=== PATIENT | male | born 1985 | race Caucasian/White ===

== ENCOUNTER 2017-10-04 04:52 | Emergency (ER) | payer OTHER ==
--- NOTE | 2017-10-04 05:13 | EDPHYS ---
Physician Documentation [facility] Name: Fransisco Juarez Age: 32 yrs Sex: Male : 1985 Arrival Date: 10/04/2017 Time: 04:55 Bed 20 Private MD: ED Physician Guerrero Chan HPI: 10/04 05:07 This 32 yrs old Male presents to ER via Ambulatory with complaints of Stiff gs Neck, Neck Pain, <24hrs Old. 05:07 The patient or guardian complains of pain, that is acute. The symptoms are located on gs the left trapezius and right trapezius. Onset: The symptoms/episode began/occurred yesterday, and became persistent. Context: The neck injury/problem resulted from standing in ackward position doing work. Associated signs and symptoms: Pertinent negatives: bladder incontinence, bowel incontinence, numbness. Modifying factors: The symptoms are alleviated by nothing. the symptoms are aggravated by movement. Severity of symptoms: At their worst the symptoms were moderate, in the emergency department the symptoms are unchanged. Historical: - Home Meds: 05:04 None [Active]; rv - PMHx: 05:04 Rheumatoid Arthritis; rv - PSHx: 05:04 None; rv - Immunization history:: Adult Immunizations up to date. - Social history:: Smoking status: unknown. - Ebola Screening: : Patient negative for fever greater than or equal to 101.5 degrees Fahrenheit, and additional compatible Ebola Virus Disease symptoms Patient denies exposure to infectious person Patient denies travel to an Ebola-affected area in the 21 days before illness onset. ROS: 05:07 All other systems are negative. gs Exam: 05:07 Head/Face: Normocephalic, atraumatic. Eyes: Pupils equal round and reactive to light, gs extra-ocular motions intact. Lids and lashes normal. Conjunctiva and sclera are non-icteric and not injected. Cornea within normal limits. Periorbital areas with no swelling, redness, or edema. ENT: Nares patent. No nasal discharge, no septal abnormalities noted. Tympanic membranes are normal and external auditory canals are clear. Oropharynx with no redness, swelling, or masses, exudates, or evidence of obstruction, uvula midline. Mucous membranes moist. Chest/axilla: Normal chest wall appearance and motion. Nontender with no deformity. No lesions are appreciated. Cardiovascular: Regular rate and rhythm with a normal S1 and S2. No gallops, murmurs, or rubs. Normal PMI, no JVD. No pulse deficits. Respiratory: Lungs have equal breath sounds bilaterally, clear to auscultation and percussion. No rales, rhonchi or wheezes noted. No increased work of breathing, no retractions or nasal flaring. Abdomen/GI: Soft, non-tender, with normal bowel sounds. No distension or tympany. No guarding or rebound. No evidence of tenderness throughout. Back: No spinal tenderness. No costovertebral tenderness. Full range of motion. Skin: Warm, dry with normal turgor. Normal color with no rashes, no lesions, and no evidence of cellulitis. MS/ Extremity: Pulses equal, no cyanosis. Neurovascular intact. Full, normal range of motion. Neuro: Awake and alert, GCS 15, oriented to person, place, time, and situation. Cranial nerves II-XII grossly intact. Motor strength 5/5 in all extremities. Sensory grossly intact. Cerebellar exam normal. Normal gait. 05:07 Constitutional: The patient appears alert, awake. 05:07 Neck: External neck: tenderness, that is mild, of the left trapezius and right trapezius, ROM/movement: pain, that is mild, with rotation to the left, with rotation to the right. 05:14 Neuro: Deep tendon reflexes are normal. Vital Signs: 05:06 BP 156 / 102; Pulse 79; Resp 16; Temp 98.1; Pulse Ox 98% on R/A; Weight 118.39 kg; rv Height 5 ft. 9 in. (175.26 cm); 05:19 BP 144 / 85; Pulse 59; Resp 16; Pulse Ox 96% ; bp 05:06 Body Mass Index 38.54 (118.39 kg, 175.26 cm) rv MDM: 05:07 Patient medically screened. 05:07 Differential diagnosis: cervical strain, Spondylolisthesis Spondylosis torticollis. Data reviewed: vital signs, nurses notes. Response to treatment: the patient's symptoms have mildly improved after treatment, and as a result, I will discharge patient. 05:15 Counseling: I had a detailed discussion with the patient and/or guardian regarding: the historical points, exam findings, and any diagnostic results supporting the discharge/admit diagnosis, the presence of at least one elevated blood pressure reading (>120/80) during this emergency department visit. Special discussion: I have referred the patient to see his PCP for further evaluation of high blood pressure. Administered Medications: No medications were administered Disposition: 10/04/17 05:13 Discharged to Home. Impression: Sprain of ligaments of cervical spine. - Condition is Stable. - Discharge Instructions: Torticollis, Acute, Cervical Sprain, Managing Your High Blood Pressure. - Prescriptions for Naprosyn 500 mg Oral Tablet - take 1 tablet by ORAL route 2 times per day take with food; 14 tablet. Valium 5 mg Oral Tablet - take 1 tablet by ORAL route every 12 hours As needed; 12 tablet. - Medication Reconciliation Form, Thank You Letter, Antibiotic Education, Prescription Opioid Use form. - Follow up: Private Physician; When: 2 - 3 days; Reason: Re-evaluation by your physician. Signatures: Guerrero Chan MD MD gs Peltier, Brian, RN RN Afshin Hernandez RN RN rv Corrections: (The following items were deleted from the chart) 05:31 05:13 10/04/2017 05:13 Discharged to Home. Impression: Sprain of ligaments of cervical bp spine. Condition is Stable. Forms are Medication Reconciliation Form, Thank You Letter, Antibiotic Education, Prescription Opioid Use. Follow up: Private Physician; When: 2 - 3 days; Reason: Re-evaluation by your physician. gs
--- NOTE | 2017-10-04 05:13 | ER ---
Nurse's Notes [facility] Name: Fransisco Juarez Age: 32 yrs Sex: Male : 1985 Arrival Date: 10/04/2017 Time: 04:55 Bed 20 Private MD: Diagnosis: Sprain of ligaments of cervical spine Presentation: 10/04 05:01 Presenting complaint: Patient states: "cant turn and bend my neck since I wake up". rv Transition of care: patient was not received from another setting of care. Onset of symptoms was October 04, 2017 at 04:00. Risk Assessment: Do you want to hurt yourself or someone else? Patient reports no desire to harm self or others. Initial Sepsis Screen: Does the patient meet any 2 criteria? No. Patient's initial sepsis screen is negative. Does the patient have a suspected source of infection? No. Patient's initial sepsis screen is negative. Care prior to arrival: None. 05:01 Method Of Arrival: Ambulatory rv 05:01 Acuity: AMILCAR 4 rv Triage Assessment: 05:04 General: Appears in no apparent distress. uncomfortable, Behavior is calm, cooperative. rv Pain: Complains of pain in neck. EENT: No signs and/or symptoms were reported regarding the EENT system. Neuro: Level of Consciousness is awake, alert, obeys commands, Oriented to person, place, time, situation. Cardiovascular: Capillary refill < 3 seconds. Respiratory: Airway is patent. GI: No signs and/or symptoms were reported involving the gastrointestinal system. : No signs and/or symptoms were reported regarding the genitourinary system. Derm: Skin is intact. Musculoskeletal: Reports pain in neck unable to turn head side to side. Historical: - Home Meds: 05:04 None [Active]; rv - PMHx: 05:04 Rheumatoid Arthritis; rv - PSHx: 05:04 None; rv - Immunization history:: Adult Immunizations up to date. - Social history:: Smoking status: unknown. - Ebola Screening: : Patient negative for fever greater than or equal to 101.5 degrees Fahrenheit, and additional compatible Ebola Virus Disease symptoms Patient denies exposure to infectious person Patient denies travel to an Ebola-affected area in the 21 days before illness onset. Screenin:02 Abuse screen: Denies threats or abuse. Denies injuries from another. Nutritional rv screening: No deficits noted. Tuberculosis screening: No symptoms or risk factors identified. Fall Risk None identified. Assessment: 05:07 General: Appears in no apparent distress. Behavior is calm, cooperative. Pain: rv Complains of pain in neck. Neuro: Level of Consciousness is awake, alert, obeys commands, Oriented to person, place, time, situation. Cardiovascular: Capillary refill < 3 seconds. Respiratory: Airway is patent. GI: No signs and/or symptoms were reported involving the gastrointestinal system. : No signs and/or symptoms were reported regarding the genitourinary system. EENT: No signs and/or symptoms were reported regarding the EENT system. Derm: Skin is intact. Musculoskeletal: Reports pain in neck unable to turn head side to side. 05:18 Reassessment: PT D/C HOME AMBULATORY, DX WITH TORTICOLLIS. bp Vital Signs: 05:06 BP 156 / 102; Pulse 79; Resp 16; Temp 98.1; Pulse Ox 98% on R/A; Weight 118.39 kg; rv Height 5 ft. 9 in. (175.26 cm); 05:19 BP 144 / 85; Pulse 59; Resp 16; Pulse Ox 96% ; bp 05:06 Body Mass Index 38.54 (118.39 kg, 175.26 cm) rv ED Course: 04:55 Patient arrived in ED. es 05:01 Guerrero Chan MD is Attending Physician. 05:02 Triage completed. rv 05:08 Arm band placed on left wrist. rv 05:09 Patient has correct armband on for positive identification. Bed in low position. Call rv light in reach. Side rails up X 1. Pulse ox on. NIBP on. 05:18 Rebel Seaman, RN is Primary Nurse. bp 05:19 No provider procedures requiring assistance completed. Patient did not have IV access bp during this emergency room visit. Administered Medications: No medications were administered Outcome: 05:13 Discharge ordered by . 05:19 Discharged to home ambulatory. bp 05:19 Condition: stable 05:19 Discharge instructions given to patient, Instructed on discharge instructions, follow up and referral plans. medication usage, Demonstrated understanding of instructions, follow-up care, medications, Prescriptions given X 2. 05:31 Patient left the ED. bp Signatures: Yue Blackman Gregory, MD MD Rebel Seaman, RN RN bp Afshin Kapoor, RN RN rv
[2017-10-04 05:35] VITALS: TEMP 98.1
[2017-10-04 05:37] VITALS: BP 144/85; O2SAT 96
== END 2017-10-04 05:31 | disposition home or self-care (01) ==
LOC: ER 04:52
DX: S13.4XXA Sprain of ligaments of cervical spine, initial encounter (principal); X58.XXXA Exposure to other specified factors, initial encounter; Y93.9 Activity, unspecified; Y92.89 Other specified places as the place of occurrence of the external cause
CPT/HCPCS: 99283

== ENCOUNTER 2017-10-27 14:14 | Emergency (ER) | payer OTHER, SELFPAY ==
[2017-10-27 14:45] LABS: Absolute Lymphocytes (CBC) 2.3 K/uL (0.7-4.9); Absolute Monocytes 0.9 K/uL (0.1-1.3); Absolute Neutrophil 4.7 K/uL (1.8-8.0); Basophils % 1.5 % (0-1.3); Eosinophils % 10.4 % (0-4.4); Hematocrit 43.3 % (39.6-49.0); Lymphocytes % 26.2 % (15.3-44.8); MCH 29.1 pg (27.0-35.0); MPV 7.7 fL (7.6-11.3); Monocytes % 9.7 % (3.3-12.3); RBC Red Blood Cell Count 5.09 M/uL (4.33-5.43)
[2017-10-27] MEDS ORDERED: LORazepam 2 MG/ML VIAL ONE (14:53)
[2017-10-27] MEDS ORDERED: KETOROLAC 30 MG/ML INJ ONE (14:54)
[2017-10-27] MEDS ORDERED: NA CHLORIDE 0.9% 1,000 ML ONE (14:54)
[2017-10-27 15:02] LABS: Albumin 3.6 g/dL (3.4-5.0); Bilirubin Direct 0.2 mg/dL (0-0.2); Bilirubin Total 0.9 mg/dL (0.2-1.0); CKMB Creatine Kinase MB 1.3 ng/mL (0.3-3.6); Magnesium 2.2 mg/dL (1.8-2.4); Potassium 3.9 mmol/L (3.5-5.1); Protein, Total 7.3 g/dL (6.4-8.2)
[2017-10-27 15:08] LABS: Protime INR 1.05
[2017-10-27] MEDS ORDERED: DIAZEPAM 10 MG/2 ML INJ SYRINGE ONE (15:35)
--- NOTE | 2017-10-27 16:45 | RAD REPORT ---
EXAM DESCRIPTION: [facility] Single View10/27/2017 4:10 pm CLINICAL HISTORY: Chest pain COMPARISON: June 2016 FINDINGS: The lungs appear clear of acute infiltrate. The heart is normal size IMPRESSION: No acute abnormalities displayed
[2017-10-27 16:58] LABS: Urine Blood NEGATIVE (NEG); Urine Glucose 1+ (NEG); Urine Protein NEGATIVE (NEG); Urine Specific Gravity 1.025 (1.005-1.030); Urine pH 5.5 (5.0-7.0)
--- NOTE | 2017-10-27 17:35 | EDPHYS ---
Physician Documentation [facility] Name: Fransisco Juarez Age: 32 yrs Sex: Male : 1985 Arrival Date: 10/27/2017 Time: 14:19 Bed 3 Private MD: ED Physician Galina Rodriguez HPI: 10/27 14:26 This 32 yrs old Male presents to ER via Unassigned with complaints of General ma2 Weakness. 14:26 Onset: The symptoms/episode began/occurred gradually, 2 day(s) ago. Severity of ma2 symptoms: At their worst the symptoms were moderate in the emergency department the symptoms are unchanged. The patient has experienced similar episodes in the past. here with sudden generalized weakness . Historical: - Allergies: 14:33 No Known Allergies; ph - Home Meds: 14:33 None [Active]; ph - PMHx: 14:33 Rheumatoid Arthritis; ph - PSHx: 14:33 None; ph - Immunization history:: Adult Immunizations unknown. - Social history:: Smoking status: Patient/guardian denies using tobacco, Patient/guardian denies using alcohol, street drugs, The patient lives with family. - Ebola Screening: : No symptoms or risks identified at this time. ROS: 14:37 Constitutional: Negative for fever, chills, and weight loss. ma2 14:37 Constitutional: Positive for fatigue, malaise. 14:37 Neuro: Positive for weakness. 14:37 All other systems are negative. 14:37 All other systems are negative. Exam: 14:37 Head/Face: Normocephalic, atraumatic. Chest/axilla: Normal chest wall appearance and ma2 motion. Nontender with no deformity. No lesions are appreciated. Cardiovascular: Regular rate and rhythm with a normal S1 and S2. No gallops, murmurs, or rubs. Normal PMI, no JVD. No pulse deficits. Respiratory: Lungs have equal breath sounds bilaterally, clear to auscultation and percussion. No rales, rhonchi or wheezes noted. No increased work of breathing, no retractions or nasal flaring. Abdomen/GI: Soft, non-tender, with normal bowel sounds. No distension or tympany. No guarding or rebound. No evidence of tenderness throughout. 14:37 Neuro: strength 4/5 all over. 14:37 Neuro: Motor: 4/5 all over. Vital Signs: 14:28 BP 137 / 85; Pulse 85; Resp 18; Temp 98.2; Pulse Ox 98% on R/A; ph 15:30 BP 141 / 81; Pulse 81; Resp 18; Pulse Ox 99% on R/A; ph 16:51 BP 135 / 84; Pulse 85; Resp 18; Pulse Ox 100% on R/A; ph 17:57 BP 129 / 87; Pulse 93; Resp 16; Temp 97.8; Pulse Ox 98% on R/A; ph MDM: 14:19 Patient medically screened. ma2 14:37 Differential Diagnosis electrolyte abnormality, hyperventilation, hypocalcemia, viral ma2 prodrome . 17:33 Data reviewed: vital signs, nurses notes, EMS record, lab test result(s), EKG, ma2 radiologic studies. Data interpreted: cafeteria monitor:. Test interpretation: by ED physician or midlevel provider: ECG, plain radiologic studies. Counseling: I had a detailed discussion with the patient and/or guardian regarding: the historical points, exam findings, and any diagnostic results supporting the discharge/admit diagnosis, the presence of at least one elevated blood pressure reading (>120/80) during this emergency department visit, radiology results, the need for outpatient follow up. Response to treatment: the patient's symptoms have markedly improved after treatment, the patient's condition has returned to base line, symptoms improved, including headache generalized weakness and extremities numbness, workup non critical he is able to walk with out assistance and able to tolerate po, will d/c home and he will f/u with pcp . 10/27 14:24 Order name: Basic Metabolic Panel; Complete Time: 15:17 10/27 14:24 Order name: CBC with Diff; Complete Time: 15:17 10/27 14:24 Order name: Ckmb; Complete Time: 15:17 10/27 14:24 Order name: CPK; Complete Time: 15:17 10/27 14:24 Order name: LFT's; Complete Time: 15:17 10/27 14:24 Order name: Magnesium; Complete Time: 15:17 10/27 14:24 Order name: NT PRO-BNP; Complete Time: 15:17 10/27 14:24 Order name: PT-INR; Complete Time: 15:17 10/27 14:24 Order name: Ptt, Activated; Complete Time: 15:17 10/27 14:24 Order name: Troponin (emerg Dept Use Only); Complete Time: 15:17 10/27 14:24 Order name: XRAY Chest (1 view); Complete Time: 16:53 10/27 15:59 Order name: Urine Dipstick--Ancillary (enter results); Complete Time: 17:36 ss 10/27 14:24 Order name: EKG; Complete Time: 14:24 10/27 14:24 Order name: Cardiac monitoring; Complete Time: 14:31 10/27 14:24 Order name: EKG - Nurse/Tech; Complete Time: 15:56 10/27 14:24 Order name: IV Saline Lock; Complete Time: 14:31 10/27 14:24 Order name: Labs collected and sent; Complete Time: 14:31 10/27 14:24 Order name: O2 Per Protocol; Complete Time: 14:31 10/27 14:24 Order name: O2 Sat Monitoring; Complete Time: 14:31 10/27 14:24 Order name: Urine Dipstick-Ancillary (obtain specimen); Complete Time: 15:53 10/27 15:22 Order name: O2; Complete Time: 15:29 10/27 17:26 Order name: Diet Regular; Complete Time: 17:27 ss Administered Medications: 14:50 Drug: NS 0.9% 1000 ml Route: IV; Rate: 1 bolus; Site: right antecubital; ph 18:35 Follow up: Response: No adverse reaction; IV Status: Completed infusion ph 14:50 Drug: Ativan 2 mg Route: IVP; Site: right antecubital; ph 16:00 Follow up: Response: No adverse reaction ph 14:50 Drug: TORadol 30 mg Route: IVP; Site: right antecubital; ph 16:00 Follow up: Response: No adverse reaction; Pain is decreased ph 15:35 Drug: Valium 10 mg Route: IVP; Site: right antecubital; sv 16:00 Follow up: Response: No adverse reaction ph Disposition: 10/27/17 17:35 Discharged to Home. Impression: Muscle weakness (generalized). - Condition is Stable. - Discharge Instructions: Weakness, [id number]. - Medication Reconciliation Form, Thank You Letter, Antibiotic Education, Prescription Opioid Use form. - Follow up: Private Physician; When: Tomorrow; Reason: Continuance of care. - Problem is new. - Symptoms have improved. Signatures: Dispatcher [employer] Veronica Griffin RN RN Latoya Hickman RN RN PeterGalina nicolas MD MD ma2 Corrections: (The following items were deleted from the chart) 18:36 17:35 10/27/2017 17:35 Discharged to Home. Impression: Muscle weakness (generalized). ph Condition is Stable. Forms are Medication Reconciliation Form, Thank You Letter, Antibiotic Education, Prescription Opioid Use. Follow up: Private Physician; When: Tomorrow; Reason: Continuance of care. Problem is new. Symptoms have improved. ma2
--- NOTE | 2017-10-27 17:35 | ER ---
Nurse's Notes [facility] Name: Fransisco Juarez Age: 32 yrs Sex: Male : 1985 Arrival Date: 10/27/2017 Time: 14:19 Bed 3 Private MD: Diagnosis: Muscle weakness (generalized) Presentation: 10/27 14:25 Presenting complaint: EMS states: Pt c/o general weakness, dizziness and numbness in ph tips of fingers and toes, pt very drowsy when EMS arrived, VSS, hx of RA. Transition of care: patient was not received from another setting of care. Onset of symptoms was October 27, 2017. Risk Assessment: Do you want to hurt yourself or someone else? Patient reports no desire to harm self or others. Initial Sepsis Screen: Does the patient meet any 2 criteria? No. Patient's initial sepsis screen is negative. Does the patient have a suspected source of infection? No. Patient's initial sepsis screen is negative. Care prior to arrival: None. 14:25 Method Of Arrival: EMS: [facility] ph 14:25 Acuity: AMILCAR 3 ph Historical: - Allergies: 14:33 No Known Allergies; ph - Home Meds: 14:33 None [Active]; ph - PMHx: 14:33 Rheumatoid Arthritis; ph - PSHx: 14:33 None; ph - Immunization history:: Adult Immunizations unknown. - Social history:: Smoking status: Patient/guardian denies using tobacco, Patient/guardian denies using alcohol, street drugs, The patient lives with family. - Ebola Screening: : No symptoms or risks identified at this time. Screenin:34 Abuse screen: Denies threats or abuse. Denies injuries from another. Nutritional ph screening: No deficits noted. Tuberculosis screening: No symptoms or risk factors identified. Fall Risk None identified. Assessment: 14:35 General: Appears in no apparent distress. comfortable, obese, Behavior is calm, ph cooperative, appropriate for age, Reports fatigue for 0-12 hours, Denies fever, feeling ill. Pain: Complains of pain in low back area. Neuro: Level of Consciousness is awake, alert, obeys commands, Oriented to person, place, time, situation. Cardiovascular: Reports fatigue, lightheadedness, Denies chest pain, Capillary refill < 3 seconds in bilateral fingers Patient's skin is warm and dry. Respiratory: Airway is patent Respiratory effort is even, unlabored, Respiratory pattern is regular, symmetrical, Denies cough, shortness of breath. GI: Abdomen is round non-distended, Bowel sounds present X 4 quads. Abd is soft and non tender X 4 quads. Reports diarrhea, Patient currently denies abdominal pain, nausea, vomiting. : Reports pain in bilateral flank(s), in lower back Denies burning with urination, inability to void, urinary frequency. Derm: Skin is intact, is healthy with good turgor, Skin is pink, warm \\T\\ dry. Musculoskeletal: Circulation, motion, and sensation intact. Range of motion: intact in all extremities. 15:30 Reassessment: Patient and/or family updated on plan of care and expected duration. Pain ph level reassessed. Patient is alert, oriented x 3, equal unlabored respirations, skin warm/dry/pink. Pt c/o pain in back, appears anxious w/ tachypneic respirations noted, NRB in place w/ no O2 per provider order, see MAR. 15:45 Reassessment: Patient appears in no apparent distress at this time. Pt asleep w/ even, ph unlabored respirations, NRB mask removed. 16:30 Reassessment: Patient appears in no apparent distress at this time. Patient is alert, ph oriented x 3, equal unlabored respirations, skin warm/dry/pink. Pt sitting up in bed, appears less anxious, also appears more alert compared to drowsy state upon arrival to ED, reports that back pain has improved, states, " I still have a little twinge but it feels better than it did.". 16:41 Reassessment: Patient appears in no apparent distress at this time. Patient and/or ph family updated on plan of care and expected duration. Pain level reassessed. Patient is alert, oriented x 3, equal unlabored respirations, skin warm/dry/pink. Pt requesting nurse at bedside, states, " My hand is blue, it wasn't like that before." Area noted on palm of L hand under thumb, blue and purple in appearance, warm to touch, appears to be a bruise, ERP notified of pt's concern. 17:04 Reassessment: Pt attempted to ambulate in the hallway. Pt c/o dizziness. Pt sat in a sv wheelchair and placed back in the stretcher. Dr Rodriguez informed. 17:55 Reassessment: Patient appears in no apparent distress at this time. Patient and/or ph family updated on plan of care and expected duration. Pain level reassessed. Patient is alert, oriented x 3, equal unlabored respirations, skin warm/dry/pink. Pt sitting up in bed, given dinner tray and is eating now, tolerating well, will discharge when pt has finished dinner, at bedside. 18:32 Reassessment: Patient appears in no apparent distress at this time. Patient and/or ph family updated on plan of care and expected duration. Pain level reassessed. Patient is alert, oriented x 3, equal unlabored respirations, skin warm/dry/pink. Pt d/c home, [facility] w/ no difficulty noted, denies dizziness. Vital Signs: 14:28 BP 137 / 85; Pulse 85; Resp 18; Temp 98.2; Pulse Ox 98% on R/A; ph 15:30 BP 141 / 81; Pulse 81; Resp 18; Pulse Ox 99% on R/A; ph 16:51 BP 135 / 84; Pulse 85; Resp 18; Pulse Ox 100% on R/A; ph 17:57 BP 129 / 87; Pulse 93; Resp 16; Temp 97.8; Pulse Ox 98% on R/A; ph ED Course: 14:19 Patient arrived in ED. ss 14:19 Galina Rodriguez MD is Attending Physician. ma2 14:24 Inserted saline lock: 20 gauge in right antecubital area, using aseptic technique. ss Blood collected. 14:25 Latoya Hickman, RAGHAVENDRA is Primary Nurse. ph 14:28 Triage completed. ph 14:34 Arm band placed on. ph 14:35 Patient has correct armband on for positive identification. Bed in low position. Call ph light in reach. Side rails up X 1. Pulse ox on. NIBP on. Warm blanket given. 16:09 XRAY Chest (1 view) In Process Unspecified. EDMS 16:45 No provider procedures requiring assistance completed. ph 18:36 IV discontinued, intact, bleeding controlled, No redness/swelling at site. Pressure ph dressing applied. Administered Medications: 14:50 Drug: NS 0.9% 1000 ml Route: IV; Rate: 1 bolus; Site: right antecubital; ph 18:35 Follow up: Response: No adverse reaction; IV Status: Completed infusion ph 14:50 Drug: Ativan 2 mg Route: IVP; Site: right antecubital; ph 16:00 Follow up: Response: No adverse reaction ph 14:50 Drug: TORadol 30 mg Route: IVP; Site: right antecubital; ph 16:00 Follow up: Response: No adverse reaction; Pain is decreased ph 15:35 Drug: Valium 10 mg Route: IVP; Site: right antecubital; sv 16:00 Follow up: Response: No adverse reaction ph Outcome: 17:35 Discharge ordered by MD. irvin 18:36 Discharged to home ambulatory, with significant other. ph 18:36 Condition: improved 18:36 Discharge instructions given to patient, Instructed on discharge instructions, follow up and referral plans. Demonstrated understanding of instructions, follow-up care. 18:36 Patient left the ED. ph Signatures: Dispatcher [employer] Veronica Griffin RN RN sv Smirch, Shelby, RN RN ss Hall, Patricia, RN RN ph Alzahri, Mohammad, MD MD ma2
[2017-10-27 18:50] VITALS: BP 129/87; TEMP 97.8; O2SAT 98
--- NOTE | 2017-10-28 06:48 | EKG ---
Test Date: 2017-10-27 Test Time: 16:27:15 Lead Java Programmer: LENCHO MEASUREMENT RESULTS: Intervals: Rate: 78 AL: 140 QRSD: 82 QT: 392 QTc: 446 [place]: P: 30 AL: 140 QRS: 62 T: 30 INTERPRETIVE STATEMENTS: Normal sinus rhythm Nonspecific T wave abnormality Abnormal ECG Compared to ECG 06/12/2016 10:17:14 T-wave abnormality now present Electronically Signed On 10-28-17 06:48:10 CDT by Mark Boone
== END 2017-10-27 18:36 | disposition home or self-care (01) ==
LOC: ER 14:14
DX: M62.81 Muscle weakness (generalized) (principal)
CPT/HCPCS: 36415; 71045; 80048; 80076; 81003; 82550; 82553; 83735; 83880; 84484; 85025; 85610; 85730; 93005; 96361; 96374; 96375; 99284; J3360; J7030

== ENCOUNTER 2017-11-17 12:34 | Emergency (ER) | payer OTHER ==
[2017-11-17 13:36] LABS: Urine Blood 2+ (NEG); Urine Glucose NEGATIVE (NEG); Urine Protein NEGATIVE (NEG); Urine Specific Gravity 1.025 (1.005-1.030); Urine pH 5.5 (5.0-7.0)
[2017-11-17 13:48] LABS: Absolute Monocytes 0.8 K/uL (0.1-1.3); Absolute Neutrophil 5.1 K/uL (1.8-8.0); Eosinophils % 6.3 % (0-4.4); Hematocrit 41.8 % (39.6-49.0); Lymphocytes % 23.5 % (15.3-44.8); MCH 29.1 pg (27.0-35.0); MCV 84.7 fL (80-100); MPV 7.9 fL (7.6-11.3); Monocytes % 9.2 % (3.3-12.3); RBC Red Blood Cell Count 4.94 M/uL (4.33-5.43)
--- NOTE | 2017-11-17 13:58 | RAD REPORT ---
EXAM DESCRIPTION: CT - Stone Protocol - 11/17/2017 1:47 pm CLINICAL HISTORY: Abdominal pain. Left lower quadrant pain/dysuria COMPARISON: 2012 TECHNIQUE: Computed axial tomography of the abdomen pelvis was obtained without oral or IV contrast. Lack of IV and oral contrast limits evaluation of solid organs, bowel, and vessels. Coronal reformat dora images were obtained and reviewed. All CT scans are performed using dose optimization technique as appropriate and may include automated exposure control or mA/KV adjustment according to patient size. FINDINGS: Small nonobstructing bilateral renal calculi are present without hydronephrosis. A uretera l calculus is not seen. A bladder calculus is not visualized. Fatty infiltration liver is present. Spleen, pancreas and adrenals appear grossly normal There is no evidence of diverticulitis. The appendix appears normal Small inguinal hernias contain fat. Tiny umbilical hernia is present. IMPRESSION: Nonobstructing bilateral renal calculi
--- NOTE | 2017-11-17 14:05 | EDPHYS ---
Physician Documentation [facility] Name: Fransisco Juarez Age: 32 yrs Sex: Male : 1985 Arrival Date: 11/17/2017 Time: 12:41 Bed 23 Private MD: None, None ED Physician Tomasz Sterling HPI: 11/17 14:02 This 32 yrs old Male presents to ER via Ambulatory with complaints of jr8 Abdominal Pain, Urinary Problem. 14:02 The patient presents with abdominal pain in the left lower quadrant. Onset: The jr8 symptoms/episode began/occurred acutely, today. The symptoms do not radiate. Associated signs and symptoms: Pertinent positives: dysuria. The symptoms are described as achy, dull. Modifying factors: The symptoms are alleviated by nothing, the symptoms are aggravated by urinating. Severity of pain: At its worst the pain was mild in the emergency department the pain is unchanged. The patient has experienced similar episodes in the past, a few times. The patient has not recently seen a physician. Stated that he thinks he has another kidney stone. Stated that while urinating here thinks he may have passed it. Pain is less and stone present in urine . Historical: - Allergies: 13:03 No Known Allergies; ch - Home Meds: 13:03 None [Active]; ch - PMHx: 13:03 Rheumatoid Arthritis; Kidney stones; ch - PSHx: 13:03 abdominal abscess behind belly button removed; ch - Immunization history:: Adult Immunizations up to date. - Social history:: Smoking status: Patient/guardian denies using tobacco. - Ebola Screening: : Patient negative for fever greater than or equal to 101.5 degrees Fahrenheit, and additional compatible Ebola Virus Disease symptoms Patient denies exposure to infectious person Patient denies travel to an Ebola-affected area in the 21 days before illness onset No symptoms or risks identified at this time. ROS: 14:02 Eyes: Negative for injury, pain, redness, and discharge, ENT: Negative for injury, jr8 pain, and discharge, Neck: Negative for injury, pain, and swelling, Cardiovascular: Negative for chest pain, palpitations, and edema, Respiratory: Negative for shortness of breath, cough, wheezing, and pleuritic chest pain, MS/Extremity: Negative for injury and deformity, Skin: Negative for injury, rash, and discoloration, Neuro: Negative for headache, weakness, numbness, tingling, and seizure. 14:02 Abdomen/GI: Positive for abdominal pain, Negative for nausea, vomiting, and diarrhea, abdominal cramps, abdominal distension, anorexia, dysphagia, hematemesis, black/tarry stool, rectal pain, rectal bleeding, bowel incontinence, flatulence. 14:02 : Positive for urinary symptoms. Exam: 14:02 Eyes: Pupils equal round and reactive to light, extra-ocular motions intact. Lids and jr8 lashes normal. Conjunctiva and sclera are non-icteric and not injected. Cornea within normal limits. Periorbital areas with no swelling, redness, or edema. ENT: Nares patent. No nasal discharge, no septal abnormalities noted. Tympanic membranes are normal and external auditory canals are clear. Oropharynx with no redness, swelling, or masses, exudates, or evidence of obstruction, uvula midline. Mucous membranes moist. Neck: Trachea midline, no thyromegaly or masses palpated, and no cervical lymphadenopathy. Supple, full range of motion without nuchal rigidity, or vertebral point tenderness. No Meningismus. Cardiovascular: Regular rate and rhythm with a normal S1 and S2. No gallops, murmurs, or rubs. Normal PMI, no JVD. No pulse deficits. Respiratory: Lungs have equal breath sounds bilaterally, clear to auscultation and percussion. No rales, rhonchi or wheezes noted. No increased work of breathing, no retractions or nasal flaring. Back: No spinal tenderness. No costovertebral tenderness. Full range of motion. Skin: Warm, dry with normal turgor. Normal color with no rashes, no lesions, and no evidence of cellulitis. MS/ Extremity: Pulses equal, no cyanosis. Neurovascular intact. Full, normal range of motion. Neuro: Awake and alert, GCS 15, oriented to person, place, time, and situation. Cranial nerves II-XII grossly intact. Motor strength 5/5 in all extremities. Sensory grossly intact. Cerebellar exam normal. Normal gait. 14:02 Abdomen/GI: Inspection: obese Bowel sounds: normal, Palpation: soft, in all quadrants, mild abdominal tenderness, in the left lower quadrant, mass, is not appreciated, rebound tenderness, is not appreciated, voluntary guarding, is not appreciated, involuntary guarding, is not appreciated, no appreciated organomegaly, Indicators: McBurney's point is not tender, Lopez's sign is negative, Rovsing's sign is negative, Liver: no appreciated palpable abnormalities, tenderness, is not appreciated. Vital Signs: 13:03 BP 130 / 90; Pulse 79; Resp 14; Temp 98.6(O); Pulse Ox 99% on R/A; Weight 117.93 kg; ch Height 5 ft. 9 in. (175.26 cm); Pain 3/10; 13:03 Body Mass Index 38.39 (117.93 kg, 175.26 cm) ch MDM: 13:08 Patient medically screened. jr8 14:04 Data reviewed: vital signs, nurses notes, lab test result(s), radiologic studies, CT jr8 scan, and as a result, I will discharge patient. Data interpreted: Pulse oximetry: on room air is 99 %. Interpretation: normal. Counseling: I had a detailed discussion with the patient and/or guardian regarding: the historical points, exam findings, and any diagnostic results supporting the discharge/admit diagnosis, lab results, radiology results, the need for outpatient follow up, a urologist, to return to the emergency department if symptoms worsen or persist or if there are any questions or concerns that arise at home. 11/17 13:31 Order name: Urine Dipstick--Ancillary (enter results); Complete Time: 13:37 bd 11/17 13:35 Order name: CBC with Diff; Complete Time: 14:01 jr8 11/17 13:35 Order name: Basic Metabolic Panel; Complete Time: 14:05 jr8 11/17 13:35 Order name: IV; Complete Time: 13:41 jr8 11/17 13:35 Order name: CT Stone Protocol; Complete Time: 14:01 jr8 Administered Medications: No medications were administered Disposition: 11/18 14:13 Co-signature as Attending Physician, Tomasz Sterling MD I agree with the assessment and ronnie plan of care. Disposition: 11/17/17 14:04 Discharged to Home. Impression: Kidney stones . - Condition is Stable. - Discharge Instructions: Kidney Stones. - Medication Reconciliation Form, Thank You Letter, Antibiotic Education, Prescription Opioid Use form. - Follow up: Private Physician; When: 2 - 3 days; Reason: Recheck today's complaints, Continuance of care, Re-evaluation by your physician. - Problem is new. - Symptoms have improved. Signatures: Dispatcher [employer] EDRaquel Benedict, RN RN Tomasz Ho MD MD cha Williams, Irene, RN RN Kevin Ann PA PA jr8 Corrections: (The following items were deleted from the chart) 11/17 14:29 14:04 11/17/2017 14:04 Discharged to Home. Impression: Kidney stones . Condition is iw Stable. Forms are Medication Reconciliation Form, Thank You Letter, Antibiotic Education, Prescription Opioid Use. Follow up: Private Physician; When: 2 - 3 days; Reason: Recheck today's complaints, Continuance of care, Re-evaluation by your physician. Problem is new. Symptoms have improved. jr8
--- NOTE | 2017-11-17 14:05 | ER ---
Nurse's Notes [facility] Name: Fransisco Juarez Age: 32 yrs Sex: Male : 1985 Arrival Date: 11/17/2017 Time: 12:41 Bed 23 Private MD: None, None Diagnosis: Kidney stones Presentation: 11/17 13:01 Presenting complaint: Patient states: pain to llq, feels like a kidney stone. pt has hx ch of kidney stones. difficulty urinating, burning with urination as well. states pain comes and goes, is a sharp stabbing pain when it comes. Transition of care: patient was not received from another setting of care. Onset of symptoms was November 17, 2017 at 11:30. Risk Assessment: Do you want to hurt yourself or someone else? Patient reports no desire to harm self or others. Initial Sepsis Screen: Does the patient meet any 2 criteria? No. Patient's initial sepsis screen is negative. Does the patient have a suspected source of infection? No. Patient's initial sepsis screen is negative. Care prior to arrival: None. 13:01 Method Of Arrival: Ambulatory 13:01 Acuity: AMILCAR 3 ch Triage Assessment: 13:03 General: Appears in no apparent distress. comfortable, Behavior is calm, cooperative, ch appropriate for age. Pain: Complains of pain in anterior aspect of left lateral abdomen and left lower quadrant Pain radiates to pelvis Quality of pain is described as pressure, sharp. Neuro: No deficits noted. Respiratory: Airway is patent Respiratory effort is even, unlabored, Breath sounds are clear bilaterally. GI: Abdomen is round non-distended, Bowel sounds present X 4 quads. Abd is soft and non tender X 4 quads. : Denies burning with urination, pain urinary frequency. Derm: No signs and/or symptoms reported regarding the dermatologic system. Historical: - Allergies: 13:03 No Known Allergies; ch - Home Meds: 13:03 None [Active]; ch - PMHx: 13:03 Rheumatoid Arthritis; Kidney stones; ch - PSHx: 13:03 abdominal abscess behind belly button removed; ch - Immunization history:: Adult Immunizations up to date. - Social history:: Smoking status: Patient/guardian denies using tobacco. - Ebola Screening: : Patient negative for fever greater than or equal to 101.5 degrees Fahrenheit, and additional compatible Ebola Virus Disease symptoms Patient denies exposure to infectious person Patient denies travel to an Ebola-affected area in the 21 days before illness onset No symptoms or risks identified at this time. Screenin:06 Abuse screen: Denies threats or abuse. Denies injuries from another. Nutritional screening: No deficits noted. Tuberculosis screening: No symptoms or risk factors identified. Fall Risk None identified. Assessment: 13:06 Reassessment: Patient appears in no apparent distress at this time. No changes from previously documented assessment. 14:27 Reassessment: Patient appears in no apparent distress at this time. Patient and/or iw family updated on plan of care and expected duration. Pain level reassessed. Patient is alert, oriented x 3, equal unlabored respirations, skin warm/dry/pink. Patient states feeling better. Patient states symptoms have improved. Vital Signs: 13:03 BP 130 / 90; Pulse 79; Resp 14; Temp 98.6(O); Pulse Ox 99% on R/A; Weight 117.93 kg; ch Height 5 ft. 9 in. (175.26 cm); Pain 3/10; 13:03 Body Mass Index 38.39 (117.93 kg, 175.26 cm) ED Course: 12:41 Patient arrived in ED. mr 12:41 None, None is Private Physician. mr 13:01 Raquel Esteban, RN is Primary Nurse. 13:03 Triage completed. 13:03 Arm band placed on left wrist. Patient placed in an exam room, on a stretcher, Patient ch notified of wait time. 13:06 No apparent distress. Resting quietly. 13:06 Patient has correct armband on for positive identification. Placed in gown. Bed in low ch position. Call light in reach. Side rails up X 1. Adult w/ patient. Pulse ox on. NIBP on. 13:06 No provider procedures requiring assistance completed. Urine collected: clean catch specimen. 13:07 Kevin Kelly PA is PHCP. jr8 13:07 Tomasz Sterling MD is Attending Physician. jr8 13:41 Inserted saline lock: 18 gauge in right upper arm, using aseptic technique. Blood collected. 13:46 CT completed. Patient tolerated procedure well. Patient moved to CT. Patient moved back id from CT. 13:47 CT Stone Protocol In Process Unspecified. EDMS 14:29 IV discontinued, intact, bleeding controlled, No redness/swelling at site. Pressure iw dressing applied. Administered Medications: No medications were administered Outcome: 14:04 Discharge ordered by MD. pope 14:28 Discharged to home ambulatory, with family. iw 14:28 Condition: good 14:28 Discharge instructions given to patient, family, Instructed on discharge instructions, follow up and referral plans. Demonstrated understanding of instructions, follow-up care. 14:29 Patient left the ED. iw Signatures: Dispatcher [employer] EDMS Raquel Esteban, RN RN Mary Ann Lisa Irene RN RN iw Kevin Kelly PA PA jr8 Jordan, Nathan nj
[2017-11-17 14:42] VITALS: BP 130/90; TEMP 98.6; O2SAT 99
== END 2017-11-17 14:29 | disposition home or self-care (01) ==
LOC: ER 12:34
DX: N20.0 Calculus of kidney (principal)
CPT/HCPCS: 36415; 74176; 76377; 80048; 81003; 85025; 99284

== ENCOUNTER 2018-04-08 17:23 | Emergency (ER) | payer OTHER ==
--- NOTE | 2018-04-08 18:39 | ER ---
Nurse's Notes [facility] Name: Fransisco Juarez Age: 33 yrs Sex: Male : 1985 Arrival Date: 04/08/2018 Time: 17:28 Bed 16 Private MD: Diagnosis: Diarrhea, unspecified Presentation: 04/08 17:39 Presenting complaint: Patient states: SOB, nausea, "diarrhea like symptoms", headache, aj and fever since yesterday. Transition of care: patient was not received from another setting of care. Onset of symptoms was April 07, 2018. Risk Assessment: Do you want to hurt yourself or someone else? Patient reports no desire to harm self or others. Initial Sepsis Screen: Does the patient meet any 2 criteria? No. Patient's initial sepsis screen is negative. Does the patient have a suspected source of infection? No. Patient's initial sepsis screen is negative. Care prior to arrival: None. 17:39 Method Of Arrival: Ambulatory aj 17:39 Acuity: AMILCAR 4 aj Triage Assessment: 17:40 General: Appears in no apparent distress. comfortable, Behavior is calm, cooperative, aj appropriate for age. Pain: Complains of pain in face. Neuro: Level of Consciousness is awake, alert, obeys commands, Oriented to person, place, time, situation, Appropriate for age Reports headache. Respiratory: Airway is patent Respiratory effort is even, unlabored, Respiratory pattern is regular, symmetrical. GI: Reports nausea. Derm: Skin is intact, is healthy with good turgor, Skin is pink, warm \\T\\ dry. normal. Historical: - Allergies: 17:40 No Known Allergies; aj - Home Meds: 17:40 None [Active]; aj - PMHx: 17:40 Rheumatoid Arthritis; Kidney stones; aj - PSHx: 17:40 abdominal abscess behind belly button removed; aj - Immunization history:: Adult Immunizations up to date. - Social history:: Smoking status: Patient/guardian denies using tobacco, Patient/guardian denies using alcohol, street drugs, The patient lives with family. - Ebola Screening: : Patient negative for fever greater than or equal to 101.5 degrees Fahrenheit, and additional compatible Ebola Virus Disease symptoms Patient denies exposure to infectious person Patient denies travel to an Ebola-affected area in the 21 days before illness onset No symptoms or risks identified at this time. - Family history:: not pertinent. - Hospitalizations: : No recent hospitalization is reported. Screenin:31 Abuse screen: Denies threats or abuse. Denies injuries from another. Nutritional sv screening: No deficits noted. Tuberculosis screening: No symptoms or risk factors identified. Fall Risk None identified. Assessment: 18:30 General: Appears in no apparent distress. comfortable, well developed, Behavior is sv calm, cooperative, appropriate for age. Pain: Denies pain. Neuro: Level of Consciousness is awake, alert, obeys commands, Oriented to person, place, time, situation, Moves all extremities. Full function Gait is steady, Speech is normal. Respiratory: Respiratory effort is even, unlabored, Respiratory pattern is regular, symmetrical. GI: Reports diarrhea, nausea, vomiting. Vital Signs: 17:40 BP 132 / 88; Pulse 104; Resp 20; Temp 97.9; Pulse Ox 99% on R/A; Weight 117.93 kg; aj Height 5 ft. 9 in. (175.26 cm); 17:40 Body Mass Index 38.39 (117.93 kg, 175.26 cm) aj ED Course: 17:28 Patient arrived in ED. rg4 17:40 Triage completed. aj 17:40 Arm band placed on left wrist. Patient placed in waiting room, Patient notified of wait aj time. 18:22 Galina Rodriguez MD is Attending Physician. ma2 18:31 Veronica Watts RN is Primary Nurse. sv 18:31 Patient has correct armband on for positive identification. Bed in low position. Door sv closed. Head of bed elevated. 18:58 No provider procedures requiring assistance completed. Patient did not have IV access sv during this emergency room visit. Administered Medications: No medications were administered Outcome: 18:39 Discharge ordered by . ma2 18:58 Discharged to home ambulatory. sv 18:58 Condition: stable 18:58 Discharge instructions given to patient, Instructed on discharge instructions, follow up and referral plans. medication usage, Demonstrated understanding of instructions, follow-up care, medications, Prescriptions given X 1. 18:59 Patient left the ED. sv Signatures: Veronica Watts RN RN sv Myers, Amanda, RN RN aj Garcia, Rubi rg4 Galina Rodriguez MD MD [facility]
--- NOTE | 2018-04-08 18:39 | EDPHYS ---
Physician Documentation [facility] Name: Fransisco Juarez Age: 33 yrs Sex: Male : 1985 Arrival Date: 04/08/2018 Time: 17:28 Bed 16 Private MD: ED Physician Galina Rodriguez HPI: 04/08 18:36 This 33 yrs old Male presents to ER via Ambulatory with complaints of Nausea, ma2 Abdominal Pain, Fever, Headache. 18:36 The patient presents to the emergency department with nausea, vomiting, diarrhea. ma2 Onset: The symptoms/episode began/occurred gradually, 1 day(s) ago. Possible causes: unknown. Associated signs and symptoms: Pertinent negatives: abdominal pain, anorexia, belching, constipation, diarrhea, dysuria, flatulence. Severity of symptoms: At their worst the symptoms were mild in the emergency department the symptoms are unchanged. The patient has not experienced similar symptoms in the past. Historical: - Allergies: 17:40 No Known Allergies; aj - Home Meds: 17:40 None [Active]; aj - PMHx: 17:40 Rheumatoid Arthritis; Kidney stones; aj - PSHx: 17:40 abdominal abscess behind belly button removed; aj - Immunization history:: Adult Immunizations up to date. - Social history:: Smoking status: Patient/guardian denies using tobacco, Patient/guardian denies using alcohol, street drugs, The patient lives with family. - Ebola Screening: : Patient negative for fever greater than or equal to 101.5 degrees Fahrenheit, and additional compatible Ebola Virus Disease symptoms Patient denies exposure to infectious person Patient denies travel to an Ebola-affected area in the 21 days before illness onset No symptoms or risks identified at this time. - Family history:: not pertinent. - Hospitalizations: : No recent hospitalization is reported. ROS: 18:36 Constitutional: Negative for fever, chills, and weight loss. ma2 18:36 Eyes: Negative for injury, pain, redness, and discharge, ENT: Negative for injury, pain, and discharge, Neck: Negative for injury, pain, and swelling, Psych: Negative for depression, anxiety, suicide ideation, homicidal ideation, and hallucinations, Allergy/Immunology: Negative for hives, rash, and allergies, Endocrine: Negative for neck swelling, polydipsia, polyuria, polyphagia, and marked weight changes. 18:36 Abdomen/GI: Positive for nausea, vomiting, and diarrhea, Negative for abdominal pain, constipation, abdominal distension, black/tarry stool, rectal pain, flatulence. Exam: 18:36 Constitutional: This is a well developed, well nourished patient who is awake, alert, ma2 and in no acute distress. Chest/axilla: Normal chest wall appearance and motion. Nontender with no deformity. No lesions are appreciated. Cardiovascular: Regular rate and rhythm with a normal S1 and S2. No gallops, murmurs, or rubs. Normal PMI, no JVD. No pulse deficits. Respiratory: Lungs have equal breath sounds bilaterally, clear to auscultation and percussion. No rales, rhonchi or wheezes noted. No increased work of breathing, no retractions or nasal flaring. Abdomen/GI: Soft, non-tender, with normal bowel sounds. No distension or tympany. No guarding or rebound. No evidence of tenderness throughout. MS/ Extremity: Pulses equal, no cyanosis. Neurovascular intact. Full, normal range of motion. Neuro: Awake and alert, GCS 15, oriented to person, place, time, and situation. Cranial nerves II-XII grossly intact. Motor strength 5/5 in all extremities. Sensory grossly intact. Cerebellar exam normal. Normal gait. Vital Signs: 17:40 BP 132 / 88; Pulse 104; Resp 20; Temp 97.9; Pulse Ox 99% on R/A; Weight 117.93 kg; aj Height 5 ft. 9 in. (175.26 cm); 17:40 Body Mass Index 38.39 (117.93 kg, 175.26 cm) aj MDM: 18:22 Patient medically screened. ma2 18:36 Differential diagnosis: Nonspecific abd pain, gastritis, viral gastroenteritis, ma2 gastroenteritis. Data reviewed: vital signs, nurses notes. Counseling: I had a detailed discussion with the patient and/or guardian regarding: the historical points, exam findings, and any diagnostic results supporting the discharge/admit diagnosis, the presence of at least one elevated blood pressure reading (>120/80) during this emergency department visit, the need for outpatient follow up. Administered Medications: No medications were administered Disposition: 04/08/18 18:39 Discharged to Home. Impression: Diarrhea, unspecified. - Condition is Stable. - Discharge Instructions: Diarrhea, Adult, Form - Excuse from Work, School, or Physical Activity. - Prescriptions for Zofran 4 mg Oral Tablet - take 1 tablet by ORAL route every 12 hours As needed; 20 tablet. - Medication Reconciliation Form, Thank You Letter, Antibiotic Education, Prescription Opioid Use form. - Follow up: Private Physician; When: Tomorrow; Reason: Continuance of care. - Problem is new. - Symptoms are unchanged. Signatures: Veronica Watts RN RN sv Myers, Amanda, RN RN aj Alzahri, Mohammad, MD MD ma2 Corrections: (The following items were deleted from the chart) 18:59 18:39 04/08/2018 18:39 Discharged to Home. Impression: Diarrhea, unspecified. Condition sv is Stable. Forms are Medication Reconciliation Form, Thank You Letter, Antibiotic Education, Prescription Opioid Use. Follow up: Private Physician; When: Tomorrow; Reason: Continuance of care. Problem is new. Symptoms are unchanged. ma2
[2018-04-08 19:05] VITALS: BP 132/88; TEMP 97.9; O2SAT 99
== END 2018-04-08 18:59 | disposition home or self-care (01) ==
LOC: ER 17:23
DX: R19.7 Diarrhea, unspecified (principal)
CPT/HCPCS: 99282

== ENCOUNTER 2018-05-10 19:05 | Emergency (ER) | payer OTHER ==
[2018-05-10 21:44] LABS: Absolute Lymphocytes (CBC) 3.3 K/uL (0.7-4.9); Absolute Monocytes 0.9 K/uL (0.1-1.3); Absolute Neutrophil 5.6 K/uL (1.8-8.0); Eosinophils % 4.7 % (0-4.4); Hematocrit 44.4 % (39.6-49.0); Lymphocytes % 31.4 % (15.3-44.8); MPV 7.7 fL (7.6-11.3); Monocytes % 8.5 % (3.3-12.3); RBC Red Blood Cell Count 5.35 M/uL (4.33-5.43)
[2018-05-10 22:12] LABS: Albumin 3.8 g/dL (3.4-5.0); Bilirubin Total 0.7 mg/dL (0.2-1.0); Potassium 3.6 mmol/L (3.5-5.1); Protein, Total 7.4 g/dL (6.4-8.2)
--- NOTE | 2018-05-10 22:12 | RAD REPORT ---
EXAM DESCRIPTION: RAD - Chest Single View - 05/10/2018 9:21 pm CLINICAL HISTORY: Shortness of breath, cough and congestion COMPARISON: October 2017 TECHNIQUE: AP portable chest image was obtained 7 hours . FINDINGS: Lung volumes are low. No focal lung parenchymal process. No failure or volume overload. He art and vasculature are normal. No measurable pleural effusion and no pneumothorax. No acute bony abn ormality seen. No acute aortic findings suspected. IMPRESSION: No acute cardiopulmonary process. No significant change from comparison.
--- NOTE | 2018-05-10 22:25 | ER ---
Nurse's Notes [facility] Name: Fransisco Juarez Age: 33 yrs Sex: Male : 1985 Arrival Date: 05/10/2018 Time: 19:07 Bed 12 Private MD: Diagnosis: Acute bronchitis;Acute sinusitis Presentation: 05/10 19:18 Presenting complaint: Patient states: For about a week and a half, continued lp1 congestion, productive cough, fatigue with no improvement; "It feels like it's hard to swallow"; Denies any fever. Transition of care: patient was not received from another setting of care. Onset of symptoms. Risk Assessment: Do you want to hurt yourself or someone else? Patient reports no desire to harm self or others. Initial Sepsis Screen: Does the patient meet any 2 criteria? No. Patient's initial sepsis screen is negative. Does the patient have a suspected source of infection? No. Patient's initial sepsis screen is negative. Care prior to arrival: None. 19:18 Method Of Arrival: Ambulatory lp1 19:18 Acuity: AMILCAR 4 lp1 Historical: - Allergies: 19:22 No Known Allergies; lp1 - Home Meds: 19:22 None [Active]; lp1 - PMHx: 19:22 Kidney stones; Rheumatoid Arthritis; lp1 - PSHx: 19:22 None; lp1 - Immunization history:: Adult Immunizations up to date, Flu vaccine is up to date. - Social history:: Smoking status: Patient/guardian denies using tobacco. - Ebola Screening: : No symptoms or risks identified at this time. Screenin:23 Abuse screen: Denies threats or abuse. Denies injuries from another. Nutritional lp1 screening: No deficits noted. Tuberculosis screening: No symptoms or risk factors identified. Fall Risk None identified. Assessment: 20:18 General: Appears uncomfortable, Behavior is calm, cooperative. Pain: Complains of pain ed1 in face Pain does not radiate. Pain currently is 8 out of 10 on a pain scale. Quality of pain is described as aching, Pain began 2-3 days ago. Is continuous. Neuro: Level of Consciousness is awake, alert, obeys commands, Oriented to person, place, time, situation, Reports headache in entire parietal area, frontal area, occipital area. Cardiovascular: Denies chest pain, Heart tones S1 S2 present. Respiratory: Reports cough that is non-productive, Airway is patent Respiratory effort is even, unlabored, Respiratory pattern is regular, symmetrical, Breath sounds are clear bilaterally. GI: No signs and/or symptoms were reported involving the gastrointestinal system. : No signs and/or symptoms were reported regarding the genitourinary system. EENT: Reports pain when swallowing. Derm: Skin is intact, is healthy with good turgor, Skin is dry, Skin is normal, Skin temperature is warm. Musculoskeletal: Circulation, motion, and sensation intact. Range of motion: intact in all extremities. 22:34 Reassessment: Patient appears in no apparent distress at this time. No changes from ed1 previously documented assessment. Patient and/or family updated on plan of care and expected duration. Pain level reassessed. Patient is alert, oriented x 3, equal unlabored respirations, skin warm/dry/pink. Patient states symptoms have not improved. Vital Signs: 19:21 BP 141 / 91; Pulse 95; Resp 18; Temp 98.2(TE); Pulse Ox 98% on R/A; lp1 22:34 BP 138 / 96; Pulse 83; Resp 17; Temp 97.3(O); Pulse Ox 100% on R/A; Pain 4/10; ed1 ED Course: 19:07 Patient arrived in ED. al2 19:21 Triage completed. lp1 19:21 Arm band placed on right wrist. lp1 19:46 Miriam Overton, RAGHAVENDRA is Primary Nurse. ed1 20:10 Ammon Andres PA is PHCP. m 20:10 Guerrero Chan MD is Attending Physician. [facility] 20:18 Patient has correct armband on for positive identification. Call light in reach. ed1 21:22 Chest Single View XRAY In Process Unspecified. EDMS 21:25 Initial lab(s) drawn, by me, sent to lab. Inserted saline lock: 20 gauge in right Blood ed1 collected. 22:34 No provider procedures requiring assistance completed. IV discontinued, intact, ed1 bleeding controlled, No redness/swelling at site. Pressure dressing applied. Administered Medications: No medications were administered Outcome: 22:25 Discharge ordered by . [facility] 22:34 Discharged to home ambulatory. ed1 22:34 Condition: good 22:34 Discharge instructions given to patient, Instructed on discharge instructions, follow up and referral plans. medication usage, Demonstrated understanding of instructions, follow-up care, medications, Prescriptions given X 3. 22:35 Patient left the ED. ed1 Signatures: Dispatcher [employer] EDAmmon Greer PA PA jmm Riggs, Erika RN RN ed1 Liset Bowser RN RN lp1 Traci Cevallos2
--- NOTE | 2018-05-10 22:26 | EDPHYS ---
Physician Documentation [facility] Name: Fransisco Juarez Age: 33 yrs Sex: Male : 1985 Arrival Date: 05/10/2018 Time: 19:07 Bed 12 Private MD: ED Physician Guerrero Chan HPI: 05/10 20:44 This 33 yrs old Male presents to ER via Ambulatory with complaints of Cough, jmm Sinus Pain, Headache. 20:44 The patient or guardian reports cough, described as moderate, with productive sputum, jmm that is yellow. Onset: The symptoms/episode began/occurred gradually, 1.5 week(s) ago. Associated signs and symptoms: Pertinent positives:. 22:19 This is a 33 yea rold male with a history of RA that presents to the ED with complaints jmm of congestion, productive cough, fatigue beginning approx 1.5 weeks ago. Patient also complains of sleepiness. Patient states that his children have recently been diagnosed with viral resp infections. . Historical: - Allergies: 19:22 No Known Allergies; lp1 - Home Meds: 19:22 None [Active]; lp1 - PMHx: 19:22 Kidney stones; Rheumatoid Arthritis; lp1 - PSHx: 19:22 None; lp1 - Immunization history:: Adult Immunizations up to date, Flu vaccine is up to date. - Social history:: Smoking status: Patient/guardian denies using tobacco. - Ebola Screening: : No symptoms or risks identified at this time. ROS: 22:19 Neck: Negative for injury, pain, and swelling, Cardiovascular: Negative for chest pain, jmm palpitations, and edema. 22:19 Constitutional: Positive for fatigue. 22:19 ENT: Positive for rhinorrhea, sinus congestion, sore throat. 22:19 Respiratory: Positive for cough. 22:19 All other systems are negative. Exam: 22:19 Head/Face: atraumatic. Eyes: EOMI, no conjunctival erythema appreciated ENT: Moist jmm Mucus Membranes Neck: Trachea midline, Supple Chest/axilla: Normal chest wall appearance and motion. 22:19 Constitutional: The patient appears in no acute distress, alert, awake. 22:19 Cardiovascular: Rate: normal, Rhythm: regular. 22:19 Respiratory: the patient does not display signs of respiratory distress, Respirations: normal, Breath sounds: are clear throughout. 22:19 Abdomen/GI: Inspection: abdomen appears normal. 22:19 Musculoskeletal/extremity: ROM: intact in all extremities. 22:19 Skin: Appearance: Color: normal in color. 22:19 Neuro: Orientation: is normal, Mentation: is normal, Memory: is normal, Gait: is steady. 22:19 Psych: Behavior/mood is pleasant, cooperative. Vital Signs: 19:21 BP 141 / 91; Pulse 95; Resp 18; Temp 98.2(TE); Pulse Ox 98% on R/A; lp1 22:34 BP 138 / 96; Pulse 83; Resp 17; Temp 97.3(O); Pulse Ox 100% on R/A; Pain 4/10; ed1 MDM: 20:[address] [facility] 22:22 Data reviewed: vital signs, nurses notes, lab test result(s), radiologic studies, plain [facility] films. Data interpreted: Pulse oximetry: on room air is 98 %. Counseling: I had a detailed discussion with the patient and/or guardian regarding: the historical points, exam findings, and any diagnostic results supporting the discharge/admit diagnosis, lab results, radiology results, to return to the emergency department if symptoms worsen or persist or if there are any questions or concerns that arise at home. ED course: ABG normal, labs unremarkable, chest xray negative. patient is alert and non toxic in appearance in the ED. patient is advised to follow up with pcp or return to the ED if symptoms worsen. patient understood and agrees with the plan of care. . 05/10 20:52 Order name: CBC with Diff; Complete Time: 21:58 [facility] 05/10 20:52 Order name: CMP; Complete Time: 22:13 [facility] 05/10 20:52 Order name: Chest Single View XRAY; Complete Time: 22:13 [facility] 05/10 20:52 Order name: Saline Lock; Complete Time: 21:25 [facility] 05/10 20:52 Order name: ABG [facility] Administered Medications: No medications were administered Disposition: 05/10/18 22:25 Discharged to Home. Impression: Acute bronchitis, Acute sinusitis. - Condition is Stable. - Discharge Instructions: Acute Bronchitis, Adult, Sinusitis, Adult. - Prescriptions for Prilosec 20 mg Oral Capsule - take 1 capsule by ORAL route once daily; 10 capsule. Zithromax Z- Darren 250 mg Oral Tablet - take 1 tablet by ORAL route as directed for 5 days Day 1 - take two (2) tablets one time. Day 2, 3, 4 , 5 take one (1) tablet once daily.; 6 tablet. Albuterol Sulfate 90 mcg/actuation - inhale 1-2 puff by INHALATION route every 4-6 hours; 1 Inhaler. - Work release form, Family Work Release, Medication Reconciliation Form, Thank You Letter, Antibiotic Education, Prescription Opioid Use form. - Follow up: Private Physician; When: 2 - 3 days; Reason: Recheck today's complaints, Continuance of care, Re-evaluation by your physician. Addendum: 05/14/2018 12:41 Co-signature as Attending Physician, Guerrero Chan MD. g s Signatures: Dispatcher [employer] EDMS Ammon Adnres PA PA jmm Riggs, Erika RN RN ed1 Liset Bowser RN RN lp1 Guerrero Chan MD MD Corrections: (The following items were deleted from the chart) 05/10 22:35 22:25 05/10/2018 22:25 Discharged to Home. Impression: Acute bronchitis; Acute ed1 sinusitis. Condition is Stable. Forms are Medication Reconciliation Form, Thank You Letter, Antibiotic Education, Prescription Opioid Use. Follow up: Private Physician; When: 2 - 3 days; Reason: Recheck today's complaints, Continuance of care, Re-evaluation by your physician. corine
[2018-05-10 22:43] VITALS: BP 138/96; TEMP 97.3; O2SAT 100
[2018-05-11 06:41] LABS: Arterial Blood Carboxyhemoglob 0.9 % (0-1.5); Blood Gas Oxyhemoglobin 94.3 % (94-97); Blood O2 Saturation 96.1 % (92-98.5)
== END 2018-05-10 22:35 | disposition home or self-care (01) ==
LOC: ER 19:05
DX: J20.9 Acute bronchitis, unspecified (principal); J01.90 Acute sinusitis, unspecified
CPT/HCPCS: 36415; 71045; 80053; 82805; 85025; 99284

== ENCOUNTER 2018-06-01 14:19 | Emergency (ER) | payer OTHER ==
[2018-06-01] MEDS ORDERED: KETOROLAC 30 MG/ML INJ ONE (15:23)
[2018-06-01] MEDS ORDERED: NA CHLORIDE 0.9% 1,000 ML ONE (15:53)
[2018-06-01] MEDS ORDERED: ONDANSETRON 4 MG/2 ML VIAL ONE (15:53)
[2018-06-01 16:05] LABS: Absolute Lymphocytes (CBC) 3.2 K/uL (0.7-4.9); Absolute Monocytes 0.8 K/uL (0.1-1.3); Absolute Neutrophil 6.5 K/uL (1.8-8.0); Basophils % 1.4 % (0-1.3); Eosinophils % 4.4 % (0-4.4); Hematocrit 43.1 % (39.6-49.0); Lymphocytes % 28.4 % (15.3-44.8); MPV 7.6 fL (7.6-11.3); Monocytes % 7.4 % (3.3-12.3); RBC Red Blood Cell Count 5.24 M/uL (4.33-5.43)
[2018-06-01] MEDS ORDERED: MORPHINE 4 MG/ML SYR ONE (16:13)
[2018-06-01 16:15] LABS: Urine Blood NEGATIVE (NEG); Urine Glucose 1+ (NEG); Urine Protein TRACE (NEG)
--- NOTE | 2018-06-01 16:27 | RAD REPORT ---
EXAM DESCRIPTION: CT - Stone Protocol - 06/01/2018 3:50 pm CLINICAL HISTORY: Abdominal pain. Right abdominal pain COMPARISON: November 2017 TECHNIQUE: Computed axial tomography of the abdomen pelvis was obtained without oral or IV contrast. Lack of IV and oral contrast limits evaluation of solid organs, bowel, and vessels. Coronal reformat dora images were obtained and reviewed. All CT scans are performed using dose optimization technique as appropriate and may include automated exposure control or mA/KV adjustment according to patient size. FINDINGS: A right renal calculus is not seen. An ureteral calculus is not noted. A bladder calculus is not present. Multiple left renal calculi without hydronephrosis. Fatty liver Spleen, pancreas and adrenals appear grossly normal There is no evidence of diverticulitis. The appendix appears normal Small right inguinal hernia . Small umbilical hernia IMPRESSION: Nonobstructing left renal calculi
[2018-06-01 16:40] LABS: Urine Amorphous Sediment 4+ /HPF (NONE SEEN); Urine Bacteria <20 /HPF (NONE SEEN); Urine Culture Reflex Order NOT NEEDED; Urine RBC <5 /HPF (NONE SEEN)
[2018-06-01 16:57] LABS: Potassium 4.3 mmol/L (3.5-5.1)
[2018-06-01 17:01] LABS: Albumin 3.8 g/dL (3.4-5.0)
[2018-06-01 17:03] LABS: Bilirubin Direct 0.1 mg/dL (0-0.2)
[2018-06-01 17:05] LABS: Bilirubin Total 0.9 mg/dL (0.2-1.0); Protein, Total 7.2 g/dL (6.4-8.2)
--- NOTE | 2018-06-01 17:17 | ER ---
Nurse's Notes [facility] Name: Fransisco Juarez Age: 33 yrs Sex: Male : 1985 Arrival Date: 06/01/2018 Time: 14:26 Bed 18 Private MD: Diagnosis: Calculus of kidney;Lower abdominal pain, unspecified-right Presentation: 06/01 14:36 Presenting complaint: Patient states: i started having abdominal pain since about noon tw2 today and i am a little nauseous, lower right abdomen. Transition of care: patient was not received from another setting of care. Onset of symptoms was June 01, 2018. Risk Assessment: Do you want to hurt yourself or someone else? Patient reports no desire to harm self or others. Initial Sepsis Screen: Does the patient meet any 2 criteria? No. Patient's initial sepsis screen is negative. Does the patient have a suspected source of infection? No. Patient's initial sepsis screen is negative. Care prior to arrival: None. 14:36 Method Of Arrival: Ambulatory tw2 14:36 Acuity: AMILCAR 3 tw2 Historical: - Allergies: 14:38 No Known Drug Allergies; tw2 - Home Meds: 14:38 None [Active]; tw2 - PMHx: 14:38 Rheumatoid Arthritis; Kidney stones; tw2 - PSHx: 14:38 None; tw2 - Immunization history:: Adult Immunizations. - Social history:: Smoking status: . - Ebola Screening: : Patient denies travel to an Ebola-affected area in the 21 days before illness onset. Screenin:38 Abuse screen: Denies threats or abuse. Nutritional screening: No deficits noted. tw2 Tuberculosis screening: No symptoms or risk factors identified. Fall Risk None identified. Assessment: 14:39 General: Appears in no apparent distress. Behavior is calm, cooperative, appropriate tw2 for age. Pain: Complains of pain in right lower quadrant. Neuro: Level of Consciousness is awake, alert, obeys commands, Oriented to person, place, time, situation. Cardiovascular: Heart tones S1 S2 Patient's skin is warm and dry. Respiratory: Airway is patent Respiratory effort is even, unlabored, Respiratory pattern is regular, symmetrical, Breath sounds are clear bilaterally. GI: Abdomen is round obese, Bowel sounds present X 4 quads. Abd is soft X 4 quads Reports nausea. : No signs and/or symptoms were reported regarding the genitourinary system. EENT: No signs and/or symptoms were reported regarding the EENT system. Derm: No signs and/or symptoms reported regarding the dermatologic system. Musculoskeletal: Range of motion: intact in all extremities. 16:30 Reassessment: Patient appears in no apparent distress at this time. No changes from tw2 previously documented assessment. Patient and/or family updated on plan of care and expected duration. Pain level reassessed. Patient is alert, oriented x 3, equal unlabored respirations, skin warm/dry/pink. 16:34 Reassessment: per lab his blood has high lipids and will take longer for the blood to tw2 result, provider notified. 17:13 Reassessment: Patient appears in no apparent distress at this time. No changes from tw2 previously documented assessment. Patient and/or family updated on plan of care and expected duration. Pain level reassessed. Patient is alert, oriented x 3, equal unlabored respirations, skin warm/dry/pink. Vital Signs: 14:37 BP 144 / 89; Pulse 76; Resp 18; Temp 98.1(O); Pulse Ox 99% on R/A; Pain 9/10; tw2 16:30 BP 129 / 89; Pulse 67; Resp 17; Pulse Ox 97% on R/A; tw2 17:12 BP 113 / 85; Pulse 60; Resp 17; Pulse Ox 96% on R/A; tw2 ED Course: 14:26 Patient arrived in ED. mr 14:36 Chapis Arreola, RN is Primary Nurse. tw2 14:36 Bed in low position. Call light in reach. Pulse ox on. NIBP on. tw2 14:37 Triage completed. tw2 14:37 Arm band placed on. tw2 14:38 Tomasz Kay PA is PHCP. cp 14:38 Guerrero Chan MD is Attending Physician. cp 14:45 Inserted saline lock: 22 gauge in right antecubital area, using aseptic technique. tw2 Blood collected. Missed attempt(s): 20 gauge in right antecubital area. per [facility] student nurse . Bleeding controlled, band aid applied, catheter tip intact. 15:[address] via wheelchair. kw1 15:49 CT completed. Patient tolerated procedure well. Patient moved back from CT. kw1 15:51 CT Stone Protocol In Process Unspecified. [facility] 16:03 Urine collected: clean catch specimen, cloudy. 5 16:04 Urine Dipstick--Ancillary (enter results) Sent. 5 16:04 Urine Microscopic Only Sent. 5 16:22 Basic Metabolic Panel Sent. 5 16:22 Creatinine for Radiology Sent. 5 16:22 Hepatic Function Sent. 5 16:22 Lipase Sent. 5 16:22 Urine Microscopic Only Sent. 5 16:22 Lab(s) recollected, by me, sent to lab. [facility] 17:22 No provider procedures requiring assistance completed. IV discontinued, bleeding tw2 controlled, No redness/swelling at site. Pressure dressing applied. Administered Medications: 15:35 Drug: TORadol 30 mg Route: IVP; Site: right antecubital; tw2 16:07 Follow up: Response: No adverse reaction; Pain is unchanged, physician notified tw2 16:00 Drug: Zofran 4 mg Route: IVP; Site: right antecubital; tw2 17:13 Follow up: Response: No adverse reaction tw2 16:05 Drug: NS 0.9% 1000 ml Route: IV; Rate: 1 bolus; Site: right antecubital; tw2 17:16 Follow up: Response: No adverse reaction; IV Status: Completed infusion; IV Intake: tw2 1000ml 16:06 Drug: morphine 4 mg Route: IVP; Site: right antecubital; tw2 17:16 Follow up: Response: No adverse reaction; Nausea is decreased tw2 16:06 CANCELLED (Duplicate Order): Zofran 4 mg IVP once; over 2 minutes tw2 Intake: 17:16 IV: 1000ml; Total: 1000ml. tw2 Outcome: 17:15 Discharge ordered by . cp 17:23 Discharged to home ambulatory, with family. tw2 17:23 Condition: stable 17:23 Discharge instructions given to patient, family, Instructed on discharge instructions, follow up and referral plans. no drinking with medication, no driving heavy equipment, medication usage, Demonstrated understanding of instructions, follow-up care, medications, Prescriptions given X 2. 17:24 Patient left the ED. tw2 Signatures: [facility] Adela Lisa Corey, PA PA Chapis Brady RN RN 2 Mary Ann Jesus [facility] Bianca Prieto kw1 Corrections: (The following items were deleted from the chart) 16:31 16:30 Pulse 67bpm; Resp 17bpm; Pulse Ox 97% RA; tw2 tw2
--- NOTE | 2018-06-01 17:17 | EDPHYS ---
Physician Documentation [facility] Name: Fransisco Juarez Age: 33 yrs Sex: Male : 1985 Arrival Date: 06/01/2018 Time: 14:26 Bed 18 Private MD: ED Physician Guerrero Chan HPI: 06/01 15:15 This 33 yrs old Male presents to ER via Ambulatory with complaints of cp Abdominal Pain. 15:15 The patient presents with abdominal pain right lower quadrant. cp 15:15 Onset: The symptoms/episode began/occurred suddenly, today, at 12:00. The symptoms cp radiate to right groin. Associated signs and symptoms: Pertinent negatives: blood in stools, chest pain, constipation, diarrhea, dysuria, fever, vomiting. The patient has experienced similar episodes in the past, today's symptoms are similar, to when the patient was apparently diagnosed with kidney stones. Historical: - Allergies: 14:38 No Known Drug Allergies; tw2 - Home Meds: 14:38 None [Active]; tw2 - PMHx: 14:38 Rheumatoid Arthritis; Kidney stones; tw2 - PSHx: 14:38 None; tw2 - Immunization history:: Adult Immunizations. - Social history:: Smoking status: . - Ebola Screening: : Patient denies travel to an Ebola-affected area in the 21 days before illness onset. ROS: 15:20 Constitutional: Negative for chills, fever, poor PO intake. cp 15:20 Eyes: Negative for injury, pain, redness, and discharge. cp 15:20 ENT: Negative for drainage from ear(s), ear pain, sore throat, difficulty swallowing, difficulty handling secretions. 15:20 Cardiovascular: Negative for chest pain, palpitations. 15:20 Respiratory: Negative for cough, shortness of breath, wheezing. 15:20 Abdomen/GI: Positive for abdominal pain, of the right lower quadrant, Negative for vomiting, diarrhea, constipation, anorexia, black/tarry stool, rectal bleeding. 15:20 Back: Negative for radiated pain. 15:20 : Negative for urinary symptoms. 15:20 Skin: Negative for cellulitis, rash. 15:20 Neuro: Negative for altered mental status, headache. 15:20 All other systems are negative. Exam: 15:27 Constitutional: The patient appears in no acute distress, alert, awake, non-toxic, well cp developed, well nourished, obese. 15:27 Head/Face: Normocephalic, atraumatic. cp 15:27 Eyes: Periorbital structures: appear normal, Conjunctiva: normal, no exudate, no injection, Sclera: no appreciated abnormality, Lids and lashes: appear normal, bilaterally. 15:27 ENT: External ear(s): are unremarkable, Nose: is normal, Mouth: Lips: moist, Oral mucosa: moist, Posterior pharynx: is normal, airway is patent, no erythema, no exudate. 15:27 Chest/axilla: Inspection: normal, Palpation: is normal, no crepitus, no tenderness. 15:27 Cardiovascular: Rate: normal, Rhythm: regular. 15:27 Respiratory: the patient does not display signs of respiratory distress, Respirations: normal, no use of accessory muscles, no retractions, no splinting, no tachypnea, labored breathing, is not present, Breath sounds: are clear throughout, no decreased breath sounds, no stridor, no wheezing. 15:27 Abdomen/GI: Inspection: obese Bowel sounds: active, all quadrants, Palpation: soft, in all quadrants, moderate abdominal tenderness, in the right lower quadrant, rebound tenderness, is not appreciated, voluntary guarding, is elicited in the right lower quadrant. 15:27 Back: pain, is absent, ROM is normal. 15:27 Skin: cellulitis, is not appreciated, no rash present. Vital Signs: 14:37 BP 144 / 89; Pulse 76; Resp 18; Temp 98.1(O); Pulse Ox 99% on R/A; Pain 9/10; tw2 16:30 BP 129 / 89; Pulse 67; Resp 17; Pulse Ox 97% on R/A; tw2 17:12 BP 113 / 85; Pulse 60; Resp 17; Pulse Ox 96% on R/A; tw2 MDM: 14:48 Patient medically screened. cp 15:30 Differential diagnosis: appendicitis, diverticulitis, gastritis, non-specific abd pain, cp Pyelonephritis, Testicular Torsion, Ureterolithiasis, urinary tract infection. 17:15 Data reviewed: vital signs, nurses notes, lab test result(s), radiologic studies, CT cp scan. 17:15 Counseling: I had a detailed discussion with the patient and/or guardian regarding: the cp historical points, exam findings, and any diagnostic results supporting the discharge/admit diagnosis, lab results, radiology results, to return to the emergency department if symptoms worsen or persist or if there are any questions or concerns that arise at home. Response to treatment: the patient's symptoms have markedly improved after treatment. Special discussion: Based on the patient's Hx, exam, and Dx evaluation, there is no indication for emergent surgery or inpatient Tx. It is understood by the patient/guardian that if the Sx's persist or worsen they need to return immediately for re-evaluation. 06/01 15:10 Order name: Basic Metabolic Panel; Complete Time: 17:14 tw2 06/01 15:10 Order name: CBC with Diff; Complete Time: 16:36 tw06/01 16:36 Interpretation: Normal except: WBC 11.1; BASO% 1.4. cp 06/01 15:10 Order name: Creatinine for Radiology; Complete Time: 17:14 tw2 06/01 15:10 Order name: Hepatic Function; Complete Time: 17:14 tw2 06/01 15:10 Order name: Lipase; Complete Time: 17:14 tw2 06/01 15:22 Order name: Urine Microscopic Only; Complete Time: 16:44 cp 06/01 15:10 Order name: IV Saline Lock; Complete Time: 15:41 tw06/01 15:10 Order name: CT Stone Protocol; Complete Time: 16:36 tw06/01 15:39 Order name: Urine Dipstick--Ancillary (enter results); Complete Time: 16:36 iw 06/01 15:10 Order name: Labs collected and sent; Complete Time: 15:41 06/01 15:51 Order name: Labs - recollect needed: CBC, Chem; Complete Time: 16:06 iw Administered Medications: 15:35 Drug: TORadol 30 mg Route: IVP; Site: right antecubital; tw2 16:07 Follow up: Response: No adverse reaction; Pain is unchanged, physician notified tw2 16:00 Drug: Zofran 4 mg Route: IVP; Site: right antecubital; tw2 17:13 Follow up: Response: No adverse reaction tw2 16:05 Drug: NS 0.9% 1000 ml Route: IV; Rate: 1 bolus; Site: right antecubital; tw2 17:16 Follow up: Response: No adverse reaction; IV Status: Completed infusion; IV Intake: tw2 1000ml 16:06 Drug: morphine 4 mg Route: IVP; Site: right antecubital; tw2 17:16 Follow up: Response: No adverse reaction; Nausea is decreased tw2 16:06 CANCELLED (Duplicate Order): Zofran 4 mg IVP once; over 2 minutes tw2 Disposition: 17:39 Co-signature as Attending Physician, Guerrero Chan MD. Disposition: 06/01/18 17:15 Discharged to Home. Impression: Calculus of kidney, Lower abdominal pain, unspecified - right. - Condition is Stable. - Discharge Instructions: Abdominal Pain, Adult, Kidney Stones. - Prescriptions for Naprosyn 500 mg Oral Tablet - take 1 tablet by ORAL route 2 times per day take with food; 20 tablet. Zofran 4 mg Oral Tablet - take 1 tablet by ORAL route every 12 hours As needed; 20 tablet. - Medication Reconciliation Form, Thank You Letter, Antibiotic Education, Prescription Opioid Use, Work release form, Family Work Release form. - Follow up: Emergency Department; When: As needed; Reason: Worsening of condition. - Problem is new. - Symptoms have improved. Signatures: Dispatcher [employer] EDMS Tracy Borrego RN RN iw Tomasz Kay PA PA cp Chapis Arreola RN RN tw2 Guerrero Chan MD MD Corrections: (The following items were deleted from the chart) 16:06 15:59 Zofran 4 mg IVP once; over 2 minutes ordered. tw2 17:24 17:15 06/01/2018 17:15 Discharged to Home. Impression: Calculus of kidney; Lower tw2 abdominal pain, unspecified - right. Condition is Stable. Forms are Work release form, Family Work Release, Medication Reconciliation Form, Thank You Letter, Antibiotic Education, Prescription Opioid Use. Follow up: Emergency Department; When: As needed; Reason: Worsening of condition. Problem is new. Symptoms have improved. cp
[2018-06-01 17:58] VITALS: TEMP 98.1
[2018-06-01 18:00] VITALS: BP 113/85; O2SAT 96
== END 2018-06-01 17:24 | disposition home or self-care (01) ==
LOC: ER 14:19
DX: N20.0 Calculus of kidney (principal); Z87.442 Personal history of urinary calculi
CPT/HCPCS: 36415; 74176; 76377; 80048; 80076; 81003; 81015; 83690; 85025; 96361; 96374; 96375; 99284; J2405; J7030

== ENCOUNTER 2018-06-19 08:53 | Emergency (ER) | payer OTHER ==
--- NOTE | 2018-06-19 11:11 | EDPHYS ---
Physician Documentation [facility] Name: Fransisco Juarez Age: 33 yrs Sex: Male : 1985 Arrival Date: 06/19/2018 Time: 08:57 Bed 10 Private MD: Larry Stanton ED Physician Jorge Fernandez HPI: 06/19 09:31 This 33 yrs old Male presents to ER via Unassigned with complaints of Toe kav Injury. 10:15 Onset: The symptoms/episode began/occurred acutely, 1 day(s) ago. The patient has not kav experienced similar symptoms in the past. The patient has not recently seen a physician. 10:16 The patient presents with a contusion, pain, that is acute, swelling. The complaints kav affect the left foot, left third toe, left fourth toe and left fifth toe. Context: The problem was sustained at home, resulted from a mis-step by the patient, Toy, Mechanism of Injury: Eversion the patient can partially bear weight, the patient is able to ambulate. Modifying factors: The symptoms are alleviated by nothing, the symptoms are aggravated by movement. Associated signs and symptoms: Pertinent positives: swelling. Severity of symptoms: At their worst the symptoms were mild, last night, in the emergency department the symptoms are unchanged. . 10:18 Patient also c/o being exposed to Influenza . kav Historical: - Allergies: 09:47 No Known Allergies; iw - Immunization history:: Adult Immunizations not up to date. - Social history:: Smoking status: Patient/guardian denies using tobacco. - Family history:: not pertinent. - Ebola Screening: : Patient negative for fever greater than or equal to 101.5 degrees Fahrenheit, and additional compatible Ebola Virus Disease symptoms Patient denies travel to an Ebola-affected area in the 21 days before illness onset No symptoms or risks identified at this time. - Hospitalizations: : No recent hospitalization is reported. ROS: 10:18 MS/extremity: Positive for contusion, swelling, of the left fifth toe and left fourth kav toe and left third toe. 10:18 Constitutional: Negative for fever, chills, and weight loss, Eyes: Negative for injury, pain, redness, and discharge, ENT: Negative for injury, pain, and discharge, Neck: Negative for injury, pain, and swelling, Cardiovascular: Negative for chest pain, palpitations, and edema, Abdomen/GI: Negative for abdominal pain, nausea, vomiting, diarrhea, and constipation, Back: Negative for injury and pain, : Negative for injury, bleeding, discharge, and swelling, MS/Extremity: Negative for injury and deformity, Skin: Negative for injury, rash, and discoloration, Neuro: Negative for headache, weakness, numbness, tingling, and seizure, Psych: Negative for depression, anxiety, suicide ideation, homicidal ideation, and hallucinations, Allergy/Immunology: Negative for hives, rash, and allergies, Endocrine: Negative for neck swelling, polydipsia, polyuria, polyphagia, and marked weight changes, Hematologic/Lymphatic: Negative for swollen nodes, abnormal bleeding, and unusual bruising. 10:18 Respiratory: Positive for cough, with no reported sputum. Exam: 10:18 Constitutional: This is a well developed, well nourished patient who is awake, alert, kav and in no acute distress. Head/Face: Normocephalic, atraumatic. Eyes: Pupils equal round and reactive to light, extra-ocular motions intact. Lids and lashes normal. Conjunctiva and sclera are non-icteric and not injected. Cornea within normal limits. Periorbital areas with no swelling, redness, or edema. ENT: Nares patent. No nasal discharge, no septal abnormalities noted. Tympanic membranes are normal and external auditory canals are clear. Oropharynx with no redness, swelling, or masses, exudates, or evidence of obstruction, uvula midline. Mucous membranes moist. Neck: Trachea midline, no thyromegaly or masses palpated, and no cervical lymphadenopathy. Supple, full range of motion without nuchal rigidity, or vertebral point tenderness. No Meningismus. Chest/axilla: Normal chest wall appearance and motion. Nontender with no deformity. No lesions are appreciated. Cardiovascular: Regular rate and rhythm with a normal S1 and S2. No gallops, murmurs, or rubs. Normal PMI, no JVD. No pulse deficits. Respiratory: Lungs have equal breath sounds bilaterally, clear to auscultation and percussion. No rales, rhonchi or wheezes noted. No increased work of breathing, no retractions or nasal flaring. Abdomen/GI: Soft, non-tender, with normal bowel sounds. No distension or tympany. No guarding or rebound. No evidence of tenderness throughout. Back: No spinal tenderness. No costovertebral tenderness. Full range of motion. Male : Normal genitalia with no discharge or lesions. MS/ Extremity: Pulses equal, no cyanosis. Neurovascular intact. Full, normal range of motion. Neuro: Awake and alert, GCS 15, oriented to person, place, time, and situation. Cranial nerves II-XII grossly intact. Motor strength 5/5 in all extremities. Sensory grossly intact. Cerebellar exam normal. Normal gait. Psych: Awake, alert, with orientation to person, place and time. Behavior, mood, and affect are within normal limits. 10:18 Skin: injury, contusion(s), that are superficial, of the left fifth toe and left fourth toe and left third toe. Vital Signs: 09:47 BP 123 / 81; Pulse 76; Resp 16; Temp 97.2; Pulse Ox 100% on R/A; iw MDM: 09:25 Medical screening is not applicable. kav 10:18 Differential diagnosis: fracture, sprain, Contusion, Influenza. Data reviewed: vital [facility] signs, nurses notes. 11:00 Data reviewed: lab test result(s), Flu: negative radiologic studies, plain films. kav Counseling: I had a detailed discussion with the patient and/or guardian regarding: the historical points, exam findings, and any diagnostic results supporting the discharge/admit diagnosis, lab results, radiology results. 06/19 09:44 Order name: Flu; Complete Time: 10:51 [facility] 06/19 10:51 Interpretation: Within normal limits. [facility] 06/19 09:44 Order name: Foot Left 3 View XRAY: focus on 3rd, 4th and 5th metatarasal ka 06/19 11:09 Interpretation: No acute disease. [facility] 06/19 11:03 Order name: Ricci wrap-joint: left foot; Complete Time: 11:19 kav 06/19 11:10 Order name: Post-op shoe; Complete Time: 11:19 kav Administered Medications: No medications were administered Disposition: 14:57 Co-signature as Attending Physician, Jorge Fernandez MD I agree with the assessment and kdr plan of care. Disposition: 06/19/18 11:10 Discharged to Home. Impression: Other sprain of left foot, Viral Illness, Contusion of left foot. - Condition is Stable. - Discharge Instructions: Influenza, Adult, [id number], Intermetacarpal Sprain. - Prescriptions for Tamiflu 75 mg Oral Capsule - take 1 tablet by ORAL route every 12 hours for 5 days; 10 tablet. - Thank You Letter, Antibiotic Education, Work release form form. - Follow up: Larry Stanton; When: 5 - 6 days; Reason: If symptoms return, Recheck today's complaints, Continuance of care, Re-evaluation by your physician. - Problem is new. - Symptoms are unchanged. - Notes: ice left 3rd, 4th, 5th metarasal 3 x day x 20 minutes each session otc ibuprofen/tylenol as needed and as directed Signatures: Dispatcher [employer] EDJorge Murdock MD MD kdr Vern, Katherine, FNP FNP kav Williams, Irene, RN RN iw Corinna Briscoe RN RN hb Corrections: (The following items were deleted from the chart) 11:23 11:10 06/19/2018 11:10 Discharged to Home. Impression: Other sprain of left foot; Viral hb Illness; Contusion of left foot. Condition is Stable. Discharge Instructions: Influenza, Adult, Heuy-rj-Atht, Intermetacarpal Sprain. Prescriptions for Tamiflu 75 mg Oral Capsule - take 1 tablet by ORAL route every 12 hours for 5 days; 10 tablet. and Forms are Medication Reconciliation Form, Thank You Letter, Antibiotic Education, Prescription Opioid Use. Follow up: Larry Stanton; When: 5 - 6 days; Reason: If symptoms return, Recheck today's complaints, Continuance of care, Re-evaluation by your physician. Problem is new. Symptoms are unchanged. kaazeem
--- NOTE | 2018-06-19 11:11 | ER ---
Nurse's Notes [facility] Name: Fransisco Juarez Age: 33 yrs Sex: Male : 1985 Arrival Date: 06/19/2018 Time: 08:57 Bed 10 Private MD: Larry Stanton Diagnosis: Other sprain of left foot;Viral Illness;Contusion of left foot Presentation: 06/19 09:46 Presenting complaint: Patient states: stepped on a toy 2 nights ago and thinks his iw lefty pinky toe is broken. Transition of care: patient was not received from another setting of care. Onset of symptoms was June 17, 2018. Risk Assessment: Do you want to hurt yourself or someone else? Patient reports no desire to harm self or others. Initial Sepsis Screen: Does the patient meet any 2 criteria? No. Patient's initial sepsis screen is negative. Does the patient have a suspected source of infection? No. Patient's initial sepsis screen is negative. Care prior to arrival: None. 09:46 Method Of Arrival: Ambulatory iw 09:46 Acuity: AMILCAR 4 iw Historical: - Allergies: 09:47 No Known Allergies; iw - Immunization history:: Adult Immunizations not up to date. - Social history:: Smoking status: Patient/guardian denies using tobacco. - Family history:: not pertinent. - Ebola Screening: : Patient negative for fever greater than or equal to 101.5 degrees Fahrenheit, and additional compatible Ebola Virus Disease symptoms Patient denies travel to an Ebola-affected area in the 21 days before illness onset No symptoms or risks identified at this time. - Hospitalizations: : No recent hospitalization is reported. Screenin:20 Abuse screen: Denies threats or abuse. Denies injuries from another. Nutritional iw screening: No deficits noted. Tuberculosis screening: No symptoms or risk factors identified. Fall Risk None identified. Assessment: 10:19 General: Appears in no apparent distress. Behavior is calm, cooperative. Pain: iw Complains of pain in left fifth toe. Neuro: Level of Consciousness is awake, alert, obeys commands, Oriented to person, place, time, situation, Moves all extremities. Respiratory: Respiratory effort is even, unlabored, Respiratory pattern is regular. Vital Signs: 09:47 BP 123 / 81; Pulse 76; Resp 16; Temp 97.2; Pulse Ox 100% on R/A; iw ED Course: :57 Patient arrived in ED. rg4 08:57 Larry Stanton MD is Private Physician. rg4 09:25 [facility] Welsh [facility] kav 09:25 Jorge Fernandez MD is Attending Physician. kav 09:46 Tracy Borrego, RN is Primary Nurse. iw 09:47 Triage completed. iw 09:50 Patient has correct armband on for positive identification. iw 10:00 Arm band placed on. iw 11:10 Larry Stanton MD is Referral Physician. kav 11:12 Foot Left 3 View XRAY: focus on 3rd, 4th and 5th metatarasal In Process Unspecified. EDMS 11:23 No provider procedures requiring assistance completed. Patient did not have IV access hb during this emergency room visit. Administered Medications: No medications were administered Outcome: 11:10 Discharge ordered by MD. kav 11:23 Discharged to home ambulatory, with family. hb 11:23 Condition: stable 11:23 Discharge instructions given to patient, family, Instructed on discharge instructions, follow up and referral plans. medication usage, Demonstrated understanding of instructions, follow-up care, medications, Prescriptions given X 1. 11:23 Patient left the ED. hb Signatures: Dispatcher [employer] EDCA Nata Welsh FNP TIMBER FELLERTracy Vera, RN Corinna Tee RN RN Romina Maciel rg4
--- NOTE | 2018-06-19 11:26 | RAD REPORT ---
EXAM DESCRIPTION: RAD - Foot Left 3 View - 06/19/2018 11:12 am CLINICAL HISTORY: Left fifth toe pain following trauma COMPARISON: None. FINDINGS: No fracture, dislocation or periosteal reaction. No acute or destructive bony process. No air or foreign body in the soft tissues. IMPRESSION: Negative left foot examination.
[2018-06-19 11:47] VITALS: BP 123/81; TEMP 97.2; O2SAT 100
== END 2018-06-19 11:23 | disposition home or self-care (01) ==
LOC: ER 08:53
DX: S93.692A Other sprain of left foot, initial encounter (principal); S90.32XA Contusion of left foot, initial encounter; B34.9 Viral infection, unspecified; X58.XXXA Exposure to other specified factors, initial encounter; Y93.9 Activity, unspecified; Y92.009 Unspecified place in unspecified non-institutional (private) residence as the place of occurrence of the external cause
CPT/HCPCS: 87804; 99283

== ENCOUNTER 2018-08-29 08:44 | Emergency (ER) | payer OTHER ==
--- NOTE | 2018-08-29 10:36 | RAD REPORT ---
EXAM DESCRIPTION: RAD - Chest Pa And Lat (2 Views) - 08/29/2018 9:53 am CLINICAL HISTORY: Cough and congestion COMPARISON: April 2018 TECHNIQUE: PA and lateral views of the chest were obtained. FINDINGS: The lungs are underinflated. No peripheral mass, consolidation or failure finding. Heart size is normal and central vasculature is within normal limits. No pleural effusion or pneumothorax seen. No acute bony finding noted. No aortic abnormality. No significant change from comparison. IMPRESSION: No acute cardiopulmonary process.
--- NOTE | 2018-08-29 10:57 | ER ---
Nurse's Notes [facility] Name: Fransisco Juarez Age: 33 yrs Sex: Male : 1985 Arrival Date: 08/29/2018 Time: 08:48 Bed 18 Private MD: Diagnosis: Acute upper respiratory infection, unspecified Presentation: 08/29 08:50 Presenting complaint: Patient states: headaches x 1.5 weeks with intermittent blurred ss vision and nose bleeds. Also c/o intermittent chest tightness and shortness of breath x 1 week. Transition of care: patient was not received from another setting of care. Onset of symptoms is unknown. Risk Assessment: Do you want to hurt yourself or someone else? Patient reports no desire to harm self or others. Initial Sepsis Screen: Does the patient meet any 2 criteria? No. Patient's initial sepsis screen is negative. Does the patient have a suspected source of infection? No. Patient's initial sepsis screen is negative. Care prior to arrival: None. 08:50 Method Of Arrival: Ambulatory ss 08:50 Acuity: AMILCAR 4 ss Historical: - Allergies: 09:05 No Known Allergies; ss - PMHx: 09:05 Kidney stones; Rheumatoid Arthritis; Migraines; ss - PSHx: 09:05 I\T\D; ss - Immunization history:: Adult Immunizations up to date. - Social history:: Smoking status: Patient/guardian denies using tobacco. - Ebola Screening: : Patient denies exposure to infectious person Patient denies travel to an Ebola-affected area in the 21 days before illness onset. Screenin:15 Abuse screen: Denies threats or abuse. Nutritional screening: No deficits noted. aa5 Tuberculosis screening: No symptoms or risk factors identified. Fall Risk None identified. Assessment: 09:15 General: Appears comfortable, Behavior is calm, cooperative. Pain: Complains of pain in aa5 mid-sternal area and head Pain does not radiate. Pain currently is 6 out of 10 on a pain scale. Quality of pain is described as pressure, Is intermittent. Neuro: Level of Consciousness is awake, alert, obeys commands, Oriented to person, place, time, situation. Cardiovascular: Heart tones S1 S2 present Rhythm is regular. Respiratory: Airway is patent Respiratory effort is even, unlabored, Respiratory pattern is regular, symmetrical, Breath sounds are clear bilaterally. GI: No signs and/or symptoms were reported involving the gastrointestinal system. : No signs and/or symptoms were reported regarding the genitourinary system. EENT: Reports nasal congestion. Derm: Skin is pink, warm \T\ dry. Musculoskeletal: Range of motion: intact in all extremities. 11:15 Reassessment: Patient is alert, oriented x 3, equal unlabored respirations, skin aa5 warm/dry/pink. Vital Signs: 09:05 BP 137 / 97; Pulse 73; Resp 16; Temp 98.5(O); Pulse Ox 98% on R/A; Weight 117.93 kg; ss Height 5 ft. 9 in. (175.26 cm); Pain 6/10; 09:05 Body Mass Index 38.39 (117.93 kg, 175.26 cm) ED Course: 08:48 Patient arrived in ED. as 08:50 Guerrero Chan MD is Attending Physician. 08:52 Eliz Masters RN is Primary Nurse. aa5 09:04 Triage completed. 09:05 Arm band placed on right wrist. 09:15 Patient has correct armband on for positive identification. Bed in low position. Call aa5 light in reach. Side rails up X 1. 09:43 EKG done, by technical operator. reviewed by Guerrero Chan MD. at1 09:52 X-ray completed. Patient tolerated procedure well. Patient moved back from radiology. 09:54 XRAY Chest Pa And Lat (2 Views) In Process Unspecified. EDMN 11:20 No provider procedures requiring assistance completed. Patient did not have IV access aa5 during this emergency room visit. Administered Medications: No medications were administered Outcome: 10:56 Discharge ordered by . 11:20 Discharged to home ambulatory, with significant other. aa5 11:20 Condition: stable 11:20 Discharge instructions given to patient, Instructed on discharge instructions, follow up and referral plans. medication usage, Demonstrated understanding of instructions, follow-up care, medications, Prescriptions given X 1. 11:21 Patient left the ED. aa5 Signatures: Dispatcher [employer] EDMS Rachael Jesus Audri, RN RN aa5 Candi Silva RN RN Kari Crabtree, signal manager EKG Tat1 Dionne Marie Chan, Guerrero, MD MD gs
--- NOTE | 2018-08-29 10:57 | EDPHYS ---
Physician Documentation [facility] Name: Fransisco Juarez Age: 33 yrs Sex: Male : 1985 Arrival Date: 08/29/2018 Time: 08:48 Bed 18 Private MD: ED Physician Guerrero Chan HPI: 08/29 10:53 This 33 yrs old Male presents to ER via Ambulatory with complaints of Sinus gs Congestion. 10:53 The patient or guardian reports cough, difficulty breathing, flu symptoms. Onset: The gs symptoms/episode began/occurred 2 week(s) ago. Modifying factors: The symptoms are alleviated by nothing. the symptoms are aggravated by nothing. 10:54 Associated signs and symptoms: Pertinent positives: epistaxis, headache. Severity of gs symptoms: At their worst the symptoms were moderate in the emergency department the symptoms have improved moderately. The patient has experienced similar episodes in the past, a few times. Historical: - Allergies: 09:05 No Known Allergies; ss - PMHx: 09:05 Kidney stones; Rheumatoid Arthritis; Migraines; ss - PSHx: 09:05 I\T\D; ss - Immunization history:: Adult Immunizations up to date. - Social history:: Smoking status: Patient/guardian denies using tobacco. - Ebola Screening: : Patient denies exposure to infectious person Patient denies travel to an Ebola-affected area in the 21 days before illness onset. ROS: 10:54 All other systems are negative. gs Exam: 10:54 Head/Face: Normocephalic, atraumatic. Eyes: Pupils equal round and reactive to light, gs extra-ocular motions intact. Lids and lashes normal. Conjunctiva and sclera are non-icteric and not injected. Cornea within normal limits. Periorbital areas with no swelling, redness, or edema. ENT: Nares patent. No nasal discharge, no septal abnormalities noted. Tympanic membranes are normal and external auditory canals are clear. Oropharynx with no redness, swelling, or masses, exudates, or evidence of obstruction, uvula midline. Mucous membranes moist. Neck: Trachea midline, no thyromegaly or masses palpated, and no cervical lymphadenopathy. Supple, full range of motion without nuchal rigidity, or vertebral point tenderness. No Meningismus. Chest/axilla: Normal chest wall appearance and motion. Nontender with no deformity. No lesions are appreciated. Cardiovascular: Regular rate and rhythm with a normal S1 and S2. No gallops, murmurs, or rubs. Normal PMI, no JVD. No pulse deficits. Abdomen/GI: Soft, non-tender, with normal bowel sounds. No distension or tympany. No guarding or rebound. No evidence of tenderness throughout. Back: No spinal tenderness. No costovertebral tenderness. Full range of motion. Skin: Warm, dry with normal turgor. Normal color with no rashes, no lesions, and no evidence of cellulitis. MS/ Extremity: Pulses equal, no cyanosis. Neurovascular intact. Full, normal range of motion. Neuro: Awake and alert, GCS 15, oriented to person, place, time, and situation. Cranial nerves II-XII grossly intact. Motor strength 5/5 in all extremities. Sensory grossly intact. Cerebellar exam normal. Normal gait. 10:54 Constitutional: The patient appears alert, awake. 10:54 Respiratory: the patient does not display signs of respiratory distress, Respirations: normal, symetrical, no use of accessory muscles, Breath sounds: rhonchi, that are mild, are scattered. 10:54 ECG was reviewed by the Attending Physician. Vital Signs: 09:05 BP 137 / 97; Pulse 73; Resp 16; Temp 98.5(O); Pulse Ox 98% on R/A; Weight 117.93 kg; ss Height 5 ft. 9 in. (175.26 cm); Pain 6/10; 09:05 Body Mass Index 38.39 (117.93 kg, 175.26 cm) ss MDM: 09:08 Patient medically screened. 10:54 Differential diagnosis: bronchitis, URI, [pneumonia. Data reviewed: vital signs, nurses gs notes, EKG, radiologic studies. Counseling: I had a detailed discussion with the patient and/or guardian regarding: the historical points, exam findings, and any diagnostic results supporting the discharge/admit diagnosis, the presence of at least one elevated blood pressure reading (>120/80) during this emergency department visit. Special discussion: I have referred the patient to see his PCP for further evaluation of high blood pressure. 08/29 09:20 Order name: XRAY Chest Pa And Lat (2 Views); Complete Time: 10:52 08/29 09:20 Order name: EKG; Complete Time: :21 08/29 09:20 Order name: EKG - Nurse/Tech; Complete Time: 09:39 EC:54 Rate is 65 beats/min. Rhythm is regular. T waves are Normal. No ST changes noted. Clinical impression: Normal ECG. Interpreted by me. Administered Medications: No medications were administered Disposition: 08/29/18 10:56 Discharged to Home. Impression: Acute upper respiratory infection, unspecified. - Condition is Stable. - Discharge Instructions: Upper Respiratory Infection, Adult, Managing Your Hypertension. - Prescriptions for Zyrtec 10 mg Oral Tablet - take 1 tablet by ORAL route once daily As needed; 20 tablet. - Medication Reconciliation Form, Thank You Letter, Antibiotic Education, Prescription Opioid Use form. - Work release form (08/29/18 11:24). aa5 - Follow up: Private Physician; When: 2 - 3 days; Reason: Re-evaluation by your physician. Signatures: Dispatcher [employer] EDEliz Estrada RN RN aa5 Candi Silva RN RN Guerrero Chan MD MD Corrections: (The following items were deleted from the chart) 11:21 10:56 08/29/2018 10:56 Discharged to Home. Impression: Acute upper respiratory aa5 infection, unspecified. Condition is Stable. Forms are Medication Reconciliation Form, Thank You Letter, Antibiotic Education, Prescription Opioid Use. Follow up: Private Physician; When: 2 - 3 days; Reason: Re-evaluation by your physician.
[2018-08-29 13:40] VITALS: BP 137/97; TEMP 98.5; O2SAT 98
--- NOTE | 2018-08-29 14:45 | EKG ---
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
== END 2018-08-29 11:21 | disposition home or self-care (01) ==
LOC: ER 08:44
DX: J06.9 Acute upper respiratory infection, unspecified (principal)
CPT/HCPCS: 71046; 93005; 99283

== ENCOUNTER 2018-09-17 20:39 | Emergency (ER) | payer OTHER ==
[2018-09-17] MEDS ORDERED: METOCLOPRAMIDE 10 MG/2mL INJ ONE (21:35)
[2018-09-17] MEDS ORDERED: NA CHLORIDE 0.9% 1,000 ML ONE (21:36)
[2018-09-17] MEDS ORDERED: KETOROLAC 30 MG/ML INJ ONE (21:36)
--- NOTE | 2018-09-17 21:54 | ER ---
Nurse's Notes [facility] Name: Fransisco Juarez Age: 33 yrs Sex: Male : 1985 Arrival Date: 09/17/2018 Time: 20:42 Bed 14 Private MD: Diagnosis: Streptococcal pharyngitis Presentation: 09/17 20:45 Presenting complaint: Patient states: I have been feeling bad for a couple of days. ed1 Headache, blurred vision, dizziness, and nausea. Transition of care: patient was not received from another setting of care. Onset of symptoms was September 14, 2018. Risk Assessment: Do you want to hurt yourself or someone else? Patient reports no desire to harm self or others. Initial Sepsis Screen: Does the patient meet any 2 criteria? No. Patient's initial sepsis screen is negative. Does the patient have a suspected source of infection? No. Patient's initial sepsis screen is negative. Care prior to arrival: Medication(s) given: Mucinex. 20:45 Method Of Arrival: Ambulatory ed1 20:45 Acuity: AMILCAR 4 ed1 Triage Assessment: 20:47 Headache History: The patient has had previous headaches and this one is different than ed1 previous episodes, and this one is more severe than previous episodes. General: Appears in no apparent distress. Behavior is calm, cooperative. Pain: Complains of pain in head Pain currently is 8 out of 10 on a pain scale. Pain began 2-3 days ago. Also complains of nausea. Neuro: Level of Consciousness is awake, alert, obeys commands, Oriented to person, place, time, situation, Reports dizziness. Historical: - Allergies: 20:47 No Known Allergies; ed1 - Home Meds: 20:47 None [Active]; ed1 - PMHx: 20:47 Rheumatoid Arthritis; Migraines; Kidney stones; ed1 - PSHx: 20:47 None; ed1 - Immunization history:: Adult Immunizations up to date. - Social history:: Smoking status: Patient/guardian denies using tobacco. - Ebola Screening: : Patient negative for fever greater than or equal to 101.5 degrees Fahrenheit, and additional compatible Ebola Virus Disease symptoms Patient denies exposure to infectious person Patient denies travel to an Ebola-affected area in the 21 days before illness onset No symptoms or risks identified at this time. Screenin:03 Abuse screen: Denies threats or abuse. Nutritional screening: No deficits noted. jd3 Tuberculosis screening: No symptoms or risk factors identified. Fall Risk Ambulatory Aid- None/Bed Rest/Nurse Assist (0 pts). Gait- Normal/Bed Rest/Wheelchair (0 pts) Mental Status- Oriented to own ability (0 pts). Total [place] Fall Scale indicates No Risk (0-24 pts). Assessment: 20:59 General: Appears in no apparent distress. uncomfortable, Behavior is calm, cooperative, jd3 appropriate for age. Pain: Complains of pain in head and face Quality of pain is described as aching, pressure. Neuro: Level of Consciousness is awake, alert, obeys commands, Oriented to person, place, time, situation, Speech is normal, Pupils are PERRLA, Reports headache photophobia. Cardiovascular: Heart tones S1 S2 present Capillary refill < 3 seconds Patient's skin is warm and dry. Respiratory: Airway is patent Respiratory effort is even, unlabored, Respiratory pattern is regular, symmetrical, Breath sounds are clear bilaterally. Denies cough, shortness of breath. GI: Abdomen is round non-distended, Bowel sounds present X 4 quads. Abd is soft and non tender X 4 quads. Reports nausea, Patient currently denies diarrhea, vomiting. : No signs and/or symptoms were reported regarding the genitourinary system. EENT: Throat is clear Reports pain in throat. Derm: Skin is intact, Skin is dry, Skin is normal, Skin temperature is warm. Musculoskeletal: Circulation, motion, and sensation intact. Range of motion: intact in all extremities. 21:59 Reassessment: Patient appears in no apparent distress at this time. Patient and/or jd3 family updated on plan of care and expected duration. Pain level reassessed. Patient is alert, oriented x 3, equal unlabored respirations, skin warm/dry/pink. awaiting IV fluids to infuse before discharge. Patient states feeling better. 22:20 Reassessment: Patient appears in no apparent distress at this time. No changes from jd3 previously documented assessment. Patient and/or family updated on plan of care and expected duration. Pain level reassessed. Patient is alert, oriented x 3, equal unlabored respirations, skin warm/dry/pink. Vital Signs: 20:47 BP 148 / 91; Pulse 101; Resp 19; Temp 98.5; Pulse Ox 99% on R/A; Weight 117.93 kg; ed1 Height 5 ft. 9 in. (175.26 cm); Pain 8/10; 22:37 BP 118 / 70; Pulse 83; Resp 15 S; Pulse Ox 99% on R/A; Pain 0/10; jd3 20:47 Body Mass Index 38.39 (117.93 kg, 175.26 cm) ed1 [place] Coma Score: 22:12 Eye Response: spontaneous(4). Verbal Response: oriented(5). Motor Response: obeys kb commands(6). Total: 15. ED Course: 20:42 Patient arrived in ED. mr 20:46 Triage completed. ed1 20:48 Arm band placed on left wrist. ed1 20:49 [facility]C [facility]. kb 20:49 Griffin Hines MD is Attending Physician. kb 20:59 Lico Morley RN is Primary Nurse. jd3 21:03 Patient has correct armband on for positive identification. Bed in low position. Call jd3 light in reach. Side rails up X 1. 21:14 Flu and/or RSV swab sent to lab. Strep swab sent to lab. jp3 21:16 Strep Sent. jp3 21:16 Flu Sent. jp3 21:20 Missed attempt(s): 20 gauge in right antecubital area. Bleeding controlled, band aid jp3 applied, catheter tip intact. 21:25 Inserted saline lock: 20 gauge in left antecubital area, using aseptic technique. jp3 Administered Medications: 21:31 Drug: NS 0.9% 1000 ml Route: IV; Rate: 1000 ml; Site: left antecubital; jd3 22:38 Follow up: Response: No adverse reaction; IV Status: Completed infusion; IV Intake: jd3 1000ml 21:31 Drug: Reglan 10 mg Route: IVP; Site: left antecubital; jd3 22:20 Follow up: Response: No adverse reaction jd3 21:32 Drug: TORadol 30 mg Route: IVP; Site: left antecubital; jd3 22:20 Follow up: Response: No adverse reaction jd3 Intake: 22:38 IV: 1000ml; Total: 1000ml. jd3 Outcome: 21:53 Discharge ordered by . kb 22:38 Patient left the ED. jd3 Signatures: Angela Sosa, ADRIAN KATZ-Adela Zafar Erika, RN RN ed1 Lico Morley, RAGHAVENDRA RN jd3 Saulo Sykes jp3
--- NOTE | 2018-09-17 21:54 | EDPHYS ---
Physician Documentation [facility] Name: Fransisco Juarez Age: 33 yrs Sex: Male : 1985 Arrival Date: 09/17/2018 Time: 20:42 Bed 14 Private MD: ED Physician Griffin Hines HPI: 09/17 22:15 This 33 yrs old Male presents to ER via Ambulatory with complaints of kb Headache, Nausea. 22:13 The patient complains of pain to the forehead. The patient describes the headache as kb throbbing. Onset: The symptoms/episode began/occurred 3 day(s) ago. Associated signs and symptoms: Pertinent positives: nausea, Photophobia. Severity of symptoms: At its worst the pain was moderate, in the emergency department the pain is unchanged. Headache History: The patient has had previous headaches and this one is similar to previous episodes. The symptoms are alleviated by nothing. the symptoms are aggravated by lights. The patient has experienced similar episodes in the past, multiple times. The patient has not recently seen a physician. Pt report he has had a migraine for a couple of days. Started having chills. Has not checked temp, unsure if he had a fever. . Historical: - Allergies: 20:47 No Known Allergies; ed1 - Home Meds: 20:47 None [Active]; ed1 - PMHx: 20:47 Rheumatoid Arthritis; Migraines; Kidney stones; ed1 - PSHx: 20:47 None; ed1 - Immunization history:: Adult Immunizations up to date. - Social history:: Smoking status: Patient/guardian denies using tobacco. - Ebola Screening: : Patient negative for fever greater than or equal to 101.5 degrees Fahrenheit, and additional compatible Ebola Virus Disease symptoms Patient denies exposure to infectious person Patient denies travel to an Ebola-affected area in the 21 days before illness onset No symptoms or risks identified at this time. ROS: 22:05 Cardiovascular: Negative for chest pain, palpitations, and edema, Respiratory: Negative kb for shortness of breath, cough, wheezing, and pleuritic chest pain, Abdomen/GI: Negative for abdominal pain, nausea, vomiting, diarrhea, and constipation, Back: Negative for injury and pain, MS/Extremity: Negative for injury and deformity, Skin: Negative for injury, rash, and discoloration. 22:05 Constitutional: Positive for chills, fatigue, malaise, Negative for body aches, fever, poor PO intake, weight loss. 22:05 ENT: Positive for sore throat. 22:05 Neuro: Positive for dizziness, headache. Exam: 22:12 Constitutional: This is a well developed, well nourished patient who is awake, alert, kb and in no acute distress. Head/Face: Normocephalic, atraumatic. Eyes: Pupils equal round and reactive to light, extra-ocular motions intact. Lids and lashes normal. Conjunctiva and sclera are non-icteric and not injected. Cornea within normal limits. Periorbital areas with no swelling, redness, or edema. Neck: Trachea midline, no thyromegaly or masses palpated, and no cervical lymphadenopathy. Supple, full range of motion without nuchal rigidity, or vertebral point tenderness. No Meningismus. Chest/axilla: Normal chest wall appearance and motion. Nontender with no deformity. No lesions are appreciated. Cardiovascular: Regular rate and rhythm with a normal S1 and S2. No gallops, murmurs, or rubs. Normal PMI, no JVD. No pulse deficits. Respiratory: Lungs have equal breath sounds bilaterally, clear to auscultation and percussion. No rales, rhonchi or wheezes noted. No increased work of breathing, no retractions or nasal flaring. Abdomen/GI: Soft, non-tender, with normal bowel sounds. No distension or tympany. No guarding or rebound. No evidence of tenderness throughout. Skin: Warm, dry with normal turgor. Normal color with no rashes, no lesions, and no evidence of cellulitis. MS/ Extremity: Pulses equal, no cyanosis. Neurovascular intact. Full, normal range of motion. Neuro: Awake and alert, GCS 15, oriented to person, place, time, and situation. Cranial nerves II-XII grossly intact. Motor strength 5/5 in all extremities. Sensory grossly intact. Cerebellar exam normal. Normal gait. 22:12 ENT: External ear(s): are unremarkable, Ear canal(s): are normal, TM's: are normal, Posterior pharynx: Airway: normal, no evidence of obstruction, Tonsils: bilaterally enlarged, with erythema, Uvula: normal, midline, swelling, that is mild, erythema, that is moderate. Vital Signs: 20:47 BP 148 / 91; Pulse 101; Resp 19; Temp 98.5; Pulse Ox 99% on R/A; Weight 117.93 kg; ed1 Height 5 ft. 9 in. (175.26 cm); Pain 8/10; 22:37 BP 118 / 70; Pulse 83; Resp 15 S; Pulse Ox 99% on R/A; Pain 0/10; jd3 20:47 Body Mass Index 38.39 (117.93 kg, 175.26 cm) ed1 Jones Coma Score: 22:12 Eye Response: spontaneous(4). Verbal Response: oriented(5). Motor Response: obeys kb commands(6). Total: 15. MDM: 20:50 Patient medically screened. kb 21:53 Data reviewed: vital signs, nurses notes. Data interpreted: Pulse oximetry: on room air kb is 99 %. Interpretation: normal. Counseling: I had a detailed discussion with the patient and/or guardian regarding: the historical points, exam findings, and any diagnostic results supporting the discharge/admit diagnosis, lab results, the need for outpatient follow up, a family practitioner, to return to the emergency department if symptoms worsen or persist or if there are any questions or concerns that arise at home. 09/17 21:08 Order name: Flu; Complete Time: 21:53 kb 09/17 21:08 Order name: Strep; Complete Time: 21:53 kb 09/17 21:08 Order name: IV Start; Complete Time: 21:28 kb Administered Medications: 21:31 Drug: NS 0.9% 1000 ml Route: IV; Rate: 1000 ml; Site: left antecubital; jd3 22:38 Follow up: Response: No adverse reaction; IV Status: Completed infusion; IV Intake: jd3 1000ml 21:31 Drug: Reglan 10 mg Route: IVP; Site: left antecubital; jd3 22:20 Follow up: Response: No adverse reaction jd3 21:32 Drug: TORadol 30 mg Route: IVP; Site: left antecubital; jd3 22:20 Follow up: Response: No adverse reaction jd3 Disposition: 09/18 02:07 Co-signature as Attending Physician, Angela CAMPBELL I agree with the assessment tw4 and plan of care. Disposition: 09/17/18 21:53 Discharged to Home. Impression: Streptococcal pharyngitis. - Condition is Stable. - Discharge Instructions: Strep Throat, [id number]. - Prescriptions for Amoxicillin 875 mg Oral Tablet - take 1 tablet by ORAL route every 12 hours for 10 days; 20 tablet. - Medication Reconciliation Form, Thank You Letter, Antibiotic Education, Prescription Opioid Use, Work release form form. - Follow up: Emergency Department; When: As needed; Reason: Worsening of condition. Follow up: Private Physician; When: 2 - 3 days; Reason: Recheck today's complaints, Continuance of care, Re-evaluation by your physician. Signatures: Dispatcher [employer] EDMS Angela Sosa, GIANNA-C EXTERNAL RELATIONS MANAGER-Miriam Rendon RN RN ed1 Lico Morley RN RN jd3 Griffin Hines MD MD tw4 Corrections: (The following items were deleted from the chart) 09/17 22:38 21:53 09/17/2018 21:53 Discharged to Home. Impression: Streptococcal pharyngitis. jd3 Condition is Stable. Forms are Medication Reconciliation Form, Thank You Letter, Antibiotic Education, Prescription Opioid Use. Follow up: Emergency Department; When: As needed; Reason: Worsening of condition. Follow up: Private Physician; When: 2 - 3 days; Reason: Recheck today's complaints, Continuance of care, Re-evaluation by your physician. kb
[2018-09-18 01:13] VITALS: TEMP 98.5; O2SAT 99
[2018-09-18 01:15] VITALS: BP 118/70
== END 2018-09-17 22:38 | disposition home or self-care (01) ==
LOC: ER 20:39
DX: J02.0 Streptococcal pharyngitis (principal)
CPT/HCPCS: 87081; 87804; 96361; 96374; 96375; 99283; J2765; J7030

== ENCOUNTER 2018-10-12 13:21 | Emergency (ER) | payer OTHER ==
[2011-10-02 12:19] VITALS: BP 137/77
[2018-10-12 14:26] LABS: Absolute Lymphocytes (CBC) 1.3 K/uL (0.7-4.9); Basophils % 0.7 % (0-1.3); Eosinophils % 2.3 % (0-4.4); Hematocrit 41.5 % (39.6-49.0); MPV 7.6 fL (7.6-11.3); Monocytes % 12.2 % (3.3-12.3); RBC Red Blood Cell Count 4.92 M/uL (4.33-5.43)
[2018-10-12] MEDS ORDERED: NA CHLORIDE 0.9% 1,000 ML ONE (14:32)
--- NOTE | 2018-10-12 14:37 | RAD REPORT ---
EXAM DESCRIPTION: RAD - Chest Pa And Lat (2 Views) - 10/12/2018 2:24 pm CLINICAL HISTORY: CHEST PAIN Chest pain. COMPARISON: <Comparisons> FINDINGS: Small opacity is present in the left mid lung suspicious for developing pneumonia. The niki gs are otherwise grossly clear. The heart is normal in size. No displaced fractures. IMPRESSION: Developing left mid lung pneumonia.
[2018-10-12 14:53] LABS: BUN Blood Urea Nitrogen 10 mg/dL (7-18); Bicarbonate 29 mmol/L (21-32); Glucose Level 151 mg/dL (74-106); Potassium 3.7 mmol/L (3.5-5.1); Sodium Level 137 mmol/L (136-145); Troponin (Emerg Dept Use Only) < 0.02 ng/mL (0.0-0.045)
--- NOTE | 2018-10-12 15:07 | EDPHYS ---
Physician Documentation [facility] Name: Fransisco Juarez Age: 33 yrs Sex: Male : 1985 Arrival Date: 10/12/2018 Time: 13:22 Bed 19 Private MD: ED Physician Mc Dominique HPI: 10/12 14:48 This 33 yrs old Male presents to ER via Ambulatory with complaints of kb Headache, Mouth Problem, Pain All Over. 14:48 The patient presents with sore throat. The patient describes throat pain as constant. kb Onset: The symptoms/episode began/occurred 2 day(s) ago. Severity of symptoms: At their worst the symptoms were moderate, in the emergency department the symptoms are unchanged. Modifying factors: The symptoms are alleviated by nothing, the symptoms are aggravated by swallowing, Patient's oral intake status: good Denies contact with similarly ill indivduals. Associated signs and symptoms: Pertinent positives: chest pain, chills, cough, fever, Sore throat breathing hard. The patient has not experienced similar symptoms in the past. The patient has not recently seen a physician. Historical: - Allergies: 13:38 No Known Allergies; aj1 - Home Meds: 13:38 None [Active]; aj1 - PMHx: 13:38 Kidney stones; Migraines; Rheumatoid Arthritis; aj1 - PSHx: 13:38 None; aj1 - Immunization history:: Flu vaccine is up to date. - Social history:: Smoking status: Patient/guardian denies using tobacco. - Ebola Screening: : Patient denies travel to an Ebola-affected area in the 21 days before illness onset. ROS: 14:46 Neck: Negative for injury, pain, and swelling, Abdomen/GI: Negative for abdominal pain, kb nausea, vomiting, diarrhea, and constipation, Back: Negative for injury and pain, MS/Extremity: Negative for injury and deformity, Skin: Negative for injury, rash, and discoloration, Neuro: Negative for headache, weakness, numbness, tingling, and seizure. 14:46 Constitutional: Positive for body aches, chills, fatigue, fever, malaise. 14:46 ENT: Positive for sore throat. 14:46 Cardiovascular: Positive for chest pain, Negative for edema, orthopnea, palpitations, paroxysmal nocturnal dyspnea. 14:46 Respiratory: Positive for cough, breathing hard, Negative for dyspnea on exertion, hemoptysis, orthopnea, pleurisy, shortness of breath, sputum production, wheezing. Exam: 14:46 Constitutional: This is a well developed, well nourished patient who is awake, alert, kb and in no acute distress. Head/Face: Normocephalic, atraumatic. Neck: Trachea midline, no thyromegaly or masses palpated, and no cervical lymphadenopathy. Supple, full range of motion without nuchal rigidity, or vertebral point tenderness. No Meningismus. Chest/axilla: Normal chest wall appearance and motion. Nontender with no deformity. No lesions are appreciated. Cardiovascular: Regular rate and rhythm with a normal S1 and S2. No gallops, murmurs, or rubs. Normal PMI, no JVD. No pulse deficits. Respiratory: Lungs have equal breath sounds bilaterally, clear to auscultation and percussion. No rales, rhonchi or wheezes noted. No increased work of breathing, no retractions or nasal flaring. Abdomen/GI: Soft, non-tender, with normal bowel sounds. No distension or tympany. No guarding or rebound. No evidence of tenderness throughout. Skin: Warm, dry with normal turgor. Normal color with no rashes, no lesions, and no evidence of cellulitis. MS/ Extremity: Pulses equal, no cyanosis. Neurovascular intact. Full, normal range of motion. Neuro: Awake and alert, GCS 15, oriented to person, place, time, and situation. Cranial nerves II-XII grossly intact. Motor strength 5/5 in all extremities. Sensory grossly intact. Cerebellar exam normal. Normal gait. 14:46 ENT: Posterior pharynx: Airway: normal, no evidence of obstruction, Tonsils: bilaterally enlarged, with erythema, Uvula: normal, midline, swelling, that is mild, erythema, that is moderate. Vital Signs: 13:38 BP 151 / 89; Pulse 115; Resp 20; Temp 99.3; Pulse Ox 100% on R/A; Weight 117.93 kg (R); aj1 Height 5 ft. 9 in. (175.26 cm) (R); Pain 9/10; 14:30 BP 140 / 93; Pulse 97; Resp 20; Pulse Ox 96% on R/A; em 13:38 Body Mass Index 38.39 (117.93 kg, 175.26 cm) aj1 MDM: 13:43 Patient medically screened. kb 14:46 Data reviewed: vital signs, nurses notes. Data interpreted: Pulse oximetry: on room air kb is 96 %. Interpretation: normal. 15:05 Counseling: I had a detailed discussion with the patient and/or guardian regarding: the kb historical points, exam findings, and any diagnostic results supporting the discharge/admit diagnosis, lab results, radiology results, the need for outpatient follow up, a family practitioner, to return to the emergency department if symptoms worsen or persist or if there are any questions or concerns that arise at home. 10/12 13:56 Order name: Strep; Complete Time: 14:40 kb 10/12 13:56 Order name: Brantley Screen Profile; Complete Time: 14:40 kb 10/12 13:56 Order name: CBC with Diff; Complete Time: 14:31 kb 10/12 13:56 Order name: Basic Metabolic Panel; Complete Time: 14:54 kb 10/12 13:56 Order name: Troponin (emerg Dept Use Only); Complete Time: 14:54 kb 10/12 13:56 Order name: Chest Pa And Lat (2 Views) XRAY; Complete Time: 14:40 kb 10/12 13:56 Order name: IV Start; Complete Time: 14:15 kb 10/12 13:56 Order name: EKG; Complete Time: 13:58 kb 10/12 13:56 Order name: EKG - Nurse/Tech; Complete Time: 15:29 kb Administered Medications: 14:30 Drug: NS 0.9% 1000 ml Route: IV; Rate: 1000 ml; Site: right antecubital; em 15:29 Follow up: IV Status: Completed infusion; IV Intake: 1000ml em 15:14 Drug: Zithromax 500 mg Route: PO; ss 15:29 Follow up: Response: No adverse reaction em 15:17 Drug: Rocephin 1 grams Route: IV; Rate: calculated rate; Site: right antecubital; ss 15:29 Follow up: Response: No adverse reaction; IV Status: Completed infusion; IV Intake: 10mlem 15:17 Drug: Xopenex 1.25 mg Route: Inhalation; ss 15:17 Drug: AtroVENT Aerosol 0.5 mg Route: Inhalation; ss Disposition: 16:35 Co-signature as Attending Physician, Mc Dominique MD. rn Disposition: 10/12/18 15:06 Discharged to Home. Impression: Pneumonia, unspecified organism, Streptococcal pharyngitis. - Condition is Stable. - Discharge Instructions: Strep Throat, [id number], Community-Acquired Pneumonia, Adult, [id number]. - Prescriptions for Augmentin 875- 125 mg Oral Tablet - take 1 tablet by ORAL route every 12 hours for 10 days; 20 tablet. Zithromax 500 mg Oral Tablet - take 1 tablet by ORAL route once daily for 5 days; 5 tablet. - Medication Reconciliation Form, Thank You Letter, Antibiotic Education, Prescription Opioid Use form. - Work release form (10/12/18 19:07). ar5 - Follow up: Emergency Department; When: As needed; Reason: Worsening of condition. Follow up: Private Physician; When: 2 - 3 days; Reason: Recheck today's complaints, Continuance of care, Re-evaluation by your physician. Signatures: Dispatcher [employer] Angela Jackson, GIANNA-C SENIOR ANDROID SOFTWARE ENGINEER-Francie Jesus RN RN aj1 Marcello Bailon, SHEET CUTTER SHEET CUTTER Mc Ruiz MD MD rn Smirch, Shelby, RN RN ss Robles, Autumn ar5 Corrections: (The following items were deleted from the chart) 15:54 15:06 10/12/2018 15:06 Discharged to Home. Impression: Pneumonia, unspecified organism; em Streptococcal pharyngitis. Condition is Stable. Forms are Medication Reconciliation Form, Thank You Letter, Antibiotic Education, Prescription Opioid Use. Follow up: Emergency Department; When: As needed; Reason: Worsening of condition. Follow up: Private Physician; When: 2 - 3 days; Reason: Recheck today's complaints, Continuance of care, Re-evaluation by your physician. kb
--- NOTE | 2018-10-12 15:07 | ER ---
Nurse's Notes [facility] Name: Fransisco Juarez Age: 33 yrs Sex: Male : 1985 Arrival Date: 10/12/2018 Time: 13:22 Bed 19 Private MD: Diagnosis: Pneumonia, unspecified organism;Streptococcal pharyngitis Presentation: 10/12 13:36 Presenting complaint: Patient states: "ON and off again chest pains, headache, chills, aj1 it feels like i have sore in my mouth, it hurts to swallow and eat. And I'm just not feeling good. Patient also reports fever. Transition of care: patient was not received from another setting of care. Onset of symptoms was October 12, 2018. Risk Assessment: Do you want to hurt yourself or someone else? Patient reports no desire to harm self or others. Initial Sepsis Screen: Does the patient meet any 2 criteria? No. Patient's initial sepsis screen is negative. Does the patient have a suspected source of infection? Yes: Productive cough/pneumonia. Care prior to arrival: None. 13:36 Method Of Arrival: Ambulatory [facility] 13:36 Acuity: AMILCAR 3 aj1 Triage Assessment: 13:38 Headache History: Denies prior headaches. General: Appears in no apparent distress. aj1 uncomfortable, Behavior is calm, cooperative, appropriate for age. Pain: Complains of pain in face and chest Pain currently is 9 out of 10 on a pain scale. Pain began this morning Also complains of nausea. Neuro: Level of Consciousness is awake, alert, obeys commands. Cardiovascular: Patient's skin is warm and dry. Respiratory: Reports cough that is Airway is patent Respiratory effort is even, unlabored, Respiratory pattern is regular, symmetrical. Historical: - Allergies: 13:38 No Known Allergies; aj1 - Home Meds: 13:38 None [Active]; aj1 - PMHx: 13:38 Kidney stones; Migraines; Rheumatoid Arthritis; aj1 - PSHx: 13:38 None; aj1 - Immunization history:: Flu vaccine is up to date. - Social history:: Smoking status: Patient/guardian denies using tobacco. - Ebola Screening: : Patient denies travel to an Ebola-affected area in the 21 days before illness onset. Screenin:00 Abuse screen: Denies threats or abuse. Nutritional screening: No deficits noted. em Tuberculosis screening: No symptoms or risk factors identified. Fall Risk None identified. Assessment: 14:00 General: Appears in no apparent distress. comfortable, Behavior is calm, cooperative, em Reports fever for 12-24 hours. Pain: Complains of pain in chest and face Pain currently is 9 out of 10 on a pain scale. Quality of pain is described as pressure. Neuro: Level of Consciousness is awake, alert, obeys commands, Oriented to person, place, time, situation. Cardiovascular: Reports chest pain, nausea, Capillary refill < 3 seconds Patient's skin is warm and dry. Rhythm is sinus rhythm. Respiratory: Airway is patent Respiratory effort is even, unlabored, Respiratory pattern is regular, symmetrical, Breath sounds are clear bilaterally. GI: Reports nausea. Derm: Skin is intact, is healthy with good turgor, Skin is pink, warm \\T\\ dry. Musculoskeletal: Capillary refill Range of motion: intact in all extremities. 15:10 Reassessment: Patient appears in no apparent distress at this time. Patient and/or em family updated on plan of care and expected duration. Pain level reassessed. Patient is alert, oriented x 3, equal unlabored respirations, skin warm/dry/pink. 15:30 Reassessment: pending completion of breathing treatment, will be discharged afterwards. em Vital Signs: 13:38 BP 151 / 89; Pulse 115; Resp 20; Temp 99.3; Pulse Ox 100% on R/A; Weight 117.93 kg (R); aj1 Height 5 ft. 9 in. (175.26 cm) (R); Pain 9/10; 14:30 BP 140 / 93; Pulse 97; Resp 20; Pulse Ox 96% on R/A; em 13:38 Body Mass Index 38.39 (117.93 kg, 175.26 cm) aj1 ED Course: 13:22 Patient arrived in ED. as 13:31 Angela Sosa FNP-C is PHCP. kb 13:31 Mc Dominique MD is Attending Physician. kb 13:37 Triage completed. aj1 13:38 Arm band placed on Patient placed in an exam room. aj1 13:50 Marcello Bailon LVN is Primary Nurse. em 14:00 Patient has correct armband on for positive identification. Placed in gown. Bed in low em position. Call light in reach. Side rails up X2. Pulse ox on. NIBP on. 14:00 Initial lab(s) drawn, by me, sent to lab. Inserted saline lock: 20 gauge in right em antecubital area, using aseptic technique. Blood collected. 14:22 Patient moved to radiology via wheelchair. kp1 14:23 Chest Pa And Lat (2 Views) XRAY In Process Unspecified. EDMS 15:52 No provider procedures requiring assistance completed. IV discontinued, intact, em bleeding controlled, No redness/swelling at site. Pressure dressing applied. Administered Medications: 14:30 Drug: NS 0.9% 1000 ml Route: IV; Rate: 1000 ml; Site: right antecubital; em 15:29 Follow up: IV Status: Completed infusion; IV Intake: 1000ml em 15:14 Drug: Zithromax 500 mg Route: PO; ss 15:29 Follow up: Response: No adverse reaction em 15:17 Drug: Rocephin 1 grams Route: IV; Rate: calculated rate; Site: right antecubital; ss 15:29 Follow up: Response: No adverse reaction; IV Status: Completed infusion; IV Intake: 10mlem 15:17 Drug: Xopenex 1.25 mg Route: Inhalation; ss 15:17 Drug: AtroVENT Aerosol 0.5 mg Route: Inhalation; ss Intake: 15:29 IV: 1000ml; Total: 1000ml. em 15:29 IV: 10ml; Total: 1010ml. em Outcome: 15:06 Discharge ordered by . kb 15:52 Discharged to home ambulatory. em 15:52 Condition: good 15:52 Discharge instructions given to patient, Instructed on discharge instructions, follow up and referral plans. medication usage, Demonstrated understanding of instructions, follow-up care, medications, Prescriptions given X 2. 15:54 Patient left the ED. em Signatures: Dispatcher [employer] Angela Jackson, SIEBEL ADMINISTRATOR-C SIEBEL ADMINISTRATOR-Francie Jesus, RN RN aj1 Marcello Bailon, RECORDS CLERK RECORDS CLERK em Rachael Jesus Shelby, RN RN ss Jocelyn Mondragon kp1
[2018-10-12] MEDS ORDERED: LEVALBUTEROL 1.25 MG/3 ML NEB ONE (15:11)
[2018-10-12] MEDS ORDERED: CEFTRIAXONE/SWI 1gm 1 GM/10 ML SYR ONE (15:11)
[2018-10-12] MEDS ORDERED: IPRATROPIUM BROM 0.5MG/2.5ML ONE (15:11)
[2018-10-12] MEDS ORDERED: AZITHROMYCIN 250 MG TAB ONE (15:27)
--- NOTE | 2018-10-13 06:37 | EKG ---
Test Date: 2018-10-12 Test Time: 14:30:22 Efficiency Miner Blasting: SARAH MEASUREMENT RESULTS: Intervals: Rate: 101 AL: 136 QRSD: 84 QT: 318 QTc: 412 [place]: P: 33 AL: 136 QRS: 52 T: 23 INTERPRETIVE STATEMENTS: Sinus tachycardia Nonspecific T wave abnormality Abnormal ECG Compared to ECG 08/29/2018 09:29:34 T-wave abnormality now present Sinus rhythm no longer present Electronically Signed On 10-13-18 06:36:22 CDT by Geoffrey Valladares
== END 2018-10-12 15:54 | disposition home or self-care (01) ==
LOC: ER 13:21
DX: J18.9 Pneumonia, unspecified organism (principal); J02.0 Streptococcal pharyngitis; M06.9 Rheumatoid arthritis, unspecified
CPT/HCPCS: 36415; 71046; 80048; 84484; 85025; 86308; 87081; 93005; 96361; 96374; 99285; J0696; J7030

== ENCOUNTER 2018-10-17 21:07 | Emergency (ER) | payer OTHER ==
[2018-10-17] MEDS ORDERED: NA CHLORIDE 0.9% 1,000 ML ONE (21:43)
[2018-10-17 22:00] LABS: Absolute Lymphocytes (CBC) 2.5 K/uL (0.7-4.9); Basophils % 0.7 % (0-1.3); Eosinophils % 3.2 % (0-4.4); Hematocrit 41.2 % (39.6-49.0); Lymphocytes % 24.9 % (15.3-44.8); MPV 7.3 fL (7.6-11.3); Monocytes % 9.5 % (3.3-12.3)
[2018-10-17 22:01] LABS: Protime INR 1.03
[2018-10-17 22:14] LABS: ALT/SGPT 64 U/L (12-78); AST/SGOT 27 U/L (15-37); Albumin 3.7 g/dL (3.4-5.0); Alkaline Phosphatase 91 U/L (45-117); BUN Blood Urea Nitrogen 12 mg/dL (7-18); Bicarbonate 29 mmol/L (21-32); Bilirubin Direct 0.2 mg/dL (0-0.2); Bilirubin Total 0.8 mg/dL (0.2-1.0); Glucose Level 125 mg/dL (74-106); Magnesium 2.2 mg/dL (1.8-2.4); NT PRO-BNP 13 pg/mL (<125); Protein, Total 8.1 g/dL (6.4-8.2); Sodium Level 140 mmol/L (136-145); Troponin (Emerg Dept Use Only) < 0.02 ng/mL (0.0-0.045)
--- NOTE | 2018-10-18 00:58 | ER ---
Nurse's Notes [facility] Name: Fransisco Juarez Age: 33 yrs Sex: Male : 1985 Arrival Date: 10/17/2018 Time: 21:08 Bed 27 Private MD: Diagnosis: Syncope and collapse;Pneumonia in diseases classified elsewhere-improved Presentation: 10/17 21:08 Presenting complaint: EMS states: HE WAS DIAGNOSED WITH PNEUMONIA LAST SATURDAY. STARTED rv ON AUGMENTIN. TODAY HAD SOME SYNCOPAL EPISODES. BGL IS 121. NO MEDICAL PROBLEM. Transition of care: patient was not received from another setting of care. Onset of symptoms was October 17, 2018 at 20:00. Risk Assessment: Do you want to hurt yourself or someone else? Patient reports no desire to harm self or others. Initial Sepsis Screen: Does the patient meet any 2 criteria? No. Patient's initial sepsis screen is negative. Does the patient have a suspected source of infection? No. Patient's initial sepsis screen is negative. Care prior to arrival: None. 21:08 Method Of Arrival: EMS: [facility] rv 21:08 Acuity: AMILCAR 3 rv Historical: - Allergies: 21:11 No Known Allergies; rv - Home Meds: 21:11 None [Active]; rv - PMHx: 21:11 Kidney stones; Migraines; Rheumatoid Arthritis; rv - PSHx: 21:11 None; rv - Immunization history:: Adult Immunizations up to date. - Social history:: Smoking status: Patient/guardian denies using tobacco, never smoked. - Ebola Screening: : No symptoms or risks identified at this time. Screenin:13 Abuse screen: Denies threats or abuse. Denies injuries from another. Nutritional rv screening: No deficits noted. Tuberculosis screening: No symptoms or risk factors identified. Fall Risk None identified. Assessment: 21:12 General: Appears in no apparent distress. comfortable, Behavior is calm, cooperative. rv Pain: Denies pain. Neuro: Level of Consciousness is awake, alert, obeys commands, Oriented to person, place, time, situation. Neuro: Reports a syncopal episode. Cardiovascular: Patient's skin is warm and dry. Respiratory: Airway is patent. GI: No signs and/or symptoms were reported involving the gastrointestinal system. : No signs and/or symptoms were reported regarding the genitourinary system. EENT: No signs and/or symptoms were reported regarding the EENT system. Derm: Skin is intact. Musculoskeletal: No signs and/or symptoms reported regarding the musculoskeletal system. 10/18 00:36 Reassessment: Patient appears in no apparent distress at this time. Patient is alert, ca1 oriented x 3, equal unlabored respirations, skin warm/dry/pink. Apple juice given. Drank the full cup. Pt tolerated well. No reports of N/V at this time. Vital Signs: 10/17 21:10 BP 125 / 106; Pulse 88; Resp 12; Temp 99.1; Pulse Ox 96% ; Weight 117.93 kg; Height 5 rv ft. 9 in. (175.26 cm); Pain 0/10; 22:08 BP 139 / 82; Pulse 89; Resp 17; Temp 99; Pulse Ox 100% on R/A; rv 22:41 BP 144 / 93; Pulse 88; Resp 17; Pulse Ox 97% on R/A; rv 23:44 BP 122 / 68; Pulse 71; Resp 16; Pulse Ox 96% on R/A; rv 10/18 01:06 BP 112 / 77; Pulse 72; Resp 17; Temp 98.7; Pulse Ox 97% on R/A; rv 10/17 21:10 Body Mass Index 38.39 (117.93 kg, 175.26 cm) rv ED Course: 10/17 21:08 Patient arrived in ED. rv 21:09 Triage completed. rv 21:10 Tomasz Kay PA is PHCP. cp 21:10 José Quinones MD is Attending Physician. cp 21:14 Patient has correct armband on for positive identification. Placed in gown. Bed in low rv position. Call light in reach. Side rails up X 1. vacuum cleaner assembler on. Pulse ox on. NIBP on. 21:14 Patient placed in the treatment room, on a stretcher, on slitter and rewinder machine operator, on pulse rv oximetry, Patient notified of wait time. 21:14 EKG done. rv 21:25 Afshin Kapoor, RAGHAVENDRA is Primary Nurse. rv 21:50 XRAY Chest (1 view) In Process Unspecified. EDMS 21:53 Inserted saline lock: 20 gauge in left antecubital area, using aseptic technique. rv ,using aseptic technique. by [facility] Blood collected. 07/06 01:07 No provider procedures requiring assistance completed. IV discontinued, intact, rv bleeding controlled, No redness/swelling at site. Pressure dressing applied. Administered Medications: 10/17 21:52 Drug: NS 0.9% 1000 ml Route: IV; Rate: 1 bolus; Site: left antecubital; rv 23:37 Follow up: IV Status: Completed infusion; IV Intake: 1000ml rv Intake: 23:37 IV: 1000ml; Total: 1000ml. rv Outcome: 10/18 00:57 Discharge ordered by . leeanna 01:07 Discharged to home ambulatory. rv 01:07 Condition: good 01:07 Discharge instructions given to patient, Instructed on discharge instructions, follow up and referral plans. Demonstrated understanding of instructions, follow-up care. 01:08 Patient left the ED. rv Signatures: Dispatcher [employer] EDMS Tomasz Kay PA PA cp Vicente, Ronaldo RN RN rv Margarita Grissom RN RN ca1
--- NOTE | 2018-10-18 00:59 | EDPHYS ---
Physician Documentation [facility] Name: Fransisco Juarez Age: 33 yrs Sex: Male : 1985 Arrival Date: 10/17/2018 Time: 21:08 Bed 27 Private MD: ED Physician José Quinones HPI: 10/17 21:25 This 33 yrs old Male presents to ER via EMS with complaints of syncope. cp 21:25 The patient has experienced syncope, lost consciousness. Onset: The symptoms/episode cp began/occurred today, after coughing fit. Duration: The patient has had multiple episodes, that last an unknown period of time. Associated injury: The patient did not suffer any apparent associated injury. Associated signs and symptoms: Pertinent negatives: abdominal pain, chest pain, headache, palpitations, shortness of breath. Current symptoms: Currently, the patient is not experiencing any symptoms. 21:25 Patient reports he was diagnosed with pneumonia this past Saturday and is currently cp taking Augmentin and Zithromax. Syncopal episode happened tonight after coughing fit. Historical: - Allergies: 21:11 No Known Allergies; rv - Home Meds: 21:11 None [Active]; rv - PMHx: 21:11 Kidney stones; Migraines; Rheumatoid Arthritis; rv - PSHx: 21:11 None; rv - Immunization history:: Adult Immunizations up to date. - Social history:: Smoking status: Patient/guardian denies using tobacco, never smoked. - Ebola Screening: : No symptoms or risks identified at this time. ROS: 21:30 Eyes: Negative for injury, pain, redness, and discharge. cp 21:30 Constitutional: Negative for body aches, chills, fever, poor PO intake. 21:30 ENT: Negative for drainage from ear(s), ear pain, sore throat, difficulty swallowing, difficulty handling secretions. 21:30 Cardiovascular: Negative for chest pain, edema, palpitations. 21:30 Respiratory: Positive for cough, Negative for shortness of breath, wheezing. 21:30 Abdomen/GI: Negative for abdominal pain, nausea, vomiting, and diarrhea. 21:30 Back: Negative for pain at rest, pain with movement, radiated pain. 21:30 : Negative for urinary symptoms. 21:30 Skin: Negative for rash. 21:30 Neuro: Positive for syncope, Negative for altered mental status, headache, weakness. 21:30 All other systems are negative. Exam: 21:15 ECG was reviewed by the Attending Physician. cp 21:38 Constitutional: The patient appears in no acute distress, alert, awake, cp non-diaphoretic, non-toxic, well developed, well nourished. 21:38 Head/Face: Normocephalic, atraumatic. Eyes: Pupils equal round and reactive to light, cp extra-ocular motions intact. Lids and lashes normal. Conjunctiva and sclera are non-icteric and not injected. Cornea within normal limits. Periorbital areas with no swelling, redness, or edema. ENT: Nares patent. No nasal discharge, no septal abnormalities noted. Tympanic membranes are normal and external auditory canals are clear. Oropharynx with no redness, swelling, or masses, exudates, or evidence of obstruction, uvula midline. Mucous membranes moist. Neck: Trachea midline, no thyromegaly or masses palpated, and no cervical lymphadenopathy. Supple, full range of motion without nuchal rigidity, or vertebral point tenderness. No Meningismus. Chest/axilla: Normal chest wall appearance and motion. Nontender with no deformity. No lesions are appreciated. 21:38 Cardiovascular: Rate: normal, Rhythm: regular, Heart sounds: murmur, not appreciated, Edema: is not appreciated, JVD: is not appreciated. 21:38 Respiratory: the patient does not display signs of respiratory distress, Respirations: normal, no use of accessory muscles, no retractions, no splinting, no tachypnea, labored breathing, is not present, Breath sounds: are clear throughout, no decreased breath sounds, no stridor, no wheezing. 21:38 Abdomen/GI: Inspection: abdomen appears normal, Palpation: abdomen is soft and non-tender, in all quadrants. 21:38 Back: pain, is absent. 21:38 Neuro: Orientation: to person, place \T\ time. Mentation: able to follow commands, slow to respond, Motor: moves all fours. Vital Signs: 21:10 BP 125 / 106; Pulse 88; Resp 12; Temp 99.1; Pulse Ox 96% ; Weight 117.93 kg; Height 5 rv ft. 9 in. (175.26 cm); Pain 0/10; 22:08 BP 139 / 82; Pulse 89; Resp 17; Temp 99; Pulse Ox 100% on R/A; rv 22:41 BP 144 / 93; Pulse 88; Resp 17; Pulse Ox 97% on R/A; rv 23:44 BP 122 / 68; Pulse 71; Resp 16; Pulse Ox 96% on R/A; rv 10/18 01:06 BP 112 / 77; Pulse 72; Resp 17; Temp 98.7; Pulse Ox 97% on R/A; rv 10/17 21:10 Body Mass Index 38.39 (117.93 kg, 175.26 cm) rv MDM: 10/17 21:18 Patient medically screened. cp 22:00 Differential Diagnosis: cardiac arrhythmia, drug effect, idiopathic syncope, pseudo cp seizure, seizure, vasovagal episode. 10/18 00:55 Data reviewed: vital signs, nurses notes, lab test result(s), EKG, radiologic studies, cp plain films. 00:55 Test interpretation: by ED physician or midlevel provider: ECG, plain radiologic cp studies. Counseling: I had a detailed discussion with the patient and/or guardian regarding: the historical points, exam findings, and any diagnostic results supporting the discharge/admit diagnosis, lab results, radiology results, the need for outpatient follow up, a family practitioner, to return to the emergency department if symptoms worsen or persist or if there are any questions or concerns that arise at home. Response to treatment: the patient's symptoms have markedly improved after treatment, and as a result, I will discharge patient. 10/17 21:20 Order name: Basic Metabolic Panel cp 10/17 21:20 Order name: CBC with Diff cp 10/17 21:20 Order name: LFT's cp 10/17 21:20 Order name: Magnesium cp 10/17 21:20 Order name: NT PRO-BNP cp 10/17 21:20 Order name: PT-INR; Complete Time: 22:33 cp 10/17 21:20 Order name: Troponin (emerg Dept Use Only); Complete Time: 22:33 cp 10/17 21:20 Order name: Procalcitonin; Complete Time: 22:33 cp 10/17 21:20 Order name: Lactate; Complete Time: 22:33 cp 10/17 21:21 Order name: Basic Metabolic Panel; Complete Time: 22:33 EDMS 10/17 21:21 Order name: CBC with Automated Diff; Complete Time: 22:33 EDSD 10/17 21:21 Order name: Liver (Hepatic) Function; Complete Time: 22:33 EDSD 10/17 21:21 Order name: Magnesium; Complete Time: 22:33 EDSD 10/17 21:21 Order name: NT PRO-BNP; Complete Time: 22:33 EDMS 10/17 21:20 Order name: XRAY Chest (1 view) cp 10/17 21:20 Order name: EKG; Complete Time: 21:22 cp 10/17 21:20 Order name: Cardiac monitoring; Complete Time: 21:52 cp 10/17 21:20 Order name: EKG - Nurse/Tech; Complete Time: 21:52 cp 10/17 21:20 Order name: IV Saline Lock; Complete Time: :52 cp 10/17 21:20 Order name: Labs collected and sent; Complete Time: :52 cp 10/17 21:20 Order name: O2 Per Protocol; Complete Time: :52 cp 10/17 21:20 Order name: O2 Sat Monitoring; Complete Time: :52 cp 10/18 00:22 Order name: PO challenge; Complete Time: 00:38 cp EC/05 21:15 Rate is 90 beats/min. Rhythm is regular. OH interval is normal. QRS interval is normal. cp QT interval is normal. Interpreted by me. Reviewed by me. Administered Medications: 21:52 Drug: NS 0.9% 1000 ml Route: IV; Rate: 1 bolus; Site: left antecubital; rv 23:37 Follow up: IV Status: Completed infusion; IV Intake: 1000ml rv Disposition: 10/18 02:14 Co-signature as Attending PhysicianTomasz Disposition: 10/18/18 00:57 Discharged to Home. Impression: Syncope and collapse, Pneumonia in diseases classified elsewhere - improved. - Condition is Stable. - Discharge Instructions: Community-Acquired Pneumonia, Adult, Syncope. - Medication Reconciliation Form, Thank You Letter, Antibiotic Education, Prescription Opioid Use, Work release form form. - Follow up: Private Physician; When: 2 - 3 days; Reason: Recheck today's complaints. - Problem is new. - Symptoms have improved. Signatures: Dispatcher [employer] [facility] Quinones, Pin, MD MD pkl Page, Tomasz, PA PA cp Antwon, Afshin, RN RN rv Corrections: (The following items were deleted from the chart) 01:01 00:57 10/18/2018 00:57 Discharged to Home. Impression: Syncope and collapse. Condition cp is Stable. Forms are Medication Reconciliation Form, Thank You Letter, Antibiotic Education, Prescription Opioid Use. Follow up: Private Physician; When: 2 - 3 days; Reason: Recheck today's complaints. Problem is new. Symptoms have improved. cp 01:08 01:01 10/18/2018 00:57 Discharged to Home. Impression: Syncope and collapse; Pneumonia rv in diseases classified elsewhere - improved. Condition is Stable. Discharge Instructions: Syncope, Vasovagal Syncope, Adult. Forms are Medication Reconciliation Form, Thank You Letter, Antibiotic Education, Prescription Opioid Use. Follow up: Private Physician; When: 2 - 3 days; Reason: Recheck today's complaints. Problem is new. Symptoms have improved. cp
[2018-10-18 02:29] VITALS: BP 112/77; TEMP 98.7; O2SAT 97
--- NOTE | 2018-10-18 07:19 | EKG ---
Test Date: 2018-10-17 Test Time: 21:06:47 Surgery Aid: [employer]ER MEASUREMENT RESULTS: Intervals: Rate: 90 SC: 142 QRSD: 84 QT: 346 QTc: 423 [place]: P: 40 SC: 142 QRS: 57 T: 21 INTERPRETIVE STATEMENTS: Normal sinus rhythm Nonspecific T wave abnormality Abnormal ECG Compared to ECG 10/12/2018 14:30:22 Sinus tachycardia no longer present T-wave abnormality still present Electronically Signed On 10-18-18 07:18:20 CDT by Geoffrey Valladares
--- NOTE | 2018-10-18 11:15 | RAD REPORT ---
EXAM DESCRIPTION: RAD - Chest Single View - 10/17/2018 9:51 pm CLINICAL HISTORY: syncope Chest pain. COMPARISON: Chest Pa And Lat (2 Views) dated 10/12/2018; Chest Pa And Lat (2 Views) dated 08/29/2018; Chest Single View dated 05/10/2018; Chest Single View dated 10/27/2017 FINDINGS: Portable technique limits examination quality. Interstitial markings are mildly prominent. The heart is normal in size. No displaced fractures. IMPRESSION: Mild interstitial pneumonitis or reactive airway disease pattern seen.
== END 2018-10-18 01:08 | disposition home or self-care (01) ==
LOC: ER 21:07
DX: J18.9 Pneumonia, unspecified organism (principal); R55 Syncope and collapse; M06.9 Rheumatoid arthritis, unspecified
CPT/HCPCS: 36415; 71045; 80048; 80076; 83605; 83735; 83880; 84145; 84484; 85025; 85610; 93005; 96360; 96361; 99285; J7030

== ENCOUNTER 2018-10-24 07:43 | Emergency (ER) | payer OTHER ==
[2018-10-24 08:36] LABS: Absolute Lymphocytes (CBC) 2.3 K/uL (0.7-4.9); Eosinophils % 4.5 % (0-4.4); Hematocrit 40.5 % (39.6-49.0); Lymphocytes % 28.5 % (15.3-44.8); MPV 7.4 fL (7.6-11.3); RBC Red Blood Cell Count 4.84 M/uL (4.33-5.43)
--- NOTE | 2018-10-24 08:38 | RAD REPORT ---
EXAM DESCRIPTION: RAD - Chest Single View - 10/24/2018 8:28 am CLINICAL HISTORY: CHEST PAIN Chest pain. COMPARISON: Chest Single View dated 10/17/2018; Chest Pa And Lat (2 Views) dated 10/12/2018; Chest Pa A nd Lat (2 Views) dated 08/29/2018; Chest Single View dated 05/10/2018 FINDINGS: Portable technique limits examination quality. The lungs are grossly clear. The heart is normal in size. No displaced fractures. IMPRESSION: No acute intrathoracic process suspected.
[2018-10-24 09:16] LABS: ALT/SGPT 54 U/L (12-78); AST/SGOT 31 U/L (15-37); Albumin 3.6 g/dL (3.4-5.0); Alkaline Phosphatase 80 U/L (45-117); BUN Blood Urea Nitrogen 11 mg/dL (7-18); Bicarbonate 24 mmol/L (21-32); Bilirubin Direct 0.2 mg/dL (0-0.2); Bilirubin Total 1.1 mg/dL (0.2-1.0); Glucose Level 160 mg/dL (74-106); Lipase 133 U/L (73-393); Potassium 3.6 mmol/L (3.5-5.1); Protein, Total 7.6 g/dL (6.4-8.2); Sodium Level 140 mmol/L (136-145); Troponin (Emerg Dept Use Only) < 0.02 ng/mL (0.0-0.045)
--- NOTE | 2018-10-24 09:29 | ER ---
Nurse's Notes [facility] Name: Fransisco Juarez Age: 33 yrs Sex: Male : 1985 Arrival Date: 10/24/2018 Time: 07:57 Bed 5 Private MD: Diagnosis: Unspecified abdominal pain;Chest pain, unspecified Presentation: 10/24 07:57 Presenting complaint: EMS states: Pt was at work and began to have tightness in ph epigastric area radiating up into midsternal area, also c/o SOB and nausea, dx w/ pneumonia and strep 10/12, has completed Zithromax, VSS en route BGL 194. Transition of care: patient was not received from another setting of care. Onset of symptoms was October 24, 2018. Risk Assessment: Do you want to hurt yourself or someone else? Patient reports no desire to harm self or others. Initial Sepsis Screen: Does the patient meet any 2 criteria? No. Patient's initial sepsis screen is negative. Does the patient have a suspected source of infection? No. Patient's initial sepsis screen is negative. Care prior to arrival: Medication(s) given: zofran 4 mg, IV initiated. 20 GA, in the left antecubital area, Glucose check: 194. 07:57 Method Of Arrival: EMS: [facility] ph 07:57 Acuity: AMILCAR 3 ph Historical: - Allergies: 08:02 No Known Allergies; ph - PMHx: 08:02 Kidney stones; Migraines; Rheumatoid Arthritis; Pneumonia; ph - PSHx: 08:02 None; ph - Immunization history:: Adult Immunizations unknown. - Ebola Screening: : No symptoms or risks identified at this time. - Family history:: not pertinent. - Social history:: Smoking status: unknown. - Hospitalizations: : No recent hospitalization is reported. Screenin:03 Abuse screen: Denies threats or abuse. Denies injuries from another. Nutritional ph screening: No deficits noted. Tuberculosis screening: No symptoms or risk factors identified. Fall Risk None identified. Assessment: 08:05 General: Appears in no apparent distress. comfortable, Behavior is calm, cooperative, ph appropriate for age, Denies fever, feeling ill. Pain: Complains of pain in epigastric area Pain radiates to mid-sternal area Pain currently is 6 out of 10 on a pain scale. Quality of pain is described as tingling, Tightness Pain began suddenly. Neuro: Level of Consciousness is awake, alert, obeys commands, Oriented to person, place, time, situation. Cardiovascular: Capillary refill < 3 seconds in bilateral fingers Patient's skin is warm and dry. Respiratory: Reports shortness of breath at rest Airway is patent Respiratory effort is even, unlabored, Respiratory pattern is regular, symmetrical. GI: Abdomen is round non-distended, Reports nausea, Patient currently denies abdominal pain. Derm: Skin is intact, is healthy with good turgor, Skin is pink, warm \T\ dry. Musculoskeletal: Circulation, motion, and sensation intact. Range of motion: intact in all extremities. 09:58 Reassessment: PT D/C HOME AMBULATORY WITH FAMILY, DX WITH UNSPECIFIC CHEST PAIN. bp Vital Signs: 08:00 BP 133 / 87; Pulse 78; Resp 18; Temp 98.4; Pulse Ox 100% on R/A; ph 09:59 BP 127 / 91; Pulse 74; Resp 17; Temp 98; Pulse Ox 96% ; bp ED Course: 07:57 Patient arrived in ED. ph 07:59 Mc Dominique MD is Attending Physician. rn 08:00 Triage completed. ph 08:02 Arm band placed on Patient placed in an exam room, on a stretcher. ph 08:03 Patient has correct armband on for positive identification. Placed in gown. Bed in low ph position. Call light in reach. Side rails up X2. quality assurance monitor body on. Pulse ox on. NIBP on. Door closed. Noise minimized. Warm blanket given. Head of bed elevated. 08:05 Latoya Hickman, RN is Primary Nurse. ph 08:08 Maintain EMS IV. Dressing intact. Good blood return noted. Site clean \T\ dry. Gauge \T\ ph site: 20 LAC. Patient maintains SpO2 saturation greater than 95% on room air. 08:09 No provider procedures requiring assistance completed. ph 08:17 Initial lab(s) drawn, by me, sent to lab. ph 08:25 X-ray completed. Portable x-ray completed in exam room. Patient tolerated procedure ml well. 08:25 XRAY Chest (1 view) In Process Unspecified. EDMS 09:58 IV discontinued, intact, bleeding controlled, No redness/swelling at site. Pressure bp dressing applied. Administered Medications: No medications were administered Outcome: : Discharge ordered by . rn :59 Discharged to home ambulatory, with family. bp :59 Condition: stable :59 Discharge instructions given to patient, Instructed on discharge instructions, follow up and referral plans. Demonstrated understanding of instructions, follow-up care, medications. 10:00 Patient left the ED. bp Signatures: Dispatcher [employer] EDMS Valentine Magallon Roman, MD MD rn Hall, Patricia, RN RN Rebel Pratt RN RN bp
--- NOTE | 2018-10-24 09:29 | EDPHYS ---
Physician Documentation [facility] Name: Fransisco Juarez Age: 33 yrs Sex: Male : 1985 Arrival Date: 10/24/2018 Time: 07:57 Bed 5 Private MD: ED Physician Mc Dominique HPI: 10/24 08:02 This 33 yrs old Male presents to ER via EMS with complaints of Chest Pain. rn 08:02 The patient or guardian reports chest pain that is located primarily in the substernal rn area. The pain. The chest pain is described as aching. Duration: The patient or guardian reports a single episode, that is still ongoing. Severity of pain: At its worst the pain was mild in the emergency department the pain is unchanged. The patient has experienced similar episodes in the past. Reports at work, felt upper abd pain, radiates to chest, assoc with tingling of head and neck and both arms, no weakness, just got over pneumonia and finished abx. No fever. + mild cough. NO famhx of cardiac problems at his age. No known cardiac or pulmonary problems in patient. NO syncope. Better now without intervention. + hx of acid reflux. . Historical: - Allergies: 08:02 No Known Allergies; ph - PMHx: 08:02 Kidney stones; Migraines; Rheumatoid Arthritis; Pneumonia; ph - PSHx: 08:02 None; ph - Immunization history:: Adult Immunizations unknown. - Ebola Screening: : No symptoms or risks identified at this time. - Family history:: not pertinent. - Social history:: Smoking status: unknown. - Hospitalizations: : No recent hospitalization is reported. ROS: 08:02 Constitutional: Negative for fever, chills, and weight loss, Eyes: Negative for injury, rn pain, redness, and discharge, Neck: Negative for injury, pain, and swelling, Cardiovascular: Negative for palpitations, and edema, Respiratory: Negative for wheezing, and pleuritic chest pain, Abdomen/GI: Negative for nausea, vomiting, and constipation, MS/Extremity: Negative for injury and deformity, Skin: Negative for injury, rash, and discoloration, Neuro: Negative for headache, weakness, and seizure. Exam: 08:02 Constitutional: This is a well developed, well nourished patient who is awake, alert, rn and in no acute distress. Head/Face: Normocephalic, atraumatic. Eyes: Pupils equal round and reactive to light, extra-ocular motions intact. Lids and lashes normal. Conjunctiva and sclera are non-icteric and not injected. Cornea within normal limits. Periorbital areas with no swelling, redness, or edema. ENT: MMM, no stridor Cardiovascular: Regular rate and rhythm. No pulse deficits. Respiratory: Lungs have equal breath sounds bilaterally, clear to auscultation. No increased work of breathing, no retractions or nasal flaring. Abdomen/GI: Soft, mild tenderness epigastric region, no rebound MS/ Extremity: Pulses equal, no cyanosis. Neurovascular intact. Full, normal range of motion. Equal circumference. Neuro: Awake and alert, GCS 15, oriented to person, place, time, and situation. Cranial nerves II-XII grossly intact. Motor strength 5/5 in all extremities. Sensory grossly intact. Cerebellar exam normal. 08:07 ECG was reviewed by the Attending Physician. rn Vital Signs: 08:00 BP 133 / 87; Pulse 78; Resp 18; Temp 98.4; Pulse Ox 100% on R/A; ph 09:59 BP 127 / 91; Pulse 74; Resp 17; Temp 98; Pulse Ox 96% ; bp MDM: 08:00 Patient medically screened. rn 09:25 Differential diagnosis: acute pericarditis, anxiety, chest wall pain, costochondritis, rn gastritis, gastroesophageal reflux disease (GERD), peptic ulcer disease, pericarditis, pleurisy, pneumothorax. Data reviewed: vital signs, nurses notes, lab test result(s), EKG, radiologic studies, plain films, and as a result, I will discharge patient. Counseling: I had a detailed discussion with the patient and/or guardian regarding: the historical points, exam findings, and any diagnostic results supporting the discharge/admit diagnosis, lab results, radiology results, the need for outpatient follow up, to return to the emergency department if symptoms worsen or persist or if there are any questions or concerns that arise at home. Response to treatment: the patient's symptoms have mildly improved after treatment, and as a result, I will discharge patient. Special discussion: Based on the patient's history, exam, and Dx evaluation, there is no indication for emergent intervention or inpatient Tx. It is understood by the patient/guardian that if the Sx's persist or worsen they need to return immediately for re-evaluation. I discussed with the patient/guardian in detail that at this point there is no indication for admission to the hospital. It is understood, however, that if the symptoms persist or worsen the patient needs to return immediately for re-evaluation. 10/24 08:01 Order name: CBC with Diff; Complete Time: 08:40 rn 10/24 08:01 Order name: Basic Metabolic Panel; Complete Time: 09:23 rn 10/24 08:01 Order name: XRAY Chest (1 view); Complete Time: 08:40 rn 10/24 08:01 Order name: Troponin (emerg Dept Use Only); Complete Time: 09:23 rn 10/24 08:01 Order name: LFT's; Complete Time: 09:23 rn 10/24 08:01 Order name: Lipase; Complete Time: 09:23 rn 10/24 08:01 Order name: IV Start; Complete Time: 08:09 rn 10/24 08:01 Order name: EKG; Complete Time: 08:02 rn 10/24 08:01 Order name: EKG - Nurse/Tech; Complete Time: 08:18 rn EC:07 Rate is 76 beats/min. Rhythm is regular. QRS [place] is Normal. CT interval is normal. QRS rn interval is normal. QT interval is normal. No Q waves. T waves are Normal. No ST changes noted. Clinical impression: Normal ECG. Interpreted by me. Reviewed by me. Administered Medications: No medications were administered Disposition: 10/24/18 09:29 Discharged to Home. Impression: Unspecified abdominal pain, Chest pain, unspecified. - Condition is Stable. - Discharge Instructions: Abdominal Pain, Adult, Nonspecific Chest Pain. - Medication Reconciliation Form, Thank You Letter, Antibiotic Education, Prescription Opioid Use form. - Follow up: Private Physician; When: As needed; Reason: Recheck today's complaints, Re-evaluation by your physician. - Problem is new. - Symptoms have improved. Signatures: Dispatcher [employer] EDMS Mc Dominique MD MD rn Hall, Patricia, RN RN ph Peltier, Brian RN RN bp Corrections: (The following items were deleted from the chart) 08:04 08:02 Constitutional: Negative for fever, chills, and weight loss, Eyes: Negative for rn injury, pain, redness, and discharge, Neck: Negative for injury, pain, and swelling, Cardiovascular: Negative for palpitations, and edema, Respiratory: Negative for wheezing, and pleuritic chest pain, Abdomen/GI: Negative for nausea, vomiting, and constipation, MS/Extremity: Negative for injury and deformity, Skin: Negative for injury, rash, and discoloration, Neuro: Negative for headache, weakness, numbness, tingling, and seizure, rn 10:00 09:29 10/24/2018 09:29 Discharged to Home. Impression: Unspecified abdominal pain; bp Chest pain, unspecified. Condition is Stable. Forms are Medication Reconciliation Form, Thank You Letter, Antibiotic Education, Prescription Opioid Use. Follow up: Private Physician; When: As needed; Reason: Recheck today's complaints, Re-evaluation by your physician. Problem is new. Symptoms have improved. rn
[2018-10-24 10:07] VITALS: BP 127/91; TEMP 98; O2SAT 96
--- NOTE | 2018-10-24 15:02 | EKG ---
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
== END 2018-10-24 10:00 | disposition home or self-care (01) ==
LOC: ER 07:43
DX: R07.9 Chest pain, unspecified (principal); R10.9 Unspecified abdominal pain
CPT/HCPCS: 36415; 71045; 80048; 80076; 83690; 84484; 85025; 93005; 99285

== ENCOUNTER 2018-10-31 08:16 | Emergency (ER) | payer OTHER ==
--- NOTE | 2018-10-31 10:05 | ER ---
Nurse's Notes [facility] Name: Fransisco Juarez Age: 33 yrs Sex: Male : 1985 Arrival Date: 10/31/2018 Time: 08:20 Bed 6 Private MD: Diagnosis: Acute upper respiratory infection, unspecified Presentation: 10/31 08:26 Presenting complaint: Patient states: "I woke up with the shakes, aching, nausea, and a aa5 headache". Pt reports slight cough. Transition of care: patient was not received from another setting of care. Onset of symptoms was October 31, 2018. Risk Assessment: Do you want to hurt yourself or someone else? Patient reports no desire to harm self or others. Initial Sepsis Screen: Does the patient meet any 2 criteria? No. Patient's initial sepsis screen is negative. Does the patient have a suspected source of infection? No. Patient's initial sepsis screen is negative. Care prior to arrival: None. 08:26 Method Of Arrival: Ambulatory aa5 08:26 Acuity: AMILCAR 4 aa5 Triage Assessment: 08:32 GI: Reports nausea. tw2 Historical: - Allergies: 08:28 No Known Allergies; aa5 - PMHx: 08:28 Kidney stones; Migraines; Pneumonia; Rheumatoid Arthritis; aa5 - PSHx: 08:28 None; aa5 - Immunization history:: Flu vaccine is up to date. - Social history:: Smoking status: Patient/guardian denies using tobacco. - Ebola Screening: : No symptoms or risks identified at this time. Screenin:31 Abuse screen: Denies threats or abuse. Nutritional screening: No deficits noted. tw2 Tuberculosis screening: No symptoms or risk factors identified. Fall Risk None identified. Assessment: 08:31 General: Appears in no apparent distress. Behavior is calm, cooperative, appropriate tw2 for age. Pain: Complains of pain in "body aches". Neuro: Level of Consciousness is awake, alert, obeys commands, Oriented to person, place, time, situation. Cardiovascular: Patient's skin is warm and dry. Respiratory: Airway is patent Respiratory effort is even, unlabored, Respiratory pattern is regular, symmetrical. GI: Abdomen is round non-distended. : No signs and/or symptoms were reported regarding the genitourinary system. EENT: No signs and/or symptoms were reported regarding the EENT system. Derm: No signs and/or symptoms reported regarding the dermatologic system. Musculoskeletal: Range of motion: intact in all extremities. 10:16 Reassessment: Patient appears in no apparent distress at this time. Patient and/or ph family updated on plan of care and expected duration. Pain level reassessed. Patient is alert, oriented x 3, equal unlabored respirations, skin warm/dry/pink. Pt d/c home w/ family, work note provided. Vital Signs: 08:28 BP 138 / 85; Pulse 82; Resp 16 S; Temp 98.3(TE); Pulse Ox 97% on R/A; Weight 117.93 kg aa5 (R); Height 5 ft. 9 in. (175.26 cm) (R); Pain 7/10; 08:28 Body Mass Index 38.39 (117.93 kg, 175.26 cm) aa5 ED Course: 08:20 Patient arrived in ED. rg4 08:27 Triage completed. aa5 08:27 Arm band placed on. aa5 08:30 Guerrero Chan MD is Attending Physician. gs 08:30 Chapis Arerola RN is Primary Nurse. tw2 08:31 Placed in gown. Bed in low position. tw2 08:46 Flu and/or RSV swab sent to lab. Strep swab sent to lab. em1 10:01 Report given to RAGHAVENDRA Gonzalez. tw2 10:17 No provider procedures requiring assistance completed. Patient did not have IV access ph during this emergency room visit. Administered Medications: No medications were administered Outcome: 10:03 Discharge ordered by . 10:17 Discharged to home ambulatory. ph 10:17 Condition: good 10:17 Discharge instructions given to patient, Instructed on discharge instructions, follow up and referral plans. Demonstrated understanding of instructions, follow-up care. 10:18 Patient left the ED. ph Signatures: Edgar Jesus em1 Eliz Masters RN RN aa5 Latoya Hickman RN RN ph Chapis Arreola RN RN 2 Romina Wood rg4 Guerrero Chan MD MD
--- NOTE | 2018-10-31 10:05 | EDPHYS ---
Physician Documentation [facility] Name: Fransisco Juarez Age: 33 yrs Sex: Male : 1985 Arrival Date: 10/31/2018 Time: 08:20 Bed 6 Private MD: ED Physician Guerrero Chan HPI: 10/31 09:57 This 33 yrs old Male presents to ER via Ambulatory with complaints of Body gs Aches,Chills. 09:57 Onset: The symptoms/episode began/occurred yesterday. Modifying factors: there are no gs obvious modifying factors. Associated signs and symptoms: Pertinent positives: cough, decreased appetite, sore throat, Pertinent negatives: chest pain. Severity of symptoms: At their worst the symptoms were moderate in the emergency department the symptoms are unchanged. The patient has experienced similar episodes in the past, a few times. Historical: - Allergies: 08:28 No Known Allergies; aa5 - PMHx: 08:28 Kidney stones; Migraines; Pneumonia; Rheumatoid Arthritis; aa5 - PSHx: 08:28 None; aa5 - Immunization history:: Flu vaccine is up to date. - Social history:: Smoking status: Patient/guardian denies using tobacco. - Ebola Screening: : No symptoms or risks identified at this time. ROS: 09:57 All other systems are negative. gs Exam: 09:57 Head/Face: Normocephalic, atraumatic. Eyes: Pupils equal round and reactive to light, gs extra-ocular motions intact. Lids and lashes normal. Conjunctiva and sclera are non-icteric and not injected. Cornea within normal limits. Periorbital areas with no swelling, redness, or edema. ENT: Nares patent. No nasal discharge, no septal abnormalities noted. Tympanic membranes are normal and external auditory canals are clear. Oropharynx with no redness, swelling, or masses, exudates, or evidence of obstruction, uvula midline. Mucous membranes moist. Neck: Trachea midline, no thyromegaly or masses palpated, and no cervical lymphadenopathy. Supple, full range of motion without nuchal rigidity, or vertebral point tenderness. No Meningismus. Chest/axilla: Normal chest wall appearance and motion. Nontender with no deformity. No lesions are appreciated. Cardiovascular: Regular rate and rhythm with a normal S1 and S2. No gallops, murmurs, or rubs. Normal PMI, no JVD. No pulse deficits. Respiratory: Lungs have equal breath sounds bilaterally, clear to auscultation and percussion. No rales, rhonchi or wheezes noted. No increased work of breathing, no retractions or nasal flaring. Abdomen/GI: Soft, non-tender, with normal bowel sounds. No distension or tympany. No guarding or rebound. No evidence of tenderness throughout. Back: No spinal tenderness. No costovertebral tenderness. Full range of motion. Skin: Warm, dry with normal turgor. Normal color with no rashes, no lesions, and no evidence of cellulitis. MS/ Extremity: Pulses equal, no cyanosis. Neurovascular intact. Full, normal range of motion. Neuro: Awake and alert, GCS 15, oriented to person, place, time, and situation. Cranial nerves II-XII grossly intact. Motor strength 5/5 in all extremities. Sensory grossly intact. Cerebellar exam normal. Normal gait. 09:57 Constitutional: The patient appears alert, awake. Vital Signs: 08:28 BP 138 / 85; Pulse 82; Resp 16 S; Temp 98.3(TE); Pulse Ox 97% on R/A; Weight 117.93 kg aa5 (R); Height 5 ft. 9 in. (175.26 cm) (R); Pain 7/10; 08:28 Body Mass Index 38.39 (117.93 kg, 175.26 cm) aa5 MDM: 08:37 Patient medically screened. 09:57 Differential diagnosis: viral Infection, URI, bronchitis. Data reviewed: vital signs, nurses notes. Data reviewed: lab test result(s). Counseling: I had a detailed discussion with the patient and/or guardian regarding: the historical points, exam findings, and any diagnostic results supporting the discharge/admit diagnosis, lab results. Response to treatment: the patient's symptoms have markedly improved after treatment, and as a result, I will discharge patient. 10/31 08:37 Order name: Strep; Complete Time: 09:15 10/31 08:37 Order name: Influenza Screen (a \T\ B) 10/31 09:34 Order name: Throat Culture EDMS Administered Medications: No medications were administered Disposition: 10/31/18 10:03 Discharged to Home. Impression: Acute upper respiratory infection, unspecified. - Condition is Stable. - Discharge Instructions: Viral Respiratory Infection. - Work release form, Medication Reconciliation Form, Thank You Letter, Antibiotic Education, Prescription Opioid Use form. - Follow up: Private Physician; When: 1 - 2 days; Reason: Re-evaluation by your physician. Signatures: Dispatcher [employer] EDEliz Estrada RN RN aa5 Latoya Hickman RN RN ph Chan, MD MD armaan Masters Corrections: (The following items were deleted from the chart) 10:18 10:03 10/31/2018 10:03 Discharged to Home. Impression: Acute upper respiratory ph infection, unspecified. Condition is Stable. Forms are Work release form, Medication Reconciliation Form, Thank You Letter, Antibiotic Education, Prescription Opioid Use. Follow up: Private Physician; When: 1 - 2 days; Reason: Re-evaluation by your physician. gs
[2018-10-31 10:23] VITALS: BP 138/85; TEMP 98.3; O2SAT 97
== END 2018-10-31 10:18 | disposition home or self-care (01) ==
LOC: ER 08:16
DX: J06.9 Acute upper respiratory infection, unspecified (principal)
CPT/HCPCS: 87070; 87081; 87804; 99283

== ENCOUNTER 2018-12-05 11:42 | Emergency (ER) | payer OTHER ==
--- NOTE | 2018-12-05 13:12 | RAD REPORT ---
EXAM DESCRIPTION: CT - Head Brain Wo Cont - 12/05/2018 12:59 pm CLINICAL HISTORY: Headache COMPARISON: 2014 TECHNIQUE: Computed axial tomography of the head was obtained. IV contrast was not requested. All CT scans are performed using dose optimization technique as appropriate and may include automated exposure control or mA/KV adjustment according to patient size. FINDINGS: An intracranial bleed is not seen . The ventricles are normal in caliber. No extra-axial fluid collection is noted. Visualized left maxillary sinus is opacified. Mucous retention cyst is seen within the right maxillar y sinus IMPRESSION: No acute intracranial abnormality is seen. If patient's symptoms persist MRI of the bra in would be recommended. Chronic sinusitis
--- NOTE | 2018-12-05 13:24 | RAD REPORT ---
EXAM DESCRIPTION: RAD - Ankle Right 3 View - 12/05/2018 1:14 pm CLINICAL HISTORY: Right ankle pain FINDINGS: No fracture or dislocation is seen. No significant bone or joint abnormality seen
--- NOTE | 2018-12-05 13:25 | RAD REPORT ---
EXAM DESCRIPTION: RAD - Knee Right 3 View - 12/05/2018 1:20 pm CLINICAL HISTORY: Right knee pain FINDINGS: No fracture or dislocation is seen. No significant bone or joint abnormality seen
[2018-12-05] MEDS ORDERED: KETOROLAC 30 MG/ML INJ ONE (14:02)
[2018-12-05] MEDS ORDERED: NA CHLORIDE 0.9% 1,000 ML ONE (14:02)
[2018-12-05] MEDS ORDERED: METOCLOPRAMIDE 10 MG/2mL INJ ONE (14:02)
[2018-12-05] MEDS ORDERED: DIPHENHYDRAMINE 50 MG/ML VIAL ONE (14:02)
--- NOTE | 2018-12-05 14:28 | ER ---
Nurse's Notes [facility] Name: Fransisco Juarez Age: 33 yrs Sex: Male : 1985 Arrival Date: 12/05/2018 Time: 11:46 Bed 25 Private MD: Diagnosis: Headache;Pain in right knee;Pain in right ankle and joints of right foot Presentation: 12/05 11:49 Presenting complaint: Patient states: Headache, dizziness for the past hour. My right la1 foot has been bothering me for the past few months and my right knee started hurting today. Transition of care: patient was not received from another setting of care. Onset of symptoms was December 05, 2018. Risk Assessment: Do you want to hurt yourself or someone else? Patient reports no desire to harm self or others. Initial Sepsis Screen: Does the patient meet any 2 criteria? No. Patient's initial sepsis screen is negative. Does the patient have a suspected source of infection? No. Patient's initial sepsis screen is negative. Care prior to arrival: None. 11:49 Method Of Arrival: Ambulatory la1 11:49 Acuity: AMILCAR 3 la1 Triage Assessment: 12:31 Headache History: The patient has had previous headaches and this one is more severe mg2 than previous episodes. General: Appears in no apparent distress. comfortable, Behavior is calm, cooperative. Pain: Also complains of. Pain: Complains of pain in head Pain does not radiate. Pain currently is 5 out of 10 on a pain scale. Quality of pain is described as aching, Pain began gradually. Historical: - Allergies: 11:51 No Known Allergies; la1 - PMHx: 11:51 Kidney stones; Migraines; Pneumonia; Rheumatoid Arthritis; Diabetes - NIDDM; la1 - Immunization history:: Adult Immunizations up to date. - Social history:: Smoking status: Patient/guardian denies using tobacco. - Ebola Screening: : No symptoms or risks identified at this time. Screenin:28 Abuse screen: Denies threats or abuse. Denies injuries from another. Nutritional mg2 screening: No deficits noted. Tuberculosis screening: No symptoms or risk factors identified. Fall Risk None identified. Assessment: 12:28 General: Appears in no apparent distress. comfortable, Behavior is calm, cooperative. mg2 Pain: Complains of pain in head Pain does not radiate. Pain currently is 5 out of 10 on a pain scale. Quality of pain is described as aching, Pain began gradually, 1 hour ago. Neuro: Level of Consciousness is awake, alert, obeys commands, Oriented to person, place, time, situation, Reports dizziness, headache. Cardiovascular: Capillary refill < 3 seconds Patient's skin is warm and dry. Respiratory: No deficits noted. GI: Reports nausea. : No signs and/or symptoms were reported regarding the genitourinary system. EENT: No signs and/or symptoms were reported regarding the EENT system. Derm: Skin is intact, is healthy with good turgor, Skin is pink, warm \T\ dry. normal. Musculoskeletal: Circulation, motion, and sensation intact. Capillary refill < 3 seconds. 14:41 Reassessment: patient up for discharge after the fluids completed. mg2 15:10 Reassessment: Patient states feeling better. Patient states symptoms have improved. mg2 Vital Signs: 11:51 BP 140 / 91; Pulse 100; Resp 16; Temp 98.7; Pulse Ox 98% on R/A; Weight 114.76 kg; la1 Height 5 ft. 9 in. (175.26 cm); 12:37 BP 134 / 84; Pulse 107; Resp 18; Pulse Ox 100% on R/A; mg2 14:00 BP 123 / 76; Pulse 88; Resp 18; Pulse Ox 100% on R/A; mg2 11:51 Body Mass Index 37.36 (114.76 kg, 175.26 cm) la1 ED Course: 11:46 Patient arrived in ED. cf2 11:51 Triage completed. la1 11:51 Arm band placed on left wrist. la1 12:06 Rohit Yuong, RAGHAVENDRA is Primary Nurse. mg2 12:27 Stanley Biggs NP is PHCP. pm1 12:27 Tomasz Sterling MD is Attending Physician. pm1 12:28 No provider procedures requiring assistance completed. mg2 12:30 Patient has correct armband on for positive identification. Placed in gown. Pulse ox mg2 on. NIBP on. Door closed. Warm blanket given. 12:55 CT Head Brain wo Cont In Process Unspecified. EDMS 13:22 Knee Right 3 View XRAY In Process Unspecified. EDMS 13:22 Ankle Right 3 View XRAY In Process Unspecified. EDMS 14:12 Inserted saline lock: 20 gauge in left antecubital area, using aseptic technique. mg2 15:10 IV discontinued, intact, bleeding controlled, No redness/swelling at site. Pressure mg2 dressing applied. Administered Medications: 14:11 Drug: NS 0.9% 1000 ml Route: IV; Rate: 1000 ml; Site: left antecubital; mg2 14:12 Drug: Reglan 10 mg Route: IVP; Site: left antecubital; mg2 14:34 Follow up: Response: No adverse reaction; Marked relief of symptoms mg2 14:12 Drug: TORadol 30 mg Route: IVP; Site: left antecubital; mg2 14:34 Follow up: Response: No adverse reaction; Marked relief of symptoms mg2 14:12 Drug: Benadryl 12.5 mg Route: IVP; Site: left antecubital; mg2 14:33 Follow up: Response: No adverse reaction; Marked relief of symptoms mg2 Outcome: 14:27 Discharge ordered by MD. pm1 15:10 Discharged to home ambulatory, with family. mg2 15:10 Condition: stable 15:10 Discharge instructions given to patient, family, Instructed on discharge instructions, follow up and referral plans. medication usage, Demonstrated understanding of instructions, follow-up care, medications, Prescriptions given X 1. 15:10 Patient left the ED. mg2 Signatures: Dispatcher [employer] EDMS Goran Juarez RN RN la1 Stanley Biggs, [employer] pm1 Rohit Young RN RN mg2 Bette Friedman cf2 Corrections: (The following items were deleted from the chart) 14:11 14:00 Pulse 88bpm; Resp 18bpm; Pulse Ox 100% RA; mg2 mg2
--- NOTE | 2018-12-05 14:29 | EDPHYS ---
Physician Documentation [facility] Name: Fransisco Juarez Age: 33 yrs Sex: Male : 1985 Arrival Date: 12/05/2018 Time: 11:46 Bed 25 Private MD: ED Physician Tomasz Sterling HPI: 12/05 14:01 This 33 yrs old Male presents to ER via Ambulatory with complaints of pm1 Headache, Knee Pain, Foot Pain. 14:01 The patient complains of pain to the forehead. The patient describes the headache as pm1 aching, constant. Onset: The symptoms/episode began/occurred today. Associated signs and symptoms: Pertinent negatives: nausea, paresthesias, vision loss, weakness. Severity of symptoms: in the emergency department the pain is unchanged. Headache History: Other history of migraine headaches. The symptoms are alleviated by nothing. the symptoms are aggravated by lights. The patient has not recently seen a physician. Patient with right knee pain onset today and right ankle pain for two months. Historical: - Allergies: 11:51 No Known Allergies; la1 - PMHx: 11:51 Kidney stones; Migraines; Pneumonia; Rheumatoid Arthritis; Diabetes - NIDDM; la1 - Immunization history:: Adult Immunizations up to date. - Social history:: Smoking status: Patient/guardian denies using tobacco. - Ebola Screening: : No symptoms or risks identified at this time. ROS: 14:01 Constitutional: Negative for fever, chills, and weight loss, Eyes: Negative for injury, pm1 pain, redness, and discharge, ENT: Negative for injury, pain, and discharge, Neck: Negative for injury, pain, and swelling, Cardiovascular: Negative for chest pain, palpitations, and edema, Respiratory: Negative for shortness of breath, cough, wheezing, and pleuritic chest pain, Abdomen/GI: Negative for abdominal pain, nausea, vomiting, diarrhea, and constipation, Back: Negative for injury and pain, : Negative for injury, bleeding, discharge, and swelling. 14:01 Skin: Negative for injury, rash, and discoloration. 14:01 MS/extremity: Positive for pain, of the right knee and right ankle, Negative for decreased range of motion, deformity. 14:01 Neuro: Positive for headache, Negative for numbness, tingling, weakness. Exam: 14:01 Constitutional: This is a well developed, well nourished patient who is awake, alert, pm1 and in no acute distress. Head/Face: Normocephalic, atraumatic. Eyes: Pupils equal round and reactive to light, extra-ocular motions intact. Lids and lashes normal. Conjunctiva and sclera are non-icteric and not injected. Cornea within normal limits. Periorbital areas with no swelling, redness, or edema. ENT: Nares patent. No nasal discharge, no septal abnormalities noted. Tympanic membranes are normal and external auditory canals are clear. Oropharynx with no redness, swelling, or masses, exudates, or evidence of obstruction, uvula midline. Mucous membranes moist. Neck: Trachea midline, no thyromegaly or masses palpated, and no cervical lymphadenopathy. Supple, full range of motion without nuchal rigidity, or vertebral point tenderness. No Meningismus. Chest/axilla: Normal chest wall appearance and motion. Nontender with no deformity. No lesions are appreciated. Cardiovascular: Regular rate and rhythm with a normal S1 and S2. No gallops, murmurs, or rubs. Normal PMI, no JVD. No pulse deficits. Respiratory: Lungs have equal breath sounds bilaterally, clear to auscultation and percussion. No rales, rhonchi or wheezes noted. No increased work of breathing, no retractions or nasal flaring. Abdomen/GI: Soft, non-tender, with normal bowel sounds. No distension or tympany. No guarding or rebound. No evidence of tenderness throughout. Back: No spinal tenderness. No costovertebral tenderness. Full range of motion. Skin: Warm, dry with normal turgor. Normal color with no rashes, no lesions, and no evidence of cellulitis. MS/ Extremity: Pulses equal, no cyanosis. Neurovascular intact. Full, normal range of motion. 14:01 Neuro: Orientation: is normal, Mentation: is normal, Cranial nerves: CN II- XII are normal as tested, Cerebellar function: normal finger to nose testing, Motor: is normal, moves all fours, Sensation: is normal, no obvious gross deficits, Gait: is steady, at a normal pace, without difficulty. Vital Signs: 11:51 BP 140 / 91; Pulse 100; Resp 16; Temp 98.7; Pulse Ox 98% on R/A; Weight 114.76 kg; la1 Height 5 ft. 9 in. (175.26 cm); 12:37 BP 134 / 84; Pulse 107; Resp 18; Pulse Ox 100% on R/A; mg2 14:00 BP 123 / 76; Pulse 88; Resp 18; Pulse Ox 100% on R/A; mg2 11:51 Body Mass Index 37.36 (114.76 kg, 175.26 cm) la1 MDM: 12:28 Patient medically screened. pm1 12:28 Data reviewed: vital signs. pm1 14:26 Counseling: I had a detailed discussion with the patient and/or guardian regarding: the pm1 historical points, exam findings, and any diagnostic results supporting the discharge/admit diagnosis, radiology results, the need for outpatient follow up, to return to the emergency department if symptoms worsen or persist or if there are any questions or concerns that arise at home. 15:01 ED course: Offered patient additional pain medications. patient refused. Just wants pm1 work note and prescription for pain medication. 12/05 12:40 Order name: CT Head Brain wo Cont; Complete Time: 13:57 pm1 12/05 12:40 Order name: Knee Right 3 View XRAY; Complete Time: 15:09 pm1 12/05 12:40 Order name: Ankle Right 3 View XRAY; Complete Time: 15:09 pm1 Administered Medications: 14:11 Drug: NS 0.9% 1000 ml Route: IV; Rate: 1000 ml; Site: left antecubital; mg2 14:12 Drug: Reglan 10 mg Route: IVP; Site: left antecubital; mg2 14:34 Follow up: Response: No adverse reaction; Marked relief of symptoms mg2 14:12 Drug: TORadol 30 mg Route: IVP; Site: left antecubital; mg2 14:34 Follow up: Response: No adverse reaction; Marked relief of symptoms mg2 14:12 Drug: Benadryl 12.5 mg Route: IVP; Site: left antecubital; mg2 14:33 Follow up: Response: No adverse reaction; Marked relief of symptoms mg2 Disposition: 15:23 Co-signature as Attending Physician, Tomasz Sterling MD I agree with the assessment and ronnie plan of care. Disposition: 12/05/18 14:27 Discharged to Home. Impression: Headache, Pain in right knee, Pain in right ankle and joints of right foot. - Condition is Stable. - Discharge Instructions: General Headache Without Cause, Knee Pain, Ankle Pain, Foot Pain. - Prescriptions for Fiorinal 50- 325-40 mg Oral Capsule - take 1 capsule by ORAL route every 4 hours As needed - not to exceed 6 capsules per day; 20 capsule. - Medication Reconciliation Form, Thank You Letter, Antibiotic Education, Prescription Opioid Use, Work release form form. - Follow up: Emergency Department; When: As needed; Reason: Worsening of condition. Follow up: Private Physician; When: 2 - 3 days; Reason: Recheck today's complaints, Continuance of care, Re-evaluation by your physician. - Problem is new. - Symptoms have improved. Signatures: Dispatcher [employer] EDMS Tomasz Sterling MD MD cha Attema, Lee RN RN la1 Stanley Biggs, [employer] SPECIALIST pm1 Rohit Young RN RN mg2 Corrections: (The following items were deleted from the chart) 15:10 14:27 12/05/2018 14:27 Discharged to Home. Impression: Headache; Pain in right knee; mg2 Pain in right ankle and joints of right foot. Condition is Stable. Forms are Medication Reconciliation Form, Thank You Letter, Antibiotic Education, Prescription Opioid Use. Follow up: Emergency Department; When: As needed; Reason: Worsening of condition. Follow up: Private Physician; When: 2 - 3 days; Reason: Recheck today's complaints, Continuance of care, Re-evaluation by your physician. Problem is new. Symptoms have improved. pm1
[2018-12-05 15:52] VITALS: TEMP 98.7
[2018-12-05 15:54] VITALS: O2SAT 100
[2018-12-05 15:55] VITALS: BP 123/76
== END 2018-12-05 15:10 | disposition home or self-care (01) ==
LOC: ER 11:42
DX: R51 Headache (principal); M25.561 Pain in right knee; M25.571 Pain in right ankle and joints of right foot
CPT/HCPCS: 70450; 73562; 73610; 96375; 96374; 99284; J2765; J7030

== ENCOUNTER 2019-01-22 09:09 | Emergency (ER) | payer OTHER ==
[2019-01-22] MEDS ORDERED: AMOX/K CLAV 875 MG TAB ONE (10:17)
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
[2019-01-22 11:03] VITALS: TEMP 98.1
[2019-01-22 11:04] VITALS: BP 136/107; O2SAT 100
== END 2019-01-22 10:51 | disposition home or self-care (01) ==
LOC: ER 09:09
DX: M79.621 Pain in right upper arm (principal); Y04.1XXA Assault by human bite, initial encounter; Y93.89 Activity, other specified; Y92.511 Restaurant or cafe as the place of occurrence of the external cause; I10 Essential (primary) hypertension; E11.9 Type 2 diabetes mellitus without complications; E78.5 Hyperlipidemia, unspecified; F17.290 Nicotine dependence, other tobacco product, uncomplicated
CPT/HCPCS: 99284

== ENCOUNTER 2019-01-24 00:51 | Emergency (ER) | payer OTHER ==
[2019-01-24] MEDS ORDERED: MORPHINE 4 MG/ML SYR ONE (00:58)
[2019-01-24] MEDS ORDERED: ONDANSETRON 4 MG/2 ML VIAL ONE (00:58)
[2019-01-24] MEDS ORDERED: TAMSULOSIN 0.4 MG SR CAP ONE (01:40)
[2019-01-24] MEDS ORDERED: MAGNESIUM SULFATE 1 gm IVPB 1 GM/100 ML BAG IV ONE (01:41)
[2019-01-24 01:52] LABS: Absolute Lymphocytes (CBC) 1.8 K/uL (0.7-4.9); Basophils % 0.9 % (0-1.3); Hematocrit 38.5 % (39.6-49.0); MPV 8.3 fL (7.6-11.3); RBC Red Blood Cell Count 4.68 M/uL (4.33-5.43)
[2019-01-24 02:02] LABS: Albumin 3.7 g/dL (3.4-5.0); Bilirubin Direct 0.2 mg/dL (0-0.2); Bilirubin Total 1.1 mg/dL (0.2-1.0); Potassium 3.8 mmol/L (3.5-5.1); Protein, Total 7.2 g/dL (6.4-8.2)
[2019-01-24 02:27] LABS: Urine Blood 3+ (NEG); Urine Glucose NEGATIVE (NEG); Urine Protein 2+ (NEG); Urine Specific Gravity 1.025 (1.005-1.030)
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
--- NOTE | 2019-01-24 02:54 | EDPHYS ---
Physician Documentation [facility] Name: Fransisco Juarez Age: 33 yrs Sex: Male : 1985 Arrival Date: 01/24/2019 Time: 00:52 Bed 5 Private MD: ED Physician Mc Dominique HPI: 01/24 00:53 This 33 yrs old Male presents to ER via Unassigned with complaints of rn Abdominal Pain. 00:53 The patient presents with abdominal pain. Onset: The symptoms/episode began/occurred rn just prior to arrival. The symptoms do not radiate. Associated signs and symptoms: Pertinent positives: nausea, Pertinent negatives: anorexia, blood in stools, chest pain, dysuria, fever, testicular pain, vomiting blood. Modifying factors: The symptoms are alleviated by nothing, the symptoms are aggravated by nothing. Severity of pain: At its worst the pain was moderate in the emergency department the pain has improved. The patient has experienced similar episodes in the past. 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 No fever. + nausea but no vomiting. Reports chronic diarrhea. Given 30mg toradol by EMS with improvement. . Historical: - Allergies: 00:50 No Known Allergies; rr5 - Home Meds: 00:50 hyperlipidemia - unknown [Active]; Metformin Oral [Active]; unknown high blood pressure rr5 [Active]; - PMHx: 00:50 Diabetes - NIDDM; Kidney stones; Migraines; Pneumonia; Rheumatoid Arthritis; rr5 - PSHx: 00:50 abscess; rr5 - Immunization history:: Adult Immunizations up to date, Last tetanus immunization: up to date. - Social history:: Smoking status: Patient/guardian denies using tobacco, Patient/guardian denies using alcohol, street drugs. - Family history:: not pertinent. - Ebola Screening: : Patient negative for fever greater than or equal to 101.5 degrees Fahrenheit, and additional compatible Ebola Virus Disease symptoms Patient denies exposure to infectious person Patient denies travel to an Ebola-affected area in the 21 days before illness onset. - Hospitalizations: : No recent hospitalization is reported. ROS: 00:53 Constitutional: Negative for fever, chills, and weight loss, Eyes: Negative for injury, rn pain, redness, and discharge, Cardiovascular: Negative for chest pain, palpitations, and edema, Respiratory: Negative for shortness of breath, cough, wheezing, and pleuritic chest pain, Abdomen/GI: Negative for vomiting, and constipation, Back: Negative for injury and pain, : Negative for injury, bleeding, discharge, and swelling, MS/Extremity: Negative for injury and deformity, Skin: Negative for injury, rash, and discoloration, Neuro: Negative for headache, weakness, numbness, tingling, and seizure. Exam: 00:53 Constitutional: This is a well developed, well nourished patient who is awake, alert, rn and in no acute distress. Head/Face: Normocephalic, atraumatic. ENT: MMM Cardiovascular: Regular rate and rhythm. No pulse deficits. Respiratory: No increased work of breathing, no retractions or nasal flaring. Abdomen/GI: soft, mild LLQ tenderness, no peritoneal signs. MS/ Extremity: Pulses equal, no cyanosis. Neurovascular intact. Full, normal range of motion. Equal circumference. Neuro: Awake and alert, GCS 15. Moves all 4 extremities with equal strength. Vital Signs: 00:50 BP 142 / 103; Pulse 78; Resp 19; Temp 97.8; Pulse Ox 100% ; Weight 115.67 kg; Height 5 rr5 ft. 9 in. (175.26 cm); Pain 8/10; 01:45 BP 118 / 92; Pulse 75; Resp 17; Pulse Ox 99% ; Pain 5/10; rr5 02:18 BP 126 / 80; Pulse 87; Resp 18; Pulse Ox 97% on R/A; ea 03:05 BP 124 / 85; Pulse 85; Resp 17; Temp 97.9; Pulse Ox 99% ; Pain 4/10; rr5 00:50 Body Mass Index 37.66 (115.67 kg, 175.26 cm) rr5 MDM: 00:52 Patient medically screened. rn 02:52 Differential diagnosis: Ureterolithiasis. Data reviewed: vital signs, nurses notes, laboratory operations coordinator test result(s), radiologic studies, CT scan, and as a result, I will discharge patient. Counseling: I had a detailed discussion with the patient and/or guardian regarding: the historical points, exam findings, and any diagnostic results supporting the discharge/admit diagnosis, lab results, radiology results, the need for outpatient follow up, to return to the emergency department if symptoms worsen or persist or if there are any questions or concerns that arise at home. Response to treatment: the patient's symptoms have markedly improved after treatment, and as a result, I will discharge patient. Special discussion: I discussed with the patient/guardian in detail that at this point there is no indication for admission to the hospital. It is understood, however, that if the symptoms persist or worsen the patient needs to return immediately for re-evaluation. Based on the history and exam findings, there is no indication for further emergent testing or inpatient evaluation. I discussed with the patient/guardian the need to see the urologist for further evaluation of the symptoms. ED course: 4MM, mid-proximal stone, left side, has passed larger, sleeping and pain controlled, will dc home with pain meds and urology f/u as needed. . 01/24 00:53 Order name: Basic Metabolic Panel; Complete Time: 02:15 rn 01/24 00:53 Order name: CBC with Diff; Complete Time: 02:01 rn 01/24 00:53 Order name: Hepatic Function; Complete Time: 02:15 rn 01/24 00:53 Order name: Lipase; Complete Time: 02:15 rn 01/24 00:53 Order name: CT Stone Protocol rn 01/24 02:18 Order name: Urine Dipstick--Ancillary (enter results); Complete Time: 02:41 mw2 01/24 00:53 Order name: IV Saline Lock; Complete Time: 00:56 rn 01/24 00:53 Order name: Labs collected and sent; Complete Time: 01:15 rn 01/24 02:01 Order name: Urine Dipstick-Ancillary (obtain specimen); Complete Time: 02:15 rn Administered Medications: 01:12 Drug: Zofran 4 mg Route: IVP; Site: right antecubital; rr5 01:47 Follow up: Response: No adverse reaction rr5 01:14 Drug: morphine 4 mg {Note: rass 0.} Route: IVP; Site: right antecubital; rr5 01:47 Follow up: Response: No adverse reaction; Pain is decreased; RASS: Alert and Calm (0) rr5 01:46 Drug: Flomax 0.4 mg Route: PO; rr5 03:06 Follow up: Response: No adverse reaction rr5 01:46 Drug: Magnesium Sulfate 1 grams Route: IVPB; Infused Over: 1 hrs; Site: right rr5 antecubital; 03:00 Follow up: Response: No adverse reaction; IV Status: Completed infusion; IV Intake: rr5 100ml Disposition: 01/24/19 02:54 Discharged to Home. Impression: Kidney stone. - Condition is Stable. - Discharge Instructions: Kidney Stones. - Prescriptions for Zofran ODT 4 mg Oral tablet,disintegrating - place 1 tablet by TRANSLINGUAL route every 8 hours As needed; 15 tablet. Ibuprofen 800 mg Oral Tablet - take 1 tablet by ORAL route every 12 hours As needed take with food; 20 tablet. Tylenol- Codeine #3 300-30 mg Oral Tablet - take 1 tablet by ORAL route every 6 hours As needed; 15 tablet. Flomax 0.4 mg Oral Capsule, Sust. Release 24 hr - take 1 capsule by ORAL route once daily 1/2 hour following the same meal each day. Stop taking when kidney stone passes.; 7 capsule. - Medication Reconciliation Form, Thank You Letter, Antibiotic Education, Prescription Opioid Use, Work release form form. - Follow up: Private Physician; When: As needed; Reason: Recheck today's complaints, Re-evaluation by your physician. - Problem is new. - Symptoms have improved. Signatures: Dispatcher [employer] EDMS Mc Dominique MD MD rn Roque, Raymond, RN RN rr5 Corrections: (The following items were deleted from the chart) 03:06 02:54 01/24/2019 02:54 Discharged to Home. Impression: Kidney stone. Condition is rr5 Stable. Forms are Medication Reconciliation Form, Thank You Letter, Antibiotic Education, Prescription Opioid Use. Follow up: Private Physician; When: As needed; Reason: Recheck today's complaints, Re-evaluation by your physician. Problem is new. Symptoms have improved. rn
[2019-01-24 03:13] VITALS: BP 124/85; TEMP 97.9; O2SAT 99
--- NOTE | 2019-01-26 12:15 | RAD REPORT ---
EXAM DESCRIPTION: CT ABDOMEN PELVIS WITHOUT IV CONTRAST CLINICAL HISTORY: Left flank pain. History of kidney stones. COMPARISON: 06/01/2018 TECHNIQUE: CT scan of the abdomen and pelvis was performed without IV contrast. This exam was perfor med according to our departmental dose-optimization program, which includes automated exposure contro l, adjustment of the mA and/or kV according to patient size and/or use of iterative reconstruction te chnique. FINDINGS: The lung bases are clear. No pleural or pericardial effusions. No hiatal hernia. There is a 4 mm obstructing stone in the proximal left ureter with mild left-sided inflammatory morales es. No hydronephrosis. There are additional multiple bilateral nonobstructing renal calculi. No bladd er stones are seen. There is diffuse hepatic steatosis. Spleen, pancreas, gallbladder, and adrenal glands are unremarkabl e. There is submucosal fatty infiltration throughout the colon. No small bowel obstruction. Normal ap pendix. No intraperitoneal free fluid or free air is seen. The aorta is normal caliber. The osseous structures are intact. No body wall hernia. IMPRESSION: 4 mm obstructing stone in the proximal left ureter with mild left-sided inflammatory ronnie nges. Electronically signed by: Hero Murphy MD 01/24/2019 1:50 AM CDT Due to temporary technical issues with the PACS/Fluency reporting system, reports are being signed by the in house radiologist as a courtesy to ensure prompt reporting. The interpreting radiologist is f ully responsible for the content of the report.
== END 2019-01-24 03:06 | disposition home or self-care (01) ==
LOC: ER 00:51
DX: N20.0 Calculus of kidney (principal); E11.9 Type 2 diabetes mellitus without complications; Z87.442 Personal history of urinary calculi
CPT/HCPCS: 96365; 85025; 80048; 36415; 80076; 81003; 83690; 76377; 74176; 96375; 99284; J3475; J2405

== ENCOUNTER 2019-01-25 14:55 | Emergency (ER) | payer OTHER ==
[2019-01-25 15:41] LABS: Absolute Lymphocytes (CBC) 1.6 K/uL (0.7-4.9); Hematocrit 39.7 % (39.6-49.0); Lymphocytes % 25.5 % (15.3-44.8); MPV 7.6 fL (7.6-11.3); RBC Red Blood Cell Count 4.83 M/uL (4.33-5.43)
[2019-01-25 16:03] LABS: Albumin 3.6 g/dL (3.4-5.0); Bilirubin Direct 0.2 mg/dL (0-0.2); Bilirubin Total 0.9 mg/dL (0.2-1.0); Protein, Total 7.2 g/dL (6.4-8.2)
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
[2019-01-25 17:53] VITALS: BP 136/79; TEMP 98.5; O2SAT 100
== END 2019-01-25 17:48 | disposition home or self-care (01) ==
LOC: ER 14:55
DX: R10.9 Unspecified abdominal pain (principal)
CPT/HCPCS: 36415; 80048; 80076; 83690; 85025; 99283

== ENCOUNTER 2019-01-26 05:38 | Observation (INO) | payer OTHER ==
[2019-01-26] MEDS ORDERED: ONDANSETRON 4 MG/2 ML VIAL ONE (06:07)
[2019-01-26] MEDS ORDERED: MORPHINE 4 MG/ML SYR ONE ×2 (06:07→08:43)
[2019-01-26] MEDS ORDERED: NA CHLORIDE 0.9% 1,000 ML ONE (06:23)
[2019-01-26 06:46] LABS: Hematocrit 39.1 % (39.6-49.0); Lymphocytes % 19.4 % (15.3-44.8); RBC Red Blood Cell Count 4.77 M/uL (4.33-5.43)
[2019-01-26 06:57] LABS: Bilirubin Direct 0.2 mg/dL (0-0.2); Bilirubin Total 0.9 mg/dL (0.2-1.0); Potassium 4.1 mmol/L (3.5-5.1); Protein, Total 7.3 g/dL (6.4-8.2)
[2019-01-26 06:58] LABS: Albumin 3.6 g/dL (3.4-5.0)
[2019-01-26] MEDS ORDERED: FENTANYL CITR 100 MCG/2 ML ONE (07:52)
[2019-01-26] MEDS ORDERED: CEFTRIAXONE/SWI 1gm 1 GM/10 ML SYR ONE (08:07)
--- NOTE | 2019-01-26 08:10 | ER ---
Nurse's Notes [facility] Name: Fransisco Juarez Age: 33 yrs Sex: Male : 1985 Arrival Date: 01/26/2019 Time: 05:41 Bed X-Ray Private MD: Diagnosis: Calculus of kidney with calculus of ureter Presentation: 01/26 05:55 Presenting complaint: Patient states: having back pain radiates to front started today rr5 morning. pain on urination. 05:55 Transition of care: patient was not received from another setting of care. Onset of rr5 symptoms was January 26, 2019. Risk Assessment: Do you want to hurt yourself or someone else? Patient reports no desire to harm self or others. Initial Sepsis Screen: Does the patient meet any 2 criteria? No. Patient's initial sepsis screen is negative. Does the patient have a suspected source of infection? No. Patient's initial sepsis screen is negative. Note recently diagnose of kidney stone. Care prior to arrival: None. 05:55 Method Of Arrival: Wheelchair rr5 05:55 Acuity: AMILCAR 3 rr5 Historical: - Allergies: 05:55 No Known Allergies; rr5 - Home Meds: 05:55 hyperlipidemia - unknown [Active]; Metformin Oral [Active]; unknown high blood pressure rr5 [Active]; - PMHx: 05:55 Diabetes - NIDDM; Kidney stones; Migraines; Pneumonia; Rheumatoid Arthritis; rr5 - PSHx: 05:55 abscess; rr5 - Immunization history:: Adult Immunizations up to date. - Social history:: Smoking status: Patient/guardian denies using tobacco, Patient/guardian denies using alcohol, street drugs. - Ebola Screening: : Patient negative for fever greater than or equal to 101.5 degrees Fahrenheit, and additional compatible Ebola Virus Disease symptoms Patient denies exposure to infectious person Patient denies travel to an Ebola-affected area in the 21 days before illness onset. Screenin:01 Abuse screen: Denies threats or abuse. Denies injuries from another. Nutritional rr5 screening: No deficits noted. Tuberculosis screening: No symptoms or risk factors identified. Fall Risk None identified. Total [place] Fall Scale indicates No Risk (0-24 pts). Assessment: 05:55 General: Appears in no apparent distress. uncomfortable, Behavior is calm, cooperative, rr5 appropriate for age. Pain: Complains of pain in left low back and right low back Pain radiates to pelvis Pain currently is 9 out of 10 on a pain scale. Quality of pain is described as aching, Pain began gradually, Is intermittent. Neuro: Level of Consciousness is awake, alert, obeys commands, Oriented to person, place, time, situation, Appropriate for age. Cardiovascular: Capillary refill < 3 seconds Patient's skin is warm and dry. Respiratory: Airway is patent Respiratory effort is even, unlabored, Respiratory pattern is regular, symmetrical. GI: No signs and/or symptoms were reported involving the gastrointestinal system. : Reports burning with urination, pain with urination, Pain is 9 out of 10 on a pain scale. back diagnose with kidney stone. EENT: No signs and/or symptoms were reported regarding the EENT system. Derm: Skin is intact, Skin temperature is warm. Musculoskeletal: Circulation, motion, and sensation intact. Capillary refill < 3 seconds. 05:55 : Reports pain in left flank(s), radiating to left front pelvis area. rr5 06:49 Reassessment: Patient appears in no apparent distress at this time. Patient is alert, rr5 oriented x 3, equal unlabored respirations, skin warm/dry/pink. awaiting for result. Patient states symptoms have improved. 07:30 Reassessment: Patient appears in no apparent distress at this time. Patient and/or tw2 family updated on plan of care and expected duration. Pain level reassessed. Patient is alert, oriented x 3, equal unlabored respirations, skin warm/dry/pink. 08:15 Reassessment: Pt resting in bed with eyes closed, appears comfortable at this time. aa5 Equal and unlabored respirations, skin is pink/warm/dry. Pt's significant other at bedside. . 09:26 Reassessment: Patient appears in no apparent distress at this time. Patient and/or tw2 family updated on plan of care and expected duration. Pain level reassessed. Patient is alert, oriented x 3, equal unlabored respirations, skin warm/dry/pink. Vital Signs: 05:55 BP 142 / 106; Pulse 84; Resp 17; Temp 98.2; Pulse Ox 98% ; Weight 115.67 kg; Height 5 rr5 ft. 9 in. (175.26 cm); Pain 9/10; 06:45 BP 150 / 90; Pulse 70; Resp 16; Pulse Ox 96% on R/A; Pain 7/10; rr5 07:30 BP 145 / 97; Pulse 79; Resp 17; Pulse Ox 95% on R/A; tw2 08:30 BP 150 / 93; Pulse 79; Resp 17; Pulse Ox 95% on R/A; tw2 09:26 BP 158 / 106; Pulse 71; Resp 17; Pulse Ox 96% on R/A; tw2 05:55 Body Mass Index 37.66 (115.67 kg, 175.26 cm) rr5 ED Course: 05:41 Patient arrived in ED. ag3 05:55 Arm band placed on. rr5 05:56 Moshe Briones, RAGHAVENDRA is Primary Nurse. rr5 05:59 Triage completed. rr5 06:03 Ammon Andres PA is PHCP. jmm 06:03 Guerrero Chan MD is Attending Physician. jmm 06:05 Patient has correct armband on for positive identification. Bed in low position. Call rr5 light in reach. Side rails up X2. Pulse ox on. NIBP on. 06:29 CT Stone Protocol In Process Unspecified. EDMS 06:30 Inserted saline lock: 20 gauge in right forearm, using aseptic technique. Blood rr5 collected. 07:00 Report given to mat MABRY. rr5 08:08 Cony Nicholosn MD is Hospitalizing Provider. jmm 08:10 Abdomen 1 View (KUB) XRAY In Process Unspecified. EDMS 09:23 No provider procedures requiring assistance completed. Patient admitted, IV remains in tw2 place. Administered Medications: 06:30 Drug: NS 0.9% 1000 ml Route: IV; Rate: 1 bolus; Site: right forearm; rr5 07:55 Follow up: Response: No adverse reaction; IV Status: Completed infusion; IV Intake: tw2 1000ml 06:30 Drug: Zofran 4 mg Route: IVP; Site: right forearm; rr5 07:55 Follow up: Response: No adverse reaction; Nausea is decreased tw2 06:33 Drug: morphine 4 mg {Note: rass 0.} Route: IVP; Site: right forearm; rr5 07:50 Follow up: Response: No adverse reaction; Pain is unchanged, physician notified; RASS: tw2 Drowsy (-1) 07:55 Drug: fentaNYL (PF) 50 mcg {Note: RASS 1.} Route: IVP; Site: right forearm; tw2 08:20 Follow up: Response: No adverse reaction aa5 08:15 Drug: Rocephin - (cefTRIAXone) 1 grams {Note: administered slow IVP per pharmacy [facility] this time. .} Route: IVPB; Infused Over: 30 mins; Site: right forearm; 08:20 Follow up: Response: No adverse reaction aa5 08:47 Drug: Flomax 0.4 mg Route: PO; aa 09:35 Follow up: Response: No adverse reaction tw2 08:49 Drug: morphine 4 mg Route: IVP; Site: right forearm; aa 09:35 Follow up: Response: No adverse reaction; Pain is decreased; RASS: Alert and Calm (0) tw Intake: 07:55 IV: 1000ml; Total: 1000ml. tw2 Outcome: 08:09 Decision to Hospitalize by Provider. [facility] 09:25 Admitted to Med/surg accompanied by tech, via wheelchair, room 221, Report called to tw2 RAGHAVENDRA Raymond 09:25 Condition: stable 09:25 Instructed on the need for admit. 09:36 Patient left the ED. 2 Signatures: Dispatcher [employer] EDMS Ammon Andres PA PA jmm Calderon, Audri, RN RN aa5 Mat Arreola RN RN tw2 Kayla Graf 3 Moshe Briones, RN RN rr5 Corrections: (The following items were deleted from the chart) 07:12 05:55 : Reports pain in left flank(s), rr5 rr5
--- NOTE | 2019-01-26 08:10 | EDPHYS ---
Physician Documentation [facility] Name: Fransisco Juarez Age: 33 yrs Sex: Male : 1985 Arrival Date: 01/26/2019 Time: 05:41 Bed X-Ray Private MD: ED Physician Guerrero Chan HPI: 01/26 06:06 This 33 yrs old Male presents to ER via Wheelchair with complaints of Back jmm Pain. 06:06 The patient presents with pain that is acute. Onset: The symptoms/episode jmm began/occurred acutely. The pain radiates to the back. Associated signs and symptoms: Pertinent positives: abdominal pain, vomiting, Pertinent negatives:. This is a 33 year old male with a history of DM that presents to the ED with complaints of left flank pain beginning this morning at 0330. Patient has had similar episodes in the past with kidney stones. Also complains of vomiting. . Historical: - Allergies: 05:55 No Known Allergies; rr5 - Home Meds: 05:55 hyperlipidemia - unknown [Active]; Metformin Oral [Active]; unknown high blood pressure rr5 [Active]; - PMHx: 05:55 Diabetes - NIDDM; Kidney stones; Migraines; Pneumonia; Rheumatoid Arthritis; rr5 - PSHx: 05:55 abscess; rr5 - Immunization history:: Adult Immunizations up to date. - Social history:: Smoking status: Patient/guardian denies using tobacco, Patient/guardian denies using alcohol, street drugs. - Ebola Screening: : Patient negative for fever greater than or equal to 101.5 degrees Fahrenheit, and additional compatible Ebola Virus Disease symptoms Patient denies exposure to infectious person Patient denies travel to an Ebola-affected area in the 21 days before illness onset. ROS: 06:06 Constitutional: Negative for fever, chills, and weight loss, Cardiovascular: Negative jmm for chest pain, palpitations, and edema, Respiratory: Negative for shortness of breath, cough, wheezing, and pleuritic chest pain. 06:06 Abdomen/GI: Positive for abdominal pain. 06:06 Back: Positive for pain at rest. 06:06 All other systems are negative. Exam: 06:06 Constitutional: This is a well developed, well nourished patient who is awake, alert, jmm and in no acute distress. Head/Face: atraumatic. Eyes: EOMI, no conjunctival erythema appreciated ENT: Moist Mucus Membranes Neck: Trachea midline, Supple Chest/axilla: Normal chest wall appearance and motion. Cardiovascular: Regular rate and rhythm. No edema appreciated Respiratory: Normal respirations, no respiratory distress appreciated 06:06 Skin: General appearance color normal MS/ Extremity: Moves all extremities, no obvious deformities appreciated, no edema noted to the lower extremities Neuro: Awake and alert, normal gait Psych: Behavior is normal, Mood is normal, Patient is cooperative and pleasant 06:06 Abdomen/GI: Inspection: abdomen appears normal, Bowel sounds: normal, Palpation: soft, mild abdominal tenderness, in the left lower quadrant. 06:06 Back: CVA tenderness, that is mild, is noted on the left. Vital Signs: 05:55 BP 142 / 106; Pulse 84; Resp 17; Temp 98.2; Pulse Ox 98% ; Weight 115.67 kg; Height 5 rr5 ft. 9 in. (175.26 cm); Pain 9/10; 06:45 BP 150 / 90; Pulse 70; Resp 16; Pulse Ox 96% on R/A; Pain 7/10; rr5 07:30 BP 145 / 97; Pulse 79; Resp 17; Pulse Ox 95% on R/A; tw2 08:30 BP 150 / 93; Pulse 79; Resp 17; Pulse Ox 95% on R/A; tw2 09:26 BP 158 / 106; Pulse 71; Resp 17; Pulse Ox 96% on R/A; tw2 05:55 Body Mass Index 37.66 (115.67 kg, 175.26 cm) rr5 MDM: 06:04 Patient medically screened. [facility] 08:05 Data reviewed: vital signs, nurses notes. Counseling: I had a detailed discussion with corine the patient and/or guardian regarding: the historical points, exam findings, and any diagnostic results supporting the discharge/admit diagnosis, lab results, radiology results, the need for further work-up and treatment in the hospital. ED course: [facility] I discussed the patient with Dr. Gallardo whom will consult on admission. I discussed the patient with Dr. Nicholson whom accepted admission. . 01/26 06:05 Order name: Basic Metabolic Panel; Complete Time: 06:58 corine 01/26 06:05 Order name: CBC with Diff; Complete Time: 06:51 [facility] 01/26 06:05 Order name: Creatinine for Radiology; Complete Time: 06:56 [facility] 01/26 06:05 Order name: Hepatic Function; Complete Time: 06:58 [facility] 01/26 06:05 Order name: Lipase; Complete Time: 06:58 [facility] 01/26 07:50 Order name: Urine Dipstick--Ancillary (enter results); Complete Time: 09:27 bd 01/26 08:52 Order name: Basic Metabolic Panel EDMS 01/26 08:52 Order name: Basic Metabolic Panel EDMS 01/26 08:52 Order name: CBC with Automated Diff EDMS 01/26 08:52 Order name: CBC with Automated Diff EDMS 01/26 08:52 Order name: Lipase EDMS 01/26 08:52 Order name: Lipase EDMS 01/26 08:52 Order name: Liver (Hepatic) Function EDMS 01/26 08:52 Order name: Liver (Hepatic) Function EDMS 01/26 06:05 Order name: IV Saline Lock; Complete Time: 06:34 [facility] 01/26 06:05 Order name: Labs collected and sent; Complete Time: 06:34 [facility] 01/26 06:05 Order name: CT Stone Protocol [facility] 01/26 06:43 Order name: Urine Dipstick-Ancillary (obtain specimen); Complete Time: 07:50 [facility] 01/26 07:53 Order name: Abdomen 1 View (KUB) XRAY; Complete Time: 08:52 [facility] 01/26 08:52 Order name: NPO EDMS Administered Medications: 06:30 Drug: NS 0.9% 1000 ml Route: IV; Rate: 1 bolus; Site: right forearm; rr5 07:55 Follow up: Response: No adverse reaction; IV Status: Completed infusion; IV Intake: tw2 1000ml 06:30 Drug: Zofran 4 mg Route: IVP; Site: right forearm; rr5 07:55 Follow up: Response: No adverse reaction; Nausea is decreased tw2 06:33 Drug: morphine 4 mg {Note: rass 0.} Route: IVP; Site: right forearm; rr5 07:50 Follow up: Response: No adverse reaction; Pain is unchanged, physician notified; RASS: tw2 Drowsy (-1) 07:55 Drug: fentaNYL (PF) 50 mcg {Note: RASS 1.} Route: IVP; Site: right forearm; tw2 08:20 Follow up: Response: No adverse reaction aa5 08:15 Drug: Rocephin - (cefTRIAXone) 1 grams {Note: administered slow IVP per pharmacy at [facility] this time. .} Route: IVPB; Infused Over: 30 mins; Site: right forearm; 08:20 Follow up: Response: No adverse reaction aa5 08:47 Drug: Flomax 0.4 mg Route: PO; aa5 09:35 Follow up: Response: No adverse reaction tw2 08:49 Drug: morphine 4 mg Route: IVP; Site: right forearm; aa5 09:35 Follow up: Response: No adverse reaction; Pain is decreased; RASS: Alert and Calm (0) tw2 Disposition: 01/26/19 08:09 Hospitalization ordered by Cony Nicholson for Observation. Preliminary diagnosis is Calculus of kidney with calculus of ureter. - Bed requested for Telemetry/MedSurg (observation). - Status is Observation. tw2 - Condition is Stable. - Problem is new. - Symptoms are unchanged. UTI on Admission? No Addendum: 01/30/2019 15:20 Co-signature as Attending Physician, Guerrero Chan MD. g s Signatures: Dispatcher [employer] Andreia Pena, RN RN Ammon Kim PA PA jmm Calderon, Audri, RN RN aa5 Candi Silva RN RN ss Wise, Tara, RN RN tw2 Guerrero Chan MD MD gs Roque, Raymond RN RN rr5 Corrections: (The following items were deleted from the chart) 01/26 09:08 08:09 Hospitalization Ordered by Cony Nicholson MD for Observation. Preliminary diagnosis dw is Calculus of kidney with calculus of ureter. Bed requested for Telemetry/MedSurg (observation). Status is Observation. Condition is Stable. Problem is new. Symptoms are unchanged. UTI on Admission? No. corine 09:36 09:08 01/26/2019 08:09 Hospitalization Ordered by Cony Nicholson MD for Observation. tw2 Preliminary diagnosis is Calculus of kidney with calculus of ureter. Bed requested for Telemetry/MedSurg (observation). Status is Observation. Condition is Stable. Problem is new. Symptoms are unchanged. UTI on Admission? No. dw
--- NOTE | 2019-01-26 08:41 | RAD REPORT ---
EXAM DESCRIPTION: RAD - Abdomen 1 View (KUB) - 01/26/2019 8:11 am CLINICAL HISTORY: ureterolithiasis COMPARISON: Stone Protocol dated 01/26/2019 FINDINGS: Earlier CT study showed a left mid ureter calcification. The obstructing calculus is seen on this KUB at the inferior margin of the L3 transverse process. Patient has bilateral punctate nonobstructing calyx calculi. No right ureter calculus on the CT study . Patient has a small phleboliths at the lateral right margin of the pelvis. No obstruction, free air or pneumatosis. Bowel gas pattern is nonspecific. No significant bony findings IMPRESSION: Left mid ureter obstructing calculus is seen near the inferior margin L3 transverse proc ess. Bilateral nonobstructing punctate calyx calculi.
[2019-01-26] MEDS ORDERED: TAMSULOSIN 0.4 MG SR CAP ONE (08:44)
[2019-01-26] MEDS ORDERED: ACETAMINOPHEN 500 MG TAB PO PRN (08:50)
[2019-01-26] MEDS ORDERED: ONDANSETRON 4 MG/2 ML VIAL IV PRN (08:50)
--- NOTE | 2019-01-26 09:15 | CON ---
History Of Present Illness: This is a 33-year-old gentleman who has been to the ER twice for left flank pain. Workup revealed a 4 mm stone in the left proximal ureter at the level of L3. His pain is severe enough. He needs to be admitted for IV pain control. He is also going to need more definitive therapy for his stone, possibly an ESWL in a.m. Allergies: NO KNOWN DRUG ALLERGIES. Home Medications: Metformin, high blood pressure medication, hyperlipidemia medication. Past Medical History: Czw-rgutvlo-duoauosjl diabetes mellitus, kidney stones, migraines, pneumonia, pneumothorax, rheumatoid arthritis. Past Surgical History: Abscess drainage. Immunizations: Up to date. Social History: Denies tobacco use Review of Systems: Ten-point review of systems otherwise negative. Physical Examination: Vital Signs: Shows BP 145/97, pulse 79, respirations 17. He is 95% sats on room air. HEENT: Atraumatic, normocephalic. Lungs: Clear. Heart: S1, S2. Abdomen: Soft, nontender. Extremities: Normal range of motion. Laboratory Data: White count 10.1, H and H is 13 and hematocrit 39, platelet count 214. Chemistries show a GFR of 53, creatinine 1.5. Rest of his electrolytes normal. Alkaline phosphatase benign. LFTs benign. Urinalysis pending. KUB shows a stone at the level inferior margin of L3 process on the left. Assessment: A 4-mm stone left proximal ureter in the inferior margin of L3 causing severe pain. Plan: Plan is for left ESWL plus or minus cystoscopy. Stent placement in a.m. All the general information alternatives and risks were reviewed. The patient wished to proceed. QUINN Voice ID: [id number] Report ID: [id number] KEMI
--- NOTE | 2019-01-26 09:19 | RAD REPORT ---
EXAM DESCRIPTION: CT - Stone Protocol - 01/26/2019 6:44 am CLINICAL HISTORY: The patient is 33 years old and is Male; left flank pain TECHNIQUE: Axial computed tomography images of the abdomen and pelvis without intravenous contrast. Sagittal and coronal reformatted images were created and reviewed. This CT exam was performed usi ng one or more of the following dose reduction techniques: automated exposure control, adjustment o f the mA and/or kV according to patient size, and/or use of iterative reconstruction technique. COMPARISON: CT the abdomen and pelvis January 24, 2019. FINDINGS: LUNG BASES: Unremarkable. No mass. No consolidation. ABDOMEN: LIVER: There is a diffuse decrease in hepatic parenchymal density, consistent with fatty infiltr ation. The liver is enlarged. GALLBLADDER AND BILE DUCTS: No calcified stones. No ductal dilation. PANCREAS: Mild fatty infiltration of the pancreas is noted. No ductal dilation. SPLEEN: The spleen is prominent. ADRENALS: Unremarkable. No mass. KIDNEYS AND URETERS: Mild left hydronephrosis and proximal hydroureter is present secondary to a 5 mm proximal left ureteral calculus. Location is unchanged from prior exam. Mild edema of the lef t kidney is noted. Bilateral intrarenal calcifications are present. STOMACH AND BOWEL: The stomach is decompressed. The small bowel is normal in caliber. Stool is p resent throughout colon. There is no mucosal thickening or evidence of bowel obstruction. PELVIS: APPENDIX: The appendix is normal in caliber without surrounding inflammation. BLADDER: Unremarkable. No stones. REPRODUCTIVE: Unremarkable as visualized. ABDOMEN and PELVIS: INTRAPERITONEAL SPACE: Unremarkable. No free air. No significant fluid collection. BONES/JOINTS: No acute fracture. SOFT TISSUES: The soft tissues are normal. VASCULATURE: Unremarkable. No abdominal aortic aneurysm. LYMPH NODES: Unremarkable. No enlarged lymph nodes. IMPRESSION: 1. Mild left hydronephrosis and proximal hydroureter is present secondary to a 5 mm pr oximal left ureteral calculus. Location is unchanged from prior exam. 2. Bilateral nephrolithiasis. Electronically signed by: Libby Banks MD 01/26/2019 6:38 AM CDT Due to temporary technical issues with the PACS/Fluency reporting system, reports are being signed by the in house radiologist as a courtesy to ensure prompt reporting. The interpreting radiologist is f ully responsible for the content of the report.
[2019-01-26 09:20] LABS: Urine Blood TRACE (NEG); Urine Glucose NEGATIVE (NEG); Urine Protein NEGATIVE (NEG); Urine pH 7.5 (5.0-7.0)
[2019-01-26 09:57] VITALS: BMI 37.8
[2019-01-26] MEDS ORDERED: GLUCAGON 1 MG/VIAL IM PRN (11:12)
[2019-01-26] MEDS ORDERED: D50W 25 GM/50 ML SYRINGE IV PRN (11:12)
[2019-01-26] MEDS: INSULIN -REGULAR HUMAN 50 UNIT/0.5 ML ML SQ SCH ×3 (11:30→20:36)
[2019-01-26] MEDS: HYDROCODONE/APAP 7.5/325 MG TAB PO PRN ×3 (11:38→21:48)
[2019-01-26] MEDS: D5 0.45 NS 1,000 ML IV SCH ×3 (11:47→23:58)
[2019-01-26 13:10] LABS: Protime INR 1.02
[2019-01-26] MEDS: MORPHINE 4 MG/ML SYR IV PRN ×3 (14:34→23:57)
[2019-01-26] MEDS ORDERED: INFLUENZA VACCINE (for 3y+) 0.5 ML DOSE IMVAC ONE (16:00)
--- NOTE | 2019-01-26 16:07 | P.HP ---
Certification for Inpatient Patient admitted to: Observation With expected LOS: <2 Midnights Practitioner: I am a practitioner with admitting privileges, knowledge of patient current condition, hospital course, and medical plan of care. Services: Services provided to patient in accordance with Admission requirements found in Title 42 Section 412.3 of the Code of Federal Regulations Patient History Date of Service: 01/26/19 Reason for admission: Left flank pain History of Present Illness: This is a 33-year-old male with past medical history of rwe-seqnrgr-vmtbapocq diabetes, kidney stones, migraine, hyperlipidemia who presents to the ER for acute onset of left-sided flank pain. Patient states that this pain started around 330 this morning, will come up from pain and describes it as sharp.He reports that this pain radiates to the back, down to the groin area. This pain is associated with nausea and vomiting. Therefore he came to the emergency room. In the ER, he was hemodynamically stable. CT scan revealed a 4 mm stone in the left proximal ureter at the level of L3. His labs were remarkable for mild acute kidney injury. Patient was evaluated by urology in the ER. He was admitted for pain control as well as of definitive therapy for his stone. At the time of my exam, he was alert, oriented x3 in mild to moderate distress secondary to pain. He remained hemodynamically stable. Allergies No Known Drug Allergies Allergy (Unverified 06/10/16 21:39) Unknown NKDA Allergy (Uncoded 05/17/16 00:18) Unknown No Known Allergies Allergy (Uncoded 10/27/17 18:40) Unknown No Known Drug All Allergy (Uncoded 01/14/16 21:09) Unknown Home medications list reviewed: Yes Home Medications: Doxycycline [Vibramycin*] 100 mg PO BID 10 Days tab 12/31/12 Hydrocodone 5/APAP 325 [[place] 5/325*] 1 - 2 tab PO Q4HP PRN #30 tab 12/31/12 - Past Medical/Surgical History Has patient received pneumonia vaccine in the past: No Diabetic: Yes -: [facility] / Abscess Removal 2012 - Family History Father History Unknown: Yes -: Hypertension Notes: Rheumatoid Arthritis Mother History Unknown: Yes -: Hypertension, Diabetes - Social History Smoking Status: Former smoker Alcohol use: Yes CD- Drugs: No Caffeine use: Yes Place of Residence: Home Review of Systems 10-point ROS is otherwise unremarkable Physical Examination - Vital Signs Temperature: 98.4 F Blood Pressure: 146/85 Pulse: 81 Respirations: 20 Pulse Ox (%): 98 - Physical Exam General: Alert, Oriented x3, Moderate distress HEENT: Atraumatic, PERRLA, Mucous membr. moist/pink, EOMI, Sclerae nonicteric Neck: Supple, 2+ carotid pulse no bruit, No LAD, Without JVD or thyroid abnormality Respiratory: Clear to auscultation bilaterally, Normal air movement Cardiovascular: Regular rate/rhythm, Normal S1 S2 Gastrointestinal: Normal bowel sounds, No tenderness Musculoskeletal: No tenderness Integumentary: No rashes Neurological: Normal gait, Normal speech, Normal strength at 5/5 x4 extr, Normal tone, Normal affect Lymphatics: No axilla or inguinal lymphadenopathy - Studies Laboratory Data (last 24 hrs) 01/26/19 06:30: Creatinine 1.50 H 01/26/19 06:30: WBC 10.1 D, Hgb 13.3 L, Hct 39.1 L, Plt Count 214 01/26/19 06:30: Sodium 140, Potassium 4.1, BUN 15, Creatinine 1.51 H, Glucose 163 H, Total Bilirubin 0.9, AST 26, ALT 49, Alkaline Phosphatase 134 H, Lipase 153 Assessment and Plan - Problems (Diagnosis) (1) Ureteral calculus, left Current Visit: Yes Status: Acute Plan: -Urology consulted, recommendations appreciated. Patient pending ESWl in the a.m. -will keep NPO post midnight -continue pain control -Zofran for nausea as needed (2) Diabetes mellitus Current Visit: No Status: Chronic Qualifiers: Diabetes mellitus type: type 2 Diabetes mellitus usp insulin use: without meterman use Diabetes mellitus complication status: with hyperglycemia Qualified Code(s): E11.65 - Type 2 diabetes mellitus with hyperglycemia (3) Obesity (BMI 30-39.9) Current Visit: No Status: Chronic - Plan DVT prophylaxis: Hold chemical anticoagulation GI prophylaxis: None Diet: Diabetic; NPO post midnight Disposition: Pending symptomatic improvement, surgical intervention with urology. Will anticipate discharge home after procedure, if continues remain stable. - Advance Directives Does patient have a Living Will: Yes Does patient have a Durable POA for Healthcare: Yes
--- NOTE | 2019-01-26 16:36 | EKG ---
Test Date: 2019-01-26 Test Time: 13:12:07 Operations Administrative Assistant: ANNEMARIE MEASUREMENT RESULTS: Intervals: Rate: 63 NE: 154 QRSD: 90 QT: 410 QTc: 419 [place]: P: 45 NE: 154 QRS: 66 T: 43 INTERPRETIVE STATEMENTS: Normal sinus rhythm Nonspecific T wave abnormality Abnormal ECG Compared to ECG 10/24/2018 08:03:53 T-wave abnormality now present Electronically Signed On 01-26-19 16:35:33 CDT by Mark Boone
[2019-01-27 05:06] LABS: Absolute Lymphocytes (CBC) 1.9 K/uL (0.7-4.9); Basophils % 0.5 % (0-1.3); Hematocrit 38.5 % (39.6-49.0); Lymphocytes % 17.2 % (15.3-44.8); MPV 7.8 fL (7.6-11.3); RBC Red Blood Cell Count 4.62 M/uL (4.33-5.43)
[2019-01-27 05:26] LABS: Albumin 3.3 g/dL (3.4-5.0); Bilirubin Direct 0.3 mg/dL (0-0.2); Bilirubin Total 1.4 mg/dL (0.2-1.0); Potassium 4.2 mmol/L (3.5-5.1); Protein, Total 6.8 g/dL (6.4-8.2)
[2019-01-27] MEDS: MORPHINE 4 MG/ML SYR IV PRN ×2 (06:21→10:04)
[2019-01-27] MEDS: INSULIN -REGULAR HUMAN 50 UNIT/0.5 ML ML SQ SCH ×3 (07:30→16:30)
[2019-01-27] MEDS: D5 0.45 NS 1,000 ML IV SCH ×2 (09:35→17:00)
[2019-01-27] MEDS ORDERED: NA CHLORIDE 0.9% 1,000 ML ONE (11:17)
[2019-01-27] MEDS ORDERED: ONDANSETRON 4 MG/2 ML VIAL ONE (11:46)
[2019-01-27] MEDS ORDERED: PROPOFOL 200 MG/20 ML VIAL IV ONE (11:48)
[2019-01-27] MEDS ORDERED: LIDOCAINE 2% MPF 5 ML VIAL ONE (11:48)
[2019-01-27] MEDS ORDERED: FENTANYL CITR 100 MCG/2 ML ONE (11:48)
[2019-01-27] MEDS ORDERED: MIDAZOLAM HCL 2 MG/2 ML INJ ONE (11:48)
--- NOTE | 2019-01-27 11:59 | PN ---
Patient seen and examined. Chart reviewed and case discussed with RN. Patient is still having pain around the left flank and abdomen, scheduled for ESWL today. Medications: List reviewed. Physical Examination: Vital Signs: Temperature 98.2, heart rate 83, blood pressure 138/91, respirations 20, O2 at 98% on r oom air. General: Awake, alert oriented x3, in some mild distress. Obese male. BMI 37.8. CV: S1, S2. Regular rate and rhythm. Peripheral pulses present. No murmurs. Respiratory: Moving air well bilaterally. No wheezing or stridor. No use of accessory muscles. Gastrointestinal: Abdomen is soft. Mild tenderness to palpation in the left lower quadrant. Patien t also has CVA tenderness on the left. Extremities: No clubbing, cyanosis, or edema. Neurologic: Nonfocal. Laboratory Data: Sodium 138, potassium 4.2, chloride 105, CO2 of 29, BUN 14, creatinine 1.64, glucos e 168, calcium 8.4, total bilirubin 1.4. WBC 11.2, H and H 12.7 and 38.5, platelets 183, neutrophils 67%. Assessment And Plan: 33-year-old male with: 1.Left ureteral calculus, 4 mm, scheduled for ESWL today by Dr. Gallardo, possible cystoscopy. Continu e n.p.o. Continue pain medications and antiemetics. 2.Diabetes mellitus type 2 without long-term use of insulin with hyperglycemia. We will continue wi th sliding scale insulin and monitor blood glucose levels. The patient is n.p.o. We will keep on D5 half NS. 3.Obesity. BMI 37.8. Counseled. 4.Mixed hyperlipidemia. We will resume home medications once tolerating p.o. 5.Acute kidney injury. Creatinine is elevated at 1.64, worsening compared to yesterday. Kidney fun ction is normal at baseline, likely secondary to stone. The patient does have hydroureter seen on CT scan and mild edema of the left kidney showing hydronephrosis. We will continue with IV fluids and monitor kidney function. Avoid NSAIDs and nephrotoxins. SA/MODL Voice ID: [id number] Report ID: [id number]
[2019-01-27] MEDS ORDERED: Mastisol Adhesive Liq ONE ×2 (12:17)
[2019-01-27] MEDS ORDERED: GENTAMICIN 100 MG/100 ML BAG 100 ML IV ONE (12:39)
[2019-01-27 13:44] VITALS: O2SAT 100
[2019-01-27] MEDS: HYDROCODONE/APAP 7.5/325 MG TAB PO PRN (17:17)
[2019-01-27 17:32] VITALS: BP 134/88; TEMP 97.4
--- NOTE | 2019-01-29 03:39 | DS ---
Date of Discharge: 01/27/2019 Consultants: Dr. Gallardo with Urology. Procedures: ESWL. Discharge Diagnoses: 1.Left ureteral calculus status post extracorporeal shock wave lithotripsy. 2.Diabetes mellitus type 2 without long-term use of insulin with hyperglycemia. 3.Obesity, body mass index 37.8. 4.Mixed hyperlipidemia. 5.Acute kidney injury. Hospital Course: Patient is a 33-year-old male with past medical history of hyperlipidemia, diabetes , comes in with flank pain on the left side. Patient was found to have a 4 mm stone. He was started on IV fluids and Urology was consulted. Imaging studies were obtained. Patient was taken for litho tripsy by Dr. Gallardo. Patient tolerated the procedure well. His pain improved. His kidney function was somewhat elevated due to hydronephrosis. He was given IV fluids. He will need to have repeat dney function testing in about 1 week. Patient was cleared for discharge from [facility]poin t after the procedure. He recovered well, tolerated the procedure. Medications: As per medication reconciliation list. Followup: Follow up with primary care physician in 2-3 days. Follow up with urologist, Dr. Gallardo, i n 2 weeks for subsequent followup. Return to ER for worsening condition. Diet: Diabetic. Activity: No driving or operating heavy machinery while on narcotics. For physical exam findings please see progress note dictated on day of discharge. /ANABELL Voice ID: [id number] Report ID: [id number]
== END 2019-01-27 17:54 | disposition home or self-care (01) ==
LOC: ER 05:38 → ERHOLD 08:47 → 2ND 09:27
PROVIDERS: ADMIT Family Medicine; ATTEND Family Medicine
PROC: 0TF7XZZ Fragmentation in Left Ureter, External Approach (ICD-10-PCS; principal; 2019-01-27 12:00)
DX: N13.2 Hydronephrosis with renal and ureteral calculous obstruction (principal); E11.65 Type 2 diabetes mellitus with hyperglycemia; E66.9 Obesity, unspecified; Z68.37 Body mass index [BMI] 37.0-37.9, adult; E78.2 Mixed hyperlipidemia; N17.9 Acute kidney failure, unspecified; Z23 Encounter for immunization
CPT/HCPCS: 96361; 93005; 85025 ×2; 80048 ×2; 36415 ×2; 85610; 82962 ×7; 80076 ×2; 85730; 81003; 83690 ×2; 76377; 74176; 74018; 90471; 50590 ×2; 96375; 96374; 99285; J2704; Q2035; J2250; J3010 ×2; J1580; J0696; G0378 ×4; J7799 ×4; J7030 ×2; J2405 ×3

== ENCOUNTER 2019-01-28 22:02 | Emergency (ER) | payer OTHER ==
[2019-01-28] MEDS ORDERED: PHENAZOPYRIDINE 100MG TAB PO ONE (22:23)
[2019-01-28 23:16] LABS: Urine Blood 2+ (NEG); Urine Glucose NEGATIVE (NEG); Urine Protein NEGATIVE (NEG); Urine Specific Gravity 1.025 (1.005-1.030)
[2019-01-28 23:21] LABS: Urine Bacteria <20 /HPF (NONE SEEN); Urine Culture Reflex Order NOT NEEDED; Urine Mucus 2+ /HPF (NONE SEEN)
--- NOTE | 2019-01-28 23:21 | EDPHYS ---
Physician Documentation [facility] Name: Fransisco Juarez Age: 33 yrs Sex: Male : 1985 Arrival Date: 01/28/2019 Time: 22:03 Bed 15 Private MD: ED Physician Mc Dominique HPI: 01/28 22:41 This 33 yrs old Male presents to ER via Ambulatory with complaints of Urinary snw Retention. 22:41 The patient presents with urinary symptoms, dysuria, retention, Last void was in ED for snw UA. Onset: The symptoms/episode began/occurred suddenly, today. Associated signs and symptoms: Pertinent positives: abdominal pain. Severity of symptoms: At their worst the symptoms were moderate, in the emergency department the symptoms are unchanged. It is unknown whether or not the patient has had similar symptoms in the past. The patient has been recently seen by a physician: stent placement per Dr. Gallardo yesterday. Historical: - Allergies: 22:05 No Known Allergies; la1 - Home Meds: 22:48 Metformin Oral [Active]; Lisinopril Oral [Active]; atorvastatin oral oral [Active]; wh - PMHx: 22:05 Diabetes - NIDDM; Kidney stones; Migraines; Pneumonia; Rheumatoid Arthritis; la1 - PSHx: 22:48 ESWL; wh - Immunization history:: Adult Immunizations up to date. - Social history:: Smoking status: Patient/guardian denies using tobacco. - Ebola Screening: : No symptoms or risks identified at this time. ROS: 22:40 Constitutional: Negative for fever, chills, and weight loss, Eyes: Negative for injury, snw pain, redness, and discharge, ENT: Negative for injury, pain, and discharge, Neck: Negative for injury, pain, and swelling, Cardiovascular: Negative for chest pain, palpitations, and edema, Respiratory: Negative for shortness of breath, cough, wheezing, and pleuritic chest pain, Abdomen/GI: Negative for abdominal pain, nausea, vomiting, diarrhea, and constipation, Back: Negative for injury and pain, MS/Extremity: Negative for injury and deformity, Skin: Negative for injury, rash, and discoloration, Neuro: Negative for headache, weakness, numbness, tingling, and seizure, Psych: Negative for depression, anxiety, suicide ideation, homicidal ideation, and hallucinations. 22:40 : Positive for urinary symptoms. Exam: 22:38 Constitutional: This is a well developed, well nourished patient who is awake, alert, snw and in no acute distress. Head/Face: Normocephalic, atraumatic. Eyes: Pupils equal round and reactive to light, extra-ocular motions intact. Lids and lashes normal. Conjunctiva and sclera are non-icteric and not injected. Cornea within normal limits. Periorbital areas with no swelling, redness, or edema. ENT: Nares patent. No nasal discharge, no septal abnormalities noted. Tympanic membranes are normal and external auditory canals are clear. Oropharynx with no redness, swelling, or masses, exudates, or evidence of obstruction, uvula midline. Mucous membranes moist. Neck: Trachea midline, no thyromegaly or masses palpated, and no cervical lymphadenopathy. Supple, full range of motion without nuchal rigidity, or vertebral point tenderness. No Meningismus. Chest/axilla: Normal chest wall appearance and motion. Nontender with no deformity. No lesions are appreciated. Cardiovascular: Regular rate and rhythm with a normal S1 and S2. No gallops, murmurs, or rubs. Normal PMI, no JVD. No pulse deficits. Respiratory: Lungs have equal breath sounds bilaterally, clear to auscultation and percussion. No rales, rhonchi or wheezes noted. No increased work of breathing, no retractions or nasal flaring. Abdomen/GI: Soft, non-tender, with normal bowel sounds. No distension or tympany. No guarding or rebound. No evidence of tenderness throughout. Back: No spinal tenderness. No costovertebral tenderness. Full range of motion. Skin: Warm, dry with normal turgor. Normal color with no rashes, no lesions, and no evidence of cellulitis. Noted with bandage to right axilla, abrasion to right forearm MS/ Extremity: Pulses equal, no cyanosis. Neurovascular intact. Full, normal range of motion. Neuro: Awake and alert, GCS 15, oriented to person, place, time, and situation. Cranial nerves II-XII grossly intact. Motor strength 5/5 in all extremities. Sensory grossly intact. Cerebellar exam normal. Normal gait. Psych: Awake, alert, with orientation to person, place and time. Behavior, mood, and affect are within normal limits. Vital Signs: 22:05 BP 146 / 100; Pulse 74; Resp 16; Temp 97.1; Pulse Ox 98% on R/A; la1 22:49 BP 147 / 96; Pulse 63; Resp 18; Pulse Ox 98% on R/A; wh 23:30 BP 137 / 83; Pulse 60; Resp 18; Pulse Ox 96% on R/A; wh MDM: 22:28 Patient medically screened. snw 23:22 Data reviewed: vital signs, nurses notes. Data interpreted: Pulse oximetry: on room air snw is 98 %. Interpretation: normal. Counseling: I had a detailed discussion with the patient and/or guardian regarding: the historical points, exam findings, and any diagnostic results supporting the discharge/admit diagnosis, lab results, the need for outpatient follow up, to return to the emergency department if symptoms worsen or persist or if there are any questions or concerns that arise at home. Special discussion: Based on the patient's Hx, exam, and Dx evaluation, there is no indication for emergent surgery or inpatient Tx. It is understood by the patient/guardian that if the Sx's persist or worsen they need to return immediately for re-evaluation. Based on the history and exam findings, there is no indication for further emergent testing or inpatient evaluation. I discussed with the patient/guardian the need to see the primary care provider for further evaluation of the symptoms. I discussed with the patient/guardian the need to see the urologist for further evaluation of the symptoms. 01/28 22:16 Order name: Urine Culture snw 01/28 22:16 Order name: Urine Microscopic Only; Complete Time: 23:23 snw 01/28 22:10 Order name: Bladder Scanner; Complete Time: 22:14 snw 01/28 22:24 Order name: Urine Dipstick--Ancillary (enter results); Complete Time: 23:19 mw2 01/28 22:16 Order name: Urine Dipstick-Ancillary (obtain specimen); Complete Time: 22:25 snw Administered Medications: 22:25 Drug: Pyridium 200 mg Route: PO; 23:37 Follow up: Response: No adverse reaction 23:29 Drug: TORadol 30 mg Route: IM; Site: right gluteus; 23:38 Follow up: Response: No adverse reaction Disposition: 01/29 02:23 Co-signature as Attending Physician, Mc Dominique MD. rn Disposition: 01/28/19 23:21 Discharged to Home. Impression: Dysuria. - Condition is Stable. - Discharge Instructions: Dysuria, Rehydration, Adult. - Prescriptions for Pyridium 200 mg Oral Tablet - take 1 tablet by ORAL route every 8 hours for 3 days; 9 tablet. - Work release form, Medication Reconciliation Form, Thank You Letter, Antibiotic Education, Prescription Opioid Use form. - Follow up: Private Physician; When: Tomorrow; Reason: Recheck today's complaints, Continuance of care. Follow up: Emergency Department; When: As needed; Reason: Worsening of condition. Follow up: Johanna Gallardo MD; When: Tomorrow; Reason: Recheck today's complaints, Continuance of care. Signatures: Dispatcher [employer] EDMS Munira Malik, PAINTER INTERIOR FINISH-C PAINTER INTERIOR FINISH-Csnw Mc Dominique MD MD rn Attema, Lee, RN RN la1 Habalo, Winsy Corrections: (The following items were deleted from the chart) 01/28 23:39 23:21 01/28/2019 23:21 Discharged to Home. Impression: Dysuria. Condition is Stable. wh Forms are Medication Reconciliation Form, Thank You Letter, Antibiotic Education, Prescription Opioid Use. Follow up: Private Physician; When: Tomorrow; Reason: Recheck today's complaints, Continuance of care. Follow up: Emergency Department; When: As needed; Reason: Worsening of condition. Follow up: Johanna Gallardo; When: Tomorrow; Reason: Recheck today's complaints, Continuance of care. snw
--- NOTE | 2019-01-28 23:21 | ER ---
Nurse's Notes [facility] Name: Fransisco Juarez Age: 33 yrs Sex: Male : 1985 Arrival Date: 01/28/2019 Time: 22:03 Bed 15 Private MD: Diagnosis: Dysuria Presentation: 01/28 22:04 Presenting complaint: Patient states: I had a urinary stent placed yesterday with Dr. dorothy Gallardo and now I cant pee. Transition of care: patient was not received from another setting of care. Onset of symptoms was January 28, 2019. Risk Assessment: Do you want to hurt yourself or someone else? Patient reports no desire to harm self or others. Initial Sepsis Screen: Does the patient meet any 2 criteria? No. Patient's initial sepsis screen is negative. Does the patient have a suspected source of infection? No. Patient's initial sepsis screen is negative. Care prior to arrival: None. 22:04 Method Of Arrival: Ambulatory la1 22:04 Acuity: AMILCAR 3 la1 Historical: - Allergies: 22:05 No Known Allergies; la1 - Home Meds: 22:48 Metformin Oral [Active]; Lisinopril Oral [Active]; atorvastatin oral oral [Active]; wh - PMHx: 22:05 Diabetes - NIDDM; Kidney stones; Migraines; Pneumonia; Rheumatoid Arthritis; la1 - PSHx: 22:48 ESWL; wh - Immunization history:: Adult Immunizations up to date. - Social history:: Smoking status: Patient/guardian denies using tobacco. - Ebola Screening: : No symptoms or risks identified at this time. Screenin:43 Abuse screen: Denies threats or abuse. Denies injuries from another. Nutritional wh screening: No deficits noted. Tuberculosis screening: No symptoms or risk factors identified. Fall Risk None identified. Assessment: 22:42 General: Appears in no apparent distress. Behavior is calm, cooperative, appropriate wh for age. Pain: Denies pain. Neuro: Level of Consciousness is awake, alert, obeys commands. Cardiovascular: Heart tones S1 S2. Cardiovascular: Respiratory: Airway is patent Respiratory effort is even, unlabored, Respiratory pattern is regular, symmetrical. Respiratory: Breath sounds are clear bilaterally. GI: Abdomen is flat, non-distended. : Reports urinary frequency, since yesterday Urinary retention. EENT: No signs and/or symptoms were reported regarding the EENT system. Derm: Skin is intact, is healthy with good turgor, Skin is pink, warm \T\ dry. normal. Musculoskeletal: Circulation, motion, and sensation intact. 23:37 Reassessment: Patient appears in no apparent distress at this time. No changes from previously documented assessment. Patient and/or family updated on plan of care and expected duration. Pain level reassessed. Patient is alert, oriented x 3, equal unlabored respirations, skin warm/dry/pink. Patient states feeling better. Vital Signs: 22:05 BP 146 / 100; Pulse 74; Resp 16; Temp 97.1; Pulse Ox 98% on R/A; la1 22:49 BP 147 / 96; Pulse 63; Resp 18; Pulse Ox 98% on R/A; wh 23:30 BP 137 / 83; Pulse 60; Resp 18; Pulse Ox 96% on R/A; wh ED Course: 22:03 Patient arrived in ED. es 22:05 Triage completed. la1 22:06 Hortensia Caceres is Primary Nurse. wh 22:06 Arm band placed on left wrist. la1 22:15 Munira Malik FNP-C is PHCP. snw 22:15 Mc Dominique MD is Attending Physician. snw 22:44 Patient has correct armband on for positive identification. Placed in gown. Bed in low wh position. Call light in reach. Side rails up X 1. Pulse ox on. NIBP on. 23:21 Johanna Gallardo MD is Referral Physician. snw 23:38 No provider procedures requiring assistance completed. Patient did not have IV access during this emergency room visit. Administered Medications: 22:25 Drug: Pyridium 200 mg Route: PO; wh 23:37 Follow up: Response: No adverse reaction 23:29 Drug: TORadol 30 mg Route: IM; Site: right gluteus; 23:38 Follow up: Response: No adverse reaction Outcome: 23:21 Discharge ordered by . snw 23:38 Discharged to home ambulatory. 23:38 Condition: stable 23:38 Discharge instructions given to patient, Instructed on discharge instructions, follow up and referral plans. medication usage, POC Dysuria Demonstrated understanding of instructions, follow-up care, medications, POC Prescriptions given X 1. 23:39 Patient left the ED. Signatures: Munira Malik, HEAD CD REACTOR OPERATOR-C HEAD CD REACTOR OPERATOR-Csnw Yue Blackman Lee RN RN la1 Hortensia Caceres
[2019-01-28] MEDS ORDERED: KETOROLAC 30 MG/ML INJ ONE (23:22)
[2019-01-28 23:44] VITALS: TEMP 97.1
[2019-01-28 23:47] VITALS: BP 137/83; O2SAT 96
== END 2019-01-28 23:39 | disposition home or self-care (01) ==
LOC: ER 22:02
DX: R30.0 Dysuria (principal); E11.9 Type 2 diabetes mellitus without complications
CPT/HCPCS: 81003; 81015; 87086; 87088; 96372; 99283

== ENCOUNTER 2019-02-03 16:01 | Emergency (ER) | payer OTHER ==
[2019-02-03 17:57] LABS: Urine Blood NEGATIVE (NEG); Urine Glucose NEGATIVE (NEG); Urine Protein NEGATIVE (NEG); Urine pH 8.5 (5.0-7.0)
[2019-02-03 18:09] LABS: Absolute Lymphocytes (CBC) 2.1 K/uL (0.7-4.9); Basophils % 1.3 % (0-1.3); Hematocrit 38.2 % (39.6-49.0); Lymphocytes % 28.6 % (15.3-44.8); MPV 7.8 fL (7.6-11.3); RBC Red Blood Cell Count 4.68 M/uL (4.33-5.43)
--- NOTE | 2019-02-03 18:09 | RAD REPORT ---
EXAM DESCRIPTION: CT - Abdomen Pelvis Wo Contrast - 02/03/2019 5:52 pm CLINICAL HISTORY: Abdominal pain left flank pain COMPARISON: January 26, 2019 TECHNIQUE: Computed axial tomography of the abdomen and pelvis was obtained. IV and oral contrast we re not requested. All CT scans are performed using dose optimization technique as appropriate and may include automated exposure control or mA/KV adjustment according to patient size. FINDINGS: The evaluation of solid organs, vessels and bowel is limited secondary to the lack of con trast administration. Multiple small, bilateral renal calculi. Three calculi distal left ureter. 4 millimeter calculus left UVJ Hounsfield unit 742. Minimal left hydronephrosis Fatty liver The appendix is normal. There is no evidence of diverticulitis. Small inguinal hernias contain fat IMPRESSION: A 4 millimeter calculus left UVJ. Three small calculi distal left ureter. Minimal left hydronephrosis.
[2019-02-03 18:17] LABS: Urine Amorphous Sediment 3+ /HPF (NONE SEEN); Urine Bacteria <20 /HPF (NONE SEEN); Urine Culture Reflex Order NOT NEEDED; Urine RBC <5 /HPF (NONE SEEN)
[2019-02-03 18:19] LABS: Albumin 3.4 g/dL (3.4-5.0); Bilirubin Direct 0.2 mg/dL (0-0.2); Bilirubin Total 0.6 mg/dL (0.2-1.0); Potassium 3.8 mmol/L (3.5-5.1); Protein, Total 7.1 g/dL (6.4-8.2)
--- NOTE | 2019-02-03 18:38 | RAD REPORT ---
EXAM DESCRIPTION: King Lozano (2 Views)02/03/2019 5:58 pm CLINICAL HISTORY: Abdominal COMPARISON: October 2018 FINDINGS: The lungs appear clear of acute infiltrate. The heart is normal size IMPRESSION: No acute abnormalities displayed
--- NOTE | 2019-02-03 19:29 | ER ---
Nurse's Notes [facility] Name: Fransisco Jaurez Age: 33 yrs Sex: Male : 1985 Arrival Date: 02/03/2019 Time: 16:02 Bed 28 Private MD: Diagnosis: Acute Left Flank Pain;Left UVJ Uretherolithiasis Presentation: 02/03 16:11 Presenting complaint: Patient states: I have been feeling bad all day. Pain under my la1 left breast. I dont feel right. Transition of care: patient was not received from another setting of care. Onset of symptoms was February 03, 2019. Risk Assessment: Do you want to hurt yourself or someone else? Patient reports no desire to harm self or others. Initial Sepsis Screen: Does the patient meet any 2 criteria? No. Patient's initial sepsis screen is negative. Does the patient have a suspected source of infection? No. Patient's initial sepsis screen is negative. Care prior to arrival: None. 16:11 Method Of Arrival: Ambulatory la1 16:11 Acuity: AMILCAR 3 la1 Triage Assessment: 17:00 Headache History: Denies prior headaches. General: Appears in no apparent distress. rv comfortable, Behavior is calm, cooperative. 17:00 Pain: Complains of pain in chest Pain Pain began suddenly, Also complains of no other rv associated symptoms. Historical: - Allergies: 16:12 No Known Allergies; la1 - PMHx: 16:12 Diabetes - NIDDM; Kidney stones; Migraines; Pneumonia; Rheumatoid Arthritis; la1 - Immunization history:: Adult Immunizations up to date. - Social history:: Smoking status: Patient/guardian denies using tobacco. - Ebola Screening: : No symptoms or risks identified at this time. - Family history:: not pertinent. - Hospitalizations: : No recent hospitalization is reported. Screenin:45 Abuse screen: Denies threats or abuse. Denies injuries from another. Nutritional rv screening: No deficits noted. Tuberculosis screening: No symptoms or risk factors identified. Fall Risk None identified. Assessment: 16:44 General: Appears in no apparent distress. comfortable, Behavior is calm, cooperative. rv Pain: Complains of pain in chest. Neuro: Level of Consciousness is awake, alert, obeys commands, Oriented to person, place, time, situation, Reports headache. Cardiovascular: Patient's skin is warm and dry. Respiratory: Airway is patent. GI: No signs and/or symptoms were reported involving the gastrointestinal system. : No signs and/or symptoms were reported regarding the genitourinary system. EENT: No signs and/or symptoms were reported regarding the EENT system. Derm: Skin is intact. Musculoskeletal: No signs and/or symptoms reported regarding the musculoskeletal system. 19:11 Reassessment: Patient appears in no apparent distress at this time. Patient and/or rv family updated on plan of care and expected duration. Pain level reassessed. Patient is alert, oriented x 3, equal unlabored respirations, skin warm/dry/pink. Vital Signs: 16:12 Weight 116.57 kg; Height 5 ft. 9 in. (175.26 cm); la1 16:13 Pulse 92; Resp 18; Temp 98.2; Pulse Ox 100% on R/A; la1 16:18 BP 138 / 54; la1 17:00 BP 138 / 83; Pulse 70; Resp 16; Pulse Ox 97% on R/A; rv 18:00 BP 140 / 95; Pulse 71; Resp 15; Pulse Ox 98% on R/A; rv 19:00 BP 121 / 70; Pulse 68; Resp 15; Pulse Ox 98% on R/A; rv 19:43 BP 124 / 87; Pulse 66; Resp 16; Pulse Ox 99% on R/A; rv 16:12 Body Mass Index 37.95 (116.57 kg, 175.26 cm) la1 ED Course: 16:02 Patient arrived in ED. as 16:12 Triage completed. la1 16:12 Arm band placed on left wrist. la1 16:39 Afshin Kapoor, RN is Primary Nurse. rv 16:45 Patient has correct armband on for positive identification. Bed in low position. Call rv light in reach. Side rails up X 1. Pulse ox on. NIBP on. 17:03 EKG done, by ED staff. sm3 17:29 Minesh Guidry MD is Attending Physician. wa 17:[address] via wheelchair. nj 17:51 CT completed. Patient tolerated procedure well. Patient moved back from CT. nj 17:52 CT Abd/Pelvis - Without Contrast In Process Unspecified. EDMS 17:59 XRAY Chest Pa And Lat (2 Views) In Process Unspecified. EDMS 18:00 No provider procedures requiring assistance completed. Inserted saline lock: 20 gauge rv in left antecubital area, using aseptic technique. Blood collected. 19:27 Johanna Gallardo MD is Referral Physician. nm 19:44 IV discontinued, intact, bleeding controlled, No redness/swelling at site. Pressure rv dressing applied. Administered Medications: 19:42 Drug: fentaNYL (PF) 75 mcg {Note: rass 0.} Route: IVP; Site: left antecubital; rv 19:43 Follow up: Response: Medication administered at discharge.; patient's family is in room rv 17. took the patient via wheelchair. Intake: Outcome: 19:28 Discharge ordered by MD. nm 19:44 Discharged to home ambulatory, with family. rv 19:44 Condition: good 19:44 Discharge instructions given to patient, Instructed on discharge instructions, follow up and referral plans. medication usage, Demonstrated understanding of instructions, follow-up care, medications, Prescriptions given X 4. 19:44 Patient left the ED. rv Signatures: Dispatcher [employer] EDKY Rachael Jesus Lee, RN RN la1 Deuce Garner William, MD MD wa Montes, Shakira 3 Afshin Kapoor, RN RN rv
--- NOTE | 2019-02-03 19:29 | EDPHYS ---
Physician Documentation [facility] Name: Fransisco Juarez Age: 33 yrs Sex: Male : 1985 Arrival Date: 02/03/2019 Time: 16:02 Bed 28 Private MD: ED Physician Minesh Guidry HPI: 02/03 19:22 This 33 yrs old Male presents to ER via Ambulatory with complaints of wa Headache, Chest Pain, Doesn't Feel Right. 19:22 The patient complains of pain in the left flank. The pain radiates to the L groin. wa Onset: The symptoms/episode began/occurred just prior to arrival. Modifying factors: The symptoms are alleviated by the symptoms are aggravated by. Associated signs and symptoms: Pertinent positives: nausea, Pertinent negatives: diarrhea, dizziness, dysuria, fever, vomiting. Severity of pain: At its worst the pain was moderate in the emergency department the pain is unchanged. The patient has experienced similar episodes in the past, several times. The patient has not recently seen a physician. h/o renal colic. Historical: - Allergies: 16:12 No Known Allergies; la1 - PMHx: 16:12 Diabetes - NIDDM; Kidney stones; Migraines; Pneumonia; Rheumatoid Arthritis; la1 - Immunization history:: Adult Immunizations up to date. - Social history:: Smoking status: Patient/guardian denies using tobacco. - Ebola Screening: : No symptoms or risks identified at this time. - Family history:: not pertinent. - Hospitalizations: : No recent hospitalization is reported. ROS: 19:23 Constitutional: Negative for fever, chills, and weight loss, Eyes: Negative for injury, wa pain, redness, and discharge, ENT: Negative for injury, pain, and discharge, Neck: Negative for injury, pain, and swelling, Cardiovascular: Negative for chest pain, palpitations, and edema, Respiratory: Negative for shortness of breath, cough, wheezing, and pleuritic chest pain, : Negative for injury, bleeding, discharge, and swelling, MS/Extremity: Negative for injury and deformity, Skin: Negative for injury, rash, and discoloration, Neuro: Negative for headache, weakness, numbness, tingling, and seizure. 19:23 Abdomen/GI: Positive for abdominal pain, nausea, of the left flank, Negative for vomiting, diarrhea. 19:23 Back: Positive for flank pain, on the left. 19:23 : Negative for urinary symptoms, urinary frequency. 19:23 All other systems are negative. Exam: 19:24 Constitutional: This is a well developed, well nourished patient who is awake, alert, wa and in no acute distress. Head/Face: Normocephalic, atraumatic. Eyes: Pupils equal round and reactive to light, extra-ocular motions intact. Lids and lashes normal. Conjunctiva and sclera are non-icteric and not injected. Cornea within normal limits. Periorbital areas with no swelling, redness, or edema. ENT: Nares patent. No nasal discharge, no septal abnormalities noted. Tympanic membranes are normal and external auditory canals are clear. Oropharynx with no redness, swelling, or masses, exudates, or evidence of obstruction, uvula midline. Mucous membranes moist. Neck: Trachea midline, no thyromegaly or masses palpated, and no cervical lymphadenopathy. Supple, full range of motion without nuchal rigidity, or vertebral point tenderness. No Meningismus. Chest/axilla: Normal chest wall appearance and motion. Nontender with no deformity. No lesions are appreciated. Cardiovascular: Regular rate and rhythm with a normal S1 and S2. No gallops, murmurs, or rubs. Normal PMI, no JVD. No pulse deficits. Respiratory: Lungs have equal breath sounds bilaterally, clear to auscultation and percussion. No rales, rhonchi or wheezes noted. No increased work of breathing, no retractions or nasal flaring. Back: No spinal tenderness. No costovertebral tenderness. Full range of motion. Skin: Warm, dry with normal turgor. Normal color with no rashes, no lesions, and no evidence of cellulitis. MS/ Extremity: Pulses equal, no cyanosis. Neurovascular intact. Full, normal range of motion. Neuro: Awake and alert, GCS 15, oriented to person, place, time, and situation. Cranial nerves II-XII grossly intact. Motor strength 5/5 in all extremities. Sensory grossly intact. Cerebellar exam normal. Normal gait. Psych: Awake, alert, with orientation to person, place and time. Behavior, mood, and affect are within normal limits. 19:24 Abdomen/GI: Palpation: soft, in all quadrants, mild abdominal tenderness, in the left flank. 19:24 : CVA tenderness, is absent, Male external genitalia: normal, Bladder: is normal. Vital Signs: 16:12 Weight 116.57 kg; Height 5 ft. 9 in. (175.26 cm); la1 16:13 Pulse 92; Resp 18; Temp 98.2; Pulse Ox 100% on R/A; la1 16:18 BP 138 / 54; la1 17:00 BP 138 / 83; Pulse 70; Resp 16; Pulse Ox 97% on R/A; rv 18:00 BP 140 / 95; Pulse 71; Resp 15; Pulse Ox 98% on R/A; rv 19:00 BP 121 / 70; Pulse 68; Resp 15; Pulse Ox 98% on R/A; rv 19:43 BP 124 / 87; Pulse 66; Resp 16; Pulse Ox 99% on R/A; rv 16:12 Body Mass Index 37.95 (116.57 kg, 175.26 cm) la1 MDM: 17:29 Patient medically screened. mt 19:25 Differential diagnosis: nephrolithiasis, pyelonephritis, UTI, testicular torsion, wa diverticulitis. Data reviewed: vital signs, nurses notes. Test interpretation: by ED physician or midlevel provider: labs noted wnl. CT abd/pelvis: 4 mm L UVJ stone . 19:26 Response to treatment: the patient's symptoms have markedly improved after treatment. mt 02/03 16:18 Order name: Flu; Complete Time: 19:19 [facility] 02/03 17:06 Order name: Urine Dipstick--Ancillary (enter results); Complete Time: 19:19 02/03 17:35 Order name: Basic Metabolic Panel; Complete Time: 19:19 mt 02/03 17:35 Order name: CBC with Diff; Complete Time: 19:19 mt 02/03 17:35 Order name: Hepatic Function; Complete Time: 19:19 mt 02/03 17:35 Order name: Lipase; Complete Time: 19:19 mt 02/03 17:35 Order name: IV Saline Lock; Complete Time: 17:46 mt 02/03 17:35 Order name: Labs collected and sent; Complete Time: 17:46 mt 02/03 17:35 Order name: XRAY Chest Pa And Lat (2 Views); Complete Time: 19:19 mt 02/03 17:35 Order name: CT Abd/Pelvis - Without Contrast; Complete Time: 19:19 mt 02/03 17:35 Order name: Urine Microscopic Only; Complete Time: 19:19 mt 02/03 17:55 Order name: EKG Electrocardiogram; Complete Time: 17:55 EDMS Administered Medications: 19:42 Drug: fentaNYL (PF) 75 mcg {Note: rass 0.} Route: IVP; Site: left antecubital; rv 19:43 Follow up: Response: Medication administered at discharge.; patient's family is in room rv 17. took the patient via wheelchair. Disposition: 02/03/19 19:28 Discharged to Home. Impression: Acute Left Flank Pain, Left UVJ Uretherolithiasis. - Condition is Stable. - Prescriptions for Ibuprofen 600 mg Oral Tablet - take 1 tablet by ORAL route every 8 hours As needed take with food; 30 tablet. Flomax 0.4 mg Oral Capsule, Sust. Release 24 hr - take 1 capsule by ORAL route once daily for 7 days 1/2 hour following the same meal each day; 7 capsule. Zofran 4 mg Oral Tablet - take 1 tablet by ORAL route every 12 hours As needed; 20 tablet. - Medication Reconciliation Form, Thank You Letter, Antibiotic Education, Prescription Opioid Use form. - Work release form (02/03/19 19:58). rv - Follow up: Johanna Gallardo MD; When: 2 - 3 days; Reason: Recheck today's complaints. - Problem is new. - Symptoms have improved. - Notes: take medication as prescribed. follow up with your urologist as discussed for further evaluation Signatures: Dispatcher [employer] EDMI Goran Juarez RN RN la1 Minesh Guidry MD MD mt Afshin Kapoor RN RN rv Corrections: (The following items were deleted from the chart) 19:44 19:28 02/03/2019 19:28 Discharged to Home. Impression: Acute Left Flank Pain; Left UVJ rv Uretherolithiasis. Condition is Stable. Forms are Medication Reconciliation Form, Thank You Letter, Antibiotic Education, Prescription Opioid Use. Follow up: Johanna Gallardo; When: 2 - 3 days; Reason: Recheck today's complaints. Problem is new. Symptoms have improved. harini
[2019-02-03] MEDS ORDERED: FENTANYL CITR 100 MCG/2 ML ONE (19:31)
[2019-02-03 21:17] VITALS: TEMP 98.2
[2019-02-03 21:23] VITALS: BP 124/87; O2SAT 99
--- NOTE | 2019-02-04 07:05 | EKG ---
Test Date: 2019-02-03 Test Time: 16:16:25 Inspection Clerk: RUDY MEASUREMENT RESULTS: Intervals: Rate: 83 CT: 132 QRSD: 84 QT: 378 QTc: 444 [place]: P: 32 CT: 132 QRS: 62 T: 44 INTERPRETIVE STATEMENTS: Normal sinus rhythm Normal ECG Compared to ECG 01/26/2019 13:12:07 T-wave abnormality no longer present Electronically Signed On 02-04-19 07:03:48 CDT by Geoffrey Valladares
== END 2019-02-03 19:44 | disposition home or self-care (01) ==
LOC: ER 16:01
DX: N20.1 Calculus of ureter (principal); Z87.442 Personal history of urinary calculi
CPT/HCPCS: 93005; 85025; 80048; 36415; 80076; 83690; 87804 ×2; 74176; 71046; J3010; 81003; 81015; 96374; 99285

== ENCOUNTER 2019-02-23 16:47 | Emergency (ER) | payer OTHER ==
--- NOTE | 2019-02-23 17:52 | EDPHYS ---
Physician Documentation [facility] Name: Fransisco Juarez Age: 34 yrs Sex: Male : 1985 Arrival Date: 02/23/2019 Time: 16:49 Bed 27 Private MD: ED Physician Mc Dominique HPI: 02/23 17:17 This 34 yrs old Male presents to ER via Wheelchair with complaints of Foot rn Injury. 17:17 The patient presents with an injury, pain. The complaints affect the left ankle. Onset: rn The symptoms/episode began/occurred just prior to arrival. 17:17 Modifying factors: The symptoms are alleviated by sitting, the symptoms are aggravated rn by weight bearing, movement. Severity of symptoms: At their worst the symptoms were moderate, in the emergency department the symptoms are unchanged. The patient has not experienced similar symptoms in the past. Reports at [employer] yesterday, twisted left ankle in hole, + moderate pain, no other injury, no foot injury or pain. . Historical: - Allergies: 16:58 No Known Allergies; rb1 - Home Meds: 16:58 atorvastatin Oral [Active]; lisinopril Oral [Active]; Metformin Oral [Active]; rb1 - PMHx: 16:58 Diabetes - NIDDM; Kidney stones; Migraines; Pneumonia; Rheumatoid Arthritis; rb1 - PSHx: 16:58 Kidney stents; rb1 - Immunization history:: Adult Immunizations up to date. - Social history:: Smoking status: Patient/guardian denies using tobacco. - Ebola Screening: : Patient negative for fever greater than or equal to 101.5 degrees Fahrenheit, and additional compatible Ebola Virus Disease symptoms. - Family history:: not pertinent. - Hospitalizations: : No recent hospitalization is reported. ROS: 17:17 Constitutional: Negative for fever, chills, and weight loss, MS/Extremity: + left ankle rn injury and pain Skin: Negative for injury, rash, and discoloration. Exam: 17:23 Constitutional: This is a well developed, well nourished patient who is awake, alert, rn and in no acute distress. MS/ Extremity: + left ankle with lateral malleolus tenderness and mild swelling. No proximal leg or foot tenderness. Vital Signs: 16:58 BP 138 / 92; Pulse 91; Resp 16; Temp 98.4(O); Pulse Ox 97% on R/A; Weight 115.67 kg rb1 (R); Height 5 ft. 9 in. (175.26 cm) (R); Pain 5/10; 16:58 Body Mass Index 37.66 (115.67 kg, 175.26 cm) rb1 MDM: 17:01 Patient medically screened. rn 17:49 Differential diagnosis: fracture, sprain. Data reviewed: vital signs, nurses notes. 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 . Administered Medications: No medications were administered Disposition: 02/23/19 17:51 Patient left the facility after being seen by provider. Preliminary diagnosis is Unspecified injury of left ankle. - Patient left due to (see nurse's notes). - Condition is Stable. - Problem is new. - Symptoms are unchanged. Signatures: Dispatcher [employer] EDMS Mc Dominique MD MD rn Barber, Rebecca, RN RN rb1 Afshin Kapoor RN RN rv Corrections: (The following items were deleted from the chart) 18:15 17:51 02/23/2019 17:51 Patient left the facility after being seen by provider. rv Preliminary diagnosis is Unspecified injury of left ankle. Reason stated they are leaving due to (see nurse's notes). Condition is Stable. Problem is new. Symptoms are unchanged. rn
--- NOTE | 2019-02-23 17:52 | ER ---
Nurse's Notes [facility] Name: Fransisco Juarez Age: 34 yrs Sex: Male : 1985 Arrival Date: 02/23/2019 Time: 16:49 Bed 27 Private MD: Diagnosis: Unspecified injury of left ankle Presentation: 02/23 16:55 Presenting complaint: Patient states: Someone landed on his left ankle at [facility] yesterday. c/o left ankle pain and swelling. Transition of care: patient was not received from another setting of care. Onset of symptoms was February 22, 2019. Risk Assessment: Do you want to hurt yourself or someone else? Patient reports no desire to harm self or others. Initial Sepsis Screen: Does the patient meet any 2 criteria? No. Patient's initial sepsis screen is negative. Does the patient have a suspected source of infection? No. Patient's initial sepsis screen is negative. Care prior to arrival: None. 16:55 Method Of Arrival: Wheelchair [facility] 16:55 Acuity: AMILCAR 4 rb1 Triage Assessment: 17:13 Injury Description: sprained ankle in trampoline place. rv Historical: - Allergies: 16:58 No Known Allergies; rb1 - Home Meds: 16:58 atorvastatin Oral [Active]; lisinopril Oral [Active]; Metformin Oral [Active]; rb1 - PMHx: 16:58 Diabetes - NIDDM; Kidney stones; Migraines; Pneumonia; Rheumatoid Arthritis; rb1 - PSHx: 16:58 Kidney stents; rb1 - Immunization history:: Adult Immunizations up to date. - Social history:: Smoking status: Patient/guardian denies using tobacco. - Ebola Screening: : Patient negative for fever greater than or equal to 101.5 degrees Fahrenheit, and additional compatible Ebola Virus Disease symptoms. - Family history:: not pertinent. - Hospitalizations: : No recent hospitalization is reported. Screenin:12 Abuse screen: Denies threats or abuse. Denies injuries from another. Nutritional rv screening: No deficits noted. Tuberculosis screening: No symptoms or risk factors identified. Fall Risk None identified. Assessment: 17:11 General: Appears in no apparent distress. comfortable, Behavior is calm, cooperative. rv Pain: Complains of pain in left ankle. Neuro: Level of Consciousness is awake, alert, obeys commands, Oriented to person, place, time, situation. Cardiovascular: Patient's skin is warm and dry. Respiratory: Airway is patent. GI: No signs and/or symptoms were reported involving the gastrointestinal system. : No signs and/or symptoms were reported regarding the genitourinary system. EENT: No signs and/or symptoms were reported regarding the EENT system. Derm: Skin is intact. Musculoskeletal: Swelling absent. Vital Signs: 16:58 BP 138 / 92; Pulse 91; Resp 16; Temp 98.4(O); Pulse Ox 97% on R/A; Weight 115.67 kg rb1 (R); Height 5 ft. 9 in. (175.26 cm) (R); Pain 5/10; 16:58 Body Mass Index 37.66 (115.67 kg, 175.26 cm) rb1 ED Course: 16:49 Patient arrived in ED. rg4 16:57 Triage completed. rb1 16:59 Arm band placed on right wrist. rb1 17:00 Afshin Kapoor RN is Primary Nurse. rv 17:01 Mc Dominique MD is Attending Physician. rn 17:13 Patient has correct armband on for positive identification. Bed in low position. Call rv light in reach. Side rails up X 1. Pulse ox on. NIBP on. Administered Medications: No medications were administered Outcome: 18:14 Eloped from patient exam room, after seeing physician Time discovered patient gone: rv February 23, 2019 at 18:00 18:14 unknown 18:15 Patient left the ED. rv Signatures: Mc Dominique MD MD rn Barber, Rebecca, RN RN rb1 Garcia, Rubi rg4 Afshin Kapoor RN RN rv
[2019-02-23 18:37] VITALS: BP 138/92; TEMP 98.4; O2SAT 97
== END 2019-02-23 18:15 | disposition left against medical advice (07) ==
LOC: ER 16:47
DX: S99.912A Unspecified injury of left ankle, initial encounter (principal); W50.0XXA Accidental hit or strike by another person, initial encounter; Y93.89 Activity, other specified; Y92.89 Other specified places as the place of occurrence of the external cause; E11.9 Type 2 diabetes mellitus without complications; J18.9 Pneumonia, unspecified organism
CPT/HCPCS: 99282

== ENCOUNTER 2019-02-27 14:58 | Emergency (ER) | payer OTHER ==
--- NOTE | 2019-02-27 16:02 | RAD REPORT ---
EXAM DESCRIPTION: RAD - Ankle Left 3 View -02/27/2019 3:53 pm CLINICAL HISTORY: Left ankle pain status post injury FINDINGS: No fracture or dislocation is seen.
--- NOTE | 2019-02-27 16:05 | RAD REPORT ---
EXAM DESCRIPTION: RAD - Foot Left 3 View - 02/27/2019 3:53 pm CLINICAL HISTORY: Left Foot pain FINDINGS: No fracture or dislocation is seen.
--- NOTE | 2019-02-27 16:13 | ER ---
Nurse's Notes [facility] Name: Fransisco Juarez Age: 34 yrs Sex: Male : 1985 Arrival Date: 02/27/2019 Time: 15:00 Bed 26 Private MD: Diagnosis: Sprain of ankle Presentation: 02/27 15:01 Presenting complaint: Patient states: Saturday i was at [employer], i tripped over a hole tw2 in the ground i twisted and rolled my LEFT ankle. Transition of care: patient was not received from another setting of care. Onset of symptoms was February 27, 2019. Risk Assessment: Do you want to hurt yourself or someone else? Patient reports no desire to harm self or others. Initial Sepsis Screen: Does the patient meet any 2 criteria? No. Patient's initial sepsis screen is negative. Does the patient have a suspected source of infection? No. Patient's initial sepsis screen is negative. Care prior to arrival: None. 15:01 Method Of Arrival: Ambulatory tw2 15:01 Acuity: AMILCAR 4 tw2 15:03 Presenting complaint: Patient states: it is bruised and has gotten worse, i can walk on tw2 it but i dont have a lot of feeling on the bottom of my foot like i used too and now i am having pain shoot up my leg. Triage Assessment: 15:04 General: Appears in no apparent distress. Behavior is calm, cooperative, appropriate tw2 for age. Pain: Complains of pain in left foot. Historical: - Allergies: 15:01 No Known Drug Allergies; tw2 - Home Meds: 15:01 Metformin Oral [Active]; lisinopril Oral [Active]; atorvastatin Oral [Active]; tw2 - PMHx: 15:01 Diabetes - NIDDM; Kidney stones; Migraines; Pneumonia; Rheumatoid Arthritis; tw2 - PSHx: 15:01 Kidney stents; tw2 - Immunization history:: Adult Immunizations. - Social history:: Smoking status: . - Ebola Screening: : Patient denies exposure to infectious person. Screenin:10 Abuse screen: Denies threats or abuse. Denies injuries from another. Nutritional wh screening: No deficits noted. Tuberculosis screening: No symptoms or risk factors identified. Fall Risk None identified. Assessment: 15:10 General: Appears in no apparent distress. Behavior is calm, cooperative, appropriate wh for age. Pain: Complains of pain in left ankle Pain does not radiate. Pain currently is 4 out of 10 on a pain scale. Quality of pain is described as aching, Pain began 2-3 days ago. Neuro: Level of Consciousness is awake, alert, obeys commands, Oriented to person, place, time, situation, Appropriate for age. Cardiovascular: Capillary refill < 3 seconds. Respiratory: Airway is patent Respiratory effort is even, unlabored, Respiratory pattern is regular, symmetrical. GI: Abdomen is round non-distended. : No signs and/or symptoms were reported regarding the genitourinary system. EENT: No signs and/or symptoms were reported regarding the EENT system. Derm: Skin is intact, is healthy with good turgor, Skin is pink, warm \T\ dry. normal. Musculoskeletal: Circulation, motion, and sensation intact. 16:16 Reassessment: Patient appears in no apparent distress at this time. No changes from previously documented assessment. Patient and/or family updated on plan of care and expected duration. Pain level reassessed. Patient is alert, oriented x 3, equal unlabored respirations, skin warm/dry/pink. Lore wrap done. Vital Signs: 15:03 BP 130 / 76; Pulse 86; Resp 18; Temp 97.4(TE); Pulse Ox 100% on R/A; Weight 115.67 kg tw2 (R); Height 5 ft. 9 in. (175.26 cm); Pain 7/10; 16:00 BP 128 / 74; Pulse 84; Resp 18; Pulse Ox 99% on R/A; wh 15:03 Body Mass Index 37.66 (115.67 kg, 175.26 cm) tw2 ED Course: 15:00 Patient arrived in ED. as 15:03 Triage completed. tw2 15:04 Arm band placed on. tw2 15:06 Hortensia Caceres is Primary Nurse. wh 15:06 Munira Malik FNP-C is PHCP. snw 15:10 Patient has correct armband on for positive identification. Bed in low position. Call light in reach. Side rails up X 1. Pulse ox on. NIBP on. 15:11 Ammon Andres PA is PHCP. jmm 15:11 Jorge Fernandez MD is Attending Physician. jmm 15:55 Ankle Left 3 View XRAY In Process Unspecified. EDMS 15:55 Foot Left 3 View XRAY In Process Unspecified. EDMS 16:18 No provider procedures requiring assistance completed. Patient did not have IV access during this emergency room visit. Administered Medications: No medications were administered Outcome: 16:12 Discharge ordered by MD. [facility] 16:18 Discharged to home ambulatory, with family. 16:18 Condition: stable 16:18 Discharge instructions given to patient, family, Instructed on discharge instructions, follow up and referral plans. POC Ankle Sprain Demonstrated understanding of instructions, follow-up care, POC 16:20 Patient left the ED. Signatures: Dispatcher [employer] EDMS Munira Malik, MIDDLE SCHOOL ASSISTANT PRINCIPAL-C [employer]DLE SCHOOL ASSISTANT PRINCIPAL-Csnw Ammon Andres PA PA jmm Martinez, Amelia as Wise, Tara, RN RN tw2 Hortensia Caceres
--- NOTE | 2019-02-27 16:13 | EDPHYS ---
Physician Documentation [facility] Name: Fransisco Juarez Age: 34 yrs Sex: Male : 1985 Arrival Date: 02/27/2019 Time: 15:00 Bed 26 Private MD: ED Physician Jorge Fernandez HPI: 02/27 15:25 This 34 yrs old Male presents to ER via Ambulatory with complaints of Foot jmm Pain. 15:25 The patient presents with an injury, pain. Onset: The symptoms/episode began/occurred jmm acutely, 5 day(s) ago. Modifying factors: The symptoms are alleviated by elevating leg, the symptoms are aggravated by movement, weight bearing. Associated signs and symptoms: Pertinent positives: swelling. This is a 34 year old male with a history of dm, that presents to the ED with complaints of left ankle pain. Patient states he stepped in a hole at [employer] 5 days ago and twisted his ankle. States having difficulty on weight bearing. Pain has decreased but patient is concerned due to bruising. . Historical: - Allergies: 15:01 No Known Drug Allergies; tw2 - Home Meds: 15:01 Metformin Oral [Active]; lisinopril Oral [Active]; atorvastatin Oral [Active]; tw2 - PMHx: 15:01 Diabetes - NIDDM; Kidney stones; Migraines; Pneumonia; Rheumatoid Arthritis; tw2 - PSHx: 15:01 Kidney stents; tw2 - Immunization history:: Adult Immunizations. - Social history:: Smoking status: . - Ebola Screening: : Patient denies exposure to infectious person. ROS: 15:25 Constitutional: Negative for fever, chills, and weight loss, Cardiovascular: Negative jmm for chest pain, palpitations, and edema, Respiratory: Negative for shortness of breath, cough, wheezing, and pleuritic chest pain. 15:25 MS/extremity: Positive for injury or acute deformity, ecchymosis, pain. 15:25 All other systems are negative. Exam: 15:25 Constitutional: This is a well developed, well nourished patient who is awake, alert, jmm and in no acute distress. Head/Face: atraumatic. Eyes: EOMI, no conjunctival erythema appreciated ENT: Moist Mucus Membranes Neck: Trachea midline, Supple Chest/axilla: Normal chest wall appearance and motion. Cardiovascular: Regular rate and rhythm. No edema appreciated Respiratory: Normal respirations, no respiratory distress appreciated Abdomen/GI: Non distended, soft Back: Normal ROM 15:25 Musculoskeletal/extremity: left lateral ankle ttp, compartments are soft, full dorsalis pulse, NVI. 15:25 Skin: Appearance: ecchymosis, noted on the, left lateral ankle. 15:25 Neuro: Orientation: is normal, Mentation: is normal, Memory: is normal. 15:25 Psych: Behavior/mood is pleasant, cooperative. Vital Signs: 15:03 BP 130 / 76; Pulse 86; Resp 18; Temp 97.4(TE); Pulse Ox 100% on R/A; Weight 115.67 kg tw2 (R); Height 5 ft. 9 in. (175.26 cm); Pain 7/10; 16:00 BP 128 / 74; Pulse 84; Resp 18; Pulse Ox 99% on R/A; wh 15:03 Body Mass Index 37.66 (115.67 kg, 175.26 cm) tw2 MDM: 15:20 Patient medically screened. [facility] 16:11 Data reviewed: vital signs, nurses notes. Counseling: I had a detailed discussion with corine the patient and/or guardian regarding: the historical points, exam findings, and any diagnostic results supporting the discharge/admit diagnosis, lab results, the need for outpatient follow up, to return to the emergency department if symptoms worsen or persist or if there are any questions or concerns that arise at home. ED course: Patient is alert and non toxic in appearance in the ED. Xrays negative. Patient advised to follow up with pcp for reevaluation. Patient otherwise given strict return precautions. patient understood and agrees with the plan of care. . 02/27 15:24 Order name: Ankle Left 3 View XRAY; Complete Time: 16:11 [facility] 02/27 15:24 Order name: Foot Left 3 View XRAY; Complete Time: 16:11 [facility] 02/27 16:11 Order name: Ricci wrap-joint; Complete Time: 16:13 [facility] Administered Medications: No medications were administered Disposition: 02/27/19 16:12 Discharged to Home. Impression: Sprain of ankle. - Condition is Stable. - Discharge Instructions: Ankle Sprain. - Medication Reconciliation Form, Thank You Letter, Antibiotic Education, Prescription Opioid Use, Work release form, Family Work Release form. - Follow up: Private Physician; When: 2 - 3 days; Reason: Recheck today's complaints, Continuance of care, Re-evaluation by your physician. Addendum: 03/03/2019 06:34 Co-signature as Attending Physician, Jorge Fernandez MD I agree with the assessment and k dr plan of care. Signatures: Dispatcher [employer] EDMS Jorge Fernandez MD MD [facility] Ammon Andres PA PA jmm Wise, Tara RN RN tw2 Hortensia Caceres Corrections: (The following items were deleted from the chart) 02/27 16:20 16:12 02/27/2019 16:12 Discharged to Home. Impression: Sprain of ankle. Condition is wh Stable. Forms are Work release form, Family Work Release, Medication Reconciliation Form, Thank You Letter, Antibiotic Education, Prescription Opioid Use. Follow up: Private Physician; When: 2 - 3 days; Reason: Recheck today's complaints, Continuance of care, Re-evaluation by your physician. corine
[2019-02-27 16:47] VITALS: TEMP 97.4
[2019-02-27 16:49] VITALS: BP 128/74; O2SAT 99
== END 2019-02-27 16:20 | disposition home or self-care (01) ==
LOC: ER 14:58
DX: S93.402A Sprain of unspecified ligament of left ankle, initial encounter (principal); W18.42XA Slipping, tripping and stumbling without falling due to stepping into hole or opening, initial encounter; Y93.9 Activity, unspecified; Y92.9 Unspecified place or not applicable; E11.9 Type 2 diabetes mellitus without complications

== ENCOUNTER 2019-06-29 11:19 | Emergency (ER) | payer OTHER ==
--- NOTE | 2019-06-29 12:29 | EDPHYS ---
Physician Documentation [facility] Name: Fransisco Juarez Age: 34 yrs Sex: Male : 1985 Arrival Date: 06/29/2019 Time: 11:23 Bed 24 Private MD: ED Physician Mc Dominique HPI: 06/28 12:19 This 34 yrs old Male presents to ER via Ambulatory with complaints of Flu rn Symptoms, sore throat. 12:19 The patient presents with sore throat. The patient describes throat pain as raw. Onset: rn The symptoms/episode began/occurred this morning. Severity of symptoms: At their worst the symptoms were mild, in the emergency department the symptoms are unchanged. Modifying factors: The symptoms are alleviated by nothing, the symptoms are aggravated by nothing. The patient has not recently seen a physician. Reports woke up with sore throat this morning, family member with strep recently, mild cough, no sob. No hemoptysis. No recent travel. . Historical: - Allergies: 11:49 No Known Allergies; iw - Home Meds: 11:49 None [Active]; iw - PMHx: 11:49 Diabetes - NIDDM; Rheumatoid Arthritis; Hypertension; iw - PSHx: 11:49 Kidney stents; iw - Immunization history:: Adult Immunizations up to date. - Social history:: Smoking status: Patient/guardian denies using tobacco, the patient reports quitting approximately 13 years ago. - Family history:: not pertinent. - Hospitalizations: : No recent hospitalization is reported. ROS: 12:19 Constitutional: Negative for fever, chills, and weight loss, Eyes: Negative for injury, rn pain, redness, and discharge, ENT: + sore throat Neck: Negative for injury, pain, and swelling, Cardiovascular: Negative for chest pain, palpitations, and edema, Respiratory: Negative for shortness of breath, wheezing, and pleuritic chest pain, Abdomen/GI: Negative for abdominal pain, nausea, vomiting, diarrhea, and constipation, MS/Extremity: Negative for injury and deformity, Neuro: Negative for headache, weakness, numbness, tingling, and seizure. Exam: 12:19 Constitutional: This is a well developed, well nourished patient who is awake, alert, rn and in no acute distress. Ambulatory to room without difficulty or assistance Head/Face: Normocephalic, atraumatic. Eyes: Pupils equal round and reactive to light, extra-ocular motions intact. Lids and lashes normal. Conjunctiva and sclera are non-icteric and not injected. Cornea within normal limits. Periorbital areas with no swelling, redness, or edema. ENT: Mild pharyngeal erythema, no stridor or exudate Neck: Trachea midline, + mild anterior cervical LAD Cardiovascular: Regular rate and rhythm. No pulse deficits. Respiratory: No increased work of breathing, no retractions or nasal flaring. Skin: Warm, dry with normal turgor. Normal color with no rashes, no lesions, and no evidence of cellulitis. Neuro: Awake and alert, GCS 15 Vital Signs: 11:47 BP 137 / 87; Pulse 92; Resp 18; Temp 98.7; Pulse Ox 98% on R/A; Weight 115.67 kg; iw Height 5 ft. 9 in. (175.26 cm); Pain 2/10; 12:10 BP 127 / 86; Pulse 90; Resp 18; Pulse Ox 98% ; Pain 3/10; dw 11:47 Body Mass Index 37.66 (115.67 kg, 175.26 cm) iw MDM: 12:08 Patient medically screened. rn 12:27 Differential diagnosis: group A strep tonsillitis, influenza, laryngitis, pharyngitis. rn Differential diagnosis: mononucleosis. Data reviewed: vital signs, nurses notes. Data reviewed: lab test result(s), and as a result, I will discharge patient. Counseling: I had a detailed discussion with the patient and/or guardian regarding: the historical points, exam findings, and any diagnostic results supporting the discharge/admit diagnosis, lab results, the need for outpatient follow up, to return to the emergency department if symptoms worsen or persist or if there are any questions or concerns that arise at home. Special discussion: I discussed with the patient/guardian in detail that at this point there is no indication for admission to the hospital. It is understood, however, that if the symptoms persist or worsen the patient needs to return immediately for re-evaluation. 06/28 11:49 Order name: Flu; Complete Time: 12:18 iw 06/28 11:49 Order name: Strep; Complete Time: 12:18 iw 06/28 12:12 Order name: Throat Culture EDMS Administered Medications: No medications were administered Disposition: 06/29/19 12:28 Discharged to Home. Impression: Acute pharyngitis. - Condition is Stable. - Discharge Instructions: Pharyngitis, Sore Throat, [id number]. - Medication Reconciliation Form, Thank You Letter, Antibiotic Education, Prescription Opioid Use form. - Follow up: Private Physician; When: As needed; Reason: Recheck today's complaints, Re-evaluation by your physician. - Problem is new. - Symptoms have improved. Signatures: Dispatcher [employer] Andreia Davis RN RN dw Williams, Irene, RN RN iw Nieto, Roman, MD MD government affairs specialist: (The following items were deleted from the chart) 13:04 12:28 06/29/2019 12:28 Discharged to Home. Impression: Acute pharyngitis. Condition is dw Stable. Forms are Medication Reconciliation Form, Thank You Letter, Antibiotic Education, Prescription Opioid Use. Follow up: Private Physician; When: As needed; Reason: Recheck today's complaints, Re-evaluation by your physician. Problem is new. Symptoms have improved. rn
--- NOTE | 2019-06-29 12:29 | ER ---
Nurse's Notes [facility] Name: Fransisco Juarez Age: 34 yrs Sex: Male : 1985 Arrival Date: 06/29/2019 Time: 11:23 Bed 24 Private MD: Diagnosis: Acute pharyngitis Presentation: 06/28 11:47 Chief complaint: Patient states: has been feeling drained and tired, sometimes SOB and iw sore throat, started about 0230 this morning. Coronavirus screen: The patient has NOT traveled to a country currently being monitored by the [facility] within the last 14 days. Proceed with normal triage procedures. The patient has NOT had contact with any known and/or suspected case of coronavirus. Proceed with normal triage procedures. Ebola Screen: Patient negative for fever greater than or equal to 101.5 degrees Fahrenheit, and additional compatible Ebola Virus Disease symptoms Patient denies exposure to infectious person. Patient denies travel to an Ebola-affected area in the 21 days before illness onset. No symptoms or risks identified at this time. Initial Sepsis Screen: Does the patient meet any 2 criteria? No. Patient's initial sepsis screen is negative. Does the patient have a suspected source of infection? No. Patient's initial sepsis screen is negative. Risk Assessment: Do you want to hurt yourself or someone else? Patient reports no desire to harm self or others. 11:47 Method Of Arrival: Ambulatory iw 11:47 Acuity: AMILCAR 4 iw 12:40 Onset of symptoms was June 28, 2019. dw Triage Assessment: 12:10 General: Appears in no apparent distress. Pain: Denies pain. Complains of pain in uvula dw Pain currently is 3 out of 10 on a pain scale. EENT: No signs and/or symptoms were reported regarding the EENT system. Reports SORE THROAT. Neuro: No deficits noted. Cardiovascular: No deficits noted. Respiratory: Breath sounds are clear. GI: No deficits noted. : No deficits noted. Derm: No deficits noted. Musculoskeletal: No deficits noted. 12:40 General: Behavior is calm, cooperative. dw Historical: - Allergies: 11:49 No Known Allergies; iw - Home Meds: 11:49 None [Active]; iw - PMHx: 11:49 Diabetes - NIDDM; Rheumatoid Arthritis; Hypertension; iw - PSHx: 11:49 Kidney stents; iw - Immunization history:: Adult Immunizations up to date. - Social history:: Smoking status: Patient/guardian denies using tobacco, the patient reports quitting approximately 13 years ago. - Family history:: not pertinent. - Hospitalizations: : No recent hospitalization is reported. Screenin:39 Abuse screen: Denies threats or abuse. Denies injuries from another. Nutritional dw screening: No deficits noted. Tuberculosis screening: No symptoms or risk factors identified. Fall Risk None identified. Vital Signs: 11:47 BP 137 / 87; Pulse 92; Resp 18; Temp 98.7; Pulse Ox 98% on R/A; Weight 115.67 kg; iw Height 5 ft. 9 in. (175.26 cm); Pain 2/10; 12:10 BP 127 / 86; Pulse 90; Resp 18; Pulse Ox 98% ; Pain 3/10; dw 11:47 Body Mass Index 37.66 (115.67 kg, 175.26 cm) iw ED Course: 11:23 Patient arrived in ED. ag5 11:48 Triage completed. iw 11:49 Arm band placed on. iw 11:53 Strep Sent. iw 11:53 Flu Sent. iw 12:08 Mc Dominique MD is Attending Physician. rn 12:09 Andreia Zamora RN is Primary Nurse. dw 12:39 Patient has correct armband on for positive identification. Bed in low position. Call dw light in reach. 12:39 Patient did not have IV access during this emergency room visit. dw 13:02 No provider procedures requiring assistance completed. dw Administered Medications: No medications were administered Outcome: 12:28 Discharge ordered by . rn 13:02 Condition: good dw 13:02 Discharge instructions given to patient, Instructed on discharge instructions, follow up and referral plans. Demonstrated understanding of instructions, follow-up care, medications, Prescriptions given X NONE. OVER THE COUNTER COMFORT MEDS DISCUSSED 13:03 Discharged to home ambulatory, with family. dw 13:04 Patient left the ED. dw Signatures: Andreia Zamora RN RN dw Williams, Irene, RN RN iw Nieto, Roman, MD MD rn Gaskin, Ajare ag5
[2019-06-29 13:10] VITALS: TEMP 98.7; O2SAT 98
[2019-06-29 13:11] VITALS: BP 127/86
== END 2019-06-29 13:04 | disposition home or self-care (01) ==
LOC: ER 11:19
DX: J02.9 Acute pharyngitis, unspecified (principal); I10 Essential (primary) hypertension
CPT/HCPCS: 87070; 87081; 87804; 99283

== ENCOUNTER 2019-12-18 07:23 | Emergency (ER) | payer OTHER ==
[2019-12-18 08:29] LABS: Absolute Lymphocytes (CBC) 1.9 K/uL (0.7-4.9); Basophils % 1.2 % (0-1.3); Hematocrit 41.5 % (39.6-49.0); Lymphocytes % 24.4 % (15.3-44.8); MPV 8.2 fL (7.6-11.3); RBC Red Blood Cell Count 4.97 M/uL (4.33-5.43)
[2019-12-18 08:30] LABS: ALT/SGPT 57 U/L (12-78); AST/SGOT 27 U/L (15-37); Albumin 3.3 g/dL (3.4-5.0); Alkaline Phosphatase 189 U/L (45-117); BUN Blood Urea Nitrogen 12 mg/dL (7-18); Bicarbonate 25 mmol/L (21-32); Bilirubin Direct 0.2 mg/dL (0-0.2); Bilirubin Total 1.1 mg/dL (0.2-1.0); Glucose Level 355 mg/dL (74-106); Lipase 132 U/L (73-393); NT PRO-BNP 12 pg/mL (<125); Potassium 3.7 mmol/L (3.5-5.1); Protein, Total 7.4 g/dL (6.4-8.2); Sodium Level 135 mmol/L (136-145); Troponin (Emerg Dept Use Only) < 0.02 ng/mL (0.0-0.045)
--- NOTE | 2019-12-18 08:31 | RAD REPORT ---
EXAM DESCRIPTION: CT - Head Brain Wo Cont - 12/18/2019 8:12 am CLINICAL HISTORY: SYNCOPE Headache, drowsiness, syncope COMPARISON: Head Brain Wo Cont dated 12/05/2018; HEAD BRAIN W O CONTRAST dated 04/29/2014 TECHNIQUE: All CT scans are performed using dose optimization technique as appropriate and may inclu de automated exposure control or mA/KV adjustment according to patient size. FINDINGS: No intracranial hemorrhage, hydrocephalus or extra-axial fluid collection.No areas of brai n edema or evidence of midline shift. Chronic left maxillary sinusitis. Mild polypoid mucosal thickening is seen inferior right maxillary a ntrum. The calvarium is intact. IMPRESSION: No acute intracranial abnormality.
[2019-12-18 08:33] LABS: Protime INR 0.94
[2019-12-18] MEDS ORDERED: NA CHLORIDE 0.9% 1,000 ML ONE (08:43)
--- NOTE | 2019-12-18 09:22 | RAD REPORT ---
EXAM DESCRIPTION: RAD - Chest Single View - 12/18/2019 8:48 am CLINICAL HISTORY: CHEST PAIN Chest pain. COMPARISON: Chest Pa And Lat (2 Views) dated 02/03/2019; Abdomen 1 View (KUB) dated 01/26/2019; Ches t Single View dated 10/24/2018; Chest Single View dated 10/17/2018 FINDINGS: Portable technique limits examination quality. The lungs are grossly clear. The heart is normal in size. No displaced fractures. IMPRESSION: No acute intrathoracic process suspected.
--- NOTE | 2019-12-18 09:45 | EDPHYS ---
Physician Documentation [facility] Name: Fransisco Juarez Age: 34 yrs Sex: Male : 1985 Arrival Date: 12/18/2019 Time: 07:25 Bed 16 Private MD: DUTCH Physician Tomasz Sterling HPI: 12/17 08:02 This 34 yrs old Male presents to ER via EMS with complaints of Chest Pain, ronnie Syncope. 08:02 This 34 yrs old Male presents to ER via EMS with complaints of Chest Pain, ronnie Syncope. 08:02 The patient or guardian reports chest pain that is located primarily in the epigastric ronnie area. The pain does not radiate. Associated signs and symptoms: The patient has no apparent associated signs or symptoms. The chest pain is described as a pressure. Duration: The patient or guardian reports a single episode, that is still ongoing, and unchanged. Modifying factors: The symptoms are alleviated by nothing. the symptoms are aggravated by nothing. Severity of pain: At its worst the pain was mild in the emergency department the pain is unchanged. The patient has not experienced similar symptoms in the past. Historical: - Allergies: 07:33 No Known Allergies; ss - Home Meds: 07:33 atorvastatin Oral [Active]; lisinopril Oral [Active]; Metformin Oral [Active]; ss - PMHx: 07:33 Hypertension; Diabetes - NIDDM; Kidney stones; Migraines; Pneumonia; Rheumatoid ss Arthritis; - PSHx: 07:33 Kidney stents; ss - Immunization history:: Adult Immunizations up to date. - Social history:: Smoking status: Patient denies any tobacco usage or history of. - Family history:: not pertinent. ROS: 08:02 Constitutional: Negative for fever, chills, and weight loss, Eyes: Negative for injury, ronnie pain, redness, and discharge, ENT: Negative for injury, pain, and discharge, Neck: Negative for injury, pain, and swelling, Abdomen/GI: Negative for abdominal pain, nausea, vomiting, diarrhea, and constipation, Back: Negative for injury and pain, : Negative for injury, bleeding, discharge, and swelling, MS/Extremity: Negative for injury and deformity, Skin: Negative for injury, rash, and discoloration, Neuro: Negative for headache, weakness, numbness, tingling, and seizure, Psych: Negative for depression, anxiety, suicide ideation, homicidal ideation, and hallucinations, Allergy/Immunology: Negative for hives, rash, and allergies, Endocrine: Negative for neck swelling, polydipsia, polyuria, polyphagia, and marked weight changes, Hematologic/Lymphatic: Negative for swollen nodes, abnormal bleeding, and unusual bruising. 08:02 Cardiovascular: Positive for chest pain, palpitations. 08:02 Respiratory: Positive for shortness of breath, on exertion. Exam: 08:02 Constitutional: This is a well developed, well nourished patient who is awake, alert, ronnie and in no acute distress. Head/Face: Normocephalic, atraumatic. Eyes: Pupils equal round and reactive to light, extra-ocular motions intact. Lids and lashes normal. Conjunctiva and sclera are non-icteric and not injected. Cornea within normal limits. Periorbital areas with no swelling, redness, or edema. ENT: Nares patent. No nasal discharge, no septal abnormalities noted. Tympanic membranes are normal and external auditory canals are clear. Oropharynx with no redness, swelling, or masses, exudates, or evidence of obstruction, uvula midline. Mucous membranes moist. Neck: Trachea midline, no thyromegaly or masses palpated, and no cervical lymphadenopathy. Supple, full range of motion without nuchal rigidity, or vertebral point tenderness. No Meningismus. Chest/axilla: Normal chest wall appearance and motion. Nontender with no deformity. No lesions are appreciated. Cardiovascular: Regular rate and rhythm with a normal S1 and S2. No gallops, murmurs, or rubs. Normal PMI, no JVD. No pulse deficits. Respiratory: Lungs have equal breath sounds bilaterally, clear to auscultation and percussion. No rales, rhonchi or wheezes noted. No increased work of breathing, no retractions or nasal flaring. Abdomen/GI: Soft, non-tender, with normal bowel sounds. No distension or tympany. No guarding or rebound. No evidence of tenderness throughout. Back: No spinal tenderness. No costovertebral tenderness. Full range of motion. Male : Normal genitalia with no discharge or lesions. Skin: Warm, dry with normal turgor. Normal color with no rashes, no lesions, and no evidence of cellulitis. MS/ Extremity: Pulses equal, no cyanosis. Neurovascular intact. Full, normal range of motion. Neuro: Awake and alert, GCS 15, oriented to person, place, time, and situation. Cranial nerves II-XII grossly intact. Motor strength 5/5 in all extremities. Sensory grossly intact. Cerebellar exam normal. Normal gait. Psych: Awake, alert, with orientation to person, place and time. Behavior, mood, and affect are within normal limits. 08:02 Musculoskeletal/extremity: DVT Exam: No signs of deep vein thrombosis. no pain, no swelling, no tenderness, negative Homans' sign noted on exam, no appreciated bluish discoloration, no erythema, no increased warmth. 08:02 Neuro: Orientation: is normal, appropriate for stated age, no acute changes, Mentation: is normal, appropriate for stated age, no acute changes, Memory: is normal, appropriate for stated age, no acute changes, Cranial nerves: grossly normal, is grossly normal based on the patient's age, no acute changes, Cerebellar function: is grossly normal, is grossly normal based on the patient's age, no acute changes, Motor: is normal, is grossly normal based on the patient's age, no acute changes, moves all fours, strength is normal, Sensation: is normal, no obvious gross deficits, appropriate no acute changes, Gait: not tested. Deep tendon reflexes are 2+ (normal) in the bilateral brachioradialis, bicep, tricep and patellar and Achilles tendons, Babinski testing is normal. 08:10 Musculoskeletal/extremity: Extremities: all appear grossly normal, with no appreciated ronnie pain with palpation, ROM: no acute changes, Circulation is intact in all extremities. Sensation intact. Compartment Syndrome exam of affected extremity: is normal. Vital Signs: 07:30 BP 121 / 73; Pulse 79; Resp 15; Temp 97.9(TE); Pulse Ox 97% on R/A; Weight 113.4 kg; ss Height 5 ft. 9 in. (175.26 cm); Pain 7/10; 08:30 BP 131 / 89; Pulse 77; Resp 19; Pulse Ox 100% ; bp 10:00 BP 141 / 94; Pulse 66; Resp 20; Pulse Ox 99% ; bp 10:46 BP 145 / 97; Pulse 68; Resp 21; Temp 98.1; Pulse Ox 100% ; bp 07:30 Body Mass Index 36.92 (113.40 kg, 175.26 cm) MDM: 07:25 Patient medically screened. [place] 08:07 Data reviewed: vital signs, nurses notes, lab test result(s), EKG, radiologic studies, ronnie CT scan, plain films. 08:08 Differential diagnosis: abnormal EKG, anxiety, coronary artery disease chest wall pain, ronnie hiatal hernia, pulmonary embolus, stable angina, unstable angina. HEART Score: History: Slightly Suspicious (0), ECG: Normal (0), Age: < or = 45 years (0), Risk Factors: > or = 3 Risk factors for atherosclerotic disease (2), [Hypercholesterolemia] [Hypertension] [DM] [+ Family HX] [Obesity]. The patient's deep vein thrombosis risk score was calculated as follows: Total Score: 0. This patient was found to be at low risk for a deep vein thrombosis by using the Well's assessment criteria. The patient's pulmonary embolism risk score was calculated as follows: Total Score: 0-2 points. This patient was found to be at low risk for a pulmonary embolism by using the Well's assessment criteria. MARK Risk Score: TOTAL SCORE = 0. Data interpreted: ekg monitor: rate is 79 beats/min, rhythm is regular, Pulse oximetry: on room air is 97 %. Test interpretation: by ED physician or midlevel provider: ECG, plain radiologic studies. 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 09:43 ED course: follow up dr valladares. [place] 12/17 07:41 Order name: Basic Metabolic Panel; Complete Time: 09:41 bp 12/17 07:41 Order name: CBC with Diff; Complete Time: :41 bp 12/17 07:41 Order name: LFT's; Complete Time: 09:41 bp 12/17 07:41 Order name: Magnesium; Complete Time: 09:41 bp 12/17 07:41 Order name: NT PRO-BNP; Complete Time: 09:41 bp 12/17 07:41 Order name: PT-INR; Complete Time: 09:41 bp 12/17 07:41 Order name: Troponin (emerg Dept Use Only); Complete Time: 09:41 bp 12/17 07:41 Order name: XRAY Chest (1 view); Complete Time: 09:41 bp 12/17 07:41 Order name: CT Head Brain wo Cont; Complete Time: 09:41 bp 12/17 08:10 Order name: Lipase; Complete Time: 09:41 EDMS 12/17 08:18 Order name: D-Dimer; Complete Time: 09:41 EDMS 12/17 07:41 Order name: EKG; Complete Time: 07:42 bp 12/17 07:41 Order name: Cardiac monitoring; Complete Time: 08:00 bp 12/17 07:41 Order name: EKG - Nurse/Tech; Complete Time: 08:00 bp 12/17 07:41 Order name: IV Saline Lock; Complete Time: 08:00 bp 12/17 07:41 Order name: Labs collected and sent; Complete Time: 07:59 bp 12/17 07:41 Order name: O2 Per Protocol; Complete Time: 07:42 bp 12/17 07:41 Order name: O2 Sat Monitoring; Complete Time: 07:42 bp Administered Medications: 08:10 Drug: NS 0.9% 1000 ml Route: IV; Rate: 1 bolus; Site: right hand; bp 10:00 Follow up: IV Status: Completed infusion; IV Intake: 1000ml bp 10:05 Drug: Rocephin 1 grams Route: IV; Rate: per protocol; Site: right hand; bp 10:42 Follow up: IV Status: Completed infusion; IV Intake: 100ml bp 10:05 Drug: Aspirin Chewable Tablet 162 mg Route: PO; bp 10:17 Follow up: Response: No adverse reaction bp 10:15 Drug: Insulin Regular Human 10 units {Co-Signature: ss (Canid Silva RN).} Route: IVP; bp Site: right hand; 10:43 Follow up: Response: No adverse reaction bp Disposition: 12/18/19 09:44 Discharged to Home. Impression: Type 2 diabetes mellitus, Syncope and collapse, Chest pain, unspecified, Acute sinusitis. - Condition is Stable. - Discharge Instructions: Nonspecific Chest Pain, Type 2 Diabetes Mellitus, Diagnosis, Adult, Near-Syncope, Obesity, Adult, Sinusitis, Adult, Sinusitis, Adult, Yrgw-ng-Ybgh, Nonspecific Chest Pain, Srkv-vx-Imxx, Syncope, Chdk-cn-Ynzz, Weakness, Rnhh-mh-Xqao, Aspirin and Your Heart, Type 2 Diabetes Mellitus, Diagnosis, Adult, Fneo-od-Qxbu, Obesity, Adult, Rctd-ub-Uosy, Vasovagal Syncope, Adult. - Prescriptions for Bactrim DS 800- 160 mg Oral Tablet - take 1 tablet by ORAL route every 12 hours for 10 days; 20 tablet. - Medication Reconciliation Form, Thank You Letter, Antibiotic Education, Prescription Opioid Use, Work release form form. - Follow up: Private Physician; When: 2 - 3 days; Reason: Recheck today's complaints, Continuance of care, Re-evaluation by your physician. Follow up: Geoffrey Valladares MD; When: 2 - 3 days; Reason: Recheck today's complaints, Re-evaluation by your physician. - Problem is new. - Symptoms have improved. Signatures: Dispatcher [employer] EDCA Tomasz Sterling MD MD cha Smirch, Shelby, RN RN ss Rebel Seaman RN RN bp Shelby Smirch RN ss Corrections: (The following items were deleted from the chart) 08:10 08:00 LIPASE+C.LAB.BRZ ordered. [facility] EDMS 08:18 08:00 D-DIMER+COAG.LAB.BRZ ordered. [facility] EDMS 09:46 09:44 12/18/2019 09:44 Discharged to Home. Impression: Type 2 diabetes mellitus; ronnie Syncope and collapse; Chest pain, unspecified. Condition is Stable. Forms are Medication Reconciliation Form, Thank You Letter, Antibiotic Education, Prescription Opioid Use. Follow up: Private Physician; When: 2 - 3 days; Reason: Recheck today's complaints, Continuance of care, Re-evaluation by your physician. Follow up: Geoffrey Valladares; When: 2 - 3 days; Reason: Recheck today's complaints, Re-evaluation by your physician. Problem is new. Symptoms have improved. ronnie 10:48 09:46 12/18/2019 09:44 Discharged to Home. Impression: Type 2 diabetes mellitus; bp Syncope and collapse; Chest pain, unspecified; Acute sinusitis. Condition is Stable. Discharge Instructions: Nonspecific Chest Pain, Type 2 Diabetes Mellitus, Diagnosis, Adult, Near-Syncope, Sinusitis, Adult, Sinusitis, Adult, Xmyx-bo-Vpwx, Nonspecific Chest Pain, Lwji-wl-Pzxw, Syncope, Nnaa-kf-Redf, Weakness, Vrwh-qx-Eyvd, Aspirin and Your Heart, Type 2 Diabetes Mellitus, Diagnosis, Adult, Kafw-rt-Ivve, Vasovagal Syncope, Adult. Prescriptions for Bactrim DS 800-160 mg Oral Tablet - take 1 tablet by ORAL route every 12 hours for 10 days; 20 tablet. and Forms are Medication Reconciliation Form, Thank You Letter, Antibiotic Education, Prescription Opioid Use. Follow up: Private Physician; When: 2 - 3 days; Reason: Recheck today's complaints, Continuance of care, Re-evaluation by your physician. Follow up: Geoffrey Valladares; When: 2 - 3 days; Reason: Recheck today's complaints, Re-evaluation by your physician. Problem is new. Symptoms have improved. ronnie
--- NOTE | 2019-12-18 09:45 | ER ---
Nurse's Notes [facility] Name: Fransisco Juarez Age: 34 yrs Sex: Male : 1985 Arrival Date: 12/18/2019 Time: 07:25 Bed 16 Private MD: Diagnosis: Type 2 diabetes mellitus;Syncope and collapse;Chest pain, unspecified;Acute sinusitis Presentation: 12/17 07:30 Chief complaint: EMS states: chest pain x 2 weeks and syncopal episode at work today. ss Denies dizziness. Coronavirus screen: Client denies travel out of the [place] in the last 14 days. Ebola Screen: Patient denies exposure to infectious person. Patient denies travel to an Ebola-affected area in the 21 days before illness onset. Initial Sepsis Screen: Does the patient meet any 2 criteria? No. Patient's initial sepsis screen is negative. Does the patient have a suspected source of infection? No. Patient's initial sepsis screen is negative. Risk Assessment: Do you want to hurt yourself or someone else? Patient reports no desire to harm self or others. Onset of symptoms was December 04, 2019. 07:30 Method Of Arrival: EMS: [facility] 07:30 Acuity: AMILCAR 3 ss Triage Assessment: 07:30 General: Appears in no apparent distress. comfortable, Behavior is cooperative, bp appropriate for age, drowsy. Pain: Complains of pain in chest. EENT: No deficits noted. Neuro: Reports a syncopal episode. Cardiovascular: Reports chest pain. Respiratory: No deficits noted. GI: No signs and/or symptoms were reported involving the gastrointestinal system. : No signs and/or symptoms were reported regarding the genitourinary system. Derm: No deficits noted. Musculoskeletal: No deficits noted. Historical: - Allergies: 07:33 No Known Allergies; ss - Home Meds: 07:33 atorvastatin Oral [Active]; lisinopril Oral [Active]; Metformin Oral [Active]; ss - PMHx: 07:33 Hypertension; Diabetes - NIDDM; Kidney stones; Migraines; Pneumonia; Rheumatoid ss Arthritis; - PSHx: 07:33 Kidney stents; ss - Immunization history:: Adult Immunizations up to date. - Social history:: Smoking status: Patient denies any tobacco usage or history of. - Family history:: not pertinent. Screenin:30 Abuse screen: Denies threats or abuse. Denies injuries from another. Nutritional bp screening: No deficits noted. Tuberculosis screening: No symptoms or risk factors identified. Fall Risk None identified. Assessment: 07:30 General: SEE TRIAGE NOTE. Pain: Pain does not radiate. Pain began 2 WEEKS. bp Cardiovascular: Rhythm is sinus rhythm. 08:30 Reassessment: PT RETURNED FROM [facility]. ALL CURRENT ORDERS COMPLETE. bp 10:00 Reassessment: D/C ON HOLD FOR MEDICATION DELIVERY. bp 10:46 Reassessment: PT D/C HOME AMBULATORY, DX WITH ACUTE SINUSITIS AND DIABETES. bp Vital Signs: 07:30 BP 121 / 73; Pulse 79; Resp 15; Temp 97.9(TE); Pulse Ox 97% on R/A; Weight 113.4 kg; ss Height 5 ft. 9 in. (175.26 cm); Pain 7/10; 08:30 BP 131 / 89; Pulse 77; Resp 19; Pulse Ox 100% ; bp 10:00 BP 141 / 94; Pulse 66; Resp 20; Pulse Ox 99% ; bp 10:46 BP 145 / 97; Pulse 68; Resp 21; Temp 98.1; Pulse Ox 100% ; bp 07:30 Body Mass Index 36.92 (113.40 kg, 175.26 cm) ED Course: 07:25 Patient arrived in ED. ronnie 07:25 Rebel Seaman, RAGHAVENDRA is Primary Nurse. bp 07:25 Tomasz Sterling MD is Attending Physician. ronnie 07:30 Patient has correct armband on for positive identification. Placed in gown. Bed in low bp position. Call light in reach. Side rails up X2. vehicle monitor technician on. Pulse ox on. NIBP on. 07:30 Maintain EMS IV. Dressing intact. Good blood return noted. Site clean \T\ dry. Gauge \T\ bp site: 20 G R HAND. Patient maintains SpO2 saturation greater than 95% on room air. 07:32 Triage completed. ss 07:33 Arm band placed on right wrist. ss 08:12 CT Head Brain wo Cont In Process Unspecified. EDMS 08:48 XRAY Chest (1 view) In Process Unspecified. EDMS 09:44 Geoffrey Valladares MD is Referral Physician. ronnie 10:46 No provider procedures requiring assistance completed. IV discontinued, intact, bp bleeding controlled, No redness/swelling at site. Pressure dressing applied. Administered Medications: 08:10 Drug: NS 0.9% 1000 ml Route: IV; Rate: 1 bolus; Site: right hand; bp 10:00 Follow up: IV Status: Completed infusion; IV Intake: 1000ml bp 10:05 Drug: Rocephin 1 grams Route: IV; Rate: per protocol; Site: right hand; bp 10:42 Follow up: IV Status: Completed infusion; IV Intake: 100ml bp 10:05 Drug: Aspirin Chewable Tablet 162 mg Route: PO; bp 10:17 Follow up: Response: No adverse reaction bp 10:15 Drug: Insulin Regular Human 10 units {Co-Signature: ss (Candi Silva RN).} Route: IVP; bp Site: right hand; 10:43 Follow up: Response: No adverse reaction bp Intake: 10:00 IV: 1000ml; Total: 1000ml. bp 10:42 IV: 100ml; Total: 1100ml. bp Outcome: 09:44 Discharge ordered by . ronnie 10:46 Discharged to home ambulatory. bp 10:46 Condition: stable 10:46 Discharge instructions given to patient, Instructed on discharge instructions, follow up and referral plans. medication usage, Demonstrated understanding of instructions, follow-up care, medications, Prescriptions given X 1. 10:48 Patient left the ED. bp Signatures: Dispatcher [employer] EDTX Tomasz Sterling MD MD cha Smirch, Shelby, Rebel Stone RN, RN RN bp Shelby Smirch RN ss Corrections: (The following items were deleted from the chart) 07:32 07:30 Onset of symptoms was December 18, 2019 ss
[2019-12-18] MEDS ORDERED: INSULIN -REGULAR HUMAN 50 UNIT/0.5 ML ML ONE (10:19)
[2019-12-18] MEDS ORDERED: NA CHLORIDE 0.9% 100 ML IV ONE (10:19)
[2019-12-18] MEDS ORDERED: ASPIRIN 81 MG CHEWABLE TABLET ONE (10:19)
[2019-12-18] MEDS ORDERED: CEFTRIAXONE/SWI 1gm 1 GM/10 ML SYR ONE (10:19)
--- NOTE | 2019-12-19 09:02 | EKG ---
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
[2019-12-19 18:18] VITALS: BP 145/97; TEMP 98.1; O2SAT 100
== END 2019-12-18 10:48 | disposition home or self-care (01) ==
LOC: ER 07:23
DX: J01.90 Acute sinusitis, unspecified (principal); R55 Syncope and collapse; E11.9 Type 2 diabetes mellitus without complications; I10 Essential (primary) hypertension
CPT/HCPCS: 96365; 96361; 93005; 85025; 80048; 36415; 83735; 85610; 85379; 80076; 84484; 83690; 83880; 70450; 71045; 96375; 99285; J0696; J7030

== ENCOUNTER 2020-01-07 11:14 | Emergency (ER) | payer OTHER ==
[2020-01-07 12:33] LABS: Absolute Lymphocytes (CBC) 2.4 K/uL (0.7-4.9); Hematocrit 42.5 % (39.6-49.0); Lymphocytes % 31.3 % (15.3-44.8); MPV 8.1 fL (7.6-11.3); RBC Red Blood Cell Count 5.03 M/uL (4.33-5.43)
[2020-01-07 12:36] LABS: Protime INR 0.97
[2020-01-07 12:47] LABS: ALT/SGPT 61 U/L (12-78); AST/SGOT 25 U/L (15-37); Albumin 3.5 g/dL (3.4-5.0); Alkaline Phosphatase 155 U/L (45-117); BUN Blood Urea Nitrogen 12 mg/dL (7-18); Bicarbonate 27 mmol/L (21-32); Bilirubin Direct 0.2 mg/dL (0-0.2); Bilirubin Total 0.9 mg/dL (0.2-1.0); Glucose Level 322 mg/dL (74-106); NT PRO-BNP 14 pg/mL (<125); Potassium 4.1 mmol/L (3.5-5.1); Protein, Total 7.5 g/dL (6.4-8.2); Sodium Level 137 mmol/L (136-145); Troponin (Emerg Dept Use Only) < 0.02 ng/mL (0.0-0.045)
--- NOTE | 2020-01-07 13:27 | EDPHYS ---
Physician Documentation [facility] Name: Fransisco Juarez Age: 34 yrs Sex: Male : 1985 Arrival Date: 01/07/2020 Time: 11:21 Bed 19 Private MD: ED Physician Mc Dominique HPI: 01/06 12:52 This 34 yrs old Male presents to ER via EMS with complaints of Chest Pain. rn 12:52 The patient or guardian reports chest pain that is located primarily in the substernal rn area, anterior chest wall. The pain does not radiate. Associated signs and symptoms: Pertinent positives: cough, dizziness, palpitations, shortness of breath, Pertinent negatives: abdominal pain, lower extremity swelling. The chest pain is described as a heaviness. Duration: The patient or guardian reports a single episode, that is still ongoing. Modifying factors: The symptoms are alleviated by nothing. the symptoms are aggravated by exertion, movement. Severity of pain: At its worst the pain was moderate in the emergency department the pain has improved. The patient has not experienced similar symptoms in the past. The patient has been recently seen by a physician:. Reports chest pain, constant for 1 month, worse with walking, feels winded, assoc with lightheadedness, cough, dizziness, nothing helps. Seen at ER and told everything looked ok. Seen at clinic today, sent here for reevaluation. Has cardiology appt scheduled already. . Historical: - Allergies: 11:53 No Known Allergies; ss - PMHx: 11:53 Diabetes - NIDDM; Hypertension; Kidney stones; Migraines; Pneumonia; Rheumatoid ss Arthritis; - PSHx: 11:53 Kidney stents; ss - Immunization history:: Adult Immunizations up to date. - Social history:: Smoking status: Patient denies any tobacco usage or history of. - Family history:: not pertinent. - Hospitalizations: : No recent hospitalization is reported. ROS: 12:52 Constitutional: Negative for fever, chills, and weight loss, Eyes: Negative for injury, rn pain, redness, and discharge, Neck: Negative for injury, pain, and swelling, Cardiovascular: Negative for palpitations, and edema, Respiratory: Negative for wheezing, and pleuritic chest pain, Abdomen/GI: Negative for abdominal pain, vomiting, diarrhea, and constipation, MS/Extremity: Negative for injury and deformity, Skin: Negative for injury, rash, and discoloration, Neuro: Negative for headache, weakness, numbness, tingling, and seizure. Exam: 12:52 ECG was reviewed by the Attending Physician. rn 12:52 Constitutional: This is a well developed, well nourished patient who is awake, alert, rn and in no acute distress. Head/Face: Normocephalic, atraumatic. Cardiovascular: Regular rate and rhythm. No pulse deficits. Respiratory: No increased work of breathing, no retractions or nasal flaring. Abdomen/GI: Soft, non-tender Skin: Warm, dry MS/ Extremity: Pulses equal, no cyanosis. Equal circumference Neuro: Awake and alert, GCS 15 Vital Signs: 11:49 BP 120 / 93; Pulse 77; Resp 15; Temp 98.2(TE); Pulse Ox 100% on R/A; Weight 112.94 kg; ss Height 5 ft. 9 in. (175.26 cm); Pain 6/10; 13:11 BP 128 / 104; Pulse 74; Resp 12; Pulse Ox 98% on R/A; ll2 11:49 Body Mass Index 36.77 (112.94 kg, 175.26 cm) ss MDM: 11:54 Patient medically screened. rn 13:25 Differential diagnosis: acute pericarditis, anxiety, coronary artery disease chest wall rn pain, costochondritis, gastritis, gastroesophageal reflux disease (GERD), peptic ulcer disease, pleurisy, pneumothorax, pulmonary embolus. Data reviewed: vital signs, nurses notes, lab test result(s), EKG, radiologic studies, plain films, and as a result, I will discharge patient. Counseling: I had a detailed discussion with the patient and/or guardian regarding: the historical points, exam findings, and any diagnostic results supporting the discharge/admit diagnosis, lab results, radiology results, the need for outpatient follow up, to return to the emergency department if symptoms worsen or persist or if there are any questions or concerns that arise at home. Special discussion: Based on the patient's history, exam, and Dx evaluation, there is no indication for emergent intervention or inpatient Tx. It is understood by the patient/guardian that if the Sx's persist or worsen they need to return immediately for re-evaluation. I discussed with the patient/guardian in detail that at this point there is no indication for admission to the hospital. It is understood, however, that if the symptoms persist or worsen the patient needs to return immediately for re-evaluation. Based on the history and exam findings, there is no indication for further emergent testing or inpatient evaluation. I discussed with the patient/guardian the need to see the founder ceo & president for further evaluation of the symptoms. ED course: 1 month of constant chest pain, neg trop, normal ecg, neg cxr, will dc home with cardiology and pcp f/u. . 01/06 12:02 Order name: Basic Metabolic Panel; Complete Time: :01/06 12:02 Order name: CBC with Diff; Complete Time: 01/06 12:02 Order name: LFT's; Complete Time: 01/06 12:02 Order name: NT PRO-BNP; Complete Time: 01/06 12:02 Order name: PT-INR; Complete Time: 01/06 12:02 Order name: Troponin (emerg Dept Use Only); Complete Time: :01/06 12:02 Order name: XRAY Chest (1 view) 01/06 12:02 Order name: EKG; Complete Time: 12:01/06 12:02 Order name: Cardiac monitoring; Complete Time: 01/06 12:02 Order name: EKG - Nurse/Tech; Complete Time: 01/06 12:02 Order name: IV Saline Lock; Complete Time: :01/06 12:02 Order name: D-Dimer; Complete Time: 01/06 12:02 Order name: Labs collected and sent; Complete Time: 01/06 12:02 Order name: O2 Per Protocol; Complete Time: 01/06 12:02 Order name: O2 Sat Monitoring; Complete Time: : rn EC:52 Rate is 70 beats/min. Rhythm is regular. QRS [place] is Normal. [place] interval is normal. QRS rn interval is normal. QT interval is normal. No Q waves. T waves are Normal. No ST changes noted. Clinical impression: Normal ECG. Interpreted by me. Reviewed by me. Administered Medications: 13:20 Drug: GI Cocktail without - (Maalox Suspension 30 ml, Lidocaine Liquid 2 % 15 jd3 ml) Route: PO; 13:46 Follow up: Response: No adverse reaction jd3 13:20 Drug: morphine 4 mg Route: IVP; Site: right antecubital; jd3 13:46 Follow up: Response: No adverse reaction; RASS: Alert and Calm (0) jd3 Disposition: 01/07/20 13:26 Discharged to Home. Impression: Chest pain, unspecified. - Condition is Stable. - Discharge Instructions: Nonspecific Chest Pain. - Medication Reconciliation Form, Thank You Letter, Antibiotic Education, Prescription Opioid Use form. - Follow up: Private Physician; When: As needed; Reason: Recheck today's complaints, Re-evaluation by your physician. - Problem is an ongoing problem. - Symptoms are unchanged. Signatures: Dispatcher [employer] EDMS Mc Dominique MD MD rn Smirch, Shelby, RN RN ss Davies, Jonathon, RN RN jd3 Corrections: (The following items were deleted from the chart) 13:46 13:26 01/07/2020 13:26 Discharged to Home. Impression: Chest pain, unspecified. jd3 Condition is Stable. Forms are Medication Reconciliation Form, Thank You Letter, Antibiotic Education, Prescription Opioid Use. Follow up: Private Physician; When: As needed; Reason: Recheck today's complaints, Re-evaluation by your physician. Problem is an ongoing problem. Symptoms are unchanged. rn
--- NOTE | 2020-01-07 13:27 | ER ---
Nurse's Notes [facility] Name: Fransisco Juarez Age: 34 yrs Sex: Male : 1985 Arrival Date: 01/07/2020 Time: 11:21 Bed 19 Private MD: Diagnosis: Chest pain, unspecified Presentation: 01/06 11:49 Chief complaint: Patient states: Continuous CP that has been ongoing for 1 month. Pt ss reports he has been seen in the ER and evaluated for it before. Pt reports that he went to the [place] clinic today to try to get a referral to a foil wrapper. [place] told patient he needed to go to the ER and to possibly get transferred to [facility] in [place] for further evaluation. Coronavirus screen: Client denies travel out of the [place] in the last 14 days. Ebola Screen: Patient denies exposure to infectious person. Patient denies travel to an Ebola-affected area in the 21 days before illness onset. Initial Sepsis Screen: Does the patient meet any 2 criteria? No. Patient's initial sepsis screen is negative. Does the patient have a suspected source of infection? No. Patient's initial sepsis screen is negative. Risk Assessment: Do you want to hurt yourself or someone else? Patient reports no desire to harm self or others. Note SL Nitro given x1. ASA 324 given en route to ED. Onset of symptoms was November 2019. 11:49 Method Of Arrival: EMS: [facility] 11:49 Acuity: AMILCAR 3 11:53 Care prior to arrival: IV initiated. 18 GA, in the right antecubital area. ss Triage Assessment: 12:21 General: Appears in no apparent distress. uncomfortable, Behavior is calm, cooperative, jd3 appropriate for age. Pain: Complains of pain in chest. Historical: - Allergies: 11:53 No Known Allergies; ss - PMHx: 11:53 Diabetes - NIDDM; Hypertension; Kidney stones; Migraines; Pneumonia; Rheumatoid ss Arthritis; - PSHx: 11:53 Kidney stents; ss - Immunization history:: Adult Immunizations up to date. - Social history:: Smoking status: Patient denies any tobacco usage or history of. - Family history:: not pertinent. - Hospitalizations: : No recent hospitalization is reported. Screenin:21 Abuse screen: Denies threats or abuse. Nutritional screening: No deficits noted. jd3 Tuberculosis screening: No symptoms or risk factors identified. Fall Risk Ambulatory Aid- None/Bed Rest/Nurse Assist (0 pts). Gait- Normal/Bed Rest/Wheelchair (0 pts) Mental Status- Oriented to own ability (0 pts). Total [place] Fall Scale indicates No Risk (0-24 pts). Assessment: 12:21 General: Appears in no apparent distress. uncomfortable, Behavior is calm, cooperative, jd3 appropriate for age. Pain: Complains of pain in chest Pain does not radiate. Pain began 1 month ago. Neuro: Level of Consciousness is awake, alert, obeys commands, Oriented to person, place, time, situation. Cardiovascular: Heart tones present Capillary refill < 3 seconds Patient's skin is warm and dry. Rhythm is regular. Respiratory: Reports shortness of breath on exertion Airway is patent Respiratory effort is even, unlabored, Respiratory pattern is regular, symmetrical, Denies cough. GI: No signs and/or symptoms were reported involving the gastrointestinal system. : No signs and/or symptoms were reported regarding the genitourinary system. EENT: No signs and/or symptoms were reported regarding the EENT system. Derm: Skin is intact, Skin is dry, Skin is normal, Skin temperature is warm. Musculoskeletal: Circulation, motion, and sensation intact. Range of motion: intact in all extremities. 13:17 Reassessment: Patient appears in no apparent distress at this time. No changes from jd3 previously documented assessment. Patient and/or family updated on plan of care and expected duration. Pain level reassessed. Patient is alert, oriented x 3, equal unlabored respirations, skin warm/dry/pink. Vital Signs: 11:49 BP 120 / 93; Pulse 77; Resp 15; Temp 98.2(TE); Pulse Ox 100% on R/A; Weight 112.94 kg; ss Height 5 ft. 9 in. (175.26 cm); Pain 6/10; 13:11 BP 128 / 104; Pulse 74; Resp 12; Pulse Ox 98% on R/A; ll2 11:49 Body Mass Index 36.77 (112.94 kg, 175.26 cm) ED Course: 11:21 Patient arrived in ED. as 11:52 Triage completed. ss 11:53 Arm band placed on right wrist. ss 11:54 Mc Dominique MD is Attending Physician. rn 12:03 Emilia De, RN is Primary Nurse. ll2 12:21 Lico Morley RN is Primary Nurse. jd3 12:21 Patient has correct armband on for positive identification. Bed in low position. Call jd3 light in reach. Side rails up X 1. 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 Pulse ox on. NIBP on. 12:21 No provider procedures requiring assistance completed. Maintain EMS IV. Dressing jd3 intact. Good blood return noted. Site clean \T\ dry. Gauge \T\ site: 18 G right AC. 12:21 Patient maintains SpO2 saturation greater than 95% on room air. jd3 13:30 XRAY Chest (1 view) In Process Unspecified. EDMS 13:45 IV discontinued, intact, bleeding controlled, No redness/swelling at site. Pressure jd3 dressing applied. Administered Medications: 13:20 Drug: GI Cocktail without - (Maalox Suspension 30 ml, Lidocaine Liquid 2 % 15 jd3 ml) Route: PO; 13:46 Follow up: Response: No adverse reaction jd3 13:20 Drug: morphine 4 mg Route: IVP; Site: right antecubital; jd3 13:46 Follow up: Response: No adverse reaction; RASS: Alert and Calm (0) jd3 Outcome: 13:26 Discharge ordered by . rn 13:45 Discharged to home ambulatory, with family. jd3 13:45 Condition: stable 13:45 Discharge instructions given to patient, Instructed on discharge instructions, follow up and referral plans. Demonstrated understanding of instructions, follow-up care. 13:46 Patient left the ED. jd3 Signatures: Dispatcher [employer] EDMS Rachael Jesus as Mc Dominique MD MD rn Smirch, Shelby, RN RN ss Lico Morley RN RN jd3 Emilia De, RAGHAVENDRA RN ll2 Corrections: (The following items were deleted from the chart) 13:46 13:46 Response: No adverse reaction jd3 jd3 18:59 12:21 No provider procedures requiring assistance completed. jd3 jd3 18:59 12:21 IV discontinued, intact, bleeding controlled, No redness/swelling at site. jd3 Pressure dressing applied, jd3
[2020-01-07] MEDS ORDERED: LIDOCAINE VISCOUS 2% SOLN 15 ML UDC ONE (13:30)
[2020-01-07] MEDS ORDERED: MAGNE/ALUM HYDROXD 30 ML UCUP ONE (13:30)
[2020-01-07] MEDS ORDERED: MORPHINE 4 MG/ML SYR ONE (13:30)
[2020-01-07 13:56] VITALS: BP 128/104; O2SAT 98
[2020-01-07 13:57] VITALS: TEMP 98.2
--- NOTE | 2020-01-07 14:21 | RAD REPORT ---
EXAM DESCRIPTION: [place] Single View01/07/2020 1:29 pm CLINICAL HISTORY: Chest pain COMPARISON: December 18, 2019 FINDINGS: The lungs appear clear of acute infiltrate. The heart is normal size IMPRESSION: No acute abnormalities displayed
== END 2020-01-07 13:46 | disposition home or self-care (01) ==
LOC: ER 11:14
DX: R07.9 Chest pain, unspecified (principal); I10 Essential (primary) hypertension; Z95.818 Presence of other cardiac implants and grafts
CPT/HCPCS: 36415; 71045; 80048; 80076; 83880; 84484; 85025; 85379; 85610; 93005; 96374; 99285

== ENCOUNTER 2020-03-29 12:50 | Emergency (ER) | payer OTHER ==
--- NOTE | 2020-03-29 14:27 | ER ---
Nurse's Notes [facility] Name: Fransisco Juarez Age: 35 yrs Sex: Male : 1985 Arrival Date: 03/29/2020 Time: 12:54 Bed 6 Private MD: Diagnosis: Influenza due to certain identified influenza viruses Presentation: 03/29 13:13 Chief complaint: Patient states: Was at work this morning and sudden onset of ph dizziness, nausea, headache, chills and cough. Coronavirus screen: Client denies travel out of the [place] in the last 14 days. chills, cough unrelated to allergies, headache, nausea, Client presents with at least one sign or symptom that may indicate coronavirus-19. Standard/surgical mask placed on the client. Provider contacted for isolation considerations. Ebola Screen: No symptoms or risks identified at this time. Initial Sepsis Screen: Does the patient meet any 2 criteria? No. Patient's initial sepsis screen is negative. Does the patient have a suspected source of infection? No. Patient's initial sepsis screen is negative. Risk Assessment: Do you want to hurt yourself or someone else? Patient reports no desire to harm self or others. Onset of symptoms was March 29, 2020. 13:13 Method Of Arrival: Ambulatory ph 13:13 Acuity: AMILCAR 4 ph Historical: - Allergies: 13:16 No Known Allergies; ph - Home Meds: 13:16 atorvastatin Oral [Active]; lisinopril Oral [Active]; Metformin Oral [Active]; ph - PMHx: 13:16 Diabetes - NIDDM; Hypertension; Kidney stones; Migraines; Pneumonia; Rheumatoid ph Arthritis; - PSHx: 13:16 Kidney stents; ph - Immunization history:: Adult Immunizations unknown, Flu vaccine is up to date. - Social history:: Smoking status: Patient denies any tobacco usage or history of. Patient uses alcohol, occasionally. Screenin:17 Abuse screen: Denies threats or abuse. Denies injuries from another. Nutritional ph screening: No deficits noted. Tuberculosis screening: No symptoms or risk factors identified. Fall Risk None identified. Assessment: 13:19 General: Appears in no apparent distress. comfortable, Behavior is calm, cooperative, ph appropriate for age, Reports chills for. Pain: Complains of pain in forehead. Neuro: Level of Consciousness is awake, alert, obeys commands, Oriented to person, place, time, situation, Reports dizziness, headache. Cardiovascular: Capillary refill < 3 seconds in bilateral fingers Patient's skin is warm and dry. Respiratory: Reports cough that is non-productive, Airway is patent Respiratory effort is even, unlabored, Denies shortness of breath. GI: Reports nausea, Patient currently denies abdominal pain, diarrhea, vomiting. Derm: Skin is intact, is healthy with good turgor, Skin is pink, warm \T\ dry. Musculoskeletal: Circulation, motion, and sensation intact. Range of motion: intact in all extremities. 14:32 Reassessment: Patient appears in no apparent distress at this time. No changes from tw2 previously documented assessment. Patient and/or family updated on plan of care and expected duration. Pain level reassessed. Patient is alert, oriented x 3, equal unlabored respirations, skin warm/dry/pink. Vital Signs: 13:13 BP 136 / 95; Pulse 84; Resp 18; Temp 97.6; Pulse Ox 100% on R/A; Weight 112.49 kg; ph Height 5 ft. 9 in. (175.26 cm); Pain 6/10; 13:28 BP 137 / 91 Standing; Pulse 71; Resp 18; Pulse Ox 100% ; tw2 13:28 BP 133 / 96 Sitting; Pulse 79; Resp 18; Pulse Ox 98% on R/A; tw2 13:28 BP 128 / 86 Supine; Pulse 68; Resp 17; Pulse Ox 96% ; tw2 14:32 BP 127 / 85; Pulse 81; Resp 17; Pulse Ox 100% on R/A; tw2 13:13 Body Mass Index 36.62 (112.49 kg, 175.26 cm) ph [place] Coma Score: 14:48 Eye Response: spontaneous(4). Verbal Response: oriented(5). Motor Response: obeys kb commands(6). Total: 15. ED Course: 12:54 Patient arrived in ED. ds1 13:01 Angela Sosa FNP-C is [facility]. kb 13:01 Tomasz Sterling MD is Attending Physician. kb 13:13 Latoya Hickman, RAGHAVENDRA is Primary Nurse. ph 13:15 Triage completed. ph 13:17 Arm band placed on Patient placed in an exam room, on a stretcher. ph 13:19 Patient has correct armband on for positive identification. Bed in low position. Call ph light in reach. Side rails up X 1. Pulse ox on. NIBP on. Door closed. Noise minimized. Warm blanket given. 13:47 COVID swab sent to lab. Flu and/or RSV swab sent to lab. jp3 14:32 No provider procedures requiring assistance completed. Patient did not have IV access tw2 during this emergency room visit. Administered Medications: No medications were administered Outcome: 14:26 Discharge ordered by . erin 14:32 Discharged to home ambulatory. tw2 14:32 Condition: stable 14:32 Discharge instructions given to patient, Instructed on discharge instructions, follow up and referral plans. medication usage, Demonstrated understanding of instructions, follow-up care, medications, Prescriptions given X 1. 14:33 Patient left the ED. tw2 Addendum: 03/30/2020 17:37 Addendum: COVID-19 Result: Negative result given to RN to notify pt. Notified pt of a a5 negative COVID 19 swab results. Pt advised that even with a negative test result they should remain in isolation until symptom free for 3 days without medication. Pt also advised to return to the ED for worsening symptoms. Signatures: Angela Sosa, VEHICLE WASHER-C VEHICLE WASHER-Ckb Marychuy Epperson ds1 Eliz Masters, RN RN aa5 Latoya Hickman, RAGHAVENDRA RN Chapis Sheikh, RAGHAVENDRA RN tw2 Saulo Sykes jp3
--- NOTE | 2020-03-29 14:27 | EDPHYS ---
Physician Documentation [facility] Name: Fransisco Juarez Age: 35 yrs Sex: Male : 1985 Arrival Date: 03/29/2020 Time: 12:54 Bed 6 Private MD: ED Physician Tomasz Sterling HPI: 03/29 14:48 This 35 yrs old Male presents to ER via Ambulatory with complaints of kb Headache, Nausea. 14:48 The patient or guardian reports cough, that is intermittent, described as mild, "I kb coughed like 5 or 6 times", flu symptoms, myalgias. Onset: The symptoms/episode began/occurred this morning. Severity of symptoms: At their worst the symptoms were mild, moderate, in the emergency department the symptoms are unchanged. Modifying factors: The symptoms are alleviated by nothing, the symptoms are aggravated by nothing. Associated signs and symptoms: Pertinent positives: nausea. The patient has not experienced similar symptoms in the past. The patient has not recently seen a physician. Pt reports he was at work this morning and suddenly started feeling bad. Reports malaise, nausea, headache, cough, feeling hot and cold. . Historical: - Allergies: 13:16 No Known Allergies; ph - Home Meds: 13:16 atorvastatin Oral [Active]; lisinopril Oral [Active]; Metformin Oral [Active]; ph - PMHx: 13:16 Diabetes - NIDDM; Hypertension; Kidney stones; Migraines; Pneumonia; Rheumatoid ph Arthritis; - PSHx: 13:16 Kidney stents; ph - Immunization history:: Adult Immunizations unknown, Flu vaccine is up to date. - Social history:: Smoking status: Patient denies any tobacco usage or history of. Patient uses alcohol, occasionally. ROS: 14:50 Cardiovascular: Negative for chest pain, palpitations, and edema, Abdomen/GI: Negative kb for abdominal pain, vomiting, diarrhea, and constipation. +nausea Back: Negative for injury and pain, MS/Extremity: Negative for injury and deformity, Skin: Negative for injury, rash, and discoloration. 14:50 Constitutional: Positive for malaise. 14:50 Respiratory: Positive for cough, Negative for dyspnea on exertion, hemoptysis, orthopnea, pleurisy, shortness of breath, sputum production, wheezing. 14:50 Neuro: Positive for headache. Exam: 14:50 Constitutional: This is a well developed, well nourished patient who is awake, alert, kb and in no acute distress. Head/Face: Normocephalic, atraumatic. Chest/axilla: Normal chest wall appearance and motion. Nontender with no deformity. No lesions are appreciated. Cardiovascular: Regular rate and rhythm with a normal S1 and S2. No gallops, murmurs, or rubs. Normal PMI, no JVD. No pulse deficits. Respiratory: Lungs have equal breath sounds bilaterally, clear to auscultation and percussion. No rales, rhonchi or wheezes noted. No increased work of breathing, no retractions or nasal flaring. Abdomen/GI: Soft, non-tender, with normal bowel sounds. No distension or tympany. No guarding or rebound. No evidence of tenderness throughout. Skin: Warm, dry with normal turgor. Normal color with no rashes, no lesions, and no evidence of cellulitis. MS/ Extremity: Pulses equal, no cyanosis. Neurovascular intact. Full, normal range of motion. Neuro: Awake and alert, GCS 15, oriented to person, place, time, and situation. Cranial nerves II-XII grossly intact. Motor strength 5/5 in all extremities. Sensory grossly intact. Cerebellar exam normal. Normal gait. Vital Signs: 13:13 BP 136 / 95; Pulse 84; Resp 18; Temp 97.6; Pulse Ox 100% on R/A; Weight 112.49 kg; ph Height 5 ft. 9 in. (175.26 cm); Pain 6/10; 13:28 BP 137 / 91 Standing; Pulse 71; Resp 18; Pulse Ox 100% ; tw2 13:28 BP 133 / 96 Sitting; Pulse 79; Resp 18; Pulse Ox 98% on R/A; tw2 13:28 BP 128 / 86 Supine; Pulse 68; Resp 17; Pulse Ox 96% ; tw2 14:32 BP 127 / 85; Pulse 81; Resp 17; Pulse Ox 100% on R/A; tw2 13:13 Body Mass Index 36.62 (112.49 kg, 175.26 cm) ph Sriram Coma Score: 14:48 Eye Response: spontaneous(4). Verbal Response: oriented(5). Motor Response: obeys kb commands(6). Total: 15. MDM: 13:02 Patient medically screened. kb 14:48 Data reviewed: vital signs, nurses notes. Data interpreted: Pulse oximetry: on room air kb is 100 %. Interpretation: normal. 14:48 Counseling: I had a detailed discussion with the patient and/or guardian regarding: the kb historical points, exam findings, and any diagnostic results supporting the discharge/admit diagnosis, lab results, the need for outpatient follow up, a family practitioner, to return to the emergency department if symptoms worsen or persist or if there are any questions or concerns that arise at home. 03/29 13:16 Order name: Flu; Complete Time: 14:26 kb 03/29 13:16 Order name: COVID-19 kb 03/29 13:16 Order name: Orthostatics; Complete Time: 13:28 kb Administered Medications: No medications were administered Disposition: 03/30 11:50 Co-signature as Attending Physician, Tomasz Sterling MD I agree with the assessment and ronnie plan of care. Disposition: 03/29/20 14:26 Discharged to Home. Impression: Influenza due to certain identified influenza viruses. - Condition is Stable. - Discharge Instructions: Influenza, Adult, [id number]. - Prescriptions for Tamiflu 75 mg Oral Capsule - take 1 capsule by ORAL route every 12 hours for 5 days; 10 capsule. - Medication Reconciliation Form, Thank You Letter, Antibiotic Education, Prescription Opioid Use, Work release form form. - Follow up: Private Physician; When: 2 - 3 days; Reason: Recheck today's complaints, Continuance of care, Re-evaluation by your physician. Follow up: Emergency Department; When: As needed; Reason: Worsening of condition. Signatures: Dispatcher [employer] [facility] Angela Sosa, Tomasz Gonzales MD MD cha Hall, Patricia, RAGHAVENDRA RN Chapis Sheikh RN RN tw2 Corrections: (The following items were deleted from the chart) 03/29 14:33 14:26 03/29/2020 14:26 Discharged to Home. Impression: Influenza due to certain tw2 identified influenza viruses. Condition is Stable. Forms are Medication Reconciliation Form, Thank You Letter, Antibiotic Education, Prescription Opioid Use. Follow up: Private Physician; When: 2 - 3 days; Reason: Recheck today's complaints, Continuance of care, Re-evaluation by your physician. Follow up: Emergency Department; When: As needed; Reason: Worsening of condition. kb
[2020-03-31 17:22] VITALS: TEMP 97.6
[2020-03-31 17:26] VITALS: BP 127/85; O2SAT 100
== END 2020-03-29 14:33 | disposition home or self-care (01) ==
LOC: ER 12:50
DX: J10.1 Influenza due to other identified influenza virus with other respiratory manifestations (principal); Z20.828 Contact with and (suspected) exposure to other viral communicable diseases; I10 Essential (primary) hypertension; E11.9 Type 2 diabetes mellitus without complications
CPT/HCPCS: 87804 ×2; 99283; U0002

== ENCOUNTER 2020-06-17 15:07 | Emergency (ER) | payer OTHER ==
--- NOTE | 2020-06-17 16:13 | RAD REPORT ---
EXAM DESCRIPTION: CT - Head Brain Wo Cont - 06/17/2020 3:55 pm CLINICAL HISTORY: Alteration of awareness/confusion COMPARISON: 2019 TECHNIQUE: Computed axial tomography of the head was obtained. IV contrast was not requested. All CT scans are performed using dose optimization technique as appropriate and may include automated exposure control or mA/KV adjustment according to patient size. FINDINGS: An intracranial bleed is not seen . The ventricles are normal in caliber. No extra-axial fluid collection is noted. Fluid within the sinuses/ mastoids is not seen. Chronic sinusitis IMPRESSION: No acute intracranial abnormality is seen. If patient's symptoms persist MRI of the bra in would be recommended.
[2020-06-17] MEDS ORDERED: NA CHLORIDE 0.9% 1,000 ML ONE (16:55)
[2020-06-17] MEDS ORDERED: ONDANSETRON 4 MG/2 ML VIAL ONE (16:59)
[2020-06-17] MEDS ORDERED: FAMOTIDINE 20 MG/2 ML VIAL IV ONE (16:59)
[2020-06-17 17:02] LABS: Absolute Lymphocytes (CBC) 2.5 K/uL (0.7-4.9); Basophils % 0.9 % (0-1.3); Hematocrit 39.3 % (39.6-49.0); Lymphocytes % 24.2 % (15.3-44.8); MPV 7.5 fL (7.6-11.3); RBC Red Blood Cell Count 4.66 M/uL (4.33-5.43)
[2020-06-17 17:09] LABS: Protime INR 0.95
[2020-06-17 17:35] LABS: ALT/SGPT 44 U/L (12-78); AST/SGOT 26 U/L (15-37); Albumin 3.4 g/dL (3.4-5.0); Alkaline Phosphatase 111 U/L (45-117); BUN Blood Urea Nitrogen 13 mg/dL (7-18); Bicarbonate 22 mmol/L (21-32); Bilirubin Direct 0.1 mg/dL (0-0.2); Bilirubin Total 1.1 mg/dL (0.2-1.0); Glucose Level 177 mg/dL (74-106); Potassium 3.8 mmol/L (3.5-5.1); Sodium Level 139 mmol/L (136-145); Troponin I < 0.02 ng/mL (0.0-0.045)
[2020-06-17 18:30] LABS: Barbiturates NEGATIVE (NEGATIVE); Benzodiazepines NEGATIVE (NEGATIVE); Cocaine NEGATIVE (NEGATIVE); METHAMPHETAM NEGATIVE (NEGATIVE); Methadone NEGATIVE (NEGATIVE); Opiates NEGATIVE (NEGATIVE); Phencyclidine NEGATIVE (NEGATIVE); THC Cannibis NEGATIVE (NEGATIVE)
[2020-06-17 18:39] LABS: Urine Bacteria <20 /HPF (NONE SEEN); Urine RBC <5 /HPF (NONE SEEN)
[2020-06-17 18:59] LABS: Urine Blood NEGATIVE (NEG); Urine Glucose 1+ (NEG); Urine Protein NEGATIVE (NEG); Urine Specific Gravity >1.030 (1.005-1.030)
--- NOTE | 2020-06-17 21:11 | EDPHYS ---
Physician Documentation [facility] Name: Fransisco Juarez Age: 35 yrs Sex: Male : 1985 Arrival Date: 06/17/2020 Time: 15:22 Bed 5 Private MD: ED Physician Jorge Fernandez HPI: 06/17 15:35 This 35 yrs old Male presents to ER via EMS with complaints of Altered Mental cp Status. 15:35 The patient presents with agitation, confusion. cp 15:35 Onset: The symptoms/episode began/occurred just prior to arrival. Possible causes: low cp blood sugar. 15:35 Current symptoms: In the emergency department the patient's symptoms have improved, cp mildly, is more alert. Patient's baseline: Neuro: alert and fully oriented, Motor: no deficits, Ambulation: walks without assistance, Speech: normal. Patient brought to ED via EMS after being found by unconscious. Upon EMS arrival, EMS reports patient was combative, appeared altered. Patient given IM Ketamine by EMS and brought to ED accompanied by mother. Historical: - Allergies: 15:45 No Known Allergies; bw - Home Meds: 15:44 atorvastatin Oral [Active]; lisinopril Oral [Active]; Metformin Oral [Active]; bw - PMHx: 15:44 Diabetes - NIDDM; Hypertension; Kidney stones; Migraines; Pneumonia; Rheumatoid bw Arthritis; - Immunization history:: Adult Immunizations unknown. - Social history:: Smoking status: unknown. ROS: 15:44 Constitutional: Negative for fever. cp 15:44 Neuro: Positive for altered mental status. cp 15:44 Unable to obtain ROS due to altered mental status. Exam: 15:48 Head/Face: Normocephalic, atraumatic. cp 15:48 Constitutional: The patient appears in no acute distress, non-diaphoretic, non-toxic, well developed, well nourished. 15:48 Eyes: Pupils: equal, round, and reactive to light and accomodation, Conjunctiva: cp normal, no exudate, no injection, Sclera: no appreciated abnormality, Lids and lashes: appear normal, bilaterally. 15:48 ENT: External ear(s): are unremarkable, Ear canal(s): are normal, TM's: dullness, bilaterally, Nose: is normal, Mouth: Lips: moist, Oral mucosa: moist, Posterior pharynx: Airway: no evidence of obstruction, patent. 15:48 Neck: C-spine: vertebral tenderness, is not appreciated, crepitus, is not appreciated. 15:48 Chest/axilla: Inspection: normal, Palpation: is normal, no crepitus, no tenderness. 15:48 Cardiovascular: Rate: normal, Rhythm: regular, Heart sounds: murmur, not appreciated, Edema: is not appreciated, JVD: is not appreciated. 15:48 Respiratory: the patient does not display signs of respiratory distress, Respirations: normal, no use of accessory muscles, no retractions, labored breathing, is not present, Breath sounds: are clear throughout, no decreased breath sounds, no stridor, no wheezing. 15:48 Abdomen/GI: Inspection: abdomen appears normal, Bowel sounds: active, all quadrants, Palpation: abdomen is soft and non-tender, in all quadrants. 15:48 Back: pain, is absent. 15:48 Musculoskeletal/extremity: Exam is negative for deformity, injury. 15:48 Neuro: Orientation: Not oriented to person, place, situation, Mentation: confused, somnolent, responsive to voice. 17:10 ECG was reviewed by the Attending Physician. Vital Signs: 15:32 BP 148 / 95; Pulse 87; Resp 18; Temp 98.7(A); Pulse Ox 97% on 3 lpm NC; bw 17:30 BP 145 / 94; Pulse 76; Resp 16 S; Pulse Ox 97% on R/A; ca1 18:30 BP 151 / 103; Pulse 73; Resp 18 S; Pulse Ox 98% on R/A; ca1 21:28 BP 145 / 80; Pulse 80; Resp 18; Temp 98; Pulse Ox 100% on R/A; mg2 MDM: 15:32 Patient medically screened. cp 16:00 Differential Diagnosis: CVA, electrolyte abnormality, alcohol intoxication, cp hypoglycemia, overdose, seizure, TIA, cardiac arrythmia. 18:55 ED course: Upon further interview with mother and on phone. Patient was found cp outside on step by unconscious. EMS was called and patient was transported to ED. Patient reports syncopal episodes in the past. History of "coronary spasms" and had normal cardiac cath performed in Jan 2020 at [facility]. Patient now alert and oriented times 3. Will repeat troponin and if normal discharge to home for continued monitoring. 21:05 Data reviewed: vital signs, nurses notes, lab test result(s), EKG, radiologic studies, cp CT scan, I have discussed the patient's presentation/case with the attending Emergency Department Physician; and as a result, I will discharge patient. 21:05 Test interpretation: by ED physician or midlevel provider: ECG. Counseling: I had a cp detailed discussion with the patient and/or guardian regarding: the historical points, exam findings, and any diagnostic results supporting the discharge/admit diagnosis, lab results, radiology results, the need for outpatient follow up, a family practitioner, to return to the emergency department if symptoms worsen or persist or if there are any questions or concerns that arise at home. Response to treatment: the patient's symptoms have markedly improved after treatment. 06/17 15:31 Order name: Acetaminophen cp 06/17 15:31 Order name: Basic Metabolic Panel 06/17 15:31 Order name: CBC with Diff 06/17 15:31 Order name: ETOH Level 06/17 15:31 Order name: Hepatic Function cp 06/17 15:31 Order name: PT-INR cp 06/17 15:31 Order name: Ptt, Activated; Complete Time: 18:11 cp 06/17 15:31 Order name: Salicylate; Complete Time: 18:11 cp 06/17 15:31 Order name: Urine Drug Screen; Complete Time: 18:43 cp 06/17 15:31 Order name: Troponin I; Complete Time: 18:11 cp 06/17 15:31 Order name: Urine Microscopic Only; Complete Time: 18:43 cp 06/17 15:31 Order name: Acetaminophen Level; Complete Time: 18:11 EDMO 06/17 15:31 Order name: Basic Metabolic Panel; Complete Time: 18:11 EDMO 06/17 18:12 Interpretation: Normal except: CL 110; GLUC 177; CA 8.4. cp 06/17 15:31 Order name: CBC with Automated Diff; Complete Time: 17:16 EDMS 06/17 18:12 Interpretation: Normal except: HGB 13.5; HCT 39.3; MPV 7.5. cp 06/17 15:31 Order name: CT Head Brain wo Cont; Complete Time: 16:17 cp 06/17 19:04 Interpretation: Report reviewed. 06/17 15:31 Order name: EKG; Complete Time: 15:32 06/17 15:31 Order name: EKG - Nurse/Tech; Complete Time: 17:10 06/17 15:31 Order name: IV Saline Lock; Complete Time: 15:48 06/17 15:31 Order name: Labs collected and sent; Complete Time: 17:02 06/17 15:31 Order name: Urine Dipstick-Ancillary (obtain specimen); Complete Time: 18:09 06/17 15:31 Order name: Alcohol Serum/Plasma; Complete Time: 18:11 EDMS 06/17 15:31 Order name: Liver (Hepatic) Function; Complete Time: 18:11 EDMS 06/17 18:12 Interpretation: Normal except: BILIT 1.1; GLOB 3.6; A/G 0.9. 06/17 15:31 Order name: Protime (+INR); Complete Time: 18:11 EDMS 06/17 18:09 Order name: Urine Dipstick--Ancillary (enter results); Complete Time: 19:03 ds4 06/17 19:03 Interpretation: Normal except: USPGR >1.030. 06/17 19:18 Order name: Troponin I 06/17 20:37 Order name: Troponin I EDMS EC:10 Rate is 67 beats/min. Rhythm is regular. CT interval is normal. QRS interval is normal. cp QT interval is normal. T waves are Inverted in lead III. Interpreted by me. Reviewed by me. Administered Medications: 16:00 Drug: NS 0.9% 1000 ml Route: IV; Rate: 1 bolus; Site: right forearm; ca1 16:42 Drug: Zofran (Ondansetron) 4 mg Route: IVP; Site: right forearm; ca1 19:27 Follow up: Response: No adverse reaction mg2 16:45 Drug: Pepcid 20 mg Route: IVP; Site: right forearm; ca1 19:27 Follow up: Response: No adverse reaction mg2 Disposition: 21:35 Chart complete. 06/18 06:48 Co-signature as Attending Physician, Jorge Fernandez MD I agree with the assessment and kdr plan of care. Disposition: 06/17/20 21:10 Discharged to Home. Impression: Syncope and collapse. - Condition is Stable. - Discharge Instructions: Syncope. - Medication Reconciliation Form, Thank You Letter, Antibiotic Education, Prescription Opioid Use, Work release form form. - Follow up: Private Physician; When: 2 - 3 days; Reason: Recheck today's complaints. - Problem is new. - Symptoms have improved. Signatures: Dispatcher [employer] EDMS Jorge Fernandez MD MD [facility] Tomasz Kay PA PA Rohit Young RN RN mg2 Margarita Grissom RN RN [facility] Juany Washington RN RN Corrections: (The following items were deleted from the chart) 06/17 18:12 18:11 Normal except: CL 110; GLUC 177. [facility] 19:06/16 17:10 ECG was reviewed by the Attending Physician. [facility] 06/17 19:06/16 17:10 Rate is 67 beats/min. Rhythm is regular. CT interval is normal. QRS cp interval is normal. QT interval is normal. T waves are Inverted in lead III. Interpreted by me. Reviewed by me. 06/17 21:29 21:10 06/17/2020 21:10 Discharged to Home. Impression: Syncope and collapse. Condition mg2 is Stable. Forms are Medication Reconciliation Form, Thank You Letter, Antibiotic Education, Prescription Opioid Use. Follow up: Private Physician; When: 2 - 3 days; Reason: Recheck today's complaints. Problem is new. Symptoms have improved. cp
--- NOTE | 2020-06-17 21:11 | ER ---
Nurse's Notes [facility] Name: Fransisco Juarez Age: 35 yrs Sex: Male : 1985 Arrival Date: 06/17/2020 Time: 15:22 Bed 5 Private MD: Diagnosis: Syncope and collapse Presentation: 06/17 15:32 Chief complaint: EMS states: ems reports per family pt fell at home, unsure if LOC. bw When EMS arrived pt became combative upon assist. Pt given 200mg of ketamine IM. Pt only responsive to verbal stimuli but is A\T\Ox0 at this time. Family unsure of what happened prior to fall at this time. Family states patient blood glucose at home was 230, EMS reports 142. 1 liter fluid bolus given en route. Coronavirus screen: At this time, unable to obtain information related to travel outside the [place] At this time, the client does not indicate any symptoms associated with coronavirus-19. Ebola Screen: No symptoms or risks identified at this time. Initial Sepsis Screen: Does the patient meet any 2 criteria? No. Patient's initial sepsis screen is negative. Does the patient have a suspected source of infection? No. Patient's initial sepsis screen is negative. Risk Assessment: Do you want to hurt yourself or someone else? Unable to obtain. Onset of symptoms is unknown. 15:32 Method Of Arrival: EMS: [facility] 15:32 Acuity: AMILCAR 2 bw Triage Assessment: 15:45 General: Appears in no apparent distress. Behavior is calm, unresponsive. Pain: Unable bw to use pain scale. Patient is disoriented. EENT: No deficits noted. Neuro: Level of Consciousness is unresponsive, Oriented to none Wagon Person are pt unable to follow commands at this time. . Cardiovascular: No deficits noted. Respiratory: No deficits noted. GI: No deficits noted. : No deficits noted. Derm: No deficits noted. Musculoskeletal: No deficits noted. Historical: - Allergies: 15:45 No Known Allergies; bw - Home Meds: 15:44 atorvastatin Oral [Active]; lisinopril Oral [Active]; Metformin Oral [Active]; bw - PMHx: 15:44 Diabetes - NIDDM; Hypertension; Kidney stones; Migraines; Pneumonia; Rheumatoid bw Arthritis; - Immunization history:: Adult Immunizations unknown. - Social history:: Smoking status: unknown. Screenin:47 Abuse screen: Denies threats or abuse. Nutritional screening: No deficits noted. bw Tuberculosis screening: No symptoms or risk factors identified. Fall Risk None identified. Assessment: 15:47 Reassessment: see triage note. bw 16:47 Reassessment: Patient appears in no apparent distress at this time. No changes from bw previously documented assessment. Patient and/or family updated on plan of care and expected duration. Pain level reassessed. 16:47 Reassessment: pt more alert at this time. A\T\ox2. Pt had episode of vomiting. Will bw continue to monitor. 17:47 Reassessment: Patient appears in no apparent distress at this time. No changes from bw previously documented assessment. Patient and/or family updated on plan of care and expected duration. Pain level reassessed. 18:47 Reassessment: Patient appears in no apparent distress at this time. No changes from bw previously documented assessment. Patient and/or family updated on plan of care and expected duration. Pain level reassessed. Patient is alert, oriented x 3, equal unlabored respirations, skin warm/dry/pink. 19:35 Reassessment: patient was able to ambulate without assistance. provider informed. mg2 repeat Trop sent to lab. Vital Signs: 15:32 BP 148 / 95; Pulse 87; Resp 18; Temp 98.7(A); Pulse Ox 97% on 3 lpm NC; bw 17:30 BP 145 / 94; Pulse 76; Resp 16 S; Pulse Ox 97% on R/A; ca1 18:30 BP 151 / 103; Pulse 73; Resp 18 S; Pulse Ox 98% on R/A; ca1 21:28 BP 145 / 80; Pulse 80; Resp 18; Temp 98; Pulse Ox 100% on R/A; mg2 ED Course: 15:22 Patient arrived in ED. ca1 15:24 Juany Washington, RN is Primary Nurse. bw 15:28 Tomasz Kay PA is PHCP. cp 15:28 Jorge Fernandez MD is Attending Physician. cp 15:31 Juayn Washington, RAGHAVENDRA is Primary Nurse. bw 15:43 Triage completed. bw 15:45 Arm band placed on right wrist. bw 15:47 Patient has correct armband on for positive identification. Bed in low position. Call bw light in reach. Side rails up X2. Adult w/ patient. 15:47 No provider procedures requiring assistance completed. Maintain EMS IV. Dressing bw intact. Site clean \T\ dry. 15:55 CT Head Brain wo Cont In Process Unspecified. EDMS 17:00 EKG done, by ED staff, reviewed by Jorge Fernandez MD. ca1 21:28 IV discontinued, intact, bleeding controlled, No redness/swelling at site. Pressure mg2 dressing applied. Administered Medications: 16:00 Drug: NS 0.9% 1000 ml Route: IV; Rate: 1 bolus; Site: right forearm; ca1 16:42 Drug: Zofran (Ondansetron) 4 mg Route: IVP; Site: right forearm; ca1 19:27 Follow up: Response: No adverse reaction mg2 16:45 Drug: Pepcid 20 mg Route: IVP; Site: right forearm; ca1 19:27 Follow up: Response: No adverse reaction mg2 Outcome: 21:10 Discharge ordered by MD. cp 21:29 Discharged to home ambulatory, with family. mg2 21:29 Condition: stable 21:29 Discharge instructions given to patient, family, Instructed on discharge instructions, follow up and referral plans. Demonstrated understanding of instructions, follow-up care. 21:29 Patient left the ED. mg2 Signatures: Dispatcher [employer] EDMD Tomasz Kay PA PA cp [place], Michele, RN RN mg2 Margarita Grissom RN RN ca1 Juany Washington RN RN bw
[2020-06-18 00:21] VITALS: BP 145/80; TEMP 98; O2SAT 100
== END 2020-06-17 21:29 | disposition home or self-care (01) ==
LOC: ER 15:07
DX: R55 Syncope and collapse (principal); I10 Essential (primary) hypertension; E11.9 Type 2 diabetes mellitus without complications
CPT/HCPCS: 93005; 85025; 80048; 36415; 80320; 80329 ×2; 85610; 80076; 80307 ×8; 85730; 84484 ×2; 70450; 96375; 96374; 99284; J7030; J2405; 81003; 81015

== ENCOUNTER 2020-10-17 11:31 | Emergency (ER) | payer OTHER ==
--- NOTE | 2020-10-17 15:59 | RAD REPORT ---
EXAM DESCRIPTION: RAD - Chest Single View - 10/17/2020 3:23 pm CLINICAL HISTORY: Cough;Congestion Chest pain. COMPARISON: Chest Single View dated 01/07/2020; Chest Single View dated 12/18/2019; Chest Pa And Lat (2 Views) dated 02/03/2019; Abdomen 1 View (KUB) dated 01/26/2019 FINDINGS: Portable technique limits examination quality. The lungs are grossly clear. The heart is normal in size. No displaced fractures. IMPRESSION: No acute intrathoracic process suspected.
--- NOTE | 2020-10-17 16:05 | ER ---
Nurse's Notes [facility] Name: Fransisco Juarez Age: 35 yrs Sex: Male : 1985 Arrival Date: 10/17/2020 Time: 11:35 Bed 25 Private MD: Diagnosis: Acute sinusitis, unspecified Presentation: 10/17 12:44 Chief complaint: Patient states: Cough, sinus pressure x 1 month, coughed and had jl7 traced of blood in the mucus this morning. Coronavirus screen: Client denies travel out of the [place] in the last 14 days. congestion, cough unrelated to allergies, Client presents with at least one sign or symptom that may indicate coronavirus-19. Standard/surgical mask placed on the client. Provider contacted for isolation considerations. Ebola Screen: No symptoms or risks identified at this time. Initial Sepsis Screen: Does the patient meet any 2 criteria? No. Patient's initial sepsis screen is negative. Does the patient have a suspected source of infection? No. Patient's initial sepsis screen is negative. Risk Assessment: Do you want to hurt yourself or someone else? Patient reports no desire to harm self or others. Onset of symptoms was September 18, 2020. Care prior to arrival: None. 12:44 Method Of Arrival: Ambulatory [facility] 12:44 Acuity: AMILCAR 4 jl7 Triage Assessment: 16:13 Headache History: Denies prior headaches. General: Appears in no apparent distress. ld1 uncomfortable. Pain: Also complains of no other associated symptoms. Pain: Denies pain. Historical: - Allergies: 12:45 No Known Drug Allergies; jl7 - PMHx: 12:45 Diabetes - NIDDM; Hypertension; Kidney stones; Migraines; Pneumonia; Rheumatoid jl7 Arthritis; - Immunization history:: Adult Immunizations up to date, Client reports receiving the 2nd dose of the Covid vaccine. - Social history:: Smoking status: Patient denies any tobacco usage or history of. Screenin:41 Abuse screen: Denies threats or abuse. Denies injuries from another. Nutritional ld1 screening: No deficits noted. Tuberculosis screening: No symptoms or risk factors identified. Fall Risk None identified. Assessment: 14:41 General: Appears in no apparent distress. comfortable, Behavior is calm, cooperative, ld1 appropriate for age. Pain: Complains of pain in top of head Pain does not radiate. Pain currently is 8 out of 10 on a pain scale. Quality of pain is described as throbbing, Pain began 1 day ago. Is continuous. Neuro: Level of Consciousness is awake, alert, obeys commands, Oriented to person, place, time, situation. Cardiovascular: Capillary refill < 3 seconds Patient's skin is warm and dry. Respiratory: Airway is patent Respiratory effort is even, unlabored, Respiratory pattern is regular, symmetrical. GI: Abdomen is flat, non-distended. : No signs and/or symptoms were reported regarding the genitourinary system. EENT: No signs and/or symptoms were reported regarding the EENT system. Derm: No signs and/or symptoms reported regarding the dermatologic system. Musculoskeletal: No signs and/or symptoms reported regarding the musculoskeletal system. 15:51 Reassessment: Patient appears in no apparent distress at this time. Patient is alert, ld1 oriented x 3, equal unlabored respirations, skin warm/dry/pink. 16:13 Reassessment: Patient appears in no apparent distress at this time. Patient is alert, ld1 oriented x 3, equal unlabored respirations, skin warm/dry/pink. Patient denies pain at this time. Vital Signs: 12:44 BP 136 / 107; Pulse 89; Resp 19; Temp 98.8; Pulse Ox 99% on R/A; Weight 113.4 kg; jl7 Height 5 ft. 9 in. (175.26 cm); Pain 3/10; 15:51 BP 129 / 98; Pulse 76; Resp 18; Pulse Ox 99% on R/A; ld1 12:44 Body Mass Index 36.92 (113.40 kg, 175.26 cm) jl7 ED Course: 11:35 Patient arrived in ED. as 12:45 Triage completed. jl7 12:45 Arm band placed on right wrist. Patient placed in waiting room, Patient notified of jl7 wait time. 14:31 Angela Sosa FNP-C is PHCP. kb 14:31 Tomasz Sterling MD is Attending Physician. kb 14:40 Shazia Moore RN is Primary Nurse. ld1 14:41 Patient has correct armband on for positive identification. Placed in gown. Bed in low ld1 position. Side rails up X2. panel monitor on. Pulse ox on. NIBP on. 14:56 Strep Sent. ld1 15:23 Chest Single View XRAY In Process Unspecified. EDMS 16:13 No provider procedures requiring assistance completed. Patient did not have IV access ld1 during this emergency room visit. Administered Medications: No medications were administered Outcome: 16:05 Discharge ordered by . erin 16:13 Discharged to home ambulatory. ld1 16:13 Condition: stable 16:13 Discharge instructions given to patient, family, Instructed on discharge instructions, follow up and referral plans. 16:13 Patient left the ED. ld1 Signatures: Dispatcher [employer] EDMS Angela Sosa, PERSONAL INJURY PARALEGAL-C PERSONAL INJURY PARALEGAL-Rachael Ray Jahala, RN RN jl7 Shazia Moore, RN RN ld1
--- NOTE | 2020-10-17 16:05 | EDPHYS ---
Physician Documentation [facility] Name: Fransisco Juarez Age: 35 yrs Sex: Male : 1985 Arrival Date: 10/17/2020 Time: 11:35 Bed 25 Private MD: DUTCH Physician Tomasz Sterling HPI: 10/17 16:08 This 35 yrs old Male presents to ER via Ambulatory with complaints of Cough, kb Sinus Congestion, Headache. 16:08 The patient or guardian reports cough, that is intermittent, described as mild. Onset: kb The symptoms/episode began/occurred 1 month(s) ago. Severity of symptoms: At their worst the symptoms were moderate, in the emergency department the symptoms are unchanged. Modifying factors: The symptoms are alleviated by nothing, the symptoms are aggravated by nothing. Associated signs and symptoms: Pertinent positives: rhinorrhea, sore throat, Pertinent negatives: chest pain, diarrhea, ear ache, fever, nausea, vomiting. The patient has not experienced similar symptoms in the past. The patient has not recently seen a physician. Pt reports cough for a month, sore throat and sinus congestion for a week, and hoarse voice for 3-4 days. Denies fever. Historical: - Allergies: 12:45 No Known Drug Allergies; jl7 - PMHx: 12:45 Diabetes - NIDDM; Hypertension; Kidney stones; Migraines; Pneumonia; Rheumatoid jl7 Arthritis; - Immunization history:: Adult Immunizations up to date, Client reports receiving the 2nd dose of the Covid vaccine. - Social history:: Smoking status: Patient denies any tobacco usage or history of. ROS: 16:07 Constitutional: Negative for fever, chills, and weight loss. kb 16:07 ENT: Positive for rhinorrhea, sinus congestion, sinus pain, sore throat. 16:07 Respiratory: Positive for cough, Negative for dyspnea on exertion, hemoptysis, orthopnea, pleurisy, shortness of breath, sputum production, wheezing. 16:07 All other systems are negative. Exam: 16:07 Constitutional: This is a well developed, well nourished patient who is awake, alert, kb and in no acute distress. Head/Face: Normocephalic, atraumatic. ENT: Moist Mucous membranes Cardiovascular: Regular rate and rhythm with a normal S1 and S2. No gallops, murmurs, or rubs. No pulse deficits. Respiratory: Respirations even and unlabored. No increased work of breathing, no retractions or nasal flaring. Abdomen/GI: Soft, non-tender. No distention Skin: Warm, dry with normal turgor. Normal color. MS/ Extremity: Pulses equal, no cyanosis. Neurovascular intact. Full, normal range of motion. Neuro: Awake and alert, GCS 15, oriented to person, place, time, and situation. Moves all extremities. Normal gait. Psych: Awake, alert, with orientation to person, place and time. Behavior, mood, and affect are within normal limits. Vital Signs: 12:44 BP 136 / 107; Pulse 89; Resp 19; Temp 98.8; Pulse Ox 99% on R/A; Weight 113.4 kg; jl7 Height 5 ft. 9 in. (175.26 cm); Pain 3/10; 15:51 BP 129 / 98; Pulse 76; Resp 18; Pulse Ox 99% on R/A; ld1 12:44 Body Mass Index 36.92 (113.40 kg, 175.26 cm) jl7 MDM: 14:31 Patient medically screened. [facility] 16:02 Data reviewed: vital signs, nurses notes. Data interpreted: Pulse oximetry: on room air kb is 99 %. Interpretation: normal. Counseling: I had a detailed discussion with the patient and/or guardian regarding: the historical points, exam findings, and any diagnostic results supporting the discharge/admit diagnosis, lab results, radiology results, the need for outpatient follow up, a family practitioner, to return to the emergency department if symptoms worsen or persist or if there are any questions or concerns that arise at home. 10/17 14:52 Order name: Strep; Complete Time: 15:35 kb 10/17 15:36 Order name: Throat Culture EDMS 10/17 14:52 Order name: Chest Single View XRAY; Complete Time: 16:02 kb Administered Medications: No medications were administered Disposition Summary: 10/17/20 16:05 Discharge Ordered Location: Home Condition: Stable kb Diagnosis - Acute sinusitis, unspecified kb Followup: kb - With: Emergency Department - When: As needed - Reason: Worsening of condition Followup: kb - With: Private Physician - When: 2 - 3 days - Reason: Recheck today's complaints, Continuance of care, Re-evaluation by your physician Discharge Instructions: - Discharge Summary Sheet kb - Sinusitis, Adult, [id number] kb Forms: - Medication Reconciliation Form kb - Thank You Letter kb - Antibiotic Education kb - Work release form kb - Prescription Opioid Use kb Addendum: 10/18/2020 18:46 Co-signature as Attending Physician, Tomasz Sterling MD I agree with the assessment and [facility] plan of care. Signatures: Dispatcher [employer] EDAngela Cardona, BATTERY CHECKER-C BATTERY CHECKER-Tomasz Lovell MD MD cha Leal, Jahala, RN RN jl7
[2020-10-17 16:20] VITALS: BP 129/98; O2SAT 99
[2020-10-17 16:27] VITALS: TEMP 98.8
== END 2020-10-17 16:13 | disposition home or self-care (01) ==
LOC: ER 11:31
DX: J01.90 Acute sinusitis, unspecified (principal); I10 Essential (primary) hypertension
CPT/HCPCS: 71045; 87070; 87081; 99284

== ENCOUNTER 2021-03-05 17:54 | Emergency (ER) | payer OTHER ==
--- NOTE | 2021-03-05 18:50 | EDPHYS ---
Physician Documentation [facility] Name: Fransisco Juarez Age: 36 yrs Sex: Male : 1985 Arrival Date: 03/05/2021 Time: 17:59 Bed 8 Private MD: ED Physician Mc Dominique HPI: 03/05 18:29 This 36 yrs old Male presents to ER via EMS with complaints of Cough. rn 18:29 The patient or guardian reports cough. Onset: The symptoms/episode began/occurred 3 rn day(s) ago. Severity of symptoms: At their worst the symptoms were mild, in the emergency department the symptoms are unchanged. Modifying factors: The symptoms are alleviated by nothing, the symptoms are aggravated by nothing. Associated signs and symptoms: Pertinent positives: rhinorrhea, Pertinent negatives: fever, sore throat, vomiting. The patient has experienced similar episodes in the past. The patient has not recently seen a physician. Patient reports cough and nasal congestion for 3 or 4 days now. States feels like he has bronchitis. No fever. No hemoptysis. Not really productive cough. Denies vomiting or diarrhea. No sick contacts. States family members now are getting what he has.. Historical: - Allergies: 18:23 metformin; ll3 - PMHx: 18:23 Diabetes - NIDDM; Hypertension; Kidney stones; Rheumatoid Arthritis; Migraines; ll3 Pneumonia; - Immunization history:: Client reports receiving the Rishabh \T\ Rishabh single-dose vaccine. - Social history:: Smoking status: Patient denies any tobacco usage or history of. - Family history:: not pertinent. - Hospitalizations: : No recent hospitalization is reported. ROS: 18:29 Constitutional: Negative for fever, chills, and weight loss, Eyes: Negative for injury, rn pain, redness, and discharge, ENT: Positive for nasal congestion Neck: Negative for injury, pain, and swelling, Cardiovascular: Positive for chest pain with cough Respiratory: Positive for cough Abdomen/GI: Negative for abdominal pain, nausea, vomiting, diarrhea, and constipation, Back: Negative for injury and pain, : Negative for injury, bleeding, discharge, and swelling, MS/Extremity: Negative for injury and deformity, Skin: Negative for injury, rash, and discoloration, Neuro: Negative for headache, weakness, numbness, tingling, and seizure. Exam: 18:29 Constitutional: This is a well developed, well nourished patient who is awake, alert, rn and in no acute distress. A few episodes of coughing. Has Nintendo switch by his side. Head/Face: Normocephalic, atraumatic. Eyes: Periorbital areas with no swelling, redness, or edema. ENT: No stridor Neck: Trachea midline, no thyromegaly or masses palpated, and no cervical lymphadenopathy. Supple, full range of motion without nuchal rigidity, or vertebral point tenderness. No Meningismus. Cardiovascular: Regular rate and rhythm. No pulse deficits. Respiratory: Speaking full sentences, unlabored. No increased work of breathing, no retractions or nasal flaring. Skin: Warm, dry MS/ Extremity: Pulses equal, no cyanosis. Neuro: Awake and alert, GCS 15 Vital Signs: 18:00 BP 135 / 93; Pulse 105; Resp 18; Pulse Ox 100% ; ll3 18:17 BP 130 / 80; Pulse 99; Resp 16; Pulse Ox 99% on R/A; ll3 18:58 BP 114 / 74; Pulse 104; Resp 20; Pulse Ox 97% on R/A; ll3 MDM: 18:19 Patient medically screened. rn 18:48 Differential Diagnosis: Bronchitis Upper Respiratory Infection Viral Syndrome rn Pneumonia. Data reviewed: vital signs, nurses notes, radiologic studies, plain films. Data interpreted: Pulse oximetry: on room air is 99 %. Interpretation: normal. Test interpretation: by ED physician or midlevel provider: plain radiologic studies, Mild interstitial infiltrate bilaterally, and no pneumothorax on chest x-ray. Counseling: I had a detailed discussion with the patient and/or guardian regarding: the historical points, exam findings, and any diagnostic results supporting the discharge/admit diagnosis, radiology results, the need for outpatient follow up, to return to the emergency department if symptoms worsen or persist or if there are any questions or concerns that arise at home. Special discussion: I discussed with the patient/guardian in detail that at this point there is no indication for admission to the hospital. It is understood, however, that if the symptoms persist or worsen the patient needs to return immediately for re-evaluation. 03/05 18:18 Order name: XRAY Chest (1 view) rn Administered Medications: No medications were administered Disposition Summary: 03/05/21 18:49 Discharge Ordered Location: Home rn Problem: new rn Symptoms: have improved rn Condition: Stable rn Diagnosis - Cough rn Followup: rn - With: Private Physician - When: As needed - Reason: Recheck today's complaints, Re-evaluation by your physician Discharge Instructions: - Discharge Summary Sheet rn - Cough, Adult rn Forms: - Medication Reconciliation Form rn - Thank You Letter rn - Antibiotic shoe turner - Prescription Opioid Use rn Prescriptions: - Zithromax Z-Darren 250 mg Oral Tablet - take 1 tablet by ORAL route as directed for 5 days Day 1 - take two (2) tablets rn one time. Day 2, 3, 4 , 5 take one (1) tablet once daily.; 6 tablet; Refills: 0, Product Selection Permitted Signatures: Dispatcher [employer] EDMc Lau MD MD rn Loubet, Lynsea, RN RN ll3 Corrections: (The following items were deleted from the chart) 18:29 18:18 EKG - Nurse/Tech ordered. rn rn
--- NOTE | 2021-03-05 18:50 | ER ---
Nurse's Notes [facility] Name: Fransisco Juarez Age: 36 yrs Sex: Male : 1985 Arrival Date: 03/05/2021 Time: 17:59 Bed 8 Private MD: Diagnosis: Cough Presentation: 03/05 18:17 Chief complaint: Patient states: "I have had a cough and congestion since , my ll3 chest is tender from coughing so much". Coronavirus screen: Vaccine status: Patient reports receiving the 1st dose of the Covid vaccine. Client denies travel out of the [place] in the last 14 days. Client presents with at least one sign or symptom that may indicate coronavirus-19. Standard/surgical mask placed on the client. Ebola Screen: No symptoms or risks identified at this time. Initial Sepsis Screen: Does the patient meet any 2 criteria? No. Patient's initial sepsis screen is negative. Does the patient have a suspected source of infection? No. Patient's initial sepsis screen is negative. Risk Assessment: Do you want to hurt yourself or someone else? Patient reports no desire to harm self or others. Onset of symptoms was March 02, 2021. 18:17 Method Of Arrival: EMS: [facility] 3 18:17 Acuity: AMILCAR 3 ll3 Triage Assessment: 18:23 General: Appears in no apparent distress. comfortable, Behavior is calm, cooperative. ll3 Pain: Complains of pain in anterior aspect of right upper chest, anterior aspect of left upper chest and mid-sternal area Pain does not radiate. Pain currently is 5 out of 10 on a pain scale. Quality of pain is described as tender, Pain began 1 day ago. Neuro: Level of Consciousness is awake, alert, obeys commands, Oriented to person, place, time, situation, Speech is normal, Facial symmetry appears normal. Cardiovascular: Patient's skin is warm and dry. Respiratory: Airway is patent Trachea midline Respiratory effort is even, unlabored, Respiratory pattern is regular, symmetrical, Breath sounds are clear bilaterally. GI: Abdomen is flat, non-distended, Bowel sounds present X 4 quads. Abd is soft and non tender X 4 quads. Historical: - Allergies: 18:23 metformin; ll3 - PMHx: 18:23 Diabetes - NIDDM; Hypertension; Kidney stones; Rheumatoid Arthritis; Migraines; ll3 Pneumonia; - Immunization history:: Client reports receiving the Rishabh \\T\\ Rishabh single-dose vaccine. - Social history:: Smoking status: Patient denies any tobacco usage or history of. - Family history:: not pertinent. - Hospitalizations: : No recent hospitalization is reported. Screenin:32 Abuse screen: Denies threats or abuse. Nutritional screening: No deficits noted. ll3 Tuberculosis screening: No symptoms or risk factors identified. 18:59 Fall Risk None identified. ll3 Assessment: 18:15 General: see triage . ll3 18:50 Reassessment: Patient appears in no apparent distress at this time. No changes from ll3 previously documented assessment. Patient and/or family updated on plan of care and expected duration. Pain level reassessed. Patient is alert, oriented x 3, equal unlabored respirations, skin warm/dry/pink. Vital Signs: 18:00 BP 135 / 93; Pulse 105; Resp 18; Pulse Ox 100% ; ll3 18:17 BP 130 / 80; Pulse 99; Resp 16; Pulse Ox 99% on R/A; ll3 18:58 BP 114 / 74; Pulse 104; Resp 20; Pulse Ox 97% on R/A; ll3 ED Course: 17:59 Patient arrived in ED. ds1 18:17 Blayne Scanlon, RN is Primary Nurse. ll3 18:19 Mc Dominique MD is Attending Physician. rn 18:21 Triage completed. ll3 18:23 Arm band placed on. ll3 18:41 Bed in low position. Call light in reach. Side rails up X 1. 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 Pulse ll3 ox on. NIBP on. 18:47 XRAY Chest (1 view) In Process Unspecified. EDMS 18:59 No provider procedures requiring assistance completed. Patient did not have IV access ll3 during this emergency room visit. Administered Medications: No medications were administered Outcome: 18:49 Discharge ordered by . rn 18:59 Condition: stable ll3 19:04 Discharged to home ambulatory. jl7 19:04 Discharge instructions given to patient, Instructed on discharge instructions, follow up and referral plans. medication usage, Demonstrated understanding of instructions, follow-up care, medications, Prescriptions given X 1. 19:05 Patient left the ED. jl7 Signatures: Dispatcher [facility] Marychuy Epperson ds1 Mc Dominique MD MD rn Dominique, Lucy, RN RN jl7 Blayne Scanlon RN RN ll3
--- NOTE | 2021-03-05 19:18 | RAD REPORT ---
EXAM DESCRIPTION: RAD - Chest Single View - 03/05/2021 6:47 pm CLINICAL HISTORY: COUGH COMPARISON: October 17 TECHNIQUE: AP portable chest image was obtained 03/05/2021 6:47 pm . FINDINGS: No focal lung parenchymal process. Lung volumes are low due to shallow inspiration. This a ccentuates the baseline interstitial pattern. No significant failure or volume overload. Heart and va sculature are normal. No measurable pleural effusion and no pneumothorax. No acute bony abnormality s een. No acute aortic findings suspected. IMPRESSION: No acute cardiopulmonary process. No significant change from comparison study.
[2021-03-05 19:19] VITALS: BP 114/74; O2SAT 97
== END 2021-03-05 19:05 | disposition home or self-care (01) ==
LOC: ER 17:54
DX: R05.9 Cough, unspecified (principal); I10 Essential (primary) hypertension; E11.9 Type 2 diabetes mellitus without complications
CPT/HCPCS: 71045; 99284

== ENCOUNTER 2021-06-08 18:21 | Emergency (ER) | payer OTHER ==
[2021-06-08 18:57] LABS: Urine Blood Negative (Negative); Urine Glucose 3+ (Negative); Urine Protein Negative (Negative); Urine pH 6.5 (5.0-7.0)
[2021-06-08 19:05] LABS: Absolute Lymphocytes (CBC) 2.6 K/uL (0.7-4.9); Lymphocytes % 37.2 % (15.3-44.8); MPV 7.5 fL (7.6-11.3); RBC Red Blood Cell Count 4.89 M/uL (4.33-5.43)
[2021-06-08 19:06] LABS: Protime INR 0.9
--- NOTE | 2021-06-08 19:19 | RAD REPORT ---
EXAM DESCRIPTION: CT - Head Brain Wo Cont - 06/08/2021 7:08 pm CLINICAL HISTORY: Confused;Declining state COMPARISON: <Comparisons> TECHNIQUE: All CT scans are performed using dose optimization technique as appropriate and may inclu de automated exposure control or mA/KV adjustment according to patient size. FINDINGS: No intracranial hemorrhage, hydrocephalus or extra-axial fluid collection.No areas of brai n edema or evidence of midline shift. Shrunken and opacified left maxillary sinus likely reflecting chronic sinusitis. The calvarium is int act. IMPRESSION: No acute intracranial abnormality.
[2021-06-08 19:24] LABS: Barbiturates NEGATIVE (NEGATIVE); Benzodiazepines NEGATIVE (NEGATIVE); Cocaine NEGATIVE (NEGATIVE); METHAMPHETAM NEGATIVE (NEGATIVE); Methadone NEGATIVE (NEGATIVE); Opiates NEGATIVE (NEGATIVE); Phencyclidine NEGATIVE (NEGATIVE); THC Cannibis NEGATIVE (NEGATIVE)
--- NOTE | 2021-06-08 19:50 | RAD REPORT ---
EXAM DESCRIPTION: RAD - Chest Single View - 06/08/2021 7:27 pm CLINICAL HISTORY: AMS COMPARISON: Chest Single View dated 03/05/2021; Chest Single View dated 10/17/2020; Chest Single View dated 01/07/2020; Chest Single View dated 12/18/2019 FINDINGS: Lines: None. Lungs: Hazy opacities in the left lower lobe. The right lung is clear. Pleural: No significant pleural effusions or pneumothorax. Cardiac: The heart size is within normal limits. Bones: No acute fractures. Other: IMPRESSION: Mild hazy opacities in the left lung base could be related to underpenetration versus mi ld airspace disease.
[2021-06-08 20:00] LABS: Albumin 3.1 g/dL (3.4-5.0); Bilirubin Direct 0.1 mg/dL (0-0.2); Bilirubin Total 0.9 mg/dL (0.2-1.0); Protein, Total 6.4 g/dL (6.4-8.2); Troponin High Sensitivity 8.1 pg/mL (<58.9)
[2021-06-08 20:01] LABS: Magnesium 1.8 mg/dL (1.8-2.4)
[2021-06-08] MEDS ORDERED: KETOROLAC 30 MG/ML INJ ONE (21:55)
[2021-06-08] MEDS ORDERED: INSULIN -REGULAR HUMAN 50 UNIT/0.5 ML ML ONE (21:56)
[2021-06-08] MEDS ORDERED: NA CHLORIDE 0.9% 1,000 ML ONE (21:56)
--- NOTE | 2021-06-08 23:19 | ER ---
Nurse's Notes [facility] Name: Fransisco Juarez Age: 36 yrs Sex: Male : 1985 Arrival Date: 06/08/2021 Time: 18:23 Bed 3 Private MD: Diagnosis: Syncope;Diabetes mellitus due to underlying condition with hyperglycemia Presentation: 06/08 18:28 Chief complaint: EMS states: alter mental status. per spouse pt was found unresponsive sol[place] on the driveway after arguing with spouse. Coronavirus screen: Vaccine status: Patient reports receiving the 2nd dose of the covid vaccine. Ebola Screen: Patient denies travel to an Ebola-affected area in the 21 days before illness onset. Initial Sepsis Screen: Does the patient meet any 2 criteria? No. Patient's initial sepsis screen is negative. Does the patient have a suspected source of infection? No. Patient's initial sepsis screen is negative. Risk Assessment: Do you want to hurt yourself or someone else? Patient reports no desire to harm self or others. Onset of symptoms was June 08, 2021. 18:28 Method Of Arrival: EMS: [facility] [place] 18:28 Acuity: AMILCAR 3 [place]is Triage Assessment: 18:33 General: Appears in no apparent distress. distressed, Behavior is uncooperative. Pain: solis Denies pain. Neuro: Level of Consciousness is awake, confused, Oriented to person. Historical: - Allergies: 18:33 metformin; solis - Home Meds: 18:33 atorvastatin Oral [Active]; lisinopril Oral [Active]; Metformin Oral [Active]; solis - PMHx: 18:33 Diabetes - NIDDM; Hypertension; Kidney stones; Migraines; Pneumonia; Rheumatoid solis Arthritis; - Immunization history:: Adult Immunizations up to date. - Social history:: Smoking status: Patient denies any tobacco usage or history of. Screenin:35 Abuse screen: Denies threats or abuse. Denies injuries from another. Nutritional solis screening: No deficits noted. Tuberculosis screening: No symptoms or risk factors identified. Fall Risk IV access (20 points). Assessment: 19:47 General: Appears uncomfortable, Behavior is calm, appropriate for age. Pain: Complains tw5 of pain in anterior aspect of left upper chest Pain currently is 8 out of 10 on a pain scale. Quality of pain is described as throbbing. Neuro: Level of Consciousness is awake, alert, obeys commands, Oriented to person, place, time, situation. Cardiovascular: Heart tones S1 S2 present. Respiratory: Reports shortness of breath at rest Airway is patent Trachea midline Respiratory effort is even, unlabored. Musculoskeletal:. 20:50 General: pt resting at comfortably at this time, no signs of distress noted, family at as6 bedside . 22:43 Reassessment: No changes from previously documented assessment. as6 Vital Signs: 18:28 BP 151 / 96; Pulse 85; Resp 18; Temp 98.9; Pulse Ox 100% on R/A; Weight 113.4 kg; solis Height 5 ft. 9 in. (175.26 cm); 19:51 BP 147 / 100; Pulse 82; Resp 20; Pulse Ox 98% on R/A; Pain 8/10; tw5 20:50 BP 129 / 69; Pulse 71; Resp 16 S; Pulse Ox 95% on R/A; as6 22:00 BP 148 / 90; Pulse 68; Resp 17 S; Pulse Ox 97% on R/A; as6 22:44 BP 108 / 67; Pulse 67; Resp 13 S; Pulse Ox 96% on R/A; as6 23:27 BP 122 / 71; Pulse 65; Resp 13 S; Pulse Ox 95% on R/A; as6 18:28 Body Mass Index 36.92 (113.40 kg, 175.26 cm) solis ED Course: 18:23 Patient arrived in ED. em1 18:26 Initial lab(s) drawn, by me, sent to lab. Inserted saline lock: 20 gauge in left kj1 antecubital area, using aseptic technique. Blood collected. 18:30 Jorge Fernandez MD is Attending Physician. kdr 18:32 Tomasz Kay PA is PHCP. cp 18:33 Triage completed. solis 18:33 Arm band placed on. solis 18:35 Patient has correct armband on for positive identification. Bed in low position. solis 18:35 No provider procedures requiring assistance completed. Inserted saline lock: 20 gauge solis in right antecubital area, using aseptic technique. 18:57 UDS Sent. solis 19:00 Antonino Tang, RN is Primary Nurse. as6 19:08 CT Head Brain wo Cont In Process Unspecified. EDMS 19:27 XRAY Chest (1 view) In Process Unspecified. EDMS 19:51 residential monitor on. Pulse ox on. NIBP on. Door closed. Noise minimized. Moved to tw5 private room. Warm blanket given. Verbal reassurance given. 19:51 EKG done, by ED staff, reviewed by Mc Dominique MD. tw5 23:27 IV discontinued, intact, bleeding controlled, No redness/swelling at site. Pressure as6 dressing applied. Administered Medications: 21:59 Drug: NS 0.9% 1000 ml Route: IV; Rate: 1 bolus; Site: left antecubital; as6 23:26 Follow up: Response: No adverse reaction; IV Status: Completed infusion; IV Intake: as6 1000ml 21:59 Drug: Insulin Regular Human 10 units {Co-Signature: (Sammie Barnes).} Route: IVP; as6 Site: left antecubital; 23:26 Follow up: Response: No adverse reaction as6 21:59 Drug: Ketorolac 15 mg Route: IVP; Site: left antecubital; as6 23:26 Follow up: Response: No adverse reaction as6 Point of Care Testing: Blood Glucose: 22:43 Blood Glucose: 193 mg/dL; as6 Ranges: Intake: 23:26 IV: 1000ml; Total: 1000ml. as6 Outcome: 23:18 Discharge ordered by . cp 23:27 Discharged to home ambulatory, with significant other. as6 23:27 Condition: stable 23:27 Discharge instructions given to patient, Instructed on discharge instructions, follow up and referral plans. Demonstrated understanding of instructions, follow-up care. 23:27 Patient left the ED. as6 Signatures: Dispatcher [employer] EDMS Jorge Fernandez MD MD kdr Martinez, Eric em1 Tomasz Kay PA PA cp Jackson, Mya kj1 Sammie Barnes Antonino Tang RN RN as6 Corinna Goodwin RN RN Sammie Barnes
--- NOTE | 2021-06-08 23:19 | EDPHYS ---
Physician Documentation [facility] Name: Fransisco Juarez Age: 36 yrs Sex: Male : 1985 Arrival Date: 06/08/2021 Time: 18:23 Bed 3 Private MD: ED Physician Jorge Fernandez HPI: 06/08 19:20 This 36 yrs old Male presents to ER via EMS with complaints of Syncope. cp 19:20 Patient found outside seated next to vehicle by unconscious after reported cp argument. 19:20 The patient has experienced syncope, lost consciousness. Onset: The symptoms/episode cp began/occurred just prior to arrival. Duration: This was a single episode, that lasted an unknown period of time. Associated injury: The patient did not suffer any apparent associated injury. Historical: - Allergies: 18:33 metformin; [place]is - Home Meds: 18:33 atorvastatin Oral [Active]; lisinopril Oral [Active]; Metformin Oral [Active]; solis - PMHx: 18:33 Diabetes - NIDDM; Hypertension; Kidney stones; Migraines; Pneumonia; Rheumatoid solis Arthritis; - Immunization history:: Adult Immunizations up to date. - Social history:: Smoking status: Patient denies any tobacco usage or history of. ROS: 19:30 Eyes: Negative for injury, pain, redness, and discharge. cp 19:30 Constitutional: Negative for body aches, chills, fever, poor PO intake. 19:30 ENT: Negative for ear pain, sore throat, difficulty swallowing, difficulty handling secretions. 19:30 Cardiovascular: Positive for chest pain, Negative for edema, palpitations. 19:30 Respiratory: Negative for cough, shortness of breath, wheezing. 19:30 Abdomen/GI: Positive for abdominal pain, Negative for nausea, vomiting, and diarrhea, black/tarry stool, rectal bleeding. 19:30 Back: Negative for pain at rest, pain with movement. 19:30 Neuro: Positive for syncope, Negative for altered mental status, headache, numbness, weakness. Exam: 19:35 Constitutional: The patient appears in no acute distress, non-diaphoretic, non-toxic, cp well developed, well nourished, obese. 19:35 Head/Face: Normocephalic, atraumatic. cp 19:35 Eyes: Periorbital structures: appear normal, Pupils: equal, round, and reactive to light and accomodation, Conjunctiva: normal, no exudate, no injection, Sclera: no appreciated abnormality, Lids and lashes: appear normal, bilaterally. 19:35 ENT: External ear(s): are unremarkable, Ear canal(s): are normal, clear, TM's: dullness, bilaterally, Nose: is normal, Mouth: Lips: moist, Oral mucosa: pink and intact, moist, Posterior pharynx: is normal, airway is patent, no erythema, no exudate. 19:35 Neck: C-spine: vertebral tenderness, is not appreciated, crepitus, is not appreciated. 19:35 Chest/axilla: Inspection: normal, Palpation: is normal, no crepitus, no tenderness. 19:35 Cardiovascular: Rate: normal, Rhythm: regular, Edema: is not appreciated, JVD: is not appreciated. 19:35 Respiratory: the patient does not display signs of respiratory distress, Respirations: normal, no use of accessory muscles, no retractions, labored breathing, is not present, Breath sounds: are clear throughout, no decreased breath sounds, no stridor, no wheezing. 19:35 Abdomen/GI: Inspection: abdomen appears normal, Bowel sounds: active, all quadrants, Palpation: soft, in all quadrants, mild abdominal tenderness, in all quadrants. 19:35 Back: pain, is absent. 19:35 Musculoskeletal/extremity: Extremities: all appear grossly normal, with no appreciated pain with palpation. 19:35 Neuro: Orientation: to person, situation, Mentation: able to follow commands, slow to respond, Motor: moves all fours, strength is normal, Sensation: no obvious gross deficits. 19:55 ECG was reviewed by the Attending Physician. cp Vital Signs: 18:28 BP 151 / 96; Pulse 85; Resp 18; Temp 98.9; Pulse Ox 100% on R/A; Weight 113.4 kg; [place]is Height 5 ft. 9 in. (175.26 cm); 19:51 BP 147 / 100; Pulse 82; Resp 20; Pulse Ox 98% on R/A; Pain 8/10; tw5 20:50 BP 129 / 69; Pulse 71; Resp 16 S; Pulse Ox 95% on R/A; as6 22:00 BP 148 / 90; Pulse 68; Resp 17 S; Pulse Ox 97% on R/A; as6 22:44 BP 108 / 67; Pulse 67; Resp 13 S; Pulse Ox 96% on R/A; as6 23:27 BP 122 / 71; Pulse 65; Resp 13 S; Pulse Ox 95% on R/A; as6 18:28 Body Mass Index 36.92 (113.40 kg, 175.26 cm) solis MDM: 18:36 Patient medically screened. cp 19:00 Differential Diagnosis: cardiac arrhythmia, emotional response, GI bleed, pseudo cp seizure, seizure. 23:17 Data reviewed: vital signs, nurses notes, lab test result(s), EKG, radiologic studies, cp CT scan. 23:17 Counseling: I had a detailed discussion with the patient and/or guardian regarding: the cp historical points, exam findings, and any diagnostic results supporting the discharge/admit diagnosis, lab results, radiology results, to return to the emergency department if symptoms worsen or persist or if there are any questions or concerns that arise at home. 23:17 ED course: VSS. Patient resting comfortably in exam room. Labs, EKG and radiology cp studies reviewed. Will discharge to home for continued monitoring. 06/08 18:32 Order name: Basic Metabolic Panel; Complete Time: 20:10 [facility] 06/08 21:32 Interpretation: Normal except: NA 134; GLUC 357; GFR 81; CA 8.3. cp 06/08 18:32 Order name: CBC with Diff; Complete Time: 20:10 [facility] 06/08 18:32 Order name: LFT's; Complete Time: 20:10 [facility] 06/08 18:32 Order name: Magnesium; Complete Time: 20:10 [facility] 06/08 18:32 Order name: NT PRO-BNP; Complete Time: 20:10 [facility] 06/08 18:32 Order name: PT-INR; Complete Time: 20:10 [facility] 06/08 18:32 Order name: CT Head Brain wo Cont; Complete Time: 20:10 [facility] 06/08 21:34 Interpretation: Report reviewed. 06/08 18:32 Order name: Troponin HS; Complete Time: 20:10 [facility] 06/08 18:32 Order name: UDS; Complete Time: 20:10 [facility] 06/08 18:32 Order name: ETOH Level; Complete Time: 20:10 [facility] 06/08 18:38 Order name: Glucose, Ancillary Testing; Complete Time: 20:10 EDMS 06/08 18:57 Order name: Urine Dipstick-Ancillary; Complete Time: 20:10 EDMS 06/08 22:54 Order name: Glucose, Ancillary Testing; Complete Time: 23:02 EDMS 06/08 18:32 Order name: XRAY Chest (1 view); Complete Time: 20:10 kdr 06/08 18:32 Order name: EKG; Complete Time: 18:33 kdr 06/08 18:32 Order name: Cardiac monitoring; Complete Time: 19:10 kdr 06/08 18:32 Order name: EKG - Nurse/Tech; Complete Time: 19:50 kdr 06/08 18:32 Order name: IV Saline Lock; Complete Time: 18:57 kdr 06/08 18:32 Order name: Labs collected and sent; Complete Time: 18:57 kdr 06/08 18:32 Order name: O2 Per Protocol; Complete Time: 19:10 kdr 06/08 18:32 Order name: O2 Sat Monitoring; Complete Time: 19:54 kdr 02 23:07 Order name: Accucheck Blood Glucose; Complete Time: 23:14 cp EC:55 Rate is 74 beats/min. Rhythm is regular. KS interval is normal. QRS interval is normal. cp QT interval is normal. T waves are Inverted in leads III, aVR. Interpreted by me. Reviewed by me. Administered Medications: 21:59 Drug: NS 0.9% 1000 ml Route: IV; Rate: 1 bolus; Site: left antecubital; as6 23:26 Follow up: Response: No adverse reaction; IV Status: Completed infusion; IV Intake: as6 1000ml 21:59 Drug: Insulin Regular Human 10 units {Co-Signature: tw5 (Sammie Barnes).} Route: IVP; as6 Site: left antecubital; 23:26 Follow up: Response: No adverse reaction as6 21:59 Drug: Ketorolac 15 mg Route: IVP; Site: left antecubital; as6 23:26 Follow up: Response: No adverse reaction as6 Point of Care Testing: Blood Glucose: 22:43 Blood Glucose: 193 mg/dL; as6 Ranges: Critical Glucose Levels:Adult <50 mg/dl or >400 mg/dl <40 mg/dl or >180 mg/dl Disposition Summary: 06/08/21 23:18 Discharge Ordered Location: Home cp Problem: new cp Symptoms: have improved cp Condition: Stable cp Diagnosis - Syncope cp - Diabetes mellitus due to underlying condition with hyperglycemia cp Followup: cp - With: Private Physician - When: 1 - 2 days - Reason: Recheck today's complaints Discharge Instructions: - Discharge Summary Sheet cp - Hyperglycemia cp - Syncope cp - Form - Daily Diabetes Record cp - Blood Glucose Monitoring, Adult cp - Diabetes Mellitus and Nutrition, Adult cp - Aspirin and Your Heart cp Forms: - Medication Reconciliation Form cp - Thank You Letter cp - Antibiotic Education cp - Prescription Opioid Use cp Signatures: Dispatcher [employer] EDMS Jorge Fernandez MD MD kdr Tomasz Kay PA PA cp Antonino Tang RN RN as6 Corinna Goodwin RN RN ha Brown, Sophia, PA PA sb3 Sammie Barnes tw5 Corrections: (The following items were deleted from the chart) 19:03 18:37 Troponin High Sensitivity+C.LAB.BRZ ordered. EDCO EDMS 06/09 21:06/08 23:20 Constitutional: Negative for body aches, chills, fever, poor PO intake, cp cp 06/09 21:06/08 23:20 Cardiovascular: Positive for chest pain, Negative for edema, palpitations, cp cp 06/09 20:06/08 23:20 Respiratory: Negative for cough, shortness of breath, wheezing, cp cp 06/09 20:06/08 23:20 Abdomen/GI: Positive for abdominal pain, Negative for nausea, vomiting, and cp diarrhea, black/tarry stool, rectal bleeding, cp 06/09 20:06/08 23:20 Back: Negative for pain at rest, pain with movement, cp cp 06/09 20:06/08 23:20 Eyes: Negative for injury, pain, redness, and discharge, cp cp 06/09 20:06/08 23:20 ENT: Negative for ear pain, sore throat, difficulty swallowing, difficulty cp handling secretions, cp 06/09 20:06/08 23:20 Neuro: Positive for syncope, Negative for altered mental status, headache, cp numbness, weakness, cp 06/09 20:06/08 23:20 All other systems are negative, cp cp 06/09 21:06/08 23:17 This 36 yrs old Male presents to ER via EMS with complaints of Syncope. cp cp 06/09 20:06/08 23:17 The patient has experienced syncope, lost consciousness, cp cp 06/09 23:17 Onset: The symptoms/episode began/occurred just prior to arrival, cp cp 06/09 20:06/08 23:17 Duration: This was a single episode, that lasted an unknown period of time, cp cp 06/09 23:17 Associated injury: The patient did not suffer any apparent associated cp injury, cp 06/09 20:06/08 23:17 Patient found outside seated next to vehicle by unconscious after cp reported argument. cp
[2021-06-09 01:18] VITALS: TEMP 98.9
[2021-06-09 01:31] VITALS: BP 122/71; O2SAT 95
== END 2021-06-08 23:27 | disposition home or self-care (01) ==
LOC: ER 18:21
DX: E11.65 Type 2 diabetes mellitus with hyperglycemia (principal); I10 Essential (primary) hypertension; Z88.8 Allergy status to other drugs, medicaments and biological substances
CPT/HCPCS: 96361; 85025; 80048; 36415; 80320; 83735; 85610; 82947 ×2; 80076; 81003; 84484; 83880; 80307; 70450; 71045; 96375; 96374; 99285; J7030

== ENCOUNTER 2021-09-02 20:19 | Emergency (ER) | payer OTHER ==
[2021-09-02 21:07] LABS: Absolute Lymphocytes (CBC) 2.2 K/uL (0.7-4.9); Hematocrit 41.4 % (39.6-49.0); MPV 7.7 fL (7.6-11.3); RBC Red Blood Cell Count 5.04 M/uL (4.33-5.43)
[2021-09-02 21:28] LABS: Urine Blood Negative (Negative); Urine Glucose 3+ (Negative); Urine Protein Negative (Negative); Urine Specific Gravity 1.015 (1.005-1.030)
[2021-09-02 21:36] LABS: Albumin 3.6 g/dL (3.4-5.0); Bilirubin Total 0.7 mg/dL (0.2-1.0); Protein, Total 7.1 g/dL (6.4-8.2)
--- NOTE | 2021-09-02 23:17 | ER ---
Nurse's Notes [facility] Name: Fransisco Juarez Age: 36 yrs Sex: Male : 1985 Arrival Date: 09/02/2021 Time: 20:22 Bed Waiting Private MD: Diagnosis: Headache;Abdominal tenderness;Type 2 diabetes mellitus with hyperglycemia Presentation: 09/02 20:24 Chief complaint: EMS states: "A tension headache that started a couple of hours ago. He tw5 tried to eat dinner but it got worse. It caused him nausea. Vitals are stable. no vomiting. Some minior abdominal tenderness in the upper left.". 20:24 Method Of Arrival: EMS: [facility] tw5 20:38 Chief complaint: Patient states: "I started to get a really bad tension headache, I tw5 have not had one this bad. My stomach is a little tender also.". 20:41 Coronavirus screen: Vaccine status: Patient reports receiving the 2nd dose of the covid tw5 vaccine. j and [employer]. Ebola Screen: Patient negative for fever greater than or equal to 101.5 degrees Fahrenheit, and additional compatible Ebola Virus Disease symptoms Patient denies exposure to infectious person. Patient denies travel to an Ebola-affected area in the 21 days before illness onset. Initial Sepsis Screen: Does the patient meet any 2 criteria? No. Patient's initial sepsis screen is negative. Does the patient have a suspected source of infection? No. Patient's initial sepsis screen is negative. Risk Assessment: Do you want to hurt yourself or someone else? Patient reports no desire to harm self or others. Onset of symptoms was September 02, 2021 at 16:00. 20:41 Acuity: AMILCAR 3 tw5 Triage Assessment: 20:42 Headache History: The patient has had previous headaches and this one is more severe tw5 than previous episodes. General: Appears uncomfortable, Behavior is calm, cooperative, appropriate for age. Pain: Pain currently is 9 out of 10 on a pain scale. Pain began 4 hours ago. Also complains of photophobia. Neuro: Schaefer Agitation-Sedation Scale (RASS): 0 - Alert and Calm Level of Consciousness is awake, alert, obeys commands, Oriented to person, place, time, situation. Historical: - Allergies: 20:42 metformin; tw5 - PMHx: 20:42 Diabetes - NIDDM; Hypertension; Kidney stones; Migraines; Pneumonia; Rheumatoid tw5 Arthritis; - Immunization history:: Flu vaccine is up to date. - Social history:: Smoking status: Patient denies any tobacco usage or history of. - Family history:: not pertinent. Screenin:39 Abuse screen: Denies threats or abuse. Denies injuries from another. Nutritional tw5 screening: No deficits noted. Tuberculosis screening: No symptoms or risk factors identified. Fall Risk None identified. Vital Signs: 20:38 BP 136 / 100; Pulse 72; Resp 18; Temp 97.9(O); Pulse Ox 96% on R/A; tw5 20:38 Weight 110.22 kg; Height 5 ft. 9 in. (175.26 cm); Pain 9/10; tw5 20:38 Body Mass Index 35.88 (110.22 kg, 175.26 cm) tw5 Sriram Coma Score: 20:51 Eye Response: spontaneous(4). Verbal Response: oriented(5). Motor Response: obeys ronnie commands(6). Total: 15. ED Course: 20:22 Patient arrived in ED. kz 20:36 Tomasz Sterling MD is Attending Physician. ronnie 20:41 Triage completed. tw5 20:42 Arm band placed on left wrist. tw5 22:20 CT Head Brain wo Cont In Process Unspecified. EDMS 22:20 CT Abd/Pelvis - IV Contrast Only In Process Unspecified. EDMS 23:15 Jason Sidhu MD is Referral Physician. ronnie 23:39 Patient has correct armband on for positive identification. tw5 23:39 No provider procedures requiring assistance completed. Inserted saline lock: 20 gauge tw5 in right antecubital area, using aseptic technique. Blood collected. 09/03 00:06 IV discontinued, intact, bleeding controlled, No redness/swelling at site. Pressure tw5 dressing applied. Administered Medications: 09/02 23:30 CANCELLED (Physician Discretion): NS 0.9% 1000 ml IV at 125 ml/hr continuous tw5 23:38 Drug: Benadryl (diphenhydrAMINE) 50 mg Route: IVP; Site: right antecubital; tw5 09/03 00:07 Follow up: Response: No adverse reaction tw5 09/02 23:39 Drug: NS 0.9% 500 ml Route: IV; Rate: bolus; Site: right antecubital; 09/03 00:07 Follow up: Response: No adverse reaction; IV Status: Completed infusion; IV Intake: tw5 500ml 09/02 23:39 Drug: Ketorolac 30 mg Route: IVP; Site: right antecubital; 5 09/03 00:07 Follow up: Response: No adverse reaction 5 09/02 23:39 Drug: Reglan (metoCLOPramide) 10 mg Route: IVP; Site: right antecubital; 5 09/03 00:07 Follow up: Response: No adverse reaction Medication: 09/02 23:40 VIS not applicable for this client. tw5 Intake: 09/03 00:07 IV: 500ml; Total: 500ml. Outcome: 09/02 23:16 Discharge ordered by MD. trujillo 23:39 Discharged to home ambulatory, with family. 23:39 Condition: improved 23:39 Discharge instructions given to patient, Instructed on discharge instructions, follow up and referral plans. medication usage, Demonstrated understanding of instructions, follow-up care, medications, Prescriptions given X 3. 09/03 00:07 Patient left the ED. Signatures: Dispatcher [employer] EDTomasz Todd MD MD cha Wood, Tiffany tw Antonina Murphy
--- NOTE | 2021-09-02 23:17 | EDPHYS ---
Physician Documentation [facility] Name: Fransisco Juarez Age: 36 yrs Sex: Male : 1985 Arrival Date: 09/02/2021 Time: 20:22 Bed Waiting Private MD: DUTCH Physician Tomasz Sterling HPI: 09/02 20:47 This 36 yrs old Male presents to ER via EMS with complaints of Headache, ronnie Nausea. 20:47 The patient complains of pain to the top of head, forehead, left side of the back of ronnie head, left occipital area, left base of the skull, right side of the back of head, right occipital area and right base of the skull. The patient describes the headache as a pressure. Onset: The symptoms/episode began/occurred today. Associated signs and symptoms: Pertinent positives: dizziness, nausea, Photophobia. Severity of symptoms: At its worst the pain was moderate, in the emergency department the pain is unchanged. Headache History: The patient has had previous headaches and this one is similar to previous episodes. The symptoms are alleviated by nothing. the symptoms are aggravated by nothing. The patient has experienced similar episodes in the past, a few times. Historical: - Allergies: 20:42 metformin; tw5 - PMHx: 20:42 Diabetes - NIDDM; Hypertension; Kidney stones; Migraines; Pneumonia; Rheumatoid tw5 Arthritis; - Immunization history:: Flu vaccine is up to date. - Social history:: Smoking status: Patient denies any tobacco usage or history of. - Family history:: not pertinent. ROS: 20:47 Constitutional: Negative for fever, chills, and weight loss, Eyes: Negative for injury, ronnie pain, redness, and discharge, ENT: Negative for injury, pain, and discharge, Neck: Negative for injury, pain, and swelling, Cardiovascular: Negative for chest pain, palpitations, and edema, Respiratory: Negative for shortness of breath, cough, wheezing, and pleuritic chest pain, Back: Negative for injury and pain, : Negative for injury, bleeding, discharge, and swelling, MS/Extremity: Negative for injury and deformity, Skin: Negative for injury, rash, and discoloration, Neuro: Negative for headache, weakness, numbness, tingling, and seizure, Psych: Negative for depression, anxiety, suicide ideation, homicidal ideation, and hallucinations, Allergy/Immunology: Negative for hives, rash, and allergies, Endocrine: Negative for neck swelling, polydipsia, polyuria, polyphagia, and marked weight changes, Hematologic/Lymphatic: Negative for swollen nodes, abnormal bleeding, and unusual bruising. 20:47 Abdomen/GI: Positive for abdominal pain, nausea, of the left upper quadrant. Exam: 20:47 Constitutional: This is a well developed, well nourished patient who is awake, alert, ronnie and in no acute distress. Head/Face: Normocephalic, atraumatic. Eyes: Pupils equal round and reactive to light, extra-ocular motions intact. Lids and lashes normal. Conjunctiva and sclera are non-icteric and not injected. Cornea within normal limits. Periorbital areas with no swelling, redness, or edema. ENT: Nares patent. No nasal discharge, no septal abnormalities noted. Tympanic membranes are normal and external auditory canals are clear. Oropharynx with no redness, swelling, or masses, exudates, or evidence of obstruction, uvula midline. Mucous membranes moist. Chest/axilla: Normal chest wall appearance and motion. Nontender with no deformity. No lesions are appreciated. Cardiovascular: Regular rate and rhythm with a normal S1 and S2. No gallops, murmurs, or rubs. Normal PMI, no JVD. No pulse deficits. Respiratory: Lungs have equal breath sounds bilaterally, clear to auscultation and percussion. No rales, rhonchi or wheezes noted. No increased work of breathing, no retractions or nasal flaring. Back: No spinal tenderness. No costovertebral tenderness. Full range of motion. Male : Normal genitalia with no discharge or lesions. Skin: Warm, dry with normal turgor. Normal color with no rashes, no lesions, and no evidence of cellulitis. MS/ Extremity: Pulses equal, no cyanosis. Neurovascular intact. Full, normal range of motion. Neuro: Awake and alert, GCS 15, oriented to person, place, time, and situation. Cranial nerves II-XII grossly intact. Motor strength 5/5 in all extremities. Sensory grossly intact. Cerebellar exam normal. Normal gait. Psych: Awake, alert, with orientation to person, place and time. Behavior, mood, and affect are within normal limits. 20:47 Neck: External neck: is normal, C-spine: appears grossly normal, no acute changes, Thyroid: appears normal, Trachea: is midline with no obvious abnormalities, no acute changes, ROM/movement: Meningeal signs: are not present, Kernig's sign is negative, Brudzinski's sign is negative, nuchal rigidity, is not appreciated, Lymph nodes: no appreciated lymphadenopathy. Vital Signs: 20:38 BP 136 / 100; Pulse 72; Resp 18; Temp 97.9(O); Pulse Ox 96% on R/A; tw5 20:38 Weight 110.22 kg; Height 5 ft. 9 in. (175.26 cm); Pain 9/10; tw5 20:38 Body Mass Index 35.88 (110.22 kg, 175.26 cm) tw5 Berlin Coma Score: 20:51 Eye Response: spontaneous(4). Verbal Response: oriented(5). Motor Response: obeys ronnie commands(6). Total: 15. MDM: 20:51 Differential diagnosis: cluster headache, hyponatremia, migraine, temporal arteritis, ronnie tension headache. Data reviewed: vital signs, nurses notes, lab test result(s), radiologic studies, CT scan. Data interpreted: media monitor: rate is 72 beats/min, rhythm is regular, Pulse oximetry: on room air is 96 %. Test interpretation: by ED physician or midlevel provider:. Counseling: I had a detailed discussion with the patient and/or guardian regarding: the historical points, exam findings, and any diagnostic results supporting the discharge/admit diagnosis, lab results, radiology results. 23:16 Patient medically screened. [facility] 09/02 20:47 Order name: CBC with Diff; Complete Time: 23:12 [facility] 09/02 20:47 Order name: Comprehensive Metabolic Panel; Complete Time: 23:12 [facility] 09/02 20:47 Order name: Lipase; Complete Time: 23:12 [facility] 09/02 20:47 Order name: CT Head Brain wo Cont [facility] 09/02 20:47 Order name: CT Abd/Pelvis - IV Contrast Only [facility] 09/02 21:28 Order name: Urine Dipstick-Ancillary; Complete Time: 23:12 EDMT 09/02 20:47 Order name: Urine Dipstick-Ancillary (obtain specimen); Complete Time: 21:27 [facility] Administered Medications: 23:30 CANCELLED (Physician Discretion): NS 0.9% 1000 ml IV at 125 ml/hr continuous 23:38 Drug: Benadryl (diphenhydrAMINE) 50 mg Route: IVP; Site: right antecubital; 09/03 00:07 Follow up: Response: No adverse reaction 09/02 23:39 Drug: NS 0.9% 500 ml Route: IV; Rate: bolus; Site: right antecubital; 09/03 00:07 Follow up: Response: No adverse reaction; IV Status: Completed infusion; IV Intake: tw5 500ml 09/02 23:39 Drug: Ketorolac 30 mg Route: IVP; Site: right antecubital; 09/03 00:07 Follow up: Response: No adverse reaction 09/02 23:39 Drug: Reglan (metoCLOPramide) 10 mg Route: IVP; Site: right antecubital; 09/03 00:07 Follow up: Response: No adverse reaction Disposition Summary: 09/02/21 23:16 Discharge Ordered Location: Home ronnie Problem: new ronnie Symptoms: have improved ronnie Condition: Stable ronnie Diagnosis - Headache ronnie - Abdominal tenderness ronnie - Type 2 diabetes mellitus with hyperglycemia ronnie Followup: ronnie - With: Private Physician - When: 2 - 3 days - Reason: Recheck today's complaints, Continuance of care, Re-evaluation by your physician Followup: ronnie - With: Jason Sidhu MD - When: 2 - 3 days - Reason: Recheck today's complaints, Re-evaluation by your physician Discharge Instructions: - Discharge Summary Sheet ronnie - Abdominal Pain, Adult ronnie - Type 2 Diabetes Mellitus, Diagnosis, Adult ronnie - General Headache Without Cause ronnie - Tension Headache, Adult ronnie - Hyperglycemia ronnie - Hypertension, Adult ronnie - Abdominal Pain, Adult, [id number] ronnie - Hypertension, Adult, Ognp-[id number] ronnie - Tension Headache, Adult, [id number] ronnie - General Headache Without Cause, Slad-xe-Xeif ronnie Forms: - Medication Reconciliation Form ronnie - Thank You Letter ronnie - Antibiotic Education ronnie - Prescription Opioid Use ronnie - Work release form 5 Prescriptions: - Pepcid 20 mg Oral Tablet - take 1 tablet by ORAL route every 12 hours for 10 days; 20 tablet; Refills: 0, ronnie Product Selection Permitted - Zofran 4 mg Oral Tablet - take 1 tablet by ORAL route every 12 hours As needed; 20 tablet; Refills: 0, ronnie Product Selection Permitted - Diclofenac Sodium 75 mg Oral tablet,delayed release (DR/EC) - take 1 tablet by ORAL route 2 times per day; 20 tablet; Refills: 0, Product [facility] Selection Permitted Signatures: Dispatcher [employer] Tomasz Denton MD MD cha Wood, Sammie tw5 Corrections: (The following items were deleted from the chart) 09/02 23:30 20:47 NS 0.9% 1000 ml IV at 125 ml/hr continuous ordered. ronnie tw5
[2021-09-02] MEDS ORDERED: METOCLOPRAMIDE 10 MG/2mL INJ ONE (23:37)
[2021-09-02] MEDS ORDERED: DIPHENHYDRAMINE 50 MG/ML VIAL ONE (23:37)
[2021-09-02] MEDS ORDERED: NA CHLORIDE 0.9% 500 ML ONE (23:37)
[2021-09-02] MEDS ORDERED: KETOROLAC 30 MG/ML INJ ONE (23:37)
[2021-09-03 00:40] VITALS: BP 136/100; TEMP 97.9; O2SAT 96
--- NOTE | 2021-09-04 12:01 | RAD REPORT ---
EXAM DESCRIPTION: CT - Head Brain Wo Cont - 09/03/2021 5:48 am CLINICAL HISTORY: 36-year-old male with tension type headache. COMPARISON: 06/08/2021. TECHNIQUE: CT brain without contrast. This exam was performed according to our departmental dose opt imization program which includes use of automated exposure control, adjustment of the mA and/or kV ac cording to patient size and/or use of iterative reconstruction technique. FINDINGS: The ventricles, sulci, and cisterns are within normal limits. The carrington-white matter diff erentiation is preserved. There is no mass effect, midline shift, intra- or extra-axial fluid colle ction/acute hemorrhage. The osseous structures are unremarkable. Sclerosis and shrunken appearance of the incompletely visualized RIGHT maxillary sinus may reflect se quela of prior injury, chronic sinus disease or significant sinus syndrome. The remaining paranasal s inuses and mastoid air cells are clear. IMPRESSION: No acute intracranial abnormalities. Electronically signed by: Emili Gunn MD 09/02/2021 10:40 PM CDT Due to temporary technical issues with the PACS/Fluency reporting system, reports are being signed by the in house radiologist without review as a courtesy to ensure prompt reporting. The interpreting r adiologist is fully responsible for the content of the report.
--- NOTE | 2021-09-04 12:04 | RAD REPORT ---
EXAM DESCRIPTION: CT - Abdomen Pelvis W Contrast - 09/03/2021 5:47 am CLINICAL HISTORY: 36-year-old male with LEFT upper quadrant abdominal pain. COMPARISON: 02/03/2019. TECHNIQUE: CT of the abdomen and pelvis was performed following intravenous administration of contra st. Oral contrast was not administered. Multiplanar reformatted images were provided. This exam was p erformed according to our departmental dose optimization program which includes use of automated expo sure control, adjustment of the mA and/or kV according to patient size and/or use of iterative recons truction technique. FINDINGS: Chest: Evaluation through the lung bases reveals no focal opacity, pleural effusion or pne umothorax. Heart size is within normal limits. No pericardial effusion. Abdomen and pelvis: Diffuse hepatic steatosis. Mild hepatomegaly measuring 17.9 cm. The liver, gallbl adder, pancreas, spleen, bilateral kidneys and bilateral adrenal glands are within normal limits. Two foci of 1 mm and 3 mm calcification present within the lower pole of the LEFT kidney compatible with nonobstructing calculi. No hydronephrosis or hydroureter. The vessels are patent and normal in caliber. No abdominopelvic lymph nodes are noted to be pathologically enlarged by CT measurement criteria. The bowel is within normal limits without abnormal bowel wall thickness or bowel dilation. No free air. No free abdominopelvic fluid collections. The appendix is within normal limits. The osseous structures are within normal limits. Mild disk bulge of L5-S1. Small RIGHT fat-containing inguinal hernia. IMPRESSION: 1. No specific acute intra-abdominal findings are noted to suggest etiology of the pat ient's abdominal pain. 2. Diffuse hepatic steatosis and mild hepatomegaly. 3. Two foci of 1 mm and 3 mm calcification present within the lower pole of the LEFT kidney compati ble with nonobstructing calculi. Electronically signed by: Emili Gunn MD 09/02/2021 10:37 PM CDT Due to temporary technical issues with the PACS/Fluency reporting system, reports are being signed by the in house radiologist without review as a courtesy to ensure prompt reporting. The interpreting r adiologist is fully responsible for the content of the report.
== END 2021-09-03 00:07 | disposition home or self-care (01) ==
LOC: ER 20:19
DX: R51.9 Headache, unspecified (principal); R10.819 Abdominal tenderness, unspecified site; E11.65 Type 2 diabetes mellitus with hyperglycemia; Z88.8 Allergy status to other drugs, medicaments and biological substances; I10 Essential (primary) hypertension; G43.909 Migraine, unspecified, not intractable, without status migrainosus
CPT/HCPCS: 85025; 36415; 81003; 83690; 80053; 70450; 74177; 96375; 96374; 99284; Q9967; J2765; J1200; J7040

== ENCOUNTER 2021-09-21 07:25 | Emergency (ER) | payer OTHER ==
[2021-09-21] MEDS ORDERED: NA CHLORIDE 0.9% 1,000 ML ONE (07:55)
[2021-09-21 07:59] LABS: Hematocrit 42.3 % (39.6-49.0); Lymphocytes % 32.6 % (15.3-44.8); MPV 7.3 fL (7.6-11.3); RBC Red Blood Cell Count 5.07 M/uL (4.33-5.43)
--- NOTE | 2021-09-21 08:38 | RAD REPORT ---
EXAM DESCRIPTION: RAD - Chest Single View - 09/21/2021 8:25 am CLINICAL HISTORY: CHEST PAIN COMPARISON: Portable 06/08/2021 TECHNIQUE: AP portable chest image was obtained 09/21/2021 8:25 am . FINDINGS: Lungs are clear. Heart and vasculature are normal. No measurable pleural effusion and no p neumothorax. No acute bony abnormality seen. No acute aortic findings suspected. IMPRESSION: No acute cardiopulmonary process. No significant change from comparison study.
[2021-09-21 09:23] LABS: Albumin 3.2 g/dL (3.4-5.0); Bilirubin Total 0.9 mg/dL (0.2-1.0); Protein, Total 6.7 g/dL (6.4-8.2); Troponin High Sensitivity 5.6 pg/mL (<58.9)
[2021-09-21 09:24] LABS: Potassium 4.2 mmol/L (3.5-5.1)
--- NOTE | 2021-09-21 09:26 | RAD REPORT ---
EXAM DESCRIPTION: CT - CTHCSPWOC - 09/21/2021 8:40 am CLINICAL HISTORY: Head trauma, abnormal mental status, syncope COMPARISON: No comparisons TECHNIQUE: Axial 5 mm thick images of the head were obtained. Axial 2 mm thick images of the cervic al spine were obtained with sagittal and coronal reconstruction images generated and reviewed. All CT scans are performed using dose optimization technique as appropriate and may include automated exposure control or mA/KV adjustment according to patient size. FINDINGS: No intracranial hemorrhage, mass, edema or acute intracranial finding. No suspicion for ac kristine infarction. No extra-axial fluid collections. Mastoid air cells are clear. Frontal, ethmoid and s phenoid sinuses are clear. Minimal mucosal thickening along the floor the right maxillary sinus. [employer] ritchie left maxillary sinusitis changes with complete opacification. No globe or orbit abnormality seen. Cervical body height and alignment are normal. No disk space narrowing. No fracture or acute bony abn ormality. Central canal detail is inherently limited. No paraspinal mass or hematoma. IMPRESSION: Negative CT head examination for acute or significant finding. Negative CT cervical spine examination for acute or significant finding. Chronic left side maxillary sinusitis.
[2021-09-21] MEDS ORDERED: INSULIN -REGULAR HUMAN 50 UNIT/0.5 ML ML ONE (09:52)
--- NOTE | 2021-09-21 09:57 | ER ---
Nurse's Notes [facility] Name: Fransisco Juarez Age: 36 yrs Sex: Male : 1985 Arrival Date: 09/21/2021 Time: 07:30 Bed 17 Private MD: Diagnosis: Chest pain, unspecified;Hyperglycemia, unspecified;Syncope Near Presentation: 09/21 07:31 Chief complaint: Patient states: alter mental status, syncope at work, non complaint bb with diabetes medications. Coronavirus screen: Vaccine status: Patient reports being unvaccinated. Ebola Screen: Patient denies travel to an Ebola-affected area in the 21 days before illness onset. Initial Sepsis Screen: Does the patient meet any 2 criteria? No. Patient's initial sepsis screen is negative. Does the patient have a suspected source of infection? No. Patient's initial sepsis screen is negative. Risk Assessment: Do you want to hurt yourself or someone else? Patient reports no desire to harm self or others. Onset of symptoms was September 21, 2021. 07:31 Method Of Arrival: EMS: [facility] bb 07:31 Acuity: AMILCAR 3 bb Triage Assessment: 07:32 General: Appears in no apparent distress. Behavior is calm, cooperative. Pain: Denies bb pain. Historical: - Allergies: 07:32 metformin; bb - PMHx: 07:32 Diabetes - NIDDM; Hypertension; Kidney stones; Migraines; Pneumonia; Rheumatoid bb Arthritis; - Immunization history:: Adult Immunizations up to date. - Social history:: Smoking status: Patient denies any tobacco usage or history of. Screenin:33 Abuse screen: Denies threats or abuse. Denies injuries from another. Nutritional bb screening: No deficits noted. Tuberculosis screening: No symptoms or risk factors identified. Fall Risk None identified. Vital Signs: 07:31 BP 124 / 88; Pulse 69; Resp 19; Temp 98.1(O); Pulse Ox 99% on R/A; Weight 110.22 kg; bb Height 5 ft. 9 in. (175.26 cm); 07:31 Body Mass Index 35.88 (110.22 kg, 175.26 cm) bb ED Course: 07:30 Patient arrived in ED. bb 07:32 Triage completed. bb 07:32 Arm band placed on. bb 07:33 Perry Lawson MD is Attending Physician. jr11 07:33 Patient has correct armband on for positive identification. Bed in low position. bb 07:33 No provider procedures requiring assistance completed. Maintain EMS IV. Gauge \T\ site: bb 18g RAC. 07:43 Maylin Verde, RN is Primary Nurse. bb 08:27 XRAY Chest (1 view) In Process Unspecified. EDMS 08:41 Head C Spine Mpr Wo Con In Process Unspecified. EDMS 10:06 IV discontinued, intact, bleeding controlled, No redness/swelling at site. Pressure ss dressing applied. Administered Medications: 08:00 Drug: NS 0.9% 1000 ml Route: IV; Rate: 1 bolus; Site: right antecubital; [facility] 09:48 Drug: Insulin Regular Human 5 units {Co-Signature: tw2 (Chapis Arreola RN).} Route: Sub-Q; [facility] Site: left upper arm; 09:50 Follow up: Response: No adverse reaction [facility] Medication: 07:34 VIS not applicable for this client. bb Outcome: 09:56 Discharge ordered by . jr11 10:06 Discharged to home ambulatory. ss 10:06 Condition: good 10:06 Discharge instructions given to patient, Instructed on discharge instructions, follow up and referral plans. Demonstrated understanding of instructions, follow-up care. 10:06 Patient left the ED. ss Signatures: Dispatcher [employer] Maylin Williamson, Candi Fenton RN, RN RN ss Au-StagerCorinna RN RN ha Rosillo, Jose, MD MD jr11 Chapis Arreola RN tw2
--- NOTE | 2021-09-21 09:57 | EDPHYS ---
Physician Documentation [facility] Name: Fransisco Juarez Age: 36 yrs Sex: Male : 1985 Arrival Date: 09/21/2021 Time: 07:30 Bed 17 Private MD: ED Physician Perry Lawson HPI: 09/21 07:48 This 36 yrs old Male presents to ER via EMS with complaints of syncope, chest pain. jr11 07:48 The patient has experienced syncope. Onset: The symptoms/episode began/occurred just jr11 prior to arrival. Duration: This was a single episode. Context: Pt states he has stressed out at [facility], went to restroom and only remembers waking up on floor. Pt states he had chest pain >3 hrs, substernal, similar to when he had artery spasms, no CAD. Pt non compliant diabetic, has meds, but did not take them. Associated injury: Other: scalp, denies any other areas of pain outside ordinary RA pain. Associated signs and symptoms: Pertinent positives: chest pain, Pertinent negatives: abdominal pain, diaphoresis, diarrhea, headache. Current symptoms: Currently, the patient is not experiencing any symptoms. Historical: - Allergies: 07:32 metformin; bb - PMHx: 07:32 Diabetes - NIDDM; Hypertension; Kidney stones; Migraines; Pneumonia; Rheumatoid bb Arthritis; - Immunization history:: Adult Immunizations up to date. - Social history:: Smoking status: Patient denies any tobacco usage or history of. ROS: 07:48 All other systems are negative. jr11 Exam: 07:48 Constitutional: This is a well developed, well nourished patient who is awake, alert, jr11 and in no acute distress. 07:48 Eyes: Extra-ocular motions intact. Lids and lashes normal. Conjunctiva and sclera are non-icteric and not injected. Cornea within normal limits. Periorbital areas with no swelling, redness, or edema. Neck: Trachea midline, no thyromegaly or masses palpated, and no cervical lymphadenopathy. Supple, full range of motion without nuchal rigidity, or vertebral point tenderness. No Meningismus. Chest/axilla: Normal chest wall appearance and motion. Nontender with no deformity. No lesions are appreciated. Cardiovascular: Regular rate and rhythm with a normal S1 and S2. No gallops, murmurs, or rubs. Normal PMI, no JVD. No pulse deficits. Respiratory: Lungs have equal breath sounds bilaterally, clear to auscultation and percussion. No rales, rhonchi or wheezes noted. No increased work of breathing, no retractions or nasal flaring. Abdomen/GI: Soft, non-tender, with normal bowel sounds. No distension or tympany. No guarding or rebound. No evidence of tenderness throughout. Back: No spinal tenderness. No costovertebral tenderness. Full range of motion. Skin: Warm, dry with normal turgor. Normal color with no rashes, no lesions, and no evidence of cellulitis. MS/ Extremity: Pulses equal, no cyanosis. Neurovascular intact. Full, normal range of motion. Neuro: Awake and alert, GCS 15, oriented to person, place, time, and situation. No gross motor or sensory deficits. 07:48 Head/face: Noted is TTP diffuse scalp, no hematoma . 09:00 ECG was reviewed by the Attending Physician. EKG interpreted by me shows normal sinus [facility] rhythm, normal intervals, normal axis, nonspecific T wave inversion in lead III, no ST changes. EKG otherwise normal and non diagnostic Vital Signs: 07:31 BP 124 / 88; Pulse 69; Resp 19; Temp 98.1(O); Pulse Ox 99% on R/A; Weight 110.22 kg; bb Height 5 ft. 9 in. (175.26 cm); 07:31 Body Mass Index 35.88 (110.22 kg, 175.26 cm) bb MDM: 07:38 Patient medically screened. jr11 07:48 Differential Diagnosis: vasovagal episode, volume depletion, atypical chest pain. Data jr11 reviewed: vital signs, nurses notes, EMS record. ED course: 1. CP: Patient with atypical chest pain, onset greater than 3 hours, if troponin negative, heart score less than 3, no history of CAD.. ED course: 2. syncope: Patient with syncope, close head injury, will CT, and injury likely secondary to volume depletion, syncope happened in the restroom.. 09:55 ED course: Gave patient low dose insulin, pt comfortable following at home. Pt has jr11 access to meds and will f/u PCP low low risk CP. . 09/21 07:37 Order name: CBC with Diff; Complete Time: 08:25 jr11 06/09 07:37 Order name: D-Dimer; Complete Time: 08:25 09/21 07:37 Order name: NT PRO-BNP; Complete Time: 09:33 09/21 07:37 Order name: Troponin HS; Complete Time: 09:33 09/21 07:37 Order name: CMP; Complete Time: 09:33 09/21 09:54 Order name: Glucose, Ancillary Testing; Complete Time: 09:54 EDMS 09/21 07:37 Order name: XRAY Chest (1 view); Complete Time: 08:42 09/21 07:37 Order name: EKG; Complete Time: 07:38 09/21 07:37 Order name: Cardiac monitoring; Complete Time: 08:00 09/21 07:49 Order name: Head C Spine Mpr Wo Con; Complete Time: 09:33 EDMS 09/21 07:37 Order name: EKG - Nurse/Tech; Complete Time: 08:00 09/21 07:37 Order name: IV Saline Lock; Complete Time: 08:00 09/21 07:37 Order name: Labs collected and sent; Complete Time: 08:00 09/21 07:37 Order name: O2 Per Protocol; Complete Time: 08:00 09/21 07:37 Order name: O2 Sat Monitoring; Complete Time: 08:00 Administered Medications: 08:00 Drug: NS 0.9% 1000 ml Route: IV; Rate: 1 bolus; Site: right antecubital; [facility] 09:48 Drug: Insulin Regular Human 5 units {Co-Signature: tw2 (Chapis Arreola RN).} Route: Sub-Q; [facility] Site: left upper arm; 09:50 Follow up: Response: No adverse reaction [facility] Disposition Summary: 09/21/21 09:56 Discharge Ordered Location: Home [facility] Condition: Stable [facility] Diagnosis - Chest pain, unspecified jr11 - Hyperglycemia, unspecified jr11 - Syncope Near jr11 Discharge Instructions: - Discharge Summary Sheet jr11 - Nonspecific Chest Pain, Adult jr11 - Hyperglycemia jr11 - Syncope jr11 Forms: - Medication Reconciliation Form jr11 - Thank You Letter jr11 - Antibiotic Education jr11 - Prescription Opioid Use jr11 Signatures: Dispatcher [employer] Maylin Williamson RN RN bb Au-EvelynrCorinna RN RN Perry Severino MD MD jr11 Chapis Arreola RN tw2 Corrections: (The following items were deleted from the chart) 07:49 07:38 Head Brain Wo Cont+CT.RAD.BRZ ordered. EDMS EDMS 07:49 07:38 C Spine Wo Con+CT.RAD.BRZ ordered. EDMS EDMS
[2021-09-21 10:17] VITALS: BP 124/88; TEMP 98.1; O2SAT 99
--- NOTE | 2021-09-22 06:19 | EKG ---
Test Date: 2021-09-21 Test Time: 07:55:12 Sack Filler: DANYA MEASUREMENT RESULTS: Intervals: Rate: 67 IA: 154 QRSD: 90 QT: 406 QTc: 429 [place]: P: 40 IA: 154 QRS: 57 T: 30 INTERPRETIVE STATEMENTS: Normal sinus rhythm Nonspecific T wave abnormality Abnormal ECG Compared to ECG 06/08/2021 19:49:59 T-wave abnormality now present ST (T wave) deviation no longer present Electronically Signed On 09-22-21 06:16:21 CDT by Geoffrey Valladares
== END 2021-09-21 10:06 | disposition home or self-care (01) ==
LOC: ER 07:25
DX: E11.65 Type 2 diabetes mellitus with hyperglycemia (principal); R07.9 Chest pain, unspecified; I10 Essential (primary) hypertension; Z88.8 Allergy status to other drugs, medicaments and biological substances
CPT/HCPCS: 93005; 85025; 36415; 82947; 85379; 84484; 80053; 83880; 70450; 72125; 71045; 96372; 99283; J1815; J7030

== ENCOUNTER 2022-02-24 15:50 | Emergency (ER) | payer OTHER ==
[2022-02-24] MEDS ORDERED: KETOROLAC 30 MG/ML INJ ONE (16:04)
[2022-02-24] MEDS ORDERED: MORPHINE 15 MG IR TAB PO ONE (16:04)
--- NOTE | 2022-02-24 16:42 | RAD REPORT ---
EXAM DESCRIPTION: RAD - Elbow Left 3 View - 02/24/2022 4:35 pm CLINICAL HISTORY: PAIN COMPARISON: No comparisons FINDINGS/IMPRESSION: No acute fracture. No malalignment. No significant focal degenerative changes.
--- NOTE | 2022-02-24 16:50 | RAD REPORT ---
EXAM DESCRIPTION: RAD - Knee Left 3 View - 02/24/2022 4:35 pm CLINICAL HISTORY: PAIN COMPARISON: No comparisons FINDINGS/IMPRESSION: Tibial plateau fracture involving primarily the lateral tibial plateau and inte rcondylar tubercle. There is some depression of the lateral tibial plateau. Lipohemarthrosis is prese nt. Proximal fibula, femur, and patella are intact. .
--- NOTE | 2022-02-24 18:02 | RAD REPORT ---
EXAM DESCRIPTION: CT - Knee Left Wo Con - 02/24/2022 5:43 pm CLINICAL HISTORY: TIBIAL PLATEAU FRACTURE COMPARISON: No comparisons FINDINGS: Split type lateral tibial plateau fracture with extension to the intercondylar eminence an d posterior aspect of the medial tibial plateau. . There is downward angulation of the lateral tibial plateau with approximately 4 millimeters of depression and comminution. The distal femur is intact. The fibula is intact. Lipohemarthrosis is present. No dislocation . IMPRESSION: Tibial plateau fracture, split type laterally, but extension to the posterior aspect of the medial tibial plateau. Depression and comminution of the lateral tibial plateau articular surface is present.
--- NOTE | 2022-02-24 18:26 | EDPHYS ---
Physician Documentation [facility] Name: Fransisco Juarez Age: 37 yrs Sex: Male : 1985 Arrival Date: 02/24/2022 Time: 15:53 Bed 15 Private MD: ED Physician Veronica James HPI: 02/24 16:00 This 37 yrs old Male presents to ER via Unassigned with complaints of fall. sd2 16:00 37 yo M presents via EMS with CC of injuries s/p fall out of [employer] truck which was sd2 about 4 feet in height. Landed on left elbow and impacted left knee shortly thereafter. Rates pain at 9/10. Elbow placed in temporary splint by EMS. Denies head injury, LOC, use of blood thinners, neck or back pain. . Historical: - Allergies: 16:19 metformin; kr3 - PMHx: 16:19 Diabetes - NIDDM; Hypertension; Kidney stones; Migraines; Pneumonia; Rheumatoid kr3 Arthritis; - Immunization history:: Adult Immunizations not up to date. - Social history:: Smoking status: Patient denies any tobacco usage or history of. ROS: 16:00 Constitutional: Negative for fever, chills, and weight loss, Eyes: Negative for injury, sd2 pain, redness, and discharge, Cardiovascular: Negative for chest pain, palpitations, and edema, Respiratory: Negative for shortness of breath, cough, wheezing. Abdomen/GI: Negative for abdominal pain, nausea, vomiting, diarrhea. MS/Extremity: Positive for injury and negative for deformity, Skin: Negative for injury, rash, and discoloration, Neuro: Negative for headache, numbness and tingling. Exam: 16:00 Constitutional: This is a well developed, well nourished patient who is awake, alert, sd2 and in no acute distress. Head/Face: Normocephalic, atraumatic. Eyes: EOMI, normal conjunctiva bilaterally Chest/axilla: Normal chest wall appearance and motion. Nontender with no deformity. Cardiovascular: Regular rate and rhythm with a normal S1 and S2. No gallops, murmurs, or rubs. 2+ distal pulses. Respiratory: Lungs have equal breath sounds bilaterally, clear to auscultation and percussion. No rales, rhonchi or wheezes noted. No increased work of breathing, no retractions or nasal flaring. Abdomen/GI: Soft, non-tender, with normal bowel sounds. No guarding or rebound. No evidence of tenderness throughout. Back: No spinal tenderness. No costovertebral tenderness. Full range of motion. Skin: Warm, dry with normal turgor. Normal color with no rashes, no lesions, and no evidence of cellulitis. Abrasions with associated mild swelling noted to anterior left knee MS/ Extremity: Pulses equal, no cyanosis. Neurovascular intact. Full, normal range of motion. TTP of L knee and L elbow. 2+ distal pulses. Sensation intact. Able to move all joints distal to site of injury Psych: Awake, alert, with orientation to person, place and time. Behavior, mood, and affect are within normal limits. Vital Signs: 16:16 BP 137 / 95; Pulse 84; Resp 18; Temp 98.6; Pulse Ox 100% on R/A; Weight 112.49 kg; kr3 Height 5 ft. 9 in. (175.26 cm); Pain 10/10; 16:16 Body Mass Index 36.62 (112.49 kg, 175.26 cm) kr3 MDM: 15:58 Patient medically screened. cp 16:00 Differential diagnosis: abrasion, closed head injury, contusion, fracture, sprain, sd2 among others. Data reviewed: vital signs, nurses notes, EMS record. 17:40 Data reviewed: radiologic studies. Counseling: I had a detailed discussion with the sd2 patient and/or guardian regarding: the historical points, exam findings, and any diagnostic results supporting the discharge/admit diagnosis, radiology results, the need for outpatient follow up, to return to the emergency department if symptoms worsen or persist or if there are any questions or concerns that arise at home. Medical screen evaluation completed. EMTALA emergency medical condition absent. Physician consultation: Fransisco Gardiner MD regarding consult, Recommends CT knee to be performed in ED, knee immobilizer, NWB to affected extremity and patient to follow up outpatient with return precautions given for compartment syndrome.. 02/24 15:59 Order name: XRAY Knee LEFT 3 view; Complete Time: 16:52 sd2 02/24 15:59 Order name: XRAY Elbow LEFT 3 view; Complete Time: 16:46 sd2 02/24 16:03 Order name: XRAY Wrist LEFT 3 view; Complete Time: 16:46 sd2 02/24 17:30 Order name: Knee Left Wo Con; Complete Time: 18:24 EDMS 02/24 16:57 Order name: Knee Immobilizer; Complete Time: 19:41 sd2 02/24 16:57 Order name: Crutches; Complete Time: 19:40 sd2 Administered Medications: 16:10 Drug: morphine 15 mg Route: PO; kr3 16:23 Drug: Ketorolac 60 mg Route: IM; Site: left deltoid; kr3 Disposition Summary: 02/24/22 18:25 Discharge Ordered Location: Home sd2 Problem: new sd2 Symptoms: have improved sd2 Condition: Stable sd2 Diagnosis - Closed left tibial plateau fracture sd2 - Fall from truck sd2 - Left elbow pain sd2 Followup: sd2 - With: - When: 2 - 3 days - Reason: Recheck today's complaints, Continuance of care Discharge Instructions: - Discharge Summary Sheet sd2 - Displaced Tibial Plateau Fracture sd2 Forms: - Medication Reconciliation Form sd2 - Thank You Letter sd2 - Antibiotic Education sd2 - Prescription Opioid Use sd2 Prescriptions: - Ibuprofen 800 mg Oral Tablet - take 1 tablet by ORAL route every 8 hours As needed take with food; 30 tablet; sd2 Refills: 0, Product Selection Permitted - Tylenol-Codeine #3 300 mg-30 mg Oral - take 1 tablet by ORAL route every 6 hours As needed May increase to 2 tablets sd2 if pain not controlled; 15 tablet; Refills: 0, Product Selection Permitted Signatures: Dispatcher [employer] EDRI Tomasz Kay PA PA cp Dunlop, Stephanie, MD MD sd2 Alem Nieves RN RN kr3
--- NOTE | 2022-02-24 18:26 | ER ---
Nurse's Notes [facility] Name: Fransisco Juarez Age: 37 yrs Sex: Male : 1985 Arrival Date: 02/24/2022 Time: 15:53 Bed 15 Private MD: Diagnosis: Closed left tibial plateau fracture;Fall from truck;Left elbow pain Presentation: 02/24 16:16 Chief complaint: EMS states: patient feel from back of [employer] on arm and knee about 5 kr3 foot. the left elbow and left knee are causing him pain. Coronavirus screen: Vaccine status: Patient reports receiving the 2nd dose of the covid vaccine. Client denies travel out of the [place] in the last 14 days. Ebola Screen: Patient denies travel to an Ebola-affected area in the 21 days before illness onset. 16:16 Method Of Arrival: EMS kr3 16:19 Initial Sepsis Screen: Does the patient meet any 2 criteria? No. Patient's initial kr3 sepsis screen is negative. Does the patient have a suspected source of infection? No. Patient's initial sepsis screen is negative. Risk Assessment: Do you want to hurt yourself or someone else? Patient reports no desire to harm self or others. Onset of symptoms was February 24, 2022. 16:19 Acuity: AMILCAR 4 kr3 Triage Assessment: 18:00 Pain: Complains of pain in left leg. kr3 18:30 General: Appears distressed, uncomfortable. kr3 19:38 General: Behavior is calm, cooperative, appropriate for age. kr3 Historical: - Allergies: 16:19 metformin; kr3 - PMHx: 16:19 Diabetes - NIDDM; Hypertension; Kidney stones; Migraines; Pneumonia; Rheumatoid kr3 Arthritis; - Immunization history:: Adult Immunizations not up to date. - Social history:: Smoking status: Patient denies any tobacco usage or history of. Screenin:30 Fall Risk Gait- Impaired (20 pts.). kr3 16:45 Abuse screen: Denies threats or abuse. Nutritional screening: No deficits noted. kr3 Tuberculosis screening: No symptoms or risk factors identified. Assessment: 17:30 Reassessment: No changes from previously documented assessment. Patient and/or family kr3 updated on plan of care and expected duration. Pain level reassessed. Patient is alert, oriented x 3, equal unlabored respirations, skin warm/dry/pink. Vital Signs: 16:16 BP 137 / 95; Pulse 84; Resp 18; Temp 98.6; Pulse Ox 100% on R/A; Weight 112.49 kg; kr3 Height 5 ft. 9 in. (175.26 cm); Pain 10/10; 16:16 Body Mass Index 36.62 (112.49 kg, 175.26 cm) kr3 ED Course: 15:53 Patient arrived in ED. eb 15:58 Tomasz Kay PA is PHCP. cp 15:58 Veronica James MD is Attending Physician. cp 16:19 Triage completed. kr3 16:19 Arm band placed on right wrist. Patient placed in an exam room, on a stretcher. kr3 16:23 Alem Nieves, RN is Primary Nurse. kr3 16:30 Bed in low position. Call light in reach. Side rails up X 1. kr3 16:37 XRAY Knee LEFT 3 view In Process Unspecified. EDMS 16:37 XRAY Elbow LEFT 3 view In Process Unspecified. EDMS 16:37 XRAY Wrist LEFT 3 view In Process Unspecified. EDMS 17:45 Knee Left Wo Con In Process Unspecified. EDMS 18:00 No provider procedures requiring assistance completed. Patient did not have IV access kr3 during this emergency room visit. 18:25 Fransisco Gardiner MD is Referral Physician. sd2 Administered Medications: 16:10 Drug: morphine 15 mg Route: PO; kr3 16:23 Drug: Ketorolac 60 mg Route: IM; Site: left deltoid; kr3 Medication: 16:30 VIS not applicable for this client. kr3 Outcome: 18:25 Discharge ordered by . sd2 18:51 Patient left the ED. kr3 19:39 Discharged to home via wheelchair, with crutches. kr3 19:39 Condition: stable 19:39 Discharge instructions given to patient, Instructed on discharge instructions, follow up and referral plans. medication usage, Demonstrated understanding of instructions, follow-up care, medications, Prescriptions given X 2. Signatures: Dispatcher [employer] EDMS Tomasz Kay PA PA cp Botello, Elizabeth Veronica James MD MD sd2 Alem Nieves, RAGHAVENDRA RN kr3 Corrections: (The following items were deleted from the chart) :38 19:37 Abuse screen: Denies threats or abuse. kr3 kr3 :38 19:37 Nutritional screening: No deficits noted. kr3 kr3 38 19:37 Tuberculosis screening: No symptoms or risk factors identified. kr3 kr3 :38 18:30 Fall Risk Gait- Impaired (20 pts.). kr3 kr3
[2022-02-24 19:17] VITALS: BP 137/95; TEMP 98.6; O2SAT 100
== END 2022-02-24 18:51 | disposition home or self-care (01) ==
LOC: ER 15:50
DX: S82.142A Displaced bicondylar fracture of left tibia, initial encounter for closed fracture (principal); M25.522 Pain in left elbow; W17.89XA Other fall from one level to another, initial encounter; I10 Essential (primary) hypertension
CPT/HCPCS: 73700; 96372; 99284

== ENCOUNTER 2022-09-26 21:43 | Emergency (ER) | payer OTHER ==
[2022-09-26] MEDS ORDERED: LIDOCAINE 1% MPF 5 ML VIAL ONE (22:47)
[2022-09-26] MEDS ORDERED: NA CHLORIDE 0.9% 1,000 ML ONE ×2 (22:47→23:52)
[2022-09-26] MEDS ORDERED: MORPHINE 4 MG/ML SYR ONE (22:47)
[2022-09-26] MEDS ORDERED: BUPIVACAINE 0.5% PF 10 ML VIAL ONE (22:47)
[2022-09-26 22:51] LABS: Absolute Lymphocytes (CBC) 2.2 K/uL (0.7-4.9); Hematocrit 40.8 % (39.6-49.0); Lymphocytes % 26.3 % (15.3-44.8); MCV 83.5 fL (80-100); MPV 7.8 fL (7.6-11.3); RBC Red Blood Cell Count 4.89 M/uL (4.33-5.43)
[2022-09-27] MEDS ORDERED: INSULIN -REGULAR HUMAN 50 UNIT/0.5 ML ML ONE (00:35)
[2022-09-27] MEDS ORDERED: VANCOMYCIN 1 GM/VIAL ONE (00:35)
[2022-09-27] MEDS ORDERED: NA CHLORIDE 0.9% 250 ML ONE (00:35)
[2022-09-27] MEDS ORDERED: NA CHLORIDE 0.9% 2,000 ML ONE (00:35)
[2022-09-27] MEDS ORDERED: NA CHLORIDE 0.9% 100 ML ONE (00:36)
[2022-09-27] MEDS ORDERED: PIPERACIL/TAZO 3.375 GM VIAL IV ONE (00:36)
--- NOTE | 2022-09-27 01:09 | ER ---
Nurse's Notes [facility] Name: Fransisco Juarez Age: 37 yrs Sex: Male : 1985 Arrival Date: 09/26/2022 Time: 21:43 Bed 5 Private MD: Diagnosis: Cellulitis of left lower limb;Severe sepsis with septic shock;Diabetes mellitus due to underlying condition with hyperglycemia Presentation: 09/26 22:00 Chief complaint: Patient states: "I've had my left great toe nail removed 3 times. I mb9 guess I didn't get all my nail when I clipped it. It's red, swollen, and more tender than a steak. It hurts to walk now or even have my foot on the ground". Coronavirus screen: Vaccine status: Patient reports receiving the 2nd dose of the covid vaccine. Ebola Screen: No symptoms or risks identified at this time. Initial Sepsis Screen: Does the patient meet any 2 criteria? No. Patient's initial sepsis screen is negative. Does the patient have a suspected source of infection? No. Patient's initial sepsis screen is negative. Risk Assessment: Do you want to hurt yourself or someone else? Patient reports no desire to harm self or others. Onset of symptoms was September 26, 2022. 22:00 Method Of Arrival: Ambulatory mb9 22:00 Acuity: AMILCAR 3 mb9 Historical: - Allergies: 22:03 metformin; mb9 - PMHx: 22:03 Rheumatoid Arthritis; Pneumonia; Migraines; Kidney stones; Hypertension; Diabetes - mb9 NIDDM; - PSHx: 22:04 None; mb9 - Immunization history:: Adult Immunizations up to date. - Social history:: Smoking status: Patient denies any tobacco usage or history of. Screenin:49 Abuse screen: Denies threats or abuse. Denies injuries from another. Nutritional mb9 screening: No deficits noted. Tuberculosis screening: No symptoms or risk factors identified. 09/27 00:49 [facility] ED Fall Risk Assessment (Adult) History of falling in the last 3 months, vc1 including since admission No falls in past 3 months (0 pts) Confusion or Disorientation No (0 pts) Intoxicated or Sedated No (0 pts) Impaired Gait No (0 pts) Mobility Assist Device Used No (0 pt) Altered Elimination No (0 pt) Score/Fall Risk Level 0 - 2 = Low Risk Oriented to surroundings, Maintained a safe environment, Educated pt \\T\\ family on fall prevention, incl call for assistance when getting out of bed. Assessment: 09/26 22:48 General: Appears in no apparent distress. uncomfortable, obese, unkempt, Behavior is mb9 calm, cooperative. Pain: Complains of pain in Left greater toe Pain currently is 8 out of 10 on a pain scale. Neuro: Level of Consciousness is awake, alert, obeys commands, Oriented to person, place, time, situation. Derm: Skin is healthy with good turgor, Abscess located on Left greater toe is dime sized. 23:35 Reassessment: Patient and/or family updated on plan of care and expected duration. Pain aa9 level reassessed. Patient is alert, oriented x 3, equal unlabored respirations, skin warm/dry/pink. notified provider of FS BS 437, Lac 4.7 Patient states feeling better. 09/27 00:30 Reassessment: No changes from previously documented assessment. Patient and/or family vc1 updated on plan of care and expected duration. Pain level reassessed. Patient is alert, oriented x 3, equal unlabored respirations, skin warm/dry/pink. 01:00 Reassessment: No changes from previously documented assessment. Patient and/or family vc1 updated on plan of care and expected duration. Pain level reassessed. Patient is alert, oriented x 3, equal unlabored respirations, skin warm/dry/pink. 02:00 Reassessment: Patient and/or family updated on plan of care and expected duration. Pain vc1 level reassessed. Pt sleeping, no complaints at this time. 02:21 Reassessment: report provided to lesley veras at receiving facility, pt signed consent aa9 for transfer. Vital Signs: 09/26 22:00 BP 171 / 114; Pulse 97; Resp 18; Temp 98.3; Pulse Ox 100% ; Weight 113.4 kg; Height 5 mb9 ft. 9 in. ; 22:48 BP 152 / 96; Pulse 94; Resp 17; Pulse Ox 99% on R/A; Pain 8/10; mb9 23:30 BP 132 / 85; Pulse 80; Resp 17; Pulse Ox 95% ; vc1 09/27 00:30 BP 157 / 94; Pulse 79; Resp 17; Pulse Ox 99% ; vc1 09/26 22:00 Body Mass Index 36.92 (113.40 kg, 175.26 cm) mb9 22:48 Pain Scale: Adult mb9 ED Course: 09/26 21:46 Patient arrived in ED. es 21:50 Tomasz Kay PA is PHCP. cp 21:51 Fran Hernandez MD is Attending Physician. cp 22:00 Arm band placed on. mb9 22:00 Patient has correct armband on for positive identification. Bed in low position. Call vc1 light in reach. Pulse ox on. NIBP on. 22:03 Triage completed. mb9 22:35 Inserted saline lock: 20 gauge in right antecubital area, using aseptic technique. aa9 Blood collected. 22:37 CBC with Diff Sent. aa9 22:37 Lactate w/ 2H reflex if indic. Sent. aa9 22:38 BMP Sent. aa9 23:04 XRAY Foot LEFT 3 View In Process Unspecified. EDMS 23:31 Shaylee Huerta, RAGHAVENDRA is Primary Nurse. aa9 09/27 00:00 Assist provider with I \\T\\ D: of an abscess on left greater toe Set up I\\T\\D tray. aa 9 Performed by Tomasz STEWART Patient tolerated well. 00:03 Blood Culture Adult (2) Sent. aa9 00:15 Initial contacted to the [facility] transfer center. Spoke with Priyanka Amos RN. ah1 00:45 Inserted saline lock: 22 gauge in left antecubital area, using aseptic technique. vc1 00:50 Faxed over face sheet, physician and nurse chart notes, and lab results to [phone].[email or web address] 01:50 Priyanka Amos RN called back for doctor to physician consultation with Tomasz Kay. ah1 01:53 Physician and hospital approval to the [facility], by Corby Doran and 1 Priyanka Amos RN. 02:05 Contacted [facility]. ah1 02:13 Faxed over face sheet and MOT. ah1 02:27 [facility] arrived. ah1 02:35 Patient transferred, IV remains in place. vc1 Administered Medications: 09/26 22:47 Drug: morphine IVP or IV 4 mg Route: IVP; Infused Over: 4 mins; Site: right antecubital;mb9 09/27 02:02 Follow up: Response: No adverse reaction; Marked relief of symptoms; Pain is decreased vc1 09/26 22:48 Drug: NS 0.9% IV 1000 ml Route: IV; Rate: 1 bolus; Site: right antecubital; mb9 23:48 Follow up: IV Status: Completed infusion; IV Intake: 1000ml vc1 23:31 Drug: Bupivacaine Infiltration (0.5 %) 10 ml {Note: given by Page PA.} Volume: 10 ml; aa9 Route: Infiltration; 23:31 Drug: Lidocaine Infiltration (1 %) 10 ml {Note: given by Page PA.} Volume: 5 ml; Route: aa9 Infiltration; 09/27 00:03 Drug: NS 0.9% IV 1000 ml Route: IV; Rate: 1 bolus; Site: right antecubital; aa9 01:00 Follow up: IV Status: Completed infusion; IV Intake: 1000ml vc1 00:47 Drug: Piperacillin-Tazobactam IVPB 3.375 grams Route: IVPB; Infused Over: 60 mins; vc1 Site: left antecubital; 01:45 Follow up: IV Status: Completed infusion; IV Intake: 100ml vc1 00:47 Drug: vancoMYCIN IVPB 1 grams Route: IVPB; Infused Over: 2 hrs; Site: right antecubital;vc1 02:23 Follow up: IV Status: Completed infusion; IV Intake: 250ml vc1 00:47 Drug: Insulin Regular Human IVP 10 units {Co-Signature: aa9 (Shaylee Huerta RN).} Route: vc1 IVP; Site: right antecubital; 02:01 Follow up: Response: No adverse reaction vc1 00:48 Drug: NS 0.9% IV (30 ml/kg) 30 ml/kg Route: IV; Rate: bolus; Site: right antecubital; vc1 02:22 Follow up: IV Status: Completed infusion; IV Intake: 1000ml vc1 Medication: 09/26 22:04 VIS not applicable for this client. mb9 Intake: 23:48 IV: 1000ml; Total: 1000ml. vc1 09/27 01:00 IV: 1000ml; Total: 2000ml. vc1 01:45 IV: 100ml; Total: 2100ml. vc1 02:22 IV: 1000ml; Total: 3100ml. vc1 02:23 IV: 250ml; Total: 3350ml. vc1 Outcome: 01:08 ER care complete, transfer ordered by . leeanna 02:35 Transferred by ground EMS to [facility] Transfer form completed. vc1 X-rays sent w/ patient. 02:35 Condition: good 02:35 Instructed on the need for transfer. 02:38 Patient left the ED. vc1 Signatures: Dispatcher [employer] EDNH Yue Blackman Corey, PA PA cp [place], Vanessa RN RN 1 Shaylee Huerta, RN RN aa9 Adela Wyatt RN RN 9 Margie Rico [facility] Shaylee Huerta RN aa9 Corrections: (The following items were deleted from the chart) 06 23:38 22:37 PTT, ACTIVATED+COAG.LAB.BRZ drawn and sent. aa9 EDMS 09/27 00:14 00:03 C-REACTIVE PROTEIN+C.LAB.BRZ drawn and sent. 9 EDMS 02:27 02:03 Faxed over face sheet and MOT [place] [id number]
--- NOTE | 2022-09-27 01:09 | EDPHYS ---
Physician Documentation [facility] Name: Fransisco Juarez Age: 37 yrs Sex: Male : 1985 Arrival Date: 09/26/2022 Time: 21:43 Bed 5 Private MD: ED Physician Fran Hernandez HPI: 09/26 22:30 This 37 yrs old Male presents to ER via Ambulatory with complaints of INFECTED TOE. cp 22:30 The patient presents with pain, that is acute, swelling, tenderness, erythema. The cp complaints affect the left great toe. 22:30 Context: attempted to remove medial side of nail. Onset: The symptoms/episode cp began/occurred 1 week(s) ago. 22:30 Associated signs and symptoms: Pertinent positives: swelling, warmth, Pertinent cp negatives fever. 22:30 Patient reports he tried to remove part of the nail several days ago. cp Historical: - Allergies: 22:03 metformin; mb9 - PMHx: 22:03 Rheumatoid Arthritis; Pneumonia; Migraines; Kidney stones; Hypertension; Diabetes - mb9 NIDDM; - PSHx: 22:04 None; mb9 - Immunization history:: Adult Immunizations up to date. - Social history:: Smoking status: Patient denies any tobacco usage or history of. ROS: 22:35 Constitutional: Negative for fever, poor PO intake. cp 22:35 Cardiovascular: Negative for chest pain. cp 22:35 Respiratory: Negative for cough, shortness of breath, wheezing. 22:35 Abdomen/GI: Negative for abdominal pain, nausea, vomiting, and diarrhea. 22:35 MS/extremity: Positive for erythema, pain, swelling, tenderness, of the left great toe, Negative for injury or acute deformity. 22:35 Neuro: Negative for altered mental status, dizziness, headache, weakness. cp 22:35 All other systems are negative. Exam: 22:40 Constitutional: The patient appears in no acute distress, alert, awake, non-toxic, well cp developed, well nourished. 22:40 Head/Face: Normocephalic, atraumatic. cp 22:40 Eyes: Periorbital structures: appear normal, Conjunctiva: normal, no exudate, no injection, Sclera: no appreciated abnormality, Lids and lashes: appear normal, bilaterally. 22:40 ENT: External ear(s): are unremarkable, Nose: is normal, Mouth: Lips: moist, Oral mucosa: pink and intact, moist, Posterior pharynx: is normal, airway is patent, no erythema, no exudate. 22:40 Chest/axilla: Inspection: normal. 22:40 Cardiovascular: Rate: actual rate is 97 bpm, Rhythm: regular. 22:40 Respiratory: the patient does not display signs of respiratory distress, Respirations: normal, no use of accessory muscles, no retractions, labored breathing, is not present, Breath sounds: are clear throughout, no decreased breath sounds, no stridor, no wheezing. 22:40 Abdomen/GI: Inspection: abdomen appears normal, Palpation: abdomen is soft and non-tender, in all quadrants. 22:40 Musculoskeletal/extremity: Extremities: grossly normal except: noted in the left great toe: erythema, pain, swelling, tenderness, marked pain to palpation along medial side of nail with abscess noted, Perfusion: the extremity is normally perfused throughout. 22:40 Neuro: Orientation: to person, place \T\ time. Mentation: is normal. 23:33 ECG was reviewed by the Attending Physician. Vital Signs: 22:00 BP 171 / 114; Pulse 97; Resp 18; Temp 98.3; Pulse Ox 100% ; Weight 113.4 kg; Height 5 mb9 ft. 9 in. ; 22:48 BP 152 / 96; Pulse 94; Resp 17; Pulse Ox 99% on R/A; Pain 8/10; mb9 23:30 BP 132 / 85; Pulse 80; Resp 17; Pulse Ox 95% ; vc1 09/27 00:30 BP 157 / 94; Pulse 79; Resp 17; Pulse Ox 99% ; vc1 09/26 22:00 Body Mass Index 36.92 (113.40 kg, 175.26 cm) mb9 22:48 Pain Scale: Adult mb9 MDM: 09/26 22:06 Patient medically screened. 09/27 01:55 Data reviewed: vital signs, nurses notes, lab test result(s), EKG, radiologic studies, cp plain films. ED course: spoke with DR Watters with [facility], will accept patient as transfer for continued care after discussion. 09/26 22:24 Order name: CBC with Diff; Complete Time: 23:24 cp 09/26 23:24 Interpretation: Normal except: BASO% 1.6. cp 09/26 22:24 Order name: Lactate w/ 2H reflex if indic.; Complete Time: 23:33 cp 09/26 23:40 Interpretation: Reviewed. 09/26 22:24 Order name: BMP; Complete Time: 01:29 cp 09/27 01:29 Interpretation: Normal except: NA 133; GLUC 411. cp 09/26 23:35 Order name: Glucose, Ancillary Testing; Complete Time: 23:36 EDMS 09/26 23:36 Interpretation: Abnormal: GLUC,ANCIL 437. cp 09/26 23:38 Order name: Blood Culture Adult (2) cp 09/27 00:14 Order name: C-Reactive Protein; Complete Time: 01:29 EDMS 09/27 01:29 Interpretation: Abnormal: C-REACTIVE PROT 7.88. cp 09/27 02:16 Order name: Glucose, Ancillary Testing EDME 09/26 22:24 Order name: XRAY Foot LEFT 3 View 09/26 22:24 Order name: EKG; Complete Time: 22:24 09/26 22:24 Order name: Accucheck; Complete Time: 23:28 cp 09/26 22:24 Order name: Cardiac monitoring; Complete Time: 22:48 cp 09/26 22:24 Order name: EKG - Nurse/Tech; Complete Time: 23:28 cp 09/26 22:24 Order name: IV Saline Lock - Large Bore; Complete Time: 22:37 cp 09/26 22:24 Order name: Labs collected and sent; Complete Time: 22:37 09/26 22:24 Order name: O2 Per Protocol; Complete Time: 22:38 cp 09/26 22:24 Order name: O2 Sat Monitoring; Complete Time: 22:37 cp 09/26 22:24 Order name: Vital Signs; Complete Time: 22:48 cp 09/26 22:24 Order name: I\T\D Setup; Complete Time: 22:47 cp EC/14 23:33 Rate is 84 beats/min. Rhythm is regular. [place] interval is normal. QRS interval is normal. cp QT interval is normal. T waves are Inverted in leads III, aVR. Interpreted by me. Reviewed by me. Administered Medications: 22:47 Drug: morphine IVP or IV 4 mg Route: IVP; Infused Over: 4 mins; Site: right antecubital;mb9 09/27 02:02 Follow up: Response: No adverse reaction; Marked relief of symptoms; Pain is decreased vc1 09/26 22:48 Drug: NS 0.9% IV 1000 ml Route: IV; Rate: 1 bolus; Site: right antecubital; mb9 23:48 Follow up: IV Status: Completed infusion; IV Intake: 1000ml vc1 23:31 Drug: Bupivacaine Infiltration (0.5 %) 10 ml {Note: given by Page PA.} Volume: 10 ml; aa9 Route: Infiltration; 23:31 Drug: Lidocaine Infiltration (1 %) 10 ml {Note: given by Page PA.} Volume: 5 ml; Route: aa9 Infiltration; 09/27 00:03 Drug: NS 0.9% IV 1000 ml Route: IV; Rate: 1 bolus; Site: right antecubital; aa9 01:00 Follow up: IV Status: Completed infusion; IV Intake: 1000ml vc1 00:47 Drug: Piperacillin-Tazobactam IVPB 3.375 grams Route: IVPB; Infused Over: 60 mins; vc1 Site: left antecubital; 01:45 Follow up: IV Status: Completed infusion; IV Intake: 100ml vc1 00:47 Drug: vancoMYCIN IVPB 1 grams Route: IVPB; Infused Over: 2 hrs; Site: right antecubital;vc1 02:23 Follow up: IV Status: Completed infusion; IV Intake: 250ml vc1 00:47 Drug: Insulin Regular Human IVP 10 units {Co-Signature: aaSuyapa (Shaylee Huerta RN).} Route: vc1 IVP; Site: right antecubital; 02:01 Follow up: Response: No adverse reaction vc1 00:48 Drug: NS 0.9% IV (30 ml/kg) 30 ml/kg Route: IV; Rate: bolus; Site: right antecubital; vc1 02:22 Follow up: IV Status: Completed infusion; IV Intake: 1000ml vc1 Disposition: 05:59 Co-signature as Attending Physician, Fran Hernandez MD I reviewed the patient's care rt provided by Advanced Practice Provider \T\ agree w/ the diagnosis \T\ care plan. I personally saw the pt \T\ performed a substantive portion of the visit, incldng all aspects of the (History/Exam/Medical Decision Making). PA/HEAD SULFIDE OPERATOR's history reviewed, patient interviewed, and examined. My personal exam of patient reveals: Erythema without crepitus noted to the left great toe, no pedal edema I agree with assessment and care plan and confirm the diagnosis (es) above. Disposition Summary: 09/27/22 01:08 Transfer Ordered Transfer Location: [facility] cp Reason: Private Physician at Transferring Hospital cp Condition: Stable cp Problem: new cp Symptoms: have improved cp Accepting Physician: DR Rowe(09/27/22 02:38) vc1 Diagnosis - Cellulitis of left lower limb cp - Severe sepsis with septic shock cp - Diabetes mellitus due to underlying condition with hyperglycemia cp Forms: - Medication Reconciliation Form cp - SBAR form cp Signatures: Dispatcher [employer] EDMS Tomasz Kay PA PA cp Calcote, Vanessa, RN RN vc1 Shaylee Huerta RN RN aa9 Adela Wyatt RN RN mb9 Fran Hernandez MD MD rt Shaylee Huerta RN aa9 Corrections: (The following items were deleted from the chart) 09/26 23:38 22:24 PTT, ACTIVATED+COAG.LAB.BRZ ordered. EDMS EDMS 09/27 00:14 06 23:38 C-REACTIVE PROTEIN+C.LAB.BRZ ordered. EDMS EDMS 09/27 01:34 01:08 Doctor cp cp 01:55 01:34 Doctor cp cp 02:38 01:55 DR Rowe cp vc1 09/28 02:00 09/26 22:30 Patient reports he tried to remove part of the nail. cp cp
[2022-09-27 01:21] LABS: C-Reactive Protein 7.88 mg/L (<3.00); Potassium 4.4 mEq/L (3.5-5.1)
[2022-09-27 03:38] VITALS: TEMP 98.3
[2022-09-27 03:43] VITALS: BP 157/94; O2SAT 99
--- NOTE | 2022-09-27 13:56 | EKG ---
Test Date: 2022-09-26 Test Time: 23:25:33 Sensor Technician: STACI MEASUREMENT RESULTS: Intervals: Rate: 84 AK: 142 QRSD: 80 QT: 370 QTc: 437 [place]: P: 34 AK: 142 QRS: 50 T: 32 INTERPRETIVE STATEMENTS: Normal sinus rhythm Normal ECG Compared to ECG 09/21/2021 07:55:12 T-wave abnormality no longer present Electronically Signed On 09-27-22 13:55:02 CDT by Bob Dyson
--- NOTE | 2022-09-27 15:26 | RAD REPORT ---
EXAM DESCRIPTION: RAD - Foot Left 3 View - 09/26/2022 11:02 pm CLINICAL HISTORY: The patient is 37 years old and is Male; great toe swelling TECHNIQUE: Frontal, lateral and oblique views of the left foot. COMPARISON: No relevant prior studies available. FINDINGS: BONES/JOINTS: The bones are osteopenic. There is no acute fracture. No dislocation. SOFT TISSUES: Soft tissue swelling of the first digit is present. No radiopaque foreign body. IMPRESSION: Soft tissue swelling of the first digit is present. No underlying acute bony abnormali ty. Electronically signed by: Libby Banks MD 09/27/2022 12:24 AM CDT Due to temporary technical issues with the PACS/Fluency reporting system, reports are being signed by the in house radiologists without review as a courtesy to insure prompt reporting. The interpreting radiologist is fully responsible for the content of the report.
== END 2022-09-27 02:38 ==
LOC: ER 21:43
DX: L03.116 Cellulitis of left lower limb (principal); A41.9 Sepsis, unspecified organism; R65.21 Severe sepsis with septic shock; E08.65 Diabetes mellitus due to underlying condition with hyperglycemia; I10 Essential (primary) hypertension; Z88.8 Allergy status to other drugs, medicaments and biological substances
CPT/HCPCS: 93005; 87040 ×2; 85025; 80048; 36415; 82947 ×2; 83605; 86140; 73630; 99285; J1815; J2001; J2543; J7050; J7030 ×3

== ENCOUNTER 2023-02-26 19:02 | Emergency (ER) | payer OTHER ==
[2023-02-26 19:28] LABS: Absolute Lymphocytes (CBC) 1.2 K/uL (0.7-4.9); Hematocrit 39.8 % (39.6-49.0); Lymphocytes % 17.5 % (15.3-44.8); MCV 82.8 fL (80-100); MPV 7.6 fL (7.6-11.3); Platelets 186 thou/uL (152-406); RBC Red Blood Cell Count 4.81 M/uL (4.33-5.43)
[2023-02-26 19:37] LABS: SARS-CoV-2 Antigen Rapid Res Negative (Negative)
[2023-02-26] MEDS ORDERED: NA CHLORIDE 0.9% 1,000 ML ONE (19:38)
[2023-02-26 20:07] LABS: Albumin 3.1 g/dL (3.4-5.0); Bilirubin Direct 0.1 mg/dL (0-0.2); Bilirubin Indirect, Calculated 0.9 mg/dL (0.2-0.8); Protein, Total 6.7 g/dL (6.4-8.2)
[2023-02-26 20:08] LABS: Magnesium 1.7 mg/dL (1.6-2.4); Potassium 3.7 mEq/L (3.5-5.1)
--- NOTE | 2023-02-26 20:10 | RAD REPORT ---
EXAM DESCRIPTION: RADChest Single View02/26/2023 7:59 pm CLINICAL HISTORY: COUGH COMPARISON: Chest Single View dated 09/21/2021; Chest Single View dated 06/08/2021; Chest Single View d ated 03/05/2021; Chest Single View dated 10/17/2020 TECHNIQUE: Portable AP view of the chest. FINDINGS: The lungs are clear. No pneumothorax or effusion. The cardiomediastinal contours are unrem arkable. IMPRESSION: No acute cardiopulmonary process.
[2023-02-26] MEDS ORDERED: OSELTAMIVIR 75 MG CAP PO ONE (21:52)
--- NOTE | 2023-02-26 22:07 | EDPHYS ---
Physician Documentation [facility] Name: Fransisco Juarez Age: 38 yrs Sex: Male : 1985 Arrival Date: 02/26/2023 Time: 19:02 Bed 7 Private MD: ED Physician Perry Lawson HPI: 02/26 19:15 This 38 yrs old Male presents to ER via EMS with complaints of Cough. cp 19:15 The patient or guardian reports cough, flu symptoms, body aches, fever. Associated cp signs and symptoms: Pertinent negatives: chest pain, diarrhea, vomiting, abdominal pain. 19:15 Severity of symptoms: in the emergency department the symptoms are unchanged despite cp EMS interventions. Historical: - Allergies: 19:14 metformin; jw7 - Home Meds: 19:16 Metoprolol Tartrate Oral [Active]; acetaminophen 500 mg Oral tablet [Active]; aspirin jw7 81 mg Oral capsule [Active]; atorvastatin oral [Active]; B12 Active oral [Active]; empagliflozin 25 mg oral tablet [Active]; fenofibrate oral [Active]; Lisinopril Oral [Active]; - PMHx: 19:14 Diabetes - NIDDM; Hypertension; Kidney stones; Migraines; Pneumonia; Rheumatoid jw7 Arthritis; - PSHx: 19:14 Abd Abscess Removed; Stent Kidney (Stones); Knee Sugery; jw7 - Immunization history:: Adult Immunizations up to date, Client reports receiving the 2nd dose of the Covid vaccine, Flu vaccine is not up to date. It has been more than one year since last vaccine. - Social history:: Smoking status: Patient denies any tobacco usage or history of. Patient uses alcohol, occasionally. Patient/guardian denies using street drugs, IV drugs. ROS: 19:20 Constitutional: Positive for body aches, fever, poor PO intake, cp 19:20 Eyes: Negative for injury, pain, redness, and discharge, cp 19:20 ENT: Positive for sore throat, Negative for drainage from ear(s), ear pain, difficulty swallowing, difficulty handling secretions, 19:20 Cardiovascular: Negative for chest pain, 19:20 Respiratory: Positive for cough, "sounds productive", Negative for wheezing, 19:20 Abdomen/GI: Negative for abdominal pain, vomiting, diarrhea, constipation, 19:20 Back: Negative for injury or acute deformity, 19:20 Skin: Negative for rash, 19:20 Neuro: Positive for headache, weakness, Negative for altered mental status, 19:20 All other systems are negative, Exam: 19:25 Constitutional: The patient appears in no acute distress, alert, awake, cp non-diaphoretic, non-toxic, well developed, well nourished, 19:25 Head/Face: Normocephalic, atraumatic. cp 19:25 Eyes: Periorbital structures: appear normal, Pupils: equal, round, and reactive to light and accomodation, Extraocular movements: intact throughout, Conjunctiva: normal, no exudate, no injection, Sclera: no appreciated abnormality, Lids and lashes: appear normal, bilaterally, 19:25 ENT: External ear(s): are unremarkable, Ear canal(s): are normal, clear, TM's: dullness, bilaterally, Nose: is normal, Mouth: Lips: moist, Oral mucosa: moist, Posterior pharynx: Airway: no evidence of obstruction, patent, Tonsils: no enlargement, no exudate, erythema, that is mild, exudate, is not appreciated, 19:25 Neck: ROM/movement: is normal, is supple, without pain, no range of motions limitations, no meningismus, 19:25 Chest/axilla: Inspection: normal, 19:25 Cardiovascular: Rate: tachycardic, Rhythm: regular, Edema: is not appreciated, JVD: is not appreciated, 19:25 Respiratory: the patient does not display signs of respiratory distress, Respirations: normal, no use of accessory muscles, no retractions, labored breathing, is not present, Breath sounds: decreased breath sounds, are not appreciated, stridor, is not appreciated, + upper airway congestion. wheezing: is not appreciated, 19:25 Abdomen/GI: Inspection: abdomen appears normal, Palpation: abdomen is soft and non-tender, in all quadrants, 19:25 Back: pain, is absent, ROM is normal, 19:25 Neuro: Orientation: to person, place \\T\\ time. Mentation: able to follow commands, slow to respond, Motor: moves all fours, strength is normal, Sensation: is normal, 19:32 ECG was reviewed by the Attending Physician. cp Vital Signs: 19:10 BP 153 / 93; Pulse 113; Resp 17; Temp 99.9; Pulse Ox 98% on R/A; Weight 110.22 kg; jw7 Height 5 ft. 9 in. ; Pain 0/10; 19:15 BP 143 / 88; Pulse 108; Resp 18 S; Pulse Ox 96% on R/A; jw7 20:00 BP 156 / 98; Pulse 105; Resp 23 S; Pulse Ox 99% on R/A; jw7 21:00 BP 121 / 92; Pulse 102; Resp 23 S; Pulse Ox 99% on R/A; jw7 21:44 BP 136 / 89; Pulse 102; Resp 20 S; Pulse Ox 97% on R/A; ha1 22:00 BP 139 / 90; Pulse 109; Resp 22 S; Pulse Ox 100% on R/A; jw7 19:10 Body Mass Index 35.88 (110.22 kg, 175.26 cm) 7 19:10 Pain Scale: Adult jw7 MDM: 19:06 Patient medically screened. 22:05 Data reviewed: vital signs, nurses notes, lab test result(s), EKG, radiologic studies, cp plain films. 22:05 Differential diagnosis: bronchitis, flu, URI, sepsis. I considered the following discharge prescriptions or medication management in the emergency department Medications were administered in the Emergency Department. See MAR. Independent interpretation of the following test(s) in the Emergency Department EKG: See my EKG interpretation above. Counseling: I had a detailed discussion with the patient and/or guardian regarding the historical points, exam findings, and any diagnostic results supporting the discharge/admit diagnosis, lab results, radiology results, to return to the emergency department if symptoms worsen or persist or if there are any questions or concerns that arise at home. Response to treatment: the patient's symptoms have mildly improved after treatment, and as a result, I will discharge patient. 02/26 19:06 Order name: Basic Metabolic Panel; Complete Time: 21:28 cp 02/26 21:29 Interpretation: Normal except: NA 130; GLUC 352; CA 8.1. 02/26 19:06 Order name: CBC with Diff; Complete Time: 21:28 02/26 19:06 Order name: LFT's; Complete Time: 21:28 02/26 21:29 Interpretation: Normal except: IBILI, CALC 0.9; ALB 3.1; GLOB 3.6; A/G 0.9. cp 02/26 19:06 Order name: Magnesium; Complete Time: 21:28 cp 02/26 19:06 Order name: Influenza Screen (a \\T\\ B); Complete Time: 21:28 cp 02/26 21:29 Interpretation: Abnormal: FLUB FLU B ----- POSITIVE for FLU B protein antigen. cp 02/26 19:06 Order name: SARS-COV-2 Antigen Rapid; Complete Time: 21:28 cp 02/26 19:06 Order name: Strep; Complete Time: 21:28 cp 02/26 19:41 Order name: Throat Culture EDMA 02/26 19:06 Order name: XRAY Chest (1 view); Complete Time: 21:28 cp 02/26 19:06 Order name: EKG; Complete Time: 19:08 cp 02/26 19:06 Order name: Cardiac monitoring; Complete Time: 19:24 cp 02/26 19:06 Order name: EKG - Nurse/Tech; Complete Time: 19:24 02/26 19:06 Order name: IV Saline Lock; Complete Time: 19:25 cp 02/26 19:06 Order name: Labs collected and sent; Complete Time: 19:25 cp 02/26 19:06 Order name: O2 Per Protocol; Complete Time: 19:23 cp 02/26 19:06 Order name: O2 Sat Monitoring; Complete Time: 19:23 cp 02/26 21:30 Order name: PO challenge; Complete Time: 21:36 cp EC:32 Rate is 106 beats/min. Rhythm is regular. [place] interval is normal. QRS interval is cp normal. QT interval is normal. T waves are Inverted in leads III, aVR. Interpreted by me. Reviewed by me. Administered Medications: 19:30 Drug: NS 0.9% IV 1000 ml IV at 1 bolus Per protocol; 1000 mL bolus Route: IV; Rate: 1 jw7 bolus; Site: left antecubital; 22:37 Follow up: Response: No adverse reaction; IV Status: Completed infusion; IV Intake: jw7 1000ml 21:43 Drug: Oseltamivir PO 75 mg PO once Route: PO; ha1 22:37 Follow up: Response: No adverse reaction jw7 21:43 Drug: Ibuprofen PO 800 mg PO once Route: PO; ha1 22:37 Follow up: Response: No adverse reaction; Marked relief of symptoms jw7 Disposition Summary: 02/26/23 22:07 Discharge Ordered Notes: Location: Home cp Problem: new cp Symptoms: have improved cp Condition: Stable cp Diagnosis - Diabetes mellitus due to underlying condition with hyperglycemia cp - Influenza due to other identified influenza virus with other respiratory cp manifestations Followup: cp - With: Private Physician - When: 2 - 3 days - Reason: Worsening of condition Discharge Instructions: - Discharge Summary Sheet cp - Hyperglycemia cp - Influenza, Adult cp - Blood Glucose Monitoring, Adult cp - Diabetes Mellitus and Nutrition, Adult cp Forms: - Medication Reconciliation Form cp - Thank You Letter cp - Antibiotic Education cp - Prescription Opioid Use cp - Patient Portal Instructions cp - Leadership Thank You Letter cp Prescriptions: - Bromfed DM 2-30-10 mg/5 mL Oral syrup - administer 10 milliliter ORAL route every 6 hours; 240 milliliter; Refills: 0, cp Product Selection Permitted - Ibuprofen 800 mg Oral Tablet - take 1 tablet ORAL route every 8 hours As needed take with food; 30 tablet; cp Refills: 0, Product Selection Permitted - Tamiflu 75 mg Oral capsule - take 1 tablet ORAL route every 12 hours for 5 days; 10 tablet; Refills: 0, cp Product Selection Permitted Signatures: Dispatcher [employer] EDMS Tomasz Kay PA PA cp Olena Longo RN RN jw7 Evonne Dean RN RN ha1 Corrections: (The following items were deleted from the chart) 19:19 19:14 PMHx: abd abscess removed; jw7 jw7 22:08 22:07 Influenza due to identified novel influenza A virus with other respiratory cp manifestations cp 02/27 20:34 02/26 19:35 Constitutional: Positive for body aches, fever, poor PO intake, cp cp
--- NOTE | 2023-02-26 22:07 | ER ---
Nurse's Notes [facility] Name: Fransisco Juarez Age: 38 yrs Sex: Male : 1985 Arrival Date: 02/26/2023 Time: 19:02 Bed 7 Private MD: Diagnosis: Diabetes mellitus due to underlying condition with hyperglycemia;Influenza due to other identified influenza virus with other respiratory manifestations Presentation: 02/26 19:10 Chief complaint: Patient states: I've been lethargic, with flue like symptoms including jw7 fever, and cough. Coronavirus screen: At this time, the client does not indicate any symptoms associated with coronavirus-19. Ebola Screen: No symptoms or risks identified at this time. Initial Sepsis Screen: Does the patient meet any 2 criteria? No. Patient's initial sepsis screen is negative. Does the patient have a suspected source of infection? No. Patient's initial sepsis screen is negative. Risk Assessment: Do you want to hurt yourself or someone else? Patient reports no desire to harm self or others. Onset of symptoms is unknown. 19:10 Acuity: AMILCAR 3 jw7 19:10 Method Of Arrival: EMS: [facility] jw7 19:10 Care prior to arrival: Glucose check: 360. jw7 19:26 Care prior to arrival: IV initiated. 18 GA, in the left antecubital area. jw7 Triage Assessment: 19:16 General: Appears in no apparent distress. uncomfortable, Behavior is calm, cooperative. jw7 Pain: Denies pain. EENT: No deficits noted. No signs and/or symptoms were reported regarding the EENT system. Neuro: Schaefer Agitation-Sedation Scale (RASS): 0 - Alert and Calm Level of Consciousness is awake, alert, obeys commands, Oriented to person, place, time, situation. Cardiovascular: Capillary refill < 3 seconds Clubbing of nail beds is absent JVD is absent Patient's skin is warm and dry. Respiratory: Reports cough that is non-productive, Airway is patent Trachea midline Respiratory effort is even, unlabored, Respiratory pattern is regular, symmetrical. GI: No deficits noted. No signs and/or symptoms were reported involving the gastrointestinal system. : No deficits noted. No signs and/or symptoms were reported regarding the genitourinary system. Derm: No deficits noted. No signs and/or symptoms reported regarding the dermatologic system. Musculoskeletal: No deficits noted. No signs and/or symptoms reported regarding the musculoskeletal system. Historical: - Allergies: 19:14 metformin; jw7 - Home Meds: 19:16 Metoprolol Tartrate Oral [Active]; acetaminophen 500 mg Oral tablet [Active]; aspirin jw7 81 mg Oral capsule [Active]; atorvastatin oral [Active]; B12 Active oral [Active]; empagliflozin 25 mg oral tablet [Active]; fenofibrate oral [Active]; Lisinopril Oral [Active]; - PMHx: 19:14 Diabetes - NIDDM; Hypertension; Kidney stones; Migraines; Pneumonia; Rheumatoid jw7 Arthritis; - PSHx: 19:14 Abd Abscess Removed; Stent Kidney (Stones); Knee Sugery; jw7 - Immunization history:: Adult Immunizations up to date, Client reports receiving the 2nd dose of the Covid vaccine, Flu vaccine is not up to date. It has been more than one year since last vaccine. - Social history:: Smoking status: Patient denies any tobacco usage or history of. Patient uses alcohol, occasionally. Patient/guardian denies using street drugs, IV drugs. Screenin:10 [facility] ED Fall Risk Assessment (Adult) History of falling in the last 3 months, jw7 including since admission No falls in past 3 months (0 pts) Score/Fall Risk Level 0 - 2 = Low Risk Oriented to surroundings, Maintained a safe environment. Abuse screen: Denies threats or abuse. Denies injuries from another. Nutritional screening: No deficits noted. Tuberculosis screening: No symptoms or risk factors identified. Assessment: 19:22 General: see triage assessment. jw7 20:30 Reassessment: Patient appears in no apparent distress at this time. No changes from jw7 previously documented assessment. Patient and/or family updated on plan of care and expected duration. Pain level reassessed. Patient is alert, oriented x 3, equal unlabored respirations, skin warm/dry/pink. 21:40 Reassessment: Patient appears in no apparent distress at this time. No changes from jw7 previously documented assessment. Patient and/or family updated on plan of care and expected duration. Pain level reassessed. Patient is alert, oriented x 3, equal unlabored respirations, skin warm/dry/pink. 22:25 Reassessment: Patient appears in no apparent distress at this time. Patient and/or jw7 family updated on plan of care and expected duration. Pain level reassessed. Patient is alert, oriented x 3, equal unlabored respirations, skin warm/dry/pink. Patient states feeling better. Patient states symptoms have improved. Vital Signs: 19:10 BP 153 / 93; Pulse 113; Resp 17; Temp 99.9; Pulse Ox 98% on R/A; Weight 110.22 kg; jw7 Height 5 ft. 9 in. ; Pain 0/10; 19:15 BP 143 / 88; Pulse 108; Resp 18 S; Pulse Ox 96% on R/A; jw7 20:00 BP 156 / 98; Pulse 105; Resp 23 S; Pulse Ox 99% on R/A; jw7 21:00 BP 121 / 92; Pulse 102; Resp 23 S; Pulse Ox 99% on R/A; jw7 21:44 BP 136 / 89; Pulse 102; Resp 20 S; Pulse Ox 97% on R/A; ha1 22:00 BP 139 / 90; Pulse 109; Resp 22 S; Pulse Ox 100% on R/A; jw7 19:10 Body Mass Index 35.88 (110.22 kg, 175.26 cm) jw7 19:10 Pain Scale: Adult jw7 ED Course: 19:04 Patient arrived in ED. as6 19:05 Tomasz Kay PA is PHCP. cp 19:05 Perry Lawson MD is Attending Physician. cp 19:10 Olena Longo RN is Primary Nurse. jw7 19:10 Patient has correct armband on for positive identification. Bed in low position. Call [facility] light in reach. 19:14 Triage completed. jw7 19:16 Arm band placed on. jw7 19:24 EKG done, by ED staff, reviewed by Tomasz STEWART. jw7 19:26 Initial lab(s) drawn, by ED staff, sent to lab. jw7 20:01 XRAY Chest (1 view) In Process Unspecified. EDMS 22:36 No provider procedures requiring assistance completed. IV discontinued, intact, jw7 bleeding controlled, No redness/swelling at site. Pressure dressing applied. 22:37 Provided Education on: discharge instructions. jw7 Administered Medications: 19:30 Drug: NS 0.9% IV 1000 ml IV at 1 bolus Per protocol; 1000 mL bolus Route: IV; Rate: 1 jw7 bolus; Site: left antecubital; 22:37 Follow up: Response: No adverse reaction; IV Status: Completed infusion; IV Intake: jw7 1000ml 21:43 Drug: Oseltamivir PO 75 mg PO once Route: PO; ha1 22:37 Follow up: Response: No adverse reaction jw7 21:43 Drug: Ibuprofen PO 800 mg PO once Route: PO; ha1 22:37 Follow up: Response: No adverse reaction; Marked relief of symptoms jw7 Medication: 22:37 VIS not applicable for this client. jw7 Intake: 22:37 IV: 1000ml; Total: 1000ml. jw7 Outcome: 22:07 Discharge ordered by MD. cp 22:36 Discharged to home ambulatory, jw7 22:36 Condition: stable 22:36 Discharge instructions given to patient, Instructed on discharge instructions, follow up and referral plans. medication usage, Demonstrated understanding of instructions, follow-up care, medications, Prescriptions given X 3, 22:37 Patient left the ED. jw7 Signatures: Dispatcher [employer] EDMS Tomasz Kay PA PA cp Slawson, Ashby, RN RN as6 Olena Longo RN RN jw7 Evonne Dean, RAGHAVENDRA RN ha1 Corrections: (The following items were deleted from the chart) 19:19 19:14 PMHx: abd abscess removed; jw7 jw7 19:26 19:24 Inserted saline lock: 20 gauge in left antecubital area, using aseptic technique. jw7 Blood collected. jw7 19:26 19:24 Initial lab(s) drawn, by ED staff, sent to lab. jw7 jw7
[2023-02-26 22:45] VITALS: TEMP 99.9
[2023-02-26 22:51] VITALS: BP 139/90; O2SAT 100
--- NOTE | 2023-02-27 17:22 | EKG ---
Test Date: 2023-02-26 Test Time: 19:21:01 Roller Varnisher: NATY MEASUREMENT RESULTS: Intervals: Rate: 106 VT: 142 QRSD: 84 QT: 310 QTc: 411 [place]: P: 58 VT: 142 QRS: 70 T: -2 INTERPRETIVE STATEMENTS: Sinus tachycardia T wave abnormality, consider inferior ischemia Abnormal ECG Compared to ECG 09/26/2022 23:25:33 T-wave abnormality now present Possible ischemia now present Sinus rhythm no longer present Electronically Signed On 02-27-23 17:20:03 BODY ENGINEER by Bob Dyson
== END 2023-02-26 22:37 | disposition home or self-care (01) ==
LOC: ER 19:02
DX: J10.1 Influenza due to other identified influenza virus with other respiratory manifestations (principal); E11.65 Type 2 diabetes mellitus with hyperglycemia; Z11.52 Encounter for screening for COVID-19; Z88.8 Allergy status to other drugs, medicaments and biological substances
CPT/HCPCS: 96361; 93005; 87070; 85025; 80048; 36415; 83735; 80076; 87081; 87804 ×2; 71045; 96360; 99284; 87811; J7030

== ENCOUNTER 2023-03-02 01:26 | Emergency (ER) | payer OTHER ==
[2023-03-02] MEDS ORDERED: LIDOCAINE 2% W/EPI 1:200,000 MPF 20 ML VIAL IM ONE (02:04)
[2023-03-02] MEDS ORDERED: LIDOCAINE 1% 20 ML MDV ONE (02:04)
[2023-03-02] MEDS ORDERED: ONDANSETRON 4 MG (ODT) TAB ONE (03:09)
[2023-03-02] MEDS ORDERED: HYDROCODONE/APAP 7.5/325 MG TAB ONE (03:49)
[2023-03-02] MEDS ORDERED: IBUPROFEN 400 MG TAB ONE (03:50)
--- NOTE | 2023-03-02 04:30 | EDPHYS ---
Physician Documentation [facility] Name: Fransisco Juarez Age: 38 yrs Sex: Male : 1985 Arrival Date: 03/02/2023 Time: 01:26 Bed 15 Private MD: ED Physician Timothy Phillips HPI: 03/02 02:25 This 38 yrs old Male presents to ER via Ambulatory with complaints of LACERATION TO cp FINGER. 02:25 The patient or guardian reports injury, a laceration, irregular, clean. cp 02:25 The complaints affect the dorsal aspect of proximal phalanx of left middle finger and cp dorsal aspect of middle and distal phalanx of left index finger. Context: Patient is a 38-year-old male who presents to the emergency department with multiple lacerations to the dorsal side of his left middle and index fingers. He also has some superficial lacerations to the left fourth and small finger. 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 The bottle shattered causing multiple lacerations to his left hand. Historical: - Allergies: 01:46 metformin; rv - PMHx: 01:46 Diabetes - NIDDM; Hypertension; Kidney stones; Migraines; Pneumonia; Rheumatoid rv Arthritis; - PSHx: 01:46 Abd Abscess Removed; Knee Sugery; Stent Kidney (Stones); rv - Immunization history:: Adult Immunizations up to date. - Social history:: Smoking status: Patient denies any tobacco usage or history of. ROS: 02:30 Skin: Positive for laceration(s), of the left hand, cp 02:30 Constitutional: Negative for fever, cp 02:30 Neuro: Negative for altered mental status, numbness, weakness, cp 02:30 All other systems are negative, Exam: 02:35 Constitutional: The patient appears in no acute distress, alert, awake, well developed, cp well nourished, anxious, uncomfortable, 02:35 Head/Face: Normocephalic, atraumatic. cp 02:35 Chest/axilla: Inspection: normal, 02:35 Cardiovascular: Rate: normal, 02:35 Respiratory: the patient does not display signs of respiratory distress, Respirations: normal, no use of accessory muscles, no retractions, 02:35 Abdomen/GI: Inspection: abdomen appears normal, 02:35 Skin: injury, laceration(s), of the dorsal aspect of proximal phalanx of left middle finger and dorsal aspect of middle and distal phalanx of left index finger, that can be described as clean, irregular, with mild bleeding, Vital Signs: 01:44 BP 127 / 85; Pulse 95; Resp 16; Temp 98.3; Pulse Ox 97% on R/A; rv 03:21 Weight 110.22 kg (R); jb4 04:59 BP 121 / 86; Pulse 76; Resp 17; Temp 98; Pulse Ox 99% ; rv Laceration: 04:45 Wound Repair of 2cm ( 0.8in ) subcutaneous laceration to dorsal aspect of proximal cp phalanx of left middle finger. Skin/tissue flap noted.. Distal neuro/vascular/tendon intact. Anesthesia: Wound infiltrated with 3 mls of 1% lidocaine. Wound prep: Moderate cleansing by me, Wound irrigation by me. Skin closed with 3 4-0 Prolene using interrupted sutures and sterile technique. Dressed with Bacitracin, 4x4's. Patient tolerated well. 04:45 Wound Repair of 3.5cm ( 1.4in ) subcutaneous laceration to dorsal aspect of middle and cp distal phalanx of left index finger. Irregularly shaped.. Skin/tissue flap noted.. Distal neuro/vascular/tendon intact. Anesthesia: Digital block administered with 6 mls of 1% lidocaine. Wound prep: Moderate cleansing by me, Wound irrigation by me. Skin closed with 6 4-0 Prolene using interrupted sutures and sterile technique. Dressed with Bacitracin, 4x4's. Patient tolerated well. MDM: 01:45 Patient medically screened. 03:00 Differential diagnosis: open fracture, retained foreign body, tendon laceration. cp 04:30 Data reviewed: vital signs, nurses notes, radiologic studies, plain films. cp 04:30 I considered the following discharge prescriptions or medication management in the emergency department Medications were administered in the Emergency Department. See MAR. Care significantly affected by the following chronic conditions: Diabetes, Hypertension. Counseling: I had a detailed discussion with the patient and/or guardian regarding the historical points, exam findings, and any diagnostic results supporting the discharge/admit diagnosis, lab results, radiology results, the need for outpatient follow up, a family practitioner, to return to the emergency department if symptoms worsen or persist or if there are any questions or concerns that arise at home. Response to treatment: the patient's symptoms have markedly improved after treatment, and as a result, I will discharge patient. Special discussion: wound care and signs of infection. 03/02 02:22 Order name: XRAY Hand LEFT 3 View cp 03/02 02:22 Order name: Wound Care; Complete Time: 02:22 cp 03/02 02:22 Order name: Dressing - Wound; Complete Time: 02: cp 03/02 02:22 Order name: Gloves, Sterile; Complete Time: 02:22 cp 03/02 02:22 Order name: Setup Suture Tray; Complete Time: 02:22 cp 03/02 04:31 Order name: Wound dressing; Complete Time: 04:40 cp 03/02 04:31 Order name: Finger Splint; Complete Time: 04:40 cp Administered Medications: 03:03 Drug: Ondansetron PO 4 mg PO once Route: PO; rv 04:59 Follow up: Response: No adverse reaction rv 03:21 Not Given (Duplicate Order): ondansetron4 mg PO once jb4 03:39 Drug: Ibuprofen PO 800 mg PO once Route: PO; jb4 04:58 Follow up: Response: No adverse reaction rv 03:39 Drug: Hydrocodone-Acetaminophen PO (7.5 mg-325 mg) 1 tabs PO once; RASS on ADMIN: jb4 Combtv4, Very Agttd3, Agttd2, Rstlss1, AlertClm0, Drwsy-1, Lt Sdtn-2, Mod Sdtn-3, Dp Sdtn-4, UnArsble-5 Route: PO; 04:58 Follow up: Response: No adverse reaction rv 04:59 Drug: Lidocaine Infiltration (1 %) 10 ml 20 ml Infiltration once; to bedside {Note: rv ADMINISTERED BY CORE PAGE.} Volume: 20 ml; Route: Infiltration; Disposition Summary: 03/02/23 04:30 Discharge Ordered Notes: Location: Home cp Problem: new cp Symptoms: have improved cp Condition: Stable cp Diagnosis - Laceration without foreign body of left index finger without damage to nail cp - Laceration without foreign body of left middle finger without damage to nail cp Followup: cp - With: Private Physician - When: 10 - 14 days - Reason: Staple/Suture removal Discharge Instructions: - Discharge Summary Sheet cp - Laceration Care, Adult cp - Sutured Wound Care cp Forms: - Medication Reconciliation Form cp - Thank You Letter cp - Antibiotic Education cp - Prescription Opioid Use cp - Patient Portal Instructions cp - Leadership Thank You Letter cp Prescriptions: - Cephalexin 500 mg Oral Capsule - take 1 capsule ORAL route every 8 hours for 10 days; 30 capsule; Refills: 0, cp Product Selection Permitted - Ibuprofen 800 mg Oral Tablet - take 1 tablet ORAL route every 8 hours As needed take with food; 30 tablet; cp Refills: 0, Product Selection Permitted Addendum: 03/03/2023 20:21 I was immediately available for consultation during this patient's visit. I did not e c2 personally see the patient or guide the patient's care.. Signatures: Dispatcher [employer] EDMS Tomasz Kay PA PA cp Bryson, James, RN RN jb4 Afshin Kapoor RN RN Timothy Phillips MD MD ec2
--- NOTE | 2023-03-02 04:30 | ER ---
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 tetanus up to date. Coronavirus screen: At this time, the client does not indicate any symptoms associated with coronavirus-19. Ebola Screen: No symptoms or risks identified at this time. Initial Sepsis Screen: Does the patient meet any 2 criteria? No. Patient's initial sepsis screen is negative. Does the patient have a suspected source of infection? No. Patient's initial sepsis screen is negative. Risk Assessment: Do you want to hurt yourself or someone else? Patient reports no desire to harm self or others. Onset of symptoms was March 02, 2023. 01:44 Method Of Arrival: Ambulatory rv 01:44 Acuity: AMILCAR 4 rv Triage Assessment: 01:46 General: Appears comfortable, Behavior is calm, cooperative. Pain: Complains of pain in rv left hand. Neuro: Level of Consciousness is awake, alert, obeys commands, Oriented to person, place, time, situation. Cardiovascular: Capillary refill < 3 seconds Patient's skin is warm and dry. Respiratory: Airway is patent Respiratory effort is even, unlabored. GI: No signs and/or symptoms were reported involving the gastrointestinal system. : No signs and/or symptoms were reported regarding the genitourinary system. Derm:. Injury Description: Laceration sustained to dorsal aspect of middle phalanx of left index finger and dorsal aspect of proximal phalanx of left middle finger a small amount of bleeding noted at this time. Historical: - Allergies: :46 metformin; rv - PMHx: :46 Diabetes - NIDDM; Hypertension; Kidney stones; Migraines; Pneumonia; Rheumatoid rv Arthritis; - PSHx: :46 Abd Abscess Removed; Knee Sugery; Stent Kidney (Stones); rv - Immunization history:: Adult Immunizations up to date. - Social history:: Smoking status: Patient denies any tobacco usage or history of. Screenin:00 [facility] ED Fall Risk Assessment (Adult) History of falling in the last 3 months, rv including since admission No falls in past 3 months (0 pts) Score/Fall Risk Level 0 - 2 = Low Risk Oriented to surroundings, Maintained a safe environment, Educated pt \T\ family on fall prevention, incl call for assistance when getting out of bed, Provided non-skid footwear. Abuse screen: Denies threats or abuse. Denies injuries from another. 04:00 Nutritional screening: No deficits noted. Tuberculosis screening: No symptoms or risk rv factors identified. Vital Signs: 01:44 BP 127 / 85; Pulse 95; Resp 16; Temp 98.3; Pulse Ox 97% on R/A; rv 03:21 Weight 110.22 kg (R); jb4 04:59 BP 121 / 86; Pulse 76; Resp 17; Temp 98; Pulse Ox 99% ; rv ED Course: 01:30 Patient arrived in ED. ag3 01:34 Tomasz Kay PA is PHCP. cp 01:34 Timothy Phillips MD is Attending Physician. cp 01:46 Triage completed. rv 01:46 Arm band placed on right wrist. rv 02:44 XRAY Hand LEFT 3 View In Process Unspecified. EDMS 04:00 Patient has correct armband on for positive identification. Provided Education on: rv WOUND CARE. Client placed on continuous cardiac and pulse oximetry monitoring. NIBP monitoring applied. 05:00 Assist provider with laceration repair on left hand that was 2.5 cm. or less using rv sutures. Set up tray. Performed by Tomsaz STEWART Dressed with 4X4s, Patient tolerated well. Patient did not have IV access during this emergency room visit. Administered Medications: 03:03 Drug: Ondansetron PO 4 mg PO once Route: PO; rv 04:59 Follow up: Response: No adverse reaction rv 03:21 Not Given (Duplicate Order): ondansetron4 mg PO once jb4 03:39 Drug: Ibuprofen PO 800 mg PO once Route: PO; jb4 04:58 Follow up: Response: No adverse reaction rv 03:39 Drug: Hydrocodone-Acetaminophen PO (7.5 mg-325 mg) 1 tabs PO once; RASS on ADMIN: jb4 Combtv4, Very Agttd3, Agttd2, Rstlss1, AlertClm0, Drwsy-1, Lt Sdtn-2, Mod Sdtn-3, Dp Sdtn-4, UnArsble-5 Route: PO; 04:58 Follow up: Response: No adverse reaction rv 04:59 Drug: Lidocaine Infiltration (1 %) 10 ml 20 ml Infiltration once; to bedside {Note: rv ADMINISTERED BY CA KAY.} Volume: 20 ml; Route: Infiltration; Outcome: 04:30 Discharge ordered by . leeanna 05:00 Discharged to home ambulatory, with family, rv 05:00 Condition: improved 05:00 Discharge instructions given to patient, Instructed on discharge instructions, follow up and referral plans. medication usage, Demonstrated understanding of instructions, follow-up care, medications, wound care, Prescriptions given X 1, 05:00 Patient left the ED. rv Signatures: Dispatcher [employer] EDMS Tomasz Kay PA PA cp Bryson, James, RN RN jb4 Afshin Kapoor RN RN rv Kayla Graf ag3
[2023-03-02 05:07] VITALS: BP 121/86; TEMP 98; O2SAT 99
--- NOTE | 2023-03-02 20:45 | RAD REPORT ---
EXAM DESCRIPTION: RAD - Hand Left 3 View - 03/02/2023 2:42 am CLINICAL HISTORY: The patient is 38 years old and is Male; laceration TECHNIQUE: Frontal, lateral and oblique views of the left hand. COMPARISON: No relevant prior studies available. FINDINGS: Bones/joints: Unremarkable. No acute fracture. No dislocation. Soft tissues: Unremarkable. No radiopaque foreign body. IMPRESSION: No acute fracture or dislocation. Electronically signed by: Mingo Ely MD 03/02/2023 02:57 AM PLASTIC INJECTION MOLD MAKER Due to temporary technical issues with the PACS/Fluency reporting system, reports are being signed by the in house radiologists without review as a courtesy to insure prompt reporting. The interpreting radiologist is fully responsible for the content of the report.
== END 2023-03-02 05:00 | disposition home or self-care (01) ==
LOC: ER 01:26
PROC: 0HQGXZZ Repair Left Hand Skin, External Approach (ICD-10-PCS; principal; 2023-03-02)
DX: S61.213A Laceration without foreign body of left middle finger without damage to nail, initial encounter (principal); S61.211A Laceration without foreign body of left index finger without damage to nail, initial encounter
CPT/HCPCS: 73130; 99284; 12002; Q0162; J2001

== ENCOUNTER 2023-03-17 21:08 | Emergency (ER) | payer OTHER ==
--- NOTE | 2023-03-17 21:56 | ER ---
Nurse's Notes [facility] Name: Fransisco Juarez Age: 38 yrs Sex: Male : 1985 Arrival Date: 03/17/2023 Time: 21:08 Bed 21 Private MD: Diagnosis: Encounter for removal of sutures Presentation: 03/17 21:12 Chief complaint: Patient states: suture removal too left index and left mid finger kl placed 2 weeks prior. Coronavirus screen: Vaccine status: Patient reports receiving the 2nd dose of the covid vaccine. Ebola Screen: Patient negative for fever greater than or equal to 101.5 degrees Fahrenheit, and additional compatible Ebola Virus Disease symptoms. Initial Sepsis Screen: Does the patient meet any 2 criteria? No. Patient's initial sepsis screen is negative. Does the patient have a suspected source of infection? No. Patient's initial sepsis screen is negative. Risk Assessment: Do you want to hurt yourself or someone else? Patient reports no desire to harm self or others. 21:12 Method Of Arrival: Ambulatory kl 21:12 Acuity: AMILCAR 4 kl Triage Assessment: 21:16 General: Appears in no apparent distress. comfortable. General: Behavior is calm, kl cooperative. Pain: Denies pain. Derm: sutures to left index and mid finger. Historical: - Allergies: 21:15 metformin; kl - PMHx: 21:15 Diabetes - NIDDM; Hypertension; Kidney stones; Migraines; Pneumonia; Rheumatoid kl Arthritis; - PSHx: 21:15 Abd Abscess Removed; Knee Sugery; Stent Kidney (Stones); kl - Immunization history:: Adult Immunizations up to date. - Social history:: Smoking status: Patient denies any tobacco usage or history of. Screenin:54 [facility] ED Fall Risk Assessment (Adult) History of falling in the last 3 months, me1 including since admission No falls in past 3 months (0 pts) Confusion or Disorientation No (0 pts) Intoxicated or Sedated No (0 pts) Impaired Gait No (0 pts) Mobility Assist Device Used No (0 pt) Altered Elimination No (0 pt) Score/Fall Risk Level 0 - 2 = Low Risk Maintained a safe environment, Provided non-skid footwear, Hourly rounding (assess needs \T\ fall precautionary measures) done. Abuse screen: Denies threats or abuse. Nutritional screening: No deficits noted. Tuberculosis screening: No symptoms or risk factors identified. Assessment: 21:54 General: Appears comfortable, well groomed, well developed, well nourished, Behavior is me1 calm, cooperative, appropriate for age, Reports returning today for suture removal to left 1st and 2nd digit. Pain: Denies pain. Neuro: Level of Consciousness is awake, alert, obeys commands, Oriented to person, place, time, situation, Appropriate for age. Cardiovascular: Capillary refill < 3 seconds Patient's skin is warm and dry. Respiratory: Airway is patent Respiratory effort is even, unlabored, Respiratory pattern is regular, symmetrical. Derm: Wound noted dorsal aspect of middle phalanx of left index finger and dorsal aspect of middle phalanx of left middle finger Wound is laceration with sutures. Vital Signs: 21:12 BP 153 / 101; Pulse 81; Resp 18; Temp 97(TE); Pulse Ox 99% on R/A; Weight 111.13 kg kl (R); Height 5 ft. 9 in. ; Pain 0/10; 21:12 Body Mass Index 36.18 (111.13 kg, 175.26 cm) 21:12 Pain Scale: Adult ED Course: 21:10 Patient arrived in ED. ag3 21:15 Triage completed. 21:15 Bang Frost DO is Attending Physician. ms3 21:54 Charisse Sabillon, RAGHAVENDRA is Primary Nurse. me1 21:54 Patient has correct armband on for positive identification. Provided Education on: POC..me1 21:54 No provider procedures requiring assistance completed. Patient did not have IV access me1 during this emergency room visit. 21:55 Jay Rivera DO is Referral Physician. ms3 21:57 Arm band placed on Patient placed in waiting room. me1 Administered Medications: No medications were administered Medication: 21:54 VIS not applicable for this client. me1 Outcome: 21:56 Discharge ordered by . ms3 21:57 Discharged to home ambulatory, me1 21:57 Condition: stable 21:57 Condition: stable 21:57 Discharge instructions given to patient, Instructed on discharge instructions, follow up and referral plans. Demonstrated understanding of instructions, follow-up care, 22:00 Patient left the ED. me1 Signatures: Bianca Murray RN RN kl Gomez, Alice ag3 Bang Frost DO DO ms3 Charisse Sabillon, RN RN me1 Corrections: (The following items were deleted from the chart) 21:54 21:12 Chief complaint: Patient states: suture removal too left index and left mid me1 finger placed 2 weeks prior kl
--- NOTE | 2023-03-17 21:56 | EDPHYS ---
Physician Documentation [facility] Name: Fransisco Juarez Age: 38 yrs Sex: Male : 1985 Arrival Date: 03/17/2023 Time: 21:08 Bed 21 Private MD: ED Physician Bang Frost HPI: 03/17 21:56 This 38 yrs old Male presents to ER via Ambulatory with complaints of Suture Removal. ms3 21:56 38-year-old male with past medical history of diabetes, hypertension, kidney stones, ms3 migraines, pneumonia, rheumatoid arthritis presents to the emergency department for suture removal. Patient states sutures were placed 2 weeks ago. Patient denies pain. Patient denies drainage. . Historical: - Allergies: 21:15 metformin; kl - PMHx: 21:15 Diabetes - NIDDM; Hypertension; Kidney stones; Migraines; Pneumonia; Rheumatoid kl Arthritis; - PSHx: 21:15 Abd Abscess Removed; Knee Sugery; Stent Kidney (Stones); kl - Immunization history:: Adult Immunizations up to date. - Social history:: Smoking status: Patient denies any tobacco usage or history of. ROS: 21:56 Constitutional: Negative for fever, and chills. Neck: Negative for injury, pain, and ms3 swelling, Cardiovascular: Negative for chest pain, and palpitations. Respiratory: Negative for shortness of breath, cough, wheezing, and pleuritic chest pain, Abdomen/GI: Negative for abdominal pain, nausea, vomiting, diarrhea, and constipation, 21:56 Skin: Positive for Healing lacerations with sutures in place, Exam: 21:56 Constitutional: This is a well developed, well nourished patient who is awake, alert, ms3 and in no acute distress. Cardiovascular: Regular rate and rhythm with a normal S1 and S2. No gallops, murmurs, or rubs. Normal PMI, no JVD. No pulse deficits. Respiratory: Lungs have equal breath sounds bilaterally, clear to auscultation and percussion. No rales, rhonchi or wheezes noted. No increased work of breathing, no retractions or nasal flaring. Abdomen/GI: Soft, non-tender, with normal bowel sounds. No distension or tympany. No guarding or rebound. No evidence of tenderness throughout. 21:56 Skin: Left middle and left index finger with healing lacerations with blue suture in place. No drainage, erythema, warmth noted. Vital Signs: 21:12 BP 153 / 101; Pulse 81; Resp 18; Temp 97(TE); Pulse Ox 99% on R/A; Weight 111.13 kg kl (R); Height 5 ft. 9 in. ; Pain 0/10; 21:12 Body Mass Index 36.18 (111.13 kg, 175.26 cm) kl 21:12 Pain Scale: Adult kl MDM: 21:29 Patient medically screened. ms3 21:56 Data reviewed: vital signs, nurses notes, and as a result, I will discharge patient. ms3 Care significantly affected by the following chronic conditions: Diabetes, Hypertension. Counseling: I had a detailed discussion with the patient and/or guardian regarding the historical points, exam findings, and any diagnostic results supporting the discharge/admit diagnosis, the need for outpatient follow up, to return to the emergency department if symptoms worsen or persist or if there are any questions or concerns that arise at home. Special discussion: I discussed with the patient/guardian in detail that at this point there is no indication for admission to the hospital. It is understood, however, that if the symptoms persist or worsen the patient needs to return immediately for re-evaluation. ED course: Patient sutures removed by nursing. Patient to follow-up with Dr. Rivera in 2 to 3 days for wound reevaluation. Patient understands agrees with plan. All questions were answered. Return precautions discussed include worsening symptoms, or any other concerns. 03/17 21:30 Order name: Suture Removal; Complete Time: 21:54 ms3 Administered Medications: No medications were administered Disposition Summary: 03/17/23 21:56 Discharge Ordered Notes: Location: Home ms3 Condition: Stable ms3 Diagnosis - Encounter for removal of sutures ms3 Followup: ms3 - With: Jay Rivera DO - When: 2 - 3 days - Reason: Re-evaluation by your physician Discharge Instructions: - Discharge Summary Sheet ms3 - Suture Removal, Care After ms3 Forms: - Medication Reconciliation Form ms3 - Thank You Letter ms3 - Antibiotic Education ms3 - Prescription Opioid Use ms3 - Patient Portal Instructions ms3 - Leadership Thank You Letter ms3 Signatures: Bianca Murray RN RN Bang Strong DO DO ms3
[2023-03-17 22:43] VITALS: BP 153/101; TEMP 97; O2SAT 99
== END 2023-03-17 22:00 | disposition home or self-care (01) ==
LOC: ER 21:08
DX: Z48.02 Encounter for removal of sutures (principal)
CPT/HCPCS: 99282

== ENCOUNTER → 2023-04-22 | Emergency (ER) | payer OTHER ==
[~2023-04-22] MED LIST: DIPHENHYDRAMINE 50 MG/ML VIAL ONE; KETOROLAC 30 MG/ML INJ ONE; METOCLOPRAMIDE 10 MG/2mL INJ ONE; NA CHLORIDE 0.9% 1,000 ML ONE
--- NOTE | 2023-04-22 18:27 | RAD REPORT ---
EXAM DESCRIPTION: CT - [id number] - 04/22/2023 5:27 pm CLINICAL HISTORY: syncope, fall COMPARISON: Head C Spine Mpr Wo Con dated 09/21/2021 TECHNIQUE: Axial thin cut noncontrast CT images of the head were obtained. Axial thin cut noncontrast CT images of the cervical spine were obtained. Multiplanar reformatted images were generated and reviewed. All CT scans are performed using dose optimization technique as appropriate and may include automated exposure control or mA/KV adjustment according to patient size. FINDINGS: CT HEAD WITHOUT CONTRAST: No acute hemorrhage, hydrocephalus or extra-axial collection is identified.No areas of brain edema or midline shift. Pronounced mucosal thickening in the right maxillary sinus, with aerated secretions.The calvarium is intact. CT CERVICAL SPINE WITHOUT CONTRAST: No fracture or subluxation.No prevertebral soft tissues swelling is identified. IMPRESSION: No acute traumatic intracranial or cervical spine findings. Right maxillary sinus mucosal thickening with aerated secretions, please correlate clinically for rafael dence of acute sinusitis.
--- NOTE | 2023-04-22 18:28 | RAD REPORT ---
EXAM DESCRIPTION: [facility] Single [facility]04/22/2023 5:41 pm CLINICAL HISTORY: syncope COMPARISON: Chest Single View dated 02/26/2023; Chest Single View dated 09/21/2021; Chest Single View dated 06/08/2021; Chest Single View dated 03/05/2021 TECHNIQUE: Portable AP view of the chest. FINDINGS: The lungs are clear. No pneumothorax or effusion. The cardiomediastinal contours are unre markable. IMPRESSION: No acute cardiopulmonary process.
[2023-04-22 19:39] LABS: Hematocrit 43.1 % (39.6-49.0); Lymphocytes % 33.3 % (15.3-44.8); MCV 82.4 fL (80-100); MPV 7.5 fL (7.6-11.3); Platelets 273 thou/uL (152-406); RBC Red Blood Cell Count 5.23 M/uL (4.33-5.43)
[2023-04-22 19:44] LABS: Protime INR 0.94
[2023-04-22 20:11] LABS: Albumin 3.5 g/dL (3.4-5.0); Bilirubin Direct 0.1 mg/dL (0-0.2); Bilirubin Indirect, Calculated 0.9 mg/dL (0.2-0.8); Protein, Total 7.6 g/dL (6.4-8.2); Troponin High Sensitivity 3.8 pg/mL (<58.9)
[2023-04-22 20:13] LABS: Magnesium 2.1 mg/dL (1.6-2.4); Potassium 3.9 mEq/L (3.5-5.1)
--- NOTE | 2023-04-22 22:45 | ER ---
Nurse's Notes [facility] Name: Fransisco Juarez Age: 38 yrs Sex: Male : 1985 Arrival Date: 04/22/2023 Time: 16:55 Bed 11 Private MD: Diagnosis: Syncope and collapse, diabetes mellitus, rheumatoid arthritis, Hyperglycemia associated with diabetes mellitus type 2 Presentation: 04/22 17:11 Chief complaint: Patient states: UNWITNESSED SYNCOPE AT HOME, \[id number]. Coronavirus bp screen: At this time, the client does not indicate any symptoms associated with coronavirus-19. Ebola Screen: No symptoms or risks identified at this time. Initial Sepsis Screen: Does the patient meet any 2 criteria? No. Patient's initial sepsis screen is negative. Does the patient have a suspected source of infection? No. Patient's initial sepsis screen is negative. Risk Assessment: Do you want to hurt yourself or someone else? Patient reports no desire to harm self or others. Onset of symptoms was April 22, 2023 at 14:30. 17:11 Method Of Arrival: Ambulatory bp 17:11 Acuity: AMILCAR 3 bp Triage Assessment: 17:11 General: Appears in no apparent distress. Behavior is cooperative, appropriate for age, bp anxious. Pain: Complains of pain in back of head. Historical: - Allergies: 17:11 metformin; bp - PMHx: 17:11 Diabetes - NIDDM; Migraines; Rheumatoid Arthritis; Pneumonia; Kidney stones; bp Hypertension; - PSHx: 17:11 Abd Abscess Removed; Knee Sugery; Stent Kidney (Stones); bp - Immunization history:: Adult Immunizations unknown. - Social history:: Smoking status: unknown. Screenin:04 [facility] ED Fall Risk Assessment (Adult) History of falling in the last 3 months, vc1 including since admission No falls in past 3 months (0 pts) Confusion or Disorientation No (0 pts) Intoxicated or Sedated No (0 pts) Impaired Gait No (0 pts) Mobility Assist Device Used No (0 pt) Altered Elimination No (0 pt) Score/Fall Risk Level 0 - 2 = Low Risk Oriented to surroundings, Maintained a safe environment, Educated pt \T\ family on fall prevention, incl call for assistance when getting out of bed. Abuse screen: Denies threats or abuse. Nutritional screening: No deficits noted. Tuberculosis screening: No symptoms or risk factors identified. Assessment: 23:05 Reassessment: No changes from previously documented assessment. Patient and/or family tl4 updated on plan of care and expected duration. Pain level reassessed. Patient is alert, oriented x 3, equal unlabored respirations, skin warm/dry/pink. Vital Signs: 17:11 BP 142 / 107; Pulse 91; Resp 16; Temp 98; Pulse Ox 98% ; bp 20:00 BP 145 / 101; Pulse 90; Resp 18; Pulse Ox 97% on R/A; tl4 21:00 BP 145 / 104; Pulse 95; Resp 16; Pulse Ox 99% on R/A; tl4 22:00 BP 165 / 96; Pulse 90; Resp 16; Pulse Ox 97% on R/A; tl4 23:00 BP 153 / 96; Pulse 73; Resp 15; Pulse Ox 99% ; vc1 Sheridan Coma Score: 21:40 Eye Response: spontaneous(4). Motor Response: obeys commands(6). Verbal Response: sp4 oriented(5). Total: 15. NIH Stroke Scale Scores: 21:40 NIHSS Score: 0 sp4 ED Course: 16:57 Patient arrived in ED. rg4 17:00 Bang Frost DO is Attending Physician. ms3 17:11 Arm band placed on. bp 17:13 Triage completed. bp 17:27 CT Head C Spine In Process Unspecified. EDMS 17:42 Chest Single View XRAY In Process Unspecified. EDMS 18:07 Attending Physician role handed off by Bang Frost DO gb1 18:07 Hannah Diop MD is Attending Physician. gb1 19:19 Patient has correct armband on for positive identification. Placed in gown. Bed in low vc1 position. Call light in reach. Side rails up X2. Client placed on continuous cardiac and pulse oximetry monitoring. NIBP monitoring applied. 19:42 Baron Muhammad is Primary Nurse. tl4 19:43 Basic Metabolic Panel Sent. tl4 19:43 Hepatic Function Sent. tl4 19:43 Magnesium Sent. tl4 19:43 Protime (+inr) Sent. tl4 19:43 Ptt, Activated Sent. tl4 19:43 Troponin High Sensitivity Sent. tl4 19:48 Inserted saline lock: 20 gauge in right antecubital area, using aseptic technique. pm6 20:47 Attending Physician role handed off by Hannah Diop MD sp4 20:47 Javier Beaulieu MD is Attending Physician. sp4 22:44 Bob Dyson MD is Referral Physician. sp4 23:06 Provided Education on: follow up with Dr. Dyson. vc1 23:06 No provider procedures requiring assistance completed. IV discontinued, intact, vc1 bleeding controlled, No redness/swelling at site. Pressure dressing applied. Administered Medications: 22:22 Drug: NS 0.9% IV 1000 ml IV at 1 bolus Per protocol; 1000 mL bolus Route: IV; Rate: 1 tl4 bolus; Site: right antecubital; Delivery: Primary tubing; 23:06 Follow up: Response: No adverse reaction; IV Status: Completed infusion; IV Intake: tl4 1000ml 22:25 Drug: metoCLOPramide IVP 10 mg IVP once; over 1 to 2 minutes Route: IVP; Infused Over: tl4 2 mins; Site: right antecubital; 23:06 Follow up: Response: No adverse reaction tl4 22:27 Drug: Ketorolac IVP 30 mg IVP once Route: IVP; Site: right antecubital; tl4 23:06 Follow up: Response: No adverse reaction; Pain is decreased tl4 22:28 Drug: diphenhydrAMINE IVP 25 mg IVP once Route: IVP; Site: right antecubital; tl4 23:06 Follow up: Response: No adverse reaction tl4 Medication: 23:05 VIS not applicable for this client. vc1 Intake: 23:06 IV: 1000ml; Total: 1000ml. tl4 Outcome: 22:45 Discharge ordered by . sp4 23:06 Discharged to home ambulatory, with family, vc1 23:06 Condition: good 23:06 Condition: good 23:06 Discharge instructions given to patient, Instructed on discharge instructions, follow up and referral plans. Demonstrated understanding of instructions, follow-up care, 23:07 Patient left the ED. vc1 NIH Stroke Scale - NIH Stroke Score Date: 04/22/2023 Time: 21:40 Total Score = 0 10. Dysarthria (speech clarity - read or repeat words) - 0(Normal) 11. Extinction and Inattention (visual/tactile/auditory/spatial/personal) - 0(No abnormality) 1a. Level of Consciousness (LOC) - 0(Alert) 1b. Level of Consciousness (LOC) (Month \T\ Age) - 0(Both) 1c. LOC Commands (Open \T\ Closes Eyes/Smoke Jumper Supervisor) - 0(Both) 2. Best Gaze (Lateral Gaze Paresis) - 0(Normal) 3. Visual Field Loss - 0(No visual loss) 4. Facial Palsy - 0(Normal) 5a. Left Arm: Motor (10-second hold) - 0(No drift) 5b. Right Arm: Motor (10-second hold) - 0(No drift) 6a. Left Leg: Motor (5-second hold - always test supine) - 0(No drift) 6b. Right Leg: Motor (5-second hold - always test supine) - 0(No drift) 7. Limb Ataxia (finger/nose \T\ heel/hanna - test with eyes open) - 0(Absent) 8. Sensory Loss (pinprick arms/legs/face) - 0(Normal) 9. Best Language: Aphasia (description/naming/reading) - 0(No aphasia) Initials: sp4 Signatures: Dispatcher [employer] Romina Heller rg4 Rebel Seaman, RN RN bp Bang Frost, DO ms3 Jenny Moser, RN RN vc1 Javier Beaulieu MD MD sp4 Hannah Diop MD MD gb1 Baron Muhammad tl4 Lela Mahan pm6
--- NOTE | 2023-04-22 22:45 | EDPHYS ---
Physician Documentation [facility] Name: Fransisco Juarez Age: 38 yrs Sex: Male : 1985 Arrival Date: 04/22/2023 Time: 16:55 Bed 11 Private MD: ED Physician Javier Beaulieu HPI: 04/22 18:03 This 38 yrs old Male presents to ER via Ambulatory with complaints of Passed Out Prior ms3 To Arrival, Arm Pain, Shoulder Pain. 18:03 38-year-old male with past medical history of diabetes, migraines, rheumatoid ms3 arthritis, pneumonia, kidney stones, hypertension presents to the emergency department for chest tightness/syncope that occurred prior to arrival. Patient denies nausea, vomiting. Patient endorses pain in the posterior portion of his head, chest pain. Patient rates his discomfort an 8/10. Patient denies any alleviating or inciting factors. 21:43 PMH - Allergies: metformin; PMHx: Diabetes - NIDDM; Hypertension; Kidney stones; sp4 Migraines; Pneumonia; Rheumatoid Arthritis PSHx: Abdominal Abscess Removed; Knee Sugery; Stent Kidney (Stones); . Historical: - Allergies: 17:11 metformin; bp - PMHx: 17:11 Diabetes - NIDDM; Migraines; Rheumatoid Arthritis; Pneumonia; Kidney stones; bp Hypertension; - PSHx: 17:11 Abd Abscess Removed; Knee Sugery; Stent Kidney (Stones); bp - Immunization history:: Adult Immunizations unknown. - Social history:: Smoking status: unknown. ROS: 18:03 Constitutional: Negative for fever, and chills. ms3 18:03 Respiratory: Negative for shortness of breath, cough, wheezing, and pleuritic chest pain, Abdomen/GI: Negative for abdominal pain, nausea, vomiting, diarrhea, and constipation, Skin: Negative for injury, rash, and discoloration, 18:03 Neck: Positive for Mild pain, 18:03 Cardiovascular: Positive for chest pain, 18:03 All other systems are negative, Exam: 18:03 Constitutional: This is a well developed, well nourished patient who is awake, alert, ms3 and in no acute distress. Head/Face: Normocephalic, atraumatic. Neck: Trachea midline, no cervical lymphadenopathy. Supple, full range of motion without nuchal rigidity, or vertebral point tenderness. No Meningismus. Chest/axilla: Normal chest wall appearance and motion. Nontender with no deformity. Cardiovascular: Regular rate and rhythm with a normal S1 and S2. No gallops, murmurs, or rubs. Normal PMI, no JVD. No pulse deficits. Respiratory: Lungs have equal breath sounds bilaterally, clear to auscultation and percussion. No rales, rhonchi or wheezes noted. No increased work of breathing, no retractions or nasal flaring. Abdomen/GI: Soft, non-tender, with normal bowel sounds. No distension or tympany. No guarding or rebound. No evidence of tenderness throughout. Skin: Warm, dry with normal turgor. Normal color with no rashes, no lesions, and no evidence of cellulitis. Neuro: Awake and alert, GCS 15, oriented to person, place, time, and situation. Cranial nerves II-XII grossly intact. Motor strength 5/5 in all extremities. Sensory grossly intact. Cerebellar exam normal. Normal gait. 22:49 ECG was reviewed by the Attending Physician. EKG reveals at 1931 normal sinus rhythm at sp4 a rate of 83, no ST elevation or depression. No ectopy Vital Signs: 17:11 BP 142 / 107; Pulse 91; Resp 16; Temp 98; Pulse Ox 98% ; bp 20:00 BP 145 / 101; Pulse 90; Resp 18; Pulse Ox 97% on R/A; tl4 21:00 BP 145 / 104; Pulse 95; Resp 16; Pulse Ox 99% on R/A; tl4 22:00 BP 165 / 96; Pulse 90; Resp 16; Pulse Ox 97% on R/A; tl4 23:00 BP 153 / 96; Pulse 73; Resp 15; Pulse Ox 99% ; vc1 NIH Stroke Scale Scores: 21:40 NIHSS Score: 0 sp4 Sriram Coma Score: 21:40 Eye Response: spontaneous(4). Motor Response: obeys commands(6). Verbal Response: sp4 oriented(5). Total: 15. MDM: 17:11 Patient medically screened. ms3 18:03 Differential Diagnosis: cardiac arrhythmia, idiopathic syncope, seizure, vasovagal ms3 episode. 18:05 Transition of care: After a detail discussion of the patient's case, care is ms3 transferred to Hannah Diop MD. 22:43 Data reviewed: vital signs, nurses notes, lab test result(s), cardiac enzymes, CBC, sp4 electrolytes, hepatic panel. Consideration of Admission/Observation Escalation of care including admission/observation considered. ED course: Patient has improved after IV fluids and medications. Patient is stable for discharge home at this time. . 22:48 ED course: Patient was advised to see keno writer/runner on outpatient basis in case of sp4 recurrent syncope otherwise stable for discharge home with 2-day work release. . 04/22 17:12 Order name: Basic Metabolic Panel; Complete Time: 20:47 ms3 04/22 17:12 Order name: CBC with Diff; Complete Time: 19:41 ms3 04/22 17:12 Order name: Hepatic Function; Complete Time: 20:47 ms3 04/22 17:12 Order name: Magnesium; Complete Time: 20:47 ms3 04/22 17:12 Order name: Protime (+inr); Complete Time: 19:49 ms3 04/22 17:12 Order name: Ptt, Activated; Complete Time: 19:49 ms3 04/22 17:12 Order name: Troponin High Sensitivity; Complete Time: 20:47 ms3 04/22 17:12 Order name: CT Head C Spine; Complete Time: 18:49 ms3 04/22 17:12 Order name: Chest Single View XRAY; Complete Time: 18:49 ms3 04/22 17:12 Order name: EKG; Complete Time: 17:13 ms3 04/22 17:12 Order name: Cardiac monitoring; Complete Time: 19:42 ms3 04/22 17:12 Order name: EKG - Nurse/Tech; Complete Time: 19:50 ms3 04/22 17:12 Order name: IV Saline Lock; Complete Time: 19:50 ms3 04/22 17:12 Order name: Labs collected and sent; Complete Time: 19:50 ms3 04/22 17:12 Order name: NPO; Complete Time: 19:43 ms3 04/22 17:12 Order name: O2 Per Protocol; Complete Time: 19:43 ms3 04/22 17:12 Order name: O2 Sat Monitoring; Complete Time: 19:43 ms3 EC:49 Rate is 83 beats/min. Rhythm is regular, Normal Sinus Rhythm. QRS [place] is Normal. [place] sp4 interval is normal. QRS interval is normal. QT interval is normal. No ST changes noted. Clinical impression: No evidence of ischemia. Interpreted by me. Reviewed by me. Administered Medications: 22:22 Drug: NS 0.9% IV 1000 ml IV at 1 bolus Per protocol; 1000 mL bolus Route: IV; Rate: 1 tl4 bolus; Site: right antecubital; Delivery: Primary tubing; 23:06 Follow up: Response: No adverse reaction; IV Status: Completed infusion; IV Intake: tl4 1000ml 22:25 Drug: metoCLOPramide IVP 10 mg IVP once; over 1 to 2 minutes Route: IVP; Infused Over: tl4 2 mins; Site: right antecubital; 23:06 Follow up: Response: No adverse reaction tl4 22:27 Drug: Ketorolac IVP 30 mg IVP once Route: IVP; Site: right antecubital; tl4 23:06 Follow up: Response: No adverse reaction; Pain is decreased tl4 22:28 Drug: diphenhydrAMINE IVP 25 mg IVP once Route: IVP; Site: right antecubital; tl4 23:06 Follow up: Response: No adverse reaction tl4 Disposition Summary: 04/22/23 22:45 Discharge Ordered Problem: new sp4 Symptoms: have improved sp4 Condition: Stable sp4 Diagnosis - Syncope and collapse, diabetes mellitus, rheumatoid arthritis, Hyperglycemia sp4 associated with diabetes mellitus type 2 Followup: sp4 - With: Bob Dyson MD - When: 7 - 10 days - Reason: Recheck today's complaints Discharge Instructions: - Discharge Summary Sheet sp4 - Syncope, [id number] sp4 Forms: - Work release form pf1 - Patient Portal Instructions sp4 NIH Stroke Scale - NIH Stroke Score Date: 04/22/2023 Time: 21:40 Total Score = 0 10. Dysarthria (speech clarity - read or repeat words) - 0(Normal) 11. Extinction and Inattention (visual/tactile/auditory/spatial/personal) - 0(No abnormality) 1a. Level of Consciousness (LOC) - 0(Alert) 1b. Level of Consciousness (LOC) (Month \T\ Age) - 0(Both) 1c. LOC Commands (Open \T\ Closes Eyes/Cigarette Machine Filler) - 0(Both) 2. Best Gaze (Lateral Gaze Paresis) - 0(Normal) 3. Visual Field Loss - 0(No visual loss) 4. Facial Palsy - 0(Normal) 5a. Left Arm: Motor (10-second hold) - 0(No drift) 5b. Right Arm: Motor (10-second hold) - 0(No drift) 6a. Left Leg: Motor (5-second hold - always test supine) - 0(No drift) 6b. Right Leg: Motor (5-second hold - always test supine) - 0(No drift) 7. Limb Ataxia (finger/nose \T\ heel/hanna - test with eyes open) - 0(Absent) 8. Sensory Loss (pinprick arms/legs/face) - 0(Normal) 9. Best Language: Aphasia (description/naming/reading) - 0(No aphasia) Initials: sp4 Signatures: Dispatcher [employer] Rebel Bryant, RN RN Bang Gonsales, DO ms3 Javier Beaulieu MD MD sp4 Hannah Diop MD MD gb1 Logdahl, Baron tl4
[2023-04-23 02:50] VITALS: BP 153/96; TEMP 98; O2SAT 99
--- NOTE | 2023-04-23 17:11 | EKG ---
Test Date: 2023-04-22 Test Time: 19:31:31 Retail Inventory Control Clerk: NATY MEASUREMENT RESULTS: Intervals: Rate: 83 [place]: 146 QRSD: 78 QT: 356 QTc: 418 [place]: P: 37 [place]: 146 QRS: 61 T: 12 INTERPRETIVE STATEMENTS: Normal sinus rhythm Nonspecific T wave abnormality Abnormal ECG Compared to ECG 02/26/2023 19:21:01 Sinus tachycardia no longer present Possible ischemia no longer present T-wave abnormality still present Electronically Signed On 04-23-23 17:10:12 PEDIATRIC DERMATOLOGIST by Bob Dyson
== END ==
LOC: ER 16:55
DX: R55 Syncope and collapse (principal); E11.65 Type 2 diabetes mellitus with hyperglycemia; M06.9 Rheumatoid arthritis, unspecified; R07.89 Other chest pain; I10 Essential (primary) hypertension; Z88.8 Allergy status to other drugs, medicaments and biological substances
CPT/HCPCS: 96361; 93005; 85025; 80048; 36415; 83735; 85610; 80076; 85730; 84484; 70450; 72125; 71045; 96375; 96374; 99284; J2765; J1200; J7030

== ENCOUNTER 2023-11-29 08:20 | Emergency (ER) | payer OTHER ==
[2023-11-29] MEDS ORDERED: ALBUTEROL 2.5 MG/3 ML NEB SOL ONE (09:19)
[2023-11-29] MEDS ORDERED: IPRATROPIUM BROM 0.5MG/2.5ML ONE (09:20)
[2023-11-29 09:50] LABS: SARS-CoV-2 Antigen CONTROL BLUE LINE VIS/BG OK; SARS-CoV-2 Antigen Rapid Res Negative (Negative)
[2023-11-29 09:53] LABS: Absolute Basophils 0.1 K/uL (0-0.5); Absolute Eosinophils 0.4 K/uL (0-0.5); Absolute Lymphocytes (CBC) 2.1 K/uL (0.7-4.9); Absolute Monocytes 1.2 K/uL (0.1-1.3); Basophils % 0.6 % (0-1.3); Eosinophils % 2.7 % (0-4.4); Hematocrit 40.5 % (39.6-49.0); Hemoglobin 13.6 g/dL (13.6-17.9); Lymphocytes % 15.4 % (15.3-44.8); MCH 28.9 pg (27.0-35.0); MCHC 33.6 g/dL (32.0-36.0); MPV 7.5 fL (7.6-11.3); Monocytes % 8.8 % (3.3-12.3); Neutrophils % 72.5 % (41.7-73.7); Platelets 281 thou/uL (152-406)
[2023-11-29 10:03] LABS: Anion Gap 7.7 mEq/L (5.0-15.0); Potassium 3.7 mEq/L (3.5-5.1); Troponin High Sensitivity 3.4 pg/mL (<58.9)
--- NOTE | 2023-11-29 10:50 | RAD REPORT ---
EXAM DESCRIPTION: RAD - Chest Single View - 11/29/2023 10:36 am CLINICAL HISTORY: CHEST PAIN Chest pain. COMPARISON: Chest Single View dated 04/22/2023; Chest Single View dated 02/26/2023; Chest Single View dated 09/21/2021; Chest Single View dated 06/08/2021 FINDINGS: Portable technique limits examination quality. The lungs are grossly clear. The heart is normal in size. No displaced fractures. IMPRESSION: No acute intrathoracic process suspected.
--- NOTE | 2023-11-29 11:22 | ER ---
Nurse's Notes [facility] Name: Fransisco Juarez Age: 38 yrs Sex: Male : 1985 Arrival Date: 11/29/2023 Time: 08:20 Bed 6 Private MD: Diagnosis: Chest pain, unspecified;Diarrhea, unspecified Presentation: 11/28 08:47 Chief complaint: Diarrhea x 3 weeks, sinus congestion, headache, sore throat and cough hb x 1 week, chest pressure and and pain with cough x 3-4 days. Coronavirus screen: Client presents with at least one sign or symptom that may indicate coronavirus-19. Provider contacted for isolation considerations. Ebola Screen: No symptoms or risks identified at this time. Initial Sepsis Screen: Does the patient meet any 2 criteria? No. Patient's initial sepsis screen is negative. Does the patient have a suspected source of infection? No. Patient's initial sepsis screen is negative. Risk Assessment: Do you want to hurt yourself or someone else? Patient reports no desire to harm self or others. Onset of symptoms was November 08, 2023. 08:47 Method Of Arrival: Ambulatory hb 08:47 Acuity: AMILCAR 3 hb Historical: - Allergies: 08:49 metformin; hb - PMHx: 08:49 Diabetes - NIDDM; Hypertension; Kidney stones; Migraines; Pneumonia; Rheumatoid hb Arthritis; - PSHx: 08:49 Abd Abscess Removed; Knee Sugery; Stent Kidney (Stones); hb - Immunization history:: Adult Immunizations up to date. - Infectious Disease History:: Denies. - Social history:: Smoking status: Patient denies any tobacco usage or history of. Screenin:00 [facility] ED Fall Risk Assessment (Adult) History of falling in the last 3 months, aa5 including since admission No falls in past 3 months (0 pts) Confusion or Disorientation No (0 pts) Intoxicated or Sedated No (0 pts) Impaired Gait No (0 pts) Mobility Assist Device Used No (0 pt) Altered Elimination No (0 pt) Score/Fall Risk Level 0 - 2 = Low Risk Oriented to surroundings, Maintained a safe environment, Educated pt \T\ family on fall prevention, incl call for assistance when getting out of bed. Abuse screen: Denies threats or abuse. Nutritional screening: No deficits noted. Tuberculosis screening: No symptoms or risk factors identified. Assessment: 09:00 General: Appears comfortable, Behavior is calm, cooperative. Pain: Complains of pain in aa5 chest with cough Pain does not radiate. Pain currently is 5 out of 10 on a pain scale. Quality of pain is described as aching, Pain began 1 week ago Is intermittent. Neuro: Level of Consciousness is awake, alert, obeys commands, Oriented to person, place, time, situation. Cardiovascular: Heart tones S1 S2 present Rhythm is regular. Respiratory: Reports cough Airway is patent Respiratory effort is even, unlabored, Respiratory pattern is regular, symmetrical, Breath sounds are clear bilaterally. GI: Abdomen is round Bowel sounds present X 4 quads. Abd is soft and non tender X 4 quads. Reports diarrhea x 3 weeks ago. : No signs and/or symptoms were reported regarding the genitourinary system. EENT: Reports nasal congestion. Derm: Skin is pink, warm \T\ dry. Musculoskeletal: Range of motion: intact in all extremities. 09:33 Reassessment: Patient is alert, oriented x 3, equal unlabored respirations, skin aa5 warm/dry/pink. 10:00 Reassessment: Patient is alert, oriented x 3, equal unlabored respirations, skin aa5 warm/dry/pink. 11:45 Reassessment: Patient is alert, oriented x 3, equal unlabored respirations, skin aa5 warm/dry/pink. 11:45 General: Appears comfortable. aa5 Vital Signs: 08:47 BP 120 / 86; Pulse 79; Resp 16; Temp 98.1(O); Pulse Ox 99% on R/A; Weight 108.86 kg; hb Height 5 ft. 9 in. ; Pain 5/10; 10:39 BP 123 / 80; Pulse 73; Resp 18 S; Pulse Ox 96% on R/A; aa5 11:15 BP 128 / 76; Pulse 75; Resp 18 S; Pulse Ox 97% on R/A; aa5 08:47 Body Mass Index 35.44 (108.86 kg, 175.26 cm) hb 08:47 Pain Scale: Adult hb ED Course: 08:23 Patient arrived in ED. mg5 08:29 Bang Frost DO is Attending Physician. ms3 08:49 Triage completed. hb 08:50 Patient placed. hb 08:51 Eliz Masters, RN is Primary Nurse. aa5 09:00 Patient has correct armband on for positive identification. Placed in gown. Bed in low aa5 position. Call light in reach. Side rails up X 1. Client placed on continuous cardiac and pulse oximetry monitoring. NIBP monitoring applied. deputy prosecuting attorney on. Pulse ox on. NIBP on. :33 Inserted saline lock: 20 gauge in right antecubital area, using aseptic technique. aa5 Blood collected. Flushed with 10 mL NS. :33 Initial lab(s) drawn, by me, sent to lab. aa5 :33 Patient maintains SpO2 saturation greater than 95% on room air. aa5 09:35 EKG done, by ED staff, reviewed by Bang Frost DO. aa5 10:38 CXR XRAY In Process Unspecified. EDMS 11:21 Jay Rivera DO is Referral Physician. ms3 11:45 No provider procedures requiring assistance completed. IV discontinued, intact, aa5 bleeding controlled, No redness/swelling at site. Pressure dressing applied. Administered Medications: :38 Drug: DuoNeb Nebulize (2.5 mg - 0.5 mg) 3 ml Nebulizer once Route: Nebulizer; aa5 10:00 Follow up: Response: No adverse reaction aa5 Medication: 10:43 VIS not applicable for this client. aa5 Outcome: 11:21 Discharge ordered by MD. ms3 11:45 Discharged to home ambulatory, aa5 11:45 Condition: stable aa5 11:45 Discharge instructions given to patient, Instructed on discharge instructions, follow up and referral plans. Demonstrated understanding of instructions, follow-up care, 11:50 Patient left the ED. iw Signatures: Dispatcher [employer] EDOR Tracy Borrego RN RN iw Calderon, Audri RN RN aa5 Corinna Briscoe RN RN hb Sims, Marcus, DO DO ms3 Mya Perez mg5 Corrections: (The following items were deleted from the chart) 12:21 11:45 Discharged to home ambulatory, aa5 aa5
--- NOTE | 2023-11-29 11:22 | EDPHYS ---
Physician Documentation [facility] Name: Fransisco Juarez Age: 38 yrs Sex: Male : 1985 Arrival Date: 11/29/2023 Time: 08:20 Bed 6 Private MD: ED Physician Bang Frost HPI: 11/28 10:24 This 38 yrs old Male presents to ER via Ambulatory with complaints of Chest Tightness, ms3 Cough, Diarrhea. 10:24 38-year-old male with past medical history of diabetes, hypertension, kidney stones, ms3 migraines, pneumonia, rheumatoid arthritis presents to the emergency department for 3 weeks of diarrhea, chest pain and shortness of breath that is been ongoing for 4 days and constant. Patient denies fevers or chills. Patient endorses cough for 1 week, sinus pressure for 10 days. He denies any alleviating or inciting factors. Historical: - Allergies: 08:49 metformin; hb - PMHx: 08:49 Diabetes - NIDDM; Hypertension; Kidney stones; Migraines; Pneumonia; Rheumatoid hb Arthritis; - PSHx: 08:49 Abd Abscess Removed; Knee Sugery; Stent Kidney (Stones); hb - Immunization history:: Adult Immunizations up to date. - Infectious Disease History:: Denies. - Social history:: Smoking status: Patient denies any tobacco usage or history of. ROS: 10:24 Constitutional: Negative for fever, and chills. ms3 10:24 Cardiovascular: Positive for chest pain, 10:24 Respiratory: Positive for cough, shortness of breath, 10:24 Abdomen/GI: Positive for diarrhea, Exam: 10:24 Constitutional: This is a well developed, well nourished patient who is awake, alert, ms3 and in no acute distress. Head/Face: Normocephalic, atraumatic. Neck: Trachea midline, no cervical lymphadenopathy. Supple, full range of motion without nuchal rigidity, or vertebral point tenderness. No Meningismus. Chest/axilla: Normal chest wall appearance and motion. Nontender with no deformity. Cardiovascular: Regular rate and rhythm with a normal S1 and S2. No gallops, murmurs, or rubs. Normal PMI, no JVD. No pulse deficits. Respiratory: Lungs have equal breath sounds bilaterally, clear to auscultation and percussion. No rales, rhonchi or wheezes noted. No increased work of breathing, no retractions or nasal flaring. Abdomen/GI: Soft, non-tender, with normal bowel sounds. No distension or tympany. No guarding or rebound. No evidence of tenderness throughout. Skin: Warm, dry with normal turgor. Normal color with no rashes, no lesions, and no evidence of cellulitis. 10:24 ECG was reviewed by the Attending Physician. ms3 Vital Signs: 08:47 BP 120 / 86; Pulse 79; Resp 16; Temp 98.1(O); Pulse Ox 99% on R/A; Weight 108.86 kg; hb Height 5 ft. 9 in. ; Pain 5/10; 10:39 BP 123 / 80; Pulse 73; Resp 18 S; Pulse Ox 96% on R/A; aa5 11:15 BP 128 / 76; Pulse 75; Resp 18 S; Pulse Ox 97% on R/A; aa5 08:47 Body Mass Index 35.44 (108.86 kg, 175.26 cm) hb 08:47 Pain Scale: Adult hb MDM: 08:55 Patient medically screened. ms3 10:27 Differential diagnosis: abnormal EKG, acute myocardial infarction, coronary artery ms3 disease chest wall pain. 13:12 HEART Score: History: Slightly Suspicious (0), ECG: Normal (0), Age: < or = 45 years ms3 (0), Risk Factors: > or = 3 Risk factors for atherosclerotic disease (2), [Hypertension] [DM] [Active Smoker] Troponin: < or = 1 x Normal Limit (0), Total Score = 2. Data reviewed: vital signs, nurses notes, lab test result(s), EKG, radiologic studies, and as a result, I will discharge patient. Consideration of Admission/Observation Escalation of care including admission/observation considered. HEART score 2. I considered the following discharge prescriptions or medication management in the emergency department Medications were administered in the Emergency Department. See MAR. Independent interpretation of the following test(s) in the Emergency Department EKG: See my EKG interpretation above X-Ray: My interpretation is CXR image reviewed by me does not reveal PNA. Counseling: I had a detailed discussion with the patient and/or guardian regarding the historical points, exam findings, and any diagnostic results supporting the discharge/admit diagnosis, lab results, radiology results, the need for outpatient follow up, to return to the emergency department if symptoms worsen or persist or if there are any questions or concerns that arise at home. ED course: On reevaluation patient is alert and oriented x 4, in no apparent distress, nontoxic-appearing, ambulatory in the emergency department, speaking full sentences. Patient to follow-up with primary care physician in 2 to 3 days. Patient understands and agrees with plan. All questions were answered. Return precautions discussed include worsening symptoms, or any other concerns. 11/28 08:55 Order name: Basic Metabolic Panel; Complete Time: 10:04 ms3 11/28 08:55 Order name: CBC with Diff; Complete Time: 10:04 ms3 11/28 08:55 Order name: Troponin HS; Complete Time: 10:04 ms3 11/28 08:55 Order name: SARS RAPID; Complete Time: 10:04 ms3 11/28 10:05 Order name: CXR XRAY; Complete Time: 11:14 ms3 11/28 08:55 Order name: Cardiac monitoring; Complete Time: 09:38 ms3 11/28 08:55 Order name: EKG - Nurse/Tech; Complete Time: 09:38 ms3 11/28 08:55 Order name: IV Saline Lock; Complete Time: 09:38 ms3 11/28 08:55 Order name: Labs collected and sent; Complete Time: 09:38 ms3 11/28 08:55 Order name: O2 Per Protocol; Complete Time: 09:38 ms3 11/28 08:55 Order name: O2 Sat Monitoring; Complete Time: 09:38 ms3 EC:24 Rate is 77 beats/min. Rhythm is regular. QRS [place] is Normal. [place] interval is normal. ms3 Clinical impression: NSR w/ Non-specific ST/T Changes. Interpreted by me. Reviewed by me. Administered Medications: 09:38 Drug: DuoNeb Nebulize (2.5 mg - 0.5 mg) 3 ml Nebulizer once Route: Nebulizer; aa5 10:00 Follow up: Response: No adverse reaction aa5 Disposition Summary: 11/29/23 11:21 Discharge Ordered Notes: Location: Home ms3 Condition: Stable ms3 Diagnosis - Chest pain, unspecified ms3 - Diarrhea, unspecified ms3 Followup: ms3 - With: Jay Rivera, DO - When: 2 - 3 days - Reason: Recheck today's complaints Discharge Instructions: - Discharge Summary Sheet ms3 - Nonspecific Chest Pain, Adult ms3 - Diarrhea, Adult ms3 Forms: - Work release form iw - Medication Reconciliation Form ms3 - Antibiotic Education ms3 - Prescription Opioid Use ms3 - Patient Portal Instructions ms3 - Leadership Thank You Letter ms3 Signatures: Dispatcher [employer] EDEliz Estrada RN RN aa5 Corinna Briscoe RN RN aBng Frost DO DO ms3 Corrections: (The following items were deleted from the chart) 08:56 08:56 BASIC METABOLIC PANEL+C.LAB.BRZ ordered. EDMS EDMS 08:56 08:56 CBC+H.LAB.BRZ ordered. EDMS EDMS 08:56 08:56 Troponin High Sensitivity+C.LAB.BRZ ordered. EDMS EDMS 08:56 08:56 Chest Single View+RAD.RAD.BRZ ordered. EDMS EDMS 08:56 08:56 SARS-COV-2 Antigen Rapid+I.LAB.BRZ ordered. EDMS EDMS
[2023-11-29 11:56] VITALS: TEMP 98.1
[2023-11-29 11:57] VITALS: BP 123/80; O2SAT 96
== END 2023-11-29 11:50 | disposition home or self-care (01) ==
LOC: ER 08:20
DX: R07.9 Chest pain, unspecified (principal); R19.7 Diarrhea, unspecified; E11.9 Type 2 diabetes mellitus without complications; I10 Essential (primary) hypertension; Z11.52 Encounter for screening for COVID-19
CPT/HCPCS: 93005; 85025; 80048; 36415; 84484; 71045; 94640; 99285; 87811; J7613; J7644

== ENCOUNTER 2024-08-03 21:22 | Emergency (ER) | payer OTHER ==
[2024-08-03] MEDS ORDERED: DIAZEPAM 10 MG/2 ML INJ SYRINGE ONE (21:57)
[2024-08-03] MEDS ORDERED: ONDANSETRON 4 MG/2 ML VIAL ONE (21:57)
[2024-08-03] MEDS ORDERED: METOCLOPRAMIDE 10 MG/2mL INJ ONE (21:57)
[2024-08-03] MEDS ORDERED: GLUCAGON 1 MG/VIAL ONE (21:58)
[2024-08-03] MEDS ORDERED: NA CHLORIDE 0.9% 1,000 ML ONE (21:58)
[2024-08-03] MEDS ORDERED: DICYCLOMINE HCL 20 MG/2 ML AMP IM ONE (22:08)
[2024-08-03 22:23] LABS: Absolute Basophils 0.1 K/uL (0-0.5); Absolute Eosinophils 0.4 K/uL (0-0.5); Absolute Lymphocytes (CBC) 2.8 K/uL (0.7-4.9); Absolute Monocytes 0.6 K/uL (0.1-1.3); Absolute Neutrophil 4.2 K/uL (1.8-8.0); Basophils % 1.2 % (0-1.3); Eosinophils % 4.4 % (0-4.4); Hematocrit 44.8 % (39.6-49.0); Lymphocytes % 34.8 % (15.3-44.8); MCH 30.5 pg (27.0-35.0); MCHC 35.8 g/dL (32.0-36.0); MCV 85.4 fL (80-100); MPV 8.5 fL (7.6-11.3); Monocytes % 7.7 % (3.3-12.3); Neutrophils % 51.9 % (41.7-73.7); Nucleated Red Blood Cells % 0.4 % (0-0); Platelets 256 thou/uL (152-406); RBC Red Blood Cell Count 5.24 M/uL (4.33-5.43)
[2024-08-03 22:32] LABS: Albumin 3.7 g/dL (3.4-5.0); Anion Gap 9.1 mEq/L (5.0-15.0); Bilirubin Total 1.1 mg/dL (0.2-1.0); Globulin 3.6 g/dL (2.3-3.5); Protein, Total 7.3 g/dL (6.4-8.2)
--- NOTE | 2024-08-03 22:32 | RAD REPORT ---
EXAM:Soft Tissue Neck Wo Contr CLINICAL HISTORY: Neck pain. Esophageal food impaction. TECHNIQUE: Unenhanced CT axial images of the neck obtained. Sagittal and coronal reconstruction performed.One or more of the following dose reduction techniques were used: Automated exposure control, adjustment of the mA and/or kV according to the patient size, and/or iterative reconstruction. Unless otherwise specified, incidental findings do not require dedicated imaging follow-up. [id number]. COMPARISON: None CLINICAL HISTORY: Neck pain+ FINDINGS: The pharynx, larynx and subglottic trachea appear unremarkable. The proximal thoracic esophagus is dilated and fluid-filled. A foreign body is not visualized within the visualized esophagus. Parotid, submandibular and thyroid glands appear unremarkable No significant lymphadenopathy seen. No fluid within the visualized sinuses/mastoids noted IMPRESSION: Dilatation of the proximal thoracic esophagus perhaps secondary to a more proximal esophageal obstruc tion.
[2024-08-03 22:33] LABS: Potassium 4.1 mEq/L (3.5-5.1)
--- NOTE | 2024-08-03 22:44 | RAD REPORT ---
EXAM: CT CHEST, ABDOMEN AND PELVIS WITHOUT CONTRAST CLINICAL INDICATION: Chest and abdominal pain. Esophageal food impaction. TECHNIQUE: CT chest, abdomen and pelvis was performed, without IV contrast, as per department protoco l. Axial, sagittal and coronal reconstructions were obtained. One or more of the following dose reduction techniques were used: Automated exposure control, adjustment of the mA and/or kV according to the patient size, and/or iterative reconstruction. Unless otherwise specified, incidental findings do not require dedicated imaging follow-up. The lack of IV and oral contrast limits evaluation of the mediastinum, kentrell, vessels, organs and juan l. COMPARISON: CT abdomen 2023 FINDINGS: Dilatation of the proximal and mid esophagus is present. The esophagus is fluid-filled. The distal es ophagus appears normal caliber. Lungs are clear. No mediastinal or hilar lymphadenopathy seen. No pleural effusion. No pericardial effusion. Mild fatty liver. The spleen, pancreas, adrenals and right kidney appear grossly normal. Several small left renal calculi. No hydronephrosis Normal appendix here is no evidence of diverticulitis Small left and [id number] right inguinal hernias containing fat. Small umbilical hernia. IMPRESSION: Dilatation of the mid and proximal thoracic esophagus. This may be secondary to food impaction near t he junction of the mid and distal thoracic esophagus.
--- NOTE | 2024-08-04 00:27 | ER ---
Nurse's Notes [facility] Name: Fransisco Juarez Age: 39 yrs Sex: Male : 1985 Arrival Date: 08/03/2024 Time: 21:22 Bed 19 Private MD: Diagnosis: Mid esophageal food impaction, acute dysphagia Presentation: 08/03 21:41 Chief complaint: Patient states: he ate dinner and believes he has food stuck in his cp4 throat causing him to vomit. States this has happened before. Coronavirus screen: Vaccine status: Patient reports receiving the 2nd dose of the covid vaccine. Client denies travel out of the [place] in the last 14 days. At this time, the client does not indicate any symptoms associated with coronavirus-19. Ebola Screen: Patient negative for fever greater than or equal to 101.5 degrees Fahrenheit, and additional compatible Ebola Virus Disease symptoms Patient denies exposure to infectious person. Patient denies travel to an Ebola-affected area in the 21 days before illness onset. No symptoms or risks identified at this time. Initial Sepsis Screen: Does the patient meet any 2 criteria? HR > 90 bpm. No. Patient's initial sepsis screen is negative. Does the patient have a suspected source of infection? No. Patient's initial sepsis screen is negative. Risk Assessment: Do you want to hurt yourself or someone else? Patient reports no desire to harm self or others. Onset of symptoms was August 03, 2024 at 20:00. 21:41 Method Of Arrival: Ambulatory cp4 21:41 Acuity: AMILCAR 3 cp4 Triage Assessment: 21:43 General: Appears in no apparent distress. uncomfortable, Behavior is calm, cooperative, cp4 appropriate for age. Pain: Denies pain. Historical: - Allergies: 21:43 cats; cp4 21:43 metformin; cp4 - PMHx: 21:43 Diabetes - NIDDM; Hypertension; Kidney stones; Migraines; Pneumonia; Rheumatoid cp4 Arthritis; - PSHx: 21:43 Abd Abscess Removed; Knee Sugery; Stent Kidney (Stones); cp4 - Immunization history:: Adult Immunizations up to date. - Infectious Disease History:: Denies. - Social history:: Smoking status: Patient denies any tobacco usage or history of. - Family history:: not pertinent. Screenin:40 [facility] ED Fall Risk Assessment (Adult) History of falling in the last 3 months, me1 including since admission No falls in past 3 months (0 pts) Confusion or Disorientation No (0 pts) Intoxicated or Sedated No (0 pts) Impaired Gait No (0 pts) Mobility Assist Device Used No (0 pt) Altered Elimination No (0 pt) Score/Fall Risk Level 0 - 2 = Low Risk Maintained a safe environment, Provided non-skid footwear, Hourly rounding (assess needs \T\ fall precautionary measures) done. Abuse screen: Denies threats or abuse. Nutritional screening: No deficits noted. Tuberculosis screening: No symptoms or risk factors identified. Assessment: 21:40 General: Appears uncomfortable, well groomed, well developed, well nourished, Behavior me1 is calm, cooperative, appropriate for age, Reports he ate dinner and believes he has food stuck in his throat causing him to vomit. States this has happened before. Pain: Complains of pain in neck Pain does not radiate. Pain currently is 4 out of 10 on a pain scale. Quality of pain is described as pressure, Pain began suddenly, Is episodic. Pain: Aggravated by vomiting. Neuro: Level of Consciousness is awake, alert, obeys commands, Oriented to person, place, time, situation, Appropriate for age. Cardiovascular: Patient's skin is warm and dry. Respiratory: Airway is patent Respiratory effort is even, unlabored, Respiratory pattern is regular, symmetrical. GI: Reports nausea, vomiting, feels like he has food stuck in his throat. : No signs and/or symptoms were reported regarding the genitourinary system. EENT: Reports pain when swallowing. Derm: Skin is intact, is healthy with good turgor, Skin is pink, warm \T\ dry. Musculoskeletal: No signs and/or symptoms reported regarding the musculoskeletal system. 22:49 Reassessment: Patient appears in no apparent distress at this time. No changes from cp4 previously documented assessment. Patient and/or family updated on plan of care and expected duration. Pain level reassessed. Patient is alert, oriented x 3, equal unlabored respirations, skin warm/dry/pink. Vital Signs: 21:41 BP 142 / 97; Pulse 93; Resp 18; Temp 98.2; Pulse Ox 96% ; Weight 108.86 kg; Height 5 cp4 ft. 9 in. ; Pain 0/10; 22:48 BP 120 / 66; Pulse 72; Resp 18; Pulse Ox 97% ; cp4 23:50 BP 138 / 97; Pulse 72; Resp 18; Pulse Ox 95% ; cp4 21:41 Body Mass Index 35.44 (108.86 kg, 175.26 cm) cp4 21:41 Pain Scale: Adult cp4 [place] Coma Score: 08/04 20:53 Eye Response: spontaneous(4). Motor Response: obeys commands(6). Verbal Response: sp4 oriented(5). Total: 15. ED Course: 08/03 21:24 Patient arrived in ED. jj6 21:36 Javier Beaulieu MD is Attending Physician. sp4 21:40 Patient has correct armband on for positive identification. Bed in low position. Call me1 light in reach. Side rails up X2. Provided Education on: POC. Verbalized understanding.. Client placed on continuous cardiac and pulse oximetry monitoring. NIBP monitoring applied. Pulse ox on. NIBP on. 21:40 No provider procedures requiring assistance completed. me1 21:43 Triage completed. cp4 21:43 Arm band placed on right wrist. Patient placed in waiting room. cp4 21:50 Inserted saline lock: 20 gauge in right antecubital area, using aseptic technique. rk3 Blood collected. Flushed with 10 mL NS. 21:51 Initial lab(s) drawn, by dc, sent to lab. rk3 21:53 Charisse Sabillon, RN is Primary Nurse. me1 22:20 CT Chest Abdomen Pelvis W/O Contrast In Process Unspecified. EDMS 22:20 Soft Tissue Neck Wo Contr In Process Unspecified. EDMS 08/04 00:26 Spenser Johnson MD is Referral Physician. sp4 00:38 intact, bleeding controlled, No redness/swelling at site. Pressure dressing applied. cp4 Administered Medications: 08/03 22:05 Drug: NS 0.9% IV 1000 ml IV at 1000 ml once; to be given as a bolus over 60 minutes me1 Route: IV; Rate: 1000 ml; Site: right antecubital; 08/04 00:38 Follow up: Response: No adverse reaction; IV Status: Completed infusion cp4 08/03 22:05 Drug: Diazepam IVP 5 mg IVP once Route: IVP; Site: right antecubital; me1 08/04 00:37 Follow up: Response: No adverse reaction cp4 08/03 22:05 Drug: Glucagon IVP 1 mg IVP once Route: IVP; Site: right antecubital; me1 08/04 00:37 Follow up: Response: No adverse reaction 4 08/03 22:06 Drug: metoCLOPramide IVP 10 mg IVP once; over 1 to 2 minutes Route: IVP; Site: right me1 antecubital; 08/04 00:37 Follow up: Response: No adverse reaction 4 08/03 22:06 Drug: Ondansetron IVP 4 mg IVP once; over 2 minutes Route: IVP; Site: right antecubital;dc1 08/04 00:37 Follow up: Response: No adverse reaction 4 08/03 22:26 Drug: Dicyclomine IM 20 mg IM once Route: IM; Site: right deltoid; dc1 08/04 00:37 Follow up: Response: No adverse reaction 4 Medication: 08/03 21:40 VIS not applicable for this client. dc1 Outcome: 08/04 00:27 Discharge ordered by . sp4 00:38 Discharged to home ambulatory, cp4 00:38 Condition: stable 00:38 Discharge instructions given to patient, Instructed on discharge instructions, follow up and referral plans. Demonstrated understanding of instructions, follow-up care, 00:39 Patient left the ED. cp4 Signatures: Dispatcher [employer] EDManasa Zimmermanj6 Javier Beaulieu MD MD sp4 Charisse Sabillon RN RN me1 Raquel Verdugo cp4 Gautam Carcamo rk3 Corrections: (The following items were deleted from the chart) 08/03 21:54 21:41 Chief complaint: Patient states: he ate dinner and believes he has food stuck in me1 his throat causing him to vomit. States this has happened before. cp4 22:15 21:41 Chief complaint: Patient states: he ate dinner and believes he has food stuck in me1 his throat causing him to vomit. States this has happened before. me1
--- NOTE | 2024-08-04 00:27 | EDPHYS ---
Physician Documentation [facility] Name: Fransisco Juarez Age: 39 yrs Sex: Male : 1985 Arrival Date: 08/03/2024 Time: : Bed 19 Private MD: ED Physician Javier Beaulieu HPI: 08/03 21:36 This 39 yrs old Male presents to ER via Unassigned with complaints of sp4 Difficulty Swallowing. 08/04 20:52 Patient presents with acute dysphagia secondary to piece of steak. Patient states that sp4 in the past this has happened but in the past he has always managed to swallow the food. Today patient states that the food seems to be stuck and he is not able to swallow his saliva.. . Historical: - Allergies: 08/03 21:43 cats; cp4 21:43 metformin; cp4 - PMHx: 21:43 Diabetes - NIDDM; Hypertension; Kidney stones; Migraines; Pneumonia; Rheumatoid cp4 Arthritis; - PSHx: 21:43 Abd Abscess Removed; Knee Sugery; Stent Kidney (Stones); cp4 - Immunization history:: Adult Immunizations up to date. - Infectious Disease History:: Denies. - Social history:: Smoking status: Patient denies any tobacco usage or history of. - Family history:: not pertinent. ROS: 08/04 20:53 Constitutional: Negative for fever, chills, and weight loss, positive for acute sp4 dysphagia, positive for drooling, positive for chest and neck discomfort All other systems are negative, Exam: 20:53 Constitutional: This is a well developed, well nourished patient who is awake, alert, sp4 and in no acute distress. Head/Face: Normocephalic, atraumatic. Eyes: Pupils equal round and reactive to light, extra-ocular motions intact. Lids and lashes normal. Conjunctiva and sclera are not injected. Cornea within normal limits. Periorbital areas with no swelling, redness, or edema. ENT: Nares patent. No nasal discharge, no septal abnormalities noted. Tympanic membranes are normal and external auditory canals are clear. Oropharynx with no redness, swelling, or masses, exudates, or evidence of obstruction, uvula midline. Mucous membranes moist. Neck: Trachea midline, no thyromegaly or masses palpated, and no cervical lymphadenopathy. Supple, full range of motion without nuchal rigidity, or vertebral point tenderness. Chest/axilla: Normal chest wall appearance and motion. Nontender with no deformity. No lesions are appreciated. Cardiovascular: Regular rate and rhythm with a normal S1 and S2. No gallops, murmurs, or rubs. Normal PMI, no JVD. No pulse deficits. Respiratory: Lungs have equal breath sounds bilaterally, clear to auscultation and percussion. No rales, rhonchi or wheezes noted. No increased work of breathing, no retractions or nasal flaring. Abdomen/GI: Soft, with normal bowel sounds. No distension or tympany. No guarding or rebound. No evidence of tenderness throughout. Back: No spinal tenderness. No costovertebral tenderness. Skin: Warm, dry with normal turgor. Normal color with no rashes, no lesions, and no evidence of cellulitis. MS/ Extremity: Pulses equal, no cyanosis. Neurovascular intact. Full, normal range of motion. Neuro: Awake and alert, GCS 15, oriented to person, place, time, and situation. Cranial nerves II-XII grossly intact. Motor strength 5/5 in all extremities. Sensory grossly intact. Psych: Awake, alert, with orientation to person, place and time. Behavior, mood, and affect are within normal limits Vital Signs: 08/03 21:41 BP 142 / 97; Pulse 93; Resp 18; Temp 98.2; Pulse Ox 96% ; Weight 108.86 kg; Height 5 cp4 ft. 9 in. ; Pain 0/10; 22:48 BP 120 / 66; Pulse 72; Resp 18; Pulse Ox 97% ; cp4 23:50 BP 138 / 97; Pulse 72; Resp 18; Pulse Ox 95% ; cp4 21:41 Body Mass Index 35.44 (108.86 kg, 175.26 cm) cp4 21:41 Pain Scale: Adult cp4 [place] Coma Score: 08/04 20:53 Eye Response: spontaneous(4). Motor Response: obeys commands(6). Verbal Response: sp4 oriented(5). Total: 15. MDM: 08/03 21:36 Medical Screening Exam initiated sp4 08/04 00:04 ED course: EXAM: CT CHEST, ABDOMEN AND PELVIS WITHOUT CONTRAST CLINICAL INDICATION: sp4 Chest and abdominal pain. Esophageal food impaction. TECHNIQUE: CT chest, abdomen and pelvis was performed, without IV contrast, as per department protocol. Axial, sagittal and coronal reconstructions were obtained. One or more of the following dose reduction techniques were used: Automated exposure control, adjustment of the mA and/or kV according to the patient size, and/or iterative reconstruction. Unless otherwise specified, incidental findings do not require dedicated imaging follow-up. The lack of IV and oral contrast limits evaluation of the mediastinum, kentrell, vessels, organs and bowel. COMPARISON: CT abdomen 2023 FINDINGS: Dilatation of the proximal and mid esophagus is present. The esophagus is fluid-filled. The distal esophagus appears normal caliber. Lungs are clear. No mediastinal or hilar lymphadenopathy seen. No pleural effusion. No pericardial effusion. Mild fatty liver. The spleen, pancreas, adrenals and right kidney appear grossly normal. Several small left renal calculi. No hydronephrosis Normal appendix here is no evidence of diverticulitis Small left and [id number] right inguinal hernias containing fat. Small umbilical hernia. IMPRESSION: Dilatation of the mid and proximal thoracic esophagus. This may be secondary to food impaction near the junction of the mid and distal thoracic esophagus. . 20:53 Differential diagnosis: bronchitis, gingivostomatitis, influenza, lymphoma, sp4 pharyngitis. Data reviewed: vital signs, nurses notes, lab test result(s), CBC, electrolytes, radiologic studies, CT scan. Consideration of Admission/Observation Escalation of care including admission/observation considered. ED course: On repeat assessment patient has reported that it seems like the food has dropped into the stomach. Patient is not able to tolerate his own saliva. Patient managed to drink a cup of water without a problem. At this time esophageal food impaction has resolved and patient is feeling better. Advised pured diet. 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 Will refer to Dr. Amaral. . 08/03 21:36 Order name: CBC with Diff; Complete Time: 00:05 sp4 08/03 21:36 Order name: CMP; Complete Time: 00:05 sp4 08/03 21:36 Order name: Lipase; Complete Time: 00:05 sp4 08/03 21:54 Order name: CT Chest Abdomen Pelvis W/O Contrast; Complete Time: 00:05 sp4 08/03 22:12 Order name: Soft Tissue Neck Wo Contr; Complete Time: 00:05 EDMS 08/03 21:36 Order name: IV Saline Lock; Complete Time: 21:51 sp4 08/03 21:36 Order name: Labs collected and sent; Complete Time: 21:51 sp4 Administered Medications: 08/03 22:05 Drug: NS 0.9% IV 1000 ml IV at 1000 ml once; to be given as a bolus over 60 minutes [facility] [place]: IV; Rate: 1000 ml; Site: right antecubital; 08/04 00:38 Follow up: Response: No adverse reaction; IV Status: Completed infusion 4 08/03 22:05 Drug: Diazepam IVP 5 mg IVP once Route: IVP; Site: right antecubital; [facility]/04 00:37 Follow up: Response: No adverse reaction 4 08/03 22:05 Drug: Glucagon IVP 1 mg IVP once Route: IVP; Site: right antecubital; [facility]/04 00:37 Follow up: Response: No adverse reaction 4 08/03 22:06 Drug: metoCLOPramide IVP 10 mg IVP once; over 1 to 2 minutes Route: IVP; Site: right me1 antecubital; 08/04 00:37 Follow up: Response: No adverse reaction 4 08/03 22:06 Drug: Ondansetron IVP 4 mg IVP once; over 2 minutes Route: IVP; Site: right antecubital[place] [place] 00:37 Follow up: Response: No adverse reaction 4 08/03 22:26 Drug: Dicyclomine IM 20 mg IM once Route: IM; Site: right deltoid; [facility]/04 00:37 Follow up: Response: No adverse reaction [facility] Disposition Summary: 08/04/24 00:27 Discharge Ordered Problem: new sp4 Symptoms: have improved sp4 Condition: Stable sp4 Diagnosis - Mid esophageal food impaction, acute dysphagia sp4 Followup: sp4 - With: Spenser Johnson MD - When: 7 - 10 days - Reason: Recheck today's complaints Discharge Instructions: - Discharge Summary Sheet sp4 - Dysphagia Eating Plan, Pureed sp4 Forms: - Patient Portal Instructions sp4 Signatures: Dispatcher [employer] EDTN Javier Beaulieu MD MD sp4 Charisse Sabillon RN RN me1 Raquel Verdugo cp4 Corrections: (The following items were deleted from the chart) 08/03 22:03 21:54 Soft Tissue Neck W/Contr+CT.RAD.BRZ ordered. EDMS EDMS 22:12 22:04 Neck Soft Tissue W/Wo Contr ordered. EDMS EDMS
[2024-08-04 01:14] VITALS: TEMP 98.2
[2024-08-04 01:16] VITALS: BP 138/97; O2SAT 95
== END 2024-08-04 00:39 | disposition home or self-care (01) ==
LOC: ER 21:22
DX: T18.128A Food in esophagus causing other injury, initial encounter (principal)
CPT/HCPCS: 96361; 85025; 36415; 83690; 80053; 70490; 71250; 74176; 96375; 96372; 96374; 99284; J1610; J2765; J0500; J3360; J2405; J7030

== ENCOUNTER 2025-01-03 23:11 | Emergency (ER) | payer OTHER ==
--- OUTSIDE RECORDS SUMMARY | 2025-01-03 23:17 | XMS REPORT | Continuity of Care Document ---
Author Name Unknown Address [address] [facility] [place] [address] Organization [facility] [place] Address [address] [facility] [place] [address] Care Team Providers Care Client Services Analyst Name Role Phone [facility] Primary Care Physician + [facility] Attending Clinician Unavailable KATJA DANIELLE Attending Clinician Unavailable Katja Hall Attending Clinician [phone] Unknown, Attending Attending Clinician Unavailab ERCIA Suarez Attending Clinician Unavailab ERICA Suarez Attending Clinician Unavailab Katja Marvin Attending Clinician [phone] Unknown, Attending Attending Clinician Unavailab GIN John Attending Clinician Unavailable Gin Cotto MD Attending Clinician [phone] Doctor Unassigned, Shelley Attending Clinician U Kirill Meyers Attending Clinician + [phone] Suzanne Garza Attending Clinician [phone] KIRILL BARTLETT Attending Clinician Unavailab Kely Khan Attending Clinician [phone] Maureen Sexton RN Attending Clinician Unavailab KELY Ibanez Attending Clinician UnavailLakia Brandon Attending Clinician [phone] OVI MONTEIRO III Attending Clinician Unavailyulisa Gracia RN, Sil Armstrong Attending Clinician Unavailab montserrat Sorto RN, Deidre Attending Clinician Unavailable SUZANNE RODRIGUEZ Attending Clinician Unavailable King AJITH, Ovi Greenberg Attending Clinician [phone] ADINA JOY Attending Clinician Unavailable Only, Ang Db Test Attending Clinician Unavailyulisa Joy PA-C, Adina Attending Clinician [phone] Provider, [facility] Attending Clinician Unavailable Israel MABRY, Maryan Rg Attending Clinician Unavaila jareth UNKNOWN, ATTENDING Attending Clinician Unavailab Melania MABRY, Briseida Attending Clinician Unavailable Tierra Pineda Attending Clinician [phone] TIERRA VALENTINE Attending Clinician UnavailERICA [place] Admitting Clinician Unavailab mariano Payers Payer Name Policy Type Policy Number Effective Date Expirati on Date Source [facility] - OUT OF STATE [id number] 2019 00:00:00 Problems Condition Name Condition Details Condition Category Status Onset Date Resolution Date Last Treatment Date Treating Clinician Comments Source No known active problems No known active problems Disease [facility] Allergies, Adverse Reactions, Alerts Allergy Name Allergy Type Status Severity Reaction(s) Onset Date Inactive Date Treating Clinician Comments Source Metformi n Drug Allergy Active Diarrhea 08-30 00:00: 00 [facility] METFORMI N DRUG INGREDI Active Low Diarrhea 08-30 00:00: 00 [facility] NO KNOWN ALLERGIE S Drug Class Active [facility] Social History Social Habit Start Date Stop Date Quantity Comments Source History SDOH Alcohol Frequency [facility] History SDOH Alcohol Std Drinks [facility] History SDOH Alcohol Binge [facility] Gender identity [facility] Sexual orientation U [facility] Alcohol intake 2023-04-03 00:00:00 2023-04-03 00:00:00 Current drinker of alcohol (finding) [facility] Exposure to SARS-CoV-2 (event) 2022-08-10 00:00:00 2022-08-20 18:25:00 Not sure [facility] History of Social function 2021-11-01 00:00:00 2021-11-01 00:00:00 [facility] Alcohol Comment 2021-05-18 00:00:00 2021-05-18 00:00:00 social [facility] Tobacco use and exposure 2020-12-24 00:00:00 2020-12-24 00:00:00 Smokeless tobacco non-user [facility] Alcoholic beverage intake 2020-12-24 00:00:00 2020-12-24 00:00:00 Current drinker of alcohol (finding) [facility] Sex assigned at 1985 00:00:00 1985 00:00:00 [facility] Smoking Status Start Date Stop Date Source Never smoked tobacco [facility] Unknown if ever smoked [facility] Medications Ordered Medication Name Filled Medication Name Start Date Stop Date Current Medication? Ordering Clinician Indication Dosage Frequency Signature (SIG) Comments Components Source magnesium sulfate in water 2 gram/50 mL (4 %) infusion 2 g 11-05 05:45: 00 11-05 05:50 :00 No 2g 2 g, IV Piggyback, Administer over 60 Minutes, ONCE, 1 dose, On Sat11/06/23 at 0045, Routine [facility] iopamidol (ISOVUE 370-500 mL) injection 80 mL 11-05 05:15: 00 11-05 05:15 :00 No [id number] 80mL 80 mL, Intravenou s, ONCE, 1 dose, On Sat11/06/23 at 0015, Routine [facility] NaCl 0.9% (NS) bolus infusion 1,000 mL 11-05 03:15: 00 11-05 04:29 :00 No 1000mL at 999 mL/hr, 1,000 mL, IV Infusion, ONCE, 1 dose, On Sat11/05/23 at 2215, DANE [facility] diazePAM (VALIUM) injection 5 mg 11-05 02:45: 00 11-05 02:51 :00 No 5mg 5 mg, Slow IV Push, ONCE, 1 dose, On 7/23/24 at 2145, STAT [facility] diazePAM (VALIUM) 5 mg tablet 11-05 00:00: 00 Yes [id number] 5mg Take 1 tablet by mouth 3 (three) times daily as needed for Muscle Spasms (vertigo). [facility] amoxicillin -clavulanat e (AUGMENTIN) 875-125 mg per tablet 2022-04 00:00: 00 04-14 05:59 :00 No [id number] 1{tbl} Take 1 tablet by mouth in the morning and 1 tablet in the evening. Do all this for 10 days. [facility] fluticasone propionate 50 mcg/actuati on nasal spray 2022-04 00:00: 00 04-11 05:59 :00 No [id number] 1{spray } Use 1 [place] in each nostril in the morning for 7 days. [facility] codeine-gua ifenesin 10-100 mg/5 mL oral solution 2022-04 00:00: 00 04-09 05:59 :00 No 10mL Take 10 mL by mouth every 6 (six) hours as needed for Cough for up to 5 days. Indication s: cough [facility] amoxicillin 500 mg tablet 2022-04 00:00: 00 03-01 05:59 :00 No [id number] 1000mg Take 2 tablets by mouth in the morning for 10 days. [facility] benzonatate 200 mg capsule 2022-04 00:00: 00 03-01 05:59 :00 No [id number] 200mg Take 1 capsule by mouth 3 (three) times daily as needed for Cough for up to 10 days. [facility] ondansetron (ZOFRAN-ODT ) disintegrat ing tablet 8 mg 10-28 16:15: 00 10-28 15:21 :00 No [id number] 8mg [facility] ondansetron 4 mg disintegrat ing tablet 10-28 00:00: 00 Yes [id number] 4mg Take 1 tablet by mouth every 8 (eight) hours as needed for Nausea and Vomiting (N/V). [facility] amoxicillin 500 mg tablet 5-08 00:00: 00 08-31 04:59 :00 No [id number] 1000mg Take 2 tablets by mouth in the morning for 10 days. [facility] ondansetron 4 mg tablet 9-04 00:00: 00 10-28 00:00 :00 No [id number] 4mg Take 1 tablet by mouth every 8 (eight) hours as needed for Nausea and Vomiting (N/V). [facility] benzonatate 200 mg capsule 9-04 00:00: 00 12-28 04:59 :00 No [id number] 200mg Take 1 capsule by mouth 3 (three) times daily as needed for Cough for up to 10 days. [facility] albuterol 90 mcg/actuati on inhaler 7-20 00:00: 00 Yes [id number] 2{puff} Inhale 2 Puffs every 6 (six) hours as needed for Wheezing or Bronchospa sm. [facility] guaiFENesin 400 mg tablet -02 00:00: 00 Yes [id number] 400mg Take 1 tablet by mouth every 4 (four) hours as needed for Cough. [facility] promethazin e-dextromet horphan 6.25-15 mg/5 mL syrup 5-02 00:00: 00 12-17 00:00 :00 No [id number] 5mL Take 5 mL by mouth 4 (four) times daily as needed for Cough. [facility] amoxicillin -clavulanat e (AUGMENTIN) 875-125 mg per tablet 5-02 00:00: 00 08-22 04:59 :00 No [id number] 1{tbl} Take 1 tablet by mouth 2 (two) times daily for 7 days. [facility] benzonatate 200 mg capsule 3-11 00:00: 00 08-14 00:00 :00 No [id number] 200mg Take 1 capsule by mouth 3 (three) times daily as needed for Cough. [facility] benzonatate 200 mg capsule 3-04 00:00: 00 Yes [id number] 200mg Take 1 capsule by mouth 3 (three) times daily as needed for Cough. [facility] amoxicillin 500 mg capsule 2-03 00:00: 00 05-29 05:59 :00 No [id number] 500mg Take 1 capsule by mouth 2 (two) times daily for 10 days. [facility] codeine-gua ifenesin 10-100 mg/5 mL oral solution 2- 00:00: 00 05-26 05:59 :00 No [id number] 5mL Take 5 mL by mouth every 6 (six) hours as needed for Cough for up to 7 days. Indication s: acute pain [facility] metoprolol succinate XL 25 mg 24 hr tablet 05-13 00:00: 00 Yes [facility] aspirin 81 mg chewable tablet 05-13 00:00: 00 Yes [facility] sulfaSALAzi ne 500 mg EC tablet 05-12 00:00: 00 Yes [facility] predniSONE 5 mg tablet 05-12 00:00: 00 12-08 00:00 :00 No [facility] bromphenira mine-pseudo ephedrine-D M (BROMFED DM) 2-30-10 mg/5 mL syrup 2020-04 0-05 00:00: 00 06-16 00:00 :00 No [id number] 5mL Take 5 mL by mouth 4 (four) times daily as needed for Congestion /Allergies or Cough. [facility] omeprazole 20 mg capsule 10-26 00:00: 00 Yes [facility] metoprolol (LOPRESSOR) 10 mg/mL oral suspension 10-26 00:00: 00 Yes [facility] metoprolol (LOPRESSOR) 10 mg/mL oral suspension 10-26 00:00: 00 Yes [facility] atorvastati n 80 mg tablet 10-26 00:00: 00 Yes [facility] LOVAZA, omega-3-aci d ethyl esters, 1 gram capsule 09-07 00:00: 00 Yes TAKE TWO CAPSULES BY MOUTH TWICE A DAY [facility] semaglutide 0.25 mg or 0.5 mg(2 mg/1.5 mL) PnIj 09-07 00:00: 00 Yes INJECT 0.25MG UNDER THE SKIN EVERY WEEK FOR 4 WEEKS, THEN INJECT 0.5MG EVERY WEEK [facility] glipiZIDE 10 mg tablet 08-09 00:00: 00 08-11 04:59 :00 No TAKE ONE TABLET BY MOUTH TWICE A DAY BEFORE MEALS FOR DIABETES [facility] isosorbide mononitrate 30 mg 24 hr tablet 08-01 00:00: 00 08-03 04:59 :00 No TAKE ONE TABLET BY MOUTH DAILY TO PREVENT CHEST PAIN. *DO NOT CRUSH* [facility] fenofibrate 145 mg tablet 07-27 00:00: 00 Yes TAKE ONE TABLET BY MOUTH DAILY FOR CHOLESTERO L [facility] empaglifloz in (JARDIANCE) 25 mg Tab 14 00:00: 00 07-29 04:59 :00 No TAKE ONE-HALF TABLET BY MOUTH DAILY [facility] lisinopriL 2.5 mg tablet 3-11 00:00: 00 06-25 05:59 :00 No TAKE ONE TABLET BY MOUTH DAILY FOR HEART/ BLOOD PRESSURE [facility] albuterol 90 mcg/actuati on inhaler 18 00:00: 00 11-01 00:00 :00 No [id number] 2{puff} Inhale 2 Puffs every 4 (four) hours as needed for Wheezing or Shortness of Breath. [facility] Immunizations Ordered Immunization Name Filled Immunization Name Date Status Comments Source SARS-COV-2 COVID-19 TOMMIE/J&J VACCINE 2020-09-09 00:00:00 Completed [facility] SARS-COV-2 COVID-19 TOMMIE/J&J VACCINE 2020-09-09 00:00:00 Completed [facility] SARS-COV-2 COVID-19 TOMMIE/J&J VACCINE 2020-09-09 00:00:00 Completed [facility] SARS-COV-2 COVID-19 TOMMIE/J&J VACCINE 2020-09-09 00:00:00 Completed [facility] SARS-COV-2 COVID-19 TOMMIE/J&J VACCINE 2020-09-09 00:00:00 Completed [facility] SARS-COV-2 COVID-19 TOMMIE/J&J VACCINE 2020-09-09 00:00:00 Completed [facility] SARS-COV-2 COVID-19 TOMMIE/J&J VACCINE 2020-09-09 00:00:00 Completed [facility] SARS-COV-2 COVID-19 TOMMIE/J&J VACCINE 2020-09-09 00:00:00 Completed [facility] SARS-COV-2 COVID-19 TOMMIE/J&J VACCINE 2020-09-09 00:00:00 Completed [facility] SARS-COV-2 COVID-19 TOMMIE/J&J VACCINE 2020-09-09 00:00:00 Completed [facility] SARS-COV-2 COVID-19 TOMMIE/J&J VACCINE 2020-09-09 00:00:00 Completed [facility] SARS-COV-2 COVID-19 TOMMIE/J&J VACCINE 2020-09-09 00:00:00 Completed [facility] SARS-COV-2 COVID-19 TOMMIE/J&J VACCINE 2020-09-09 00:00:00 Completed [facility] SARS-COV-2 COVID-19 TOMMIE/J&J VACCINE 2020-09-09 00:00:00 Completed [facility] SARS-COV-2 COVID-19 TOMMIE/J&J VACCINE 2020-09-09 00:00:00 Completed [facility] SARS-COV-2 COVID-19 TOMMIE/J&J VACCINE 2020-09-09 00:00:00 Completed [facility] SARS-COV-2 COVID-19 TOMMIE/J&J VACCINE 2020-09-09 00:00:00 Completed [facility] SARS-COV-2 COVID-19 TOMMIE/J&J VACCINE 2020-09-09 00:00:00 Completed [facility] SARS-COV-2 COVID-19 TOMMIE/J&J VACCINE 2020-09-09 00:00:00 Completed [facility] SARS-COV-2 COVID-19 TOMMIE/J&J VACCINE 2020-09-09 00:00:00 Completed [facility] SARS-COV-2 COVID-19 TOMMIE/J&J VACCINE 2020-09-09 00:00:00 Completed [facility] SARS-COV-2 COVID-19 TOMMIE/J&J VACCINE 2020-09-09 00:00:00 Completed [facility] SARS-COV-2 COVID-19 TOMMIE/J&J VACCINE Unknown Completed [facility] SARS-COV-2 COVID-19 TOMMIE/J&J VACCINE Unknown Completed [facility] SARS-COV-2 COVID-19 TOMMIE/J&J VACCINE Unknown Completed [facility] SARS-COV-2 COVID-19 TOMMIE/J&J VACCINE Unknown Completed [facility] SARS-COV-2 COVID-19 TOMMIE/J&J VACCINE Unknown Completed [facility] SARS-COV-2 COVID-19 TOMMIE/J&J VACCINE Unknown Completed [facility] SARS-COV-2 COVID-19 TOMMIE/J&J VACCINE Unknown Completed [facility] Vital Signs Vital Name Observation Time Observation Value Comments S ource Body weight 2023-12-09 18:18:00 106.051 kg [facility] BMI 2023-12-09 18:18:00 34.53 kg/m2 [facility] Oxygen saturation in Arterial blood by Pulse oximetry 2023-12-09 18:18:00 99 /min [facility] Systolic blood pressure 2023-12-09 18:18:00 123 mm[Hg] [facility] Diastolic blood pressure 2023-12-09 18:18:00 82 mm[Hg] [facility] Heart rate 2023-12-09 18:18:00 91 /min [facility] Body temperature 2023-12-09 18:18:00 36.33 Maya [facility] Respiratory rate 2023-12-09 18:18:00 17 /min [facility] Systolic blood pressure 2023-11-06 05:42:00 133 mm[Hg] [facility] Diastolic blood pressure 2023-11-06 05:42:00 91 mm[Hg] [facility] Heart rate 2023-11-06 05:42:00 78 /min [facility] Body temperature 2023-11-06 05:42:00 36.89 Maya [facility] Respiratory rate 2023-11-06 05:42:00 16 /min [facility] Oxygen saturation in Arterial blood by Pulse oximetry 2023-11-06 05:42:00 95 /min [facility] Body height 2023-11-06 02:26:00 175.3 cm [facility] Body weight 2023-11-06 02:26:00 108.863 kg [facility] BMI 2023-11-06 02:26:00 35.44 kg/m2 [facility] Systolic blood pressure 2023-04-03 18:29:00 131 mm[Hg] [facility] Diastolic blood pressure 2023-04-03 18:29:00 88 mm[Hg] [facility] Heart rate 2023-04-03 18:29:00 104 /min [facility] Body temperature 2023-04-03 18:29:00 36.94 Maya [facility] Respiratory rate 2023-04-03 18:29:00 16 /min [facility] Body weight 2023-04-03 18:29:00 111.131 kg [facility] BMI 2023-04-03 18:29:00 36.18 kg/m2 [facility] Oxygen saturation in Arterial blood by Pulse oximetry 2023-04-03 18:29:00 98 /min [facility] Systolic blood pressure 2023-02-18 19:36:00 128 mm[Hg] [facility] Diastolic blood pressure 2023-02-18 19:36:00 83 mm[Hg] [facility] Heart rate 2023-02-18 19:35:00 83 /min [facility] Body temperature 2023-02-18 19:35:00 36.83 Maya [facility] Respiratory rate 2023-02-18 19:35:00 16 /min [facility] Body height 2023-02-18 19:35:00 175.3 cm [facility] Body weight 2023-02-18 19:35:00 111.585 kg [facility] BMI 2023-02-18 19:35:00 36.33 kg/m2 [facility] Oxygen saturation in Arterial blood by Pulse oximetry 2023-02-18 19:35:00 98 /min [facility] Systolic blood pressure 2022-10-28 15:02:00 110 mm[Hg] [facility] Diastolic blood pressure 2022-10-28 15:02:00 72 mm[Hg] [facility] Heart rate 2022-10-28 15:02:00 99 /min [facility] Body temperature 2022-10-28 15:02:00 36.94 Maya [facility] Respiratory rate 2022-10-28 15:02:00 18 /min [facility] Body height 2022-10-28 15:02:00 175.3 cm [facility] Body weight 2022-10-28 15:02:00 113.031 kg [facility] BMI 2022-10-28 15:02:00 36.80 kg/m2 [facility] Oxygen saturation in Arterial blood by Pulse oximetry 2022-10-28 15:02:00 98 /min [facility] Systolic blood pressure 2022-08-20 23:38:00 123 mm[Hg] [facility] Diastolic blood pressure 2022-08-20 23:38:00 81 mm[Hg] [facility] Heart rate 2022-08-20 23:38:00 85 /min [facility] Body temperature 2022-08-20 23:38:00 36.78 Maya [facility] Respiratory rate 2022-08-20 23:38:00 16 /min [facility] Body weight 2022-08-20 23:38:00 129.502 kg [facility] BMI 2022-08-20 23:38:00 42.16 kg/m2 [facility] Oxygen saturation in Arterial blood by Pulse oximetry 2022-08-20 23:38:00 98 /min [facility] Systolic blood pressure 2021-12-18 00:39:00 123 mm[Hg] [facility] Diastolic blood pressure 2021-12-18 00:39:00 79 mm[Hg] [facility] Heart rate 2021-12-18 00:39:00 113 /min [facility] Body temperature 2021-12-18 00:39:00 36.89 Maya [facility] Respiratory rate 2021-12-18 00:39:00 18 /min [facility] Body weight 2021-12-18 00:39:00 109.77 kg [facility] BMI 2021-12-18 00:39:00 35.74 kg/m2 [facility] Oxygen saturation in Arterial blood by Pulse oximetry 2021-12-18 00:39:00 97 /min [facility] Systolic blood pressure 2021-11-21 14:19:00 123 mm[Hg] [facility] Diastolic blood pressure 2021-11-21 14:19:00 87 mm[Hg] [facility] Heart rate 2021-11-21 14:19:00 82 /min [facility] Body temperature 2021-11-21 14:19:00 36.94 Maya [facility] Respiratory rate 2021-11-21 14:19:00 19 /min [facility] Body height 2021-11-21 14:19:00 175.3 cm [facility] Body weight 2021-11-21 14:19:00 109.77 kg [facility] BMI 2021-11-21 14:19:00 35.74 kg/m2 [facility] Oxygen saturation in Arterial blood by Pulse oximetry 2021-11-21 14:19:00 99 /min [facility] Systolic blood pressure 2021-11-01 17:00:00 119 mm[Hg] [facility] Diastolic blood pressure 2021-11-01 17:00:00 71 mm[Hg] [facility] Heart rate 2021-11-01 17:00:00 77 /min [facility] Body temperature 2021-11-01 17:00:00 36.56 Maya [facility] Respiratory rate 2021-11-01 17:00:00 18 /min [facility] Body height 2021-11-01 17:00:00 175.3 cm [facility] Body weight 2021-11-01 17:00:00 108.041 kg [facility] BMI 2021-11-01 17:00:00 35.17 kg/m2 [facility] Oxygen saturation in Arterial blood by Pulse oximetry 2021-11-01 17:00:00 97 /min [facility] Systolic blood pressure 2021-10-09 14:41:00 153 mm[Hg] [facility] Diastolic blood pressure 2021-10-09 14:41:00 89 mm[Hg] [facility] Heart rate 2021-10-09 14:41:00 88 /min [facility] Body temperature 2021-10-09 14:41:00 36.89 Maya [facility] Respiratory rate 2021-10-09 14:41:00 18 /min [facility] Body height 2021-10-09 14:41:00 175.3 cm [facility] Body weight 2021-10-09 14:41:00 109.589 kg [facility] BMI 2021-10-09 14:41:00 35.68 kg/m2 [facility] Oxygen saturation in Arterial blood by Pulse oximetry 2021-10-09 14:41:00 98 /min [facility] Systolic blood pressure 2021-10-09 13:30:00 137 mm[Hg] [facility] Diastolic blood pressure 2021-10-09 13:30:00 96 mm[Hg] [facility] Heart rate 2021-10-09 13:30:00 86 /min [facility] Body temperature 2021-10-09 13:30:00 36.61 Maya [facility] Respiratory rate 2021-10-09 13:30:00 18 /min [facility] Body weight 2021-10-09 13:30:00 109.317 kg [facility] BMI 2021-10-09 13:30:00 35.59 kg/m2 [facility] Oxygen saturation in Arterial blood by Pulse oximetry 2021-10-09 13:30:00 99 /min [facility] Systolic blood pressure 2021-08-14 16:40:00 125 mm[Hg] [facility] Diastolic blood pressure 2021-08-14 16:40:00 88 mm[Hg] [facility] Heart rate 2021-08-14 16:40:00 95 /min [facility] Body temperature 2021-08-14 16:40:00 37 Maya [facility] Respiratory rate 2021-08-14 16:40:00 18 /min [facility] Body height 2021-08-14 16:40:00 175.3 cm [facility] Body weight 2021-08-14 16:40:00 109.453 kg [facility] BMI 2021-08-14 16:40:00 35.63 kg/m2 [facility] Oxygen saturation in Arterial blood by Pulse oximetry 2021-08-14 16:40:00 98 /min [facility] Systolic blood pressure 2021-05-19 01:38:00 131 mm[Hg] [facility] Diastolic blood pressure 2021-05-19 01:38:00 84 mm[Hg] [facility] Heart rate 2021-05-19 01:38:00 86 /min [facility] Body temperature 2021-05-19 01:38:00 36.39 Maya [facility] Respiratory rate 2021-05-19 01:38:00 18 /min [facility] Body height 2021-05-19 01:38:00 175.3 cm [facility] Body weight 2021-05-19 01:38:00 115.531 kg [facility] BMI 2021-05-19 01:38:00 37.61 kg/m2 [facility] Oxygen saturation in Arterial blood by Pulse oximetry 2021-05-19 01:38:00 98 /min [facility] Systolic blood pressure 2021-01-17 22:32:00 122 mm[Hg] [facility] Diastolic blood pressure 2021-01-17 22:32:00 79 mm[Hg] [facility] Heart rate 2021-01-17 22:32:00 93 /min [facility] Body temperature 2021-01-17 22:32:00 36.89 Maya [facility] Respiratory rate 2021-01-17 22:32:00 18 /min [facility] Body height 2021-01-17 22:32:00 175.3 cm [facility] Body weight 2021-01-17 22:32:00 112.492 kg [facility] BMI 2021-01-17 22:32:00 36.62 kg/m2 [facility] Oxygen saturation in Arterial blood by Pulse oximetry 2021-01-17 22:32:00 98 /min [facility] Systolic blood pressure 2020-12-24 16:58:00 111 mm[Hg] [facility] Diastolic blood pressure 2020-12-24 16:58:00 82 mm[Hg] [facility] Heart rate 2020-12-24 16:58:00 87 /min [facility] Body temperature 2020-12-24 16:58:00 36.78 Maya [facility] Respiratory rate 2020-12-24 16:58:00 16 /min [facility] Body height 2020-12-24 16:58:00 175.3 cm [facility] Body weight 2020-12-24 16:58:00 112.492 kg [facility] BMI 2020-12-24 16:58:00 36.62 kg/m2 [facility] Oxygen saturation in Arterial blood by Pulse oximetry 2020-12-24 16:58:00 98 /min [facility] Systolic blood pressure 2019-10-31 18:11:00 159 mm[Hg] [facility] Diastolic blood pressure 2019-10-31 18:11:00 105 mm[Hg] [facility] Heart rate 2019-10-31 18:11:00 91 /min [facility] Body temperature 2019-10-31 18:11:00 36.56 Maya [facility] Respiratory rate 2019-10-31 18:11:00 18 /min [facility] Body height 2019-10-31 18:11:00 175.3 cm [facility] Body weight 2019-10-31 18:11:00 115.667 kg [facility] BMI 2019-10-31 18:11:00 37.66 kg/m2 [facility] Oxygen saturation in Arterial blood by Pulse oximetry 2019-10-31 18:11:00 97 /min [facility] Procedures Procedure Date / Time Performed Performing Clinicia n Source POCT SARS-COV-2 ANTIGEN (BINAX NOW) 2023-12-09 18:46:00 Katja Danielle [facility] URINALYSIS 2023-11-06 04:54:00 [facility] 2023-11-06 02:47:00 Erica Velasco [facility] COMP. METABOLIC PANEL (95811) 2023-11-06 02:47:00 Erica Velasco [facility] CBC WITH DIFF 2023-11-06 02:47:00 [facility] X[facility] CHEST 2 VW 2023-02-18 20:01:13 Katja Danielle [facility] POCT MOLECULAR STREP 2023-02-18 19:33:00 Unknown, Attsaturnino yuen [facility] POCT MOLECULAR STREP 2022-08-20 23:44:00 Unknown, Attsaturnino yuen [facility] CONSENT/REFUSAL FOR DIAGNOSIS AND TREATMENT 2022-08-20 23:25:10 Doctor Unassigned, Shelley [facility] ASSIGNMENT OF BENEFITS 2022-08-20 23:24:56 Docto r Unassigned, Shelley [facility] POCT MOLECULAR STREP 2021-12-18 00:40:00 Suzanne Rodriguez [facility] POCT SARS-COV-2 ANTIGEN (BINAX NOW) 2021-12-18 00:35:00 Kirill Bartlett [facility] POCT MOLECULAR FLU 2021-11-01 17:11:00 Lakia Epstein [facility] NOTICE OF PRIVACY PRACTICES 2021-10-09 13:24:37 Doctor Unassigned, Shelley [facility] CONSENT/REFUSAL FOR DIAGNOSIS AND TREATMENT 2021-10-09 13:23:55 Doctor Unassigned, Shelley [facility] POCT MOLECULAR FLU 2021-05-19 01:51:00 Ovi Monteiro [facility] POCT MOLECULAR STREP 2021-05-19 01:49:00 Ovi Monteiro [facility] REFERRAL- REQUEST/RESPONSE 2021-03-26 06:01:00 Doctor Unassigned, Shelley [facility] REFERRAL- REQUEST/RESPONSE 2021-02-28 06:01:00 Doctor Unassigned, Shelley [facility] CONSENT/REFUSAL FOR DIAGNOSIS AND TREATMENT 2021-01-06 14:28:36 Doctor Unassigned, Shelley [facility] Encounters Start Date/Time End Date/Time Encounter Type Admission Type Attending [facility] Care Department Encounter ID Source 2021-01-15 00:00:00 2024-08-06 21:43:41 Letter (Out) Provider, Ang Db Urgent Care Provider, Ang Db Urgent Care [facility] 1.2.840.114 350.1.13.10 4.2.7.2.686 [id number] [facility] 2023-12-09 13:00:00 2023-12-09 13:47:37 Outpatient R KATJA DANIELLE [facility] [id number] [facility] 2023-12-09 13:00:00 2023-12-09 13:47:37 Urgent Care Katja Danielle Unknown, Attending [facility] 1.840.114 350.1.13.10 4.2.7.2.686 [id number] [facility] 2023-11-05 21:30:00 2023-11-06 01:11:00 Emergency X ERICA VELASCO [facility] [id number] [facility] 2023-11-05 21:30:00 2023-11-06 01:11:00 Emergency ElmoDonnara Espinoza [facility] 1.84.114 350.1.13.10 4.2.7.2.686 [id number] [facility] 2023-04-03 12:20:00 2023-04-03 12:37:23 Outpatient R KATJA DANIELLE [facility] [id number] [facility] 2023-04-03 12:20:00 2023-04-03 12:37:23 Urgent Care Katja Danielle Unknown, Attending [facility] 1.840.114 350.1.13.10 4.2.7.2.686 [id number] [facility] 2023-02-18 13:54:17 2023-02-18 23:59:00 Outpatient O KATJA DANIELLE [facility] [id number] [facility] 2023-02-18 13:54:17 2023-02-18 23:59:00 Hospital Encounter Katja Danielle [facility] 1.840.114 350.1.13.10 4.2.7.2.686 [id number] [facility] 2023-02-18 12:20:00 2023-02-18 14:06:44 Urgent Care Katja Danielle Unknown, Attending [facility] 1.840.114 350.1.13.10 4.2.7.2.686 [id number] [facility] 2022-10-28 09:40:00 2022-10-28 10:17:55 Outpatient R GIN COTTO [facility] [id number] [facility] 2022-10-28 09:40:00 2022-10-28 10:17:55 Urgent Care Gin Cotto Unknown, Attending [facility] 1.84114 350.1.13.10 4.2.7.2.686 [id number] [facility] 2022-08-20 18:20:00 2022-08-20 19:11:00 Outpatient R KATJA DANIELLE [facility] [id number] [facility] 2022-08-20 18:20:00 2022-08-20 19:11:00 Urgent Care Katja Danielle Unknown, Attending [facility] 1.84.114 350.1.13.10 4.2.7.2.686 [id number] [facility] 2022-08-20 00:00:00 2022-08-20 00:00:00 Orders Only Doctor Unassigned, Shelley [facility] 1.84114 350.1.13.10 4.2.7.2.686 [id number] [facility] 2021-12-17 20:00:00 2021-12-17 20:20:00 Urgent Care Kirill Bartlett [facility] 1.84.114 350.1.13.10 4.2.7.2.686 [id number] [facility] 2021-12-17 20:00:00 2021-12-17 20:13:40 Outpatient R KIRILL BARTLETT [facility] [id number] [facility] 2021-11-21 09:00:00 2021-11-21 09:41:44 Outpatient R GIN COTTO [facility] [id number] [facility] 2021-11-21 09:00:00 2021-11-21 09:41:44 Urgent Care Kely Foreman [facility] JAQUELINE?CYNTHIA [facility] 1..840.114 350.1.13.10 4.2.7.2.686 [id number] [facility] 2021-11-02 00:00:00 2021-11-02 00:00:00 Letter (Out) Maureen Sexton [facility] 1..840.114 350.1.13.10 4.2.7.2.686 [id number] [facility] 2021-11-01 12:00:00 2021-11-01 13:01:11 Outpatient R KELY FOREMAN [facility] [id number] [facility] 2021-11-01 12:00:00 2021-11-01 12:20:00 Urgent Care Kely Foreman [facility]ñito Epstein[facility]ica [facility] 1.2.840.114 350.1.13.10 4.2.7.2.686 [id number] [facility] 2021-10-09 09:40:00 2021-10-09 10:13:21 Outpatient R GIN COTTO [facility] [id number] [facility] 2021-10-09 09:40:00 2021-10-09 10:13:21 Urgent Care Kely Foreman [facility] JAQUELINE?CYNTHIA [facility] 1.2.840.114 350.1.13.10 4.2.7.2.686 [id number] [facility] 2021-10-09 08:31:00 2021-10-09 08:48:00 Emergency X ERICA VELASCO [facility] ERT [id number] [facility] 2021-10-09 08:31:00 2021-10-09 08:48:00 Emergency Erica Velasco [facility] 1.2.840.114 350.1.13.10 4.2.7.2.686 [id number] [facility] 2021-08-14 13:00:00 2021-08-14 13:00:00 [facility] 1..840.114 350.1.13.10 4.2.7.2.686 [id number] [facility] 2021-08-14 13:00:00 2021-08-14 12:05:02 Outpatient R YADIEL GIN [facility] [id number] [facility] 2021-08-14 00:00:00 2021-08-14 00:00:00 Letter (Out) Yadiel Sloop [facility] 1.2.840.114 350.1.13.10 4.2.7.2.686 [id number] [facility] 2021-06-23 20:00:00 2021-06-23 20:17:48 Outpatient OVI KENNEDY III [facility] [id number] [facility] 2021-06-19 00:00:00 2021-06-19 00:00:00 Patient Secure Msg Ahsan [facility] 1..840.114 350.1.13.10 4.2.7.2.686 [id number] [facility] 2021-06-17 00:00:00 2021-06-17 00:00:00 Letter (Out) Sil Gracia [facility] 1.840.114 350.1.13.10 4.2.7.2.686 [id number] [facility] 2021-06-16 12:00:00 2021-06-16 12:31:18 Outpatient R AHSAN KELY [facility] [id number] [facility] 2021-05-19 00:00:00 2021-05-19 00:00:00 Telephone NoreenDeidre polk [facility] 1.840.114 350.1.13.10 4.2.7.2.686 [id number] [facility] 2021-05-18 19:40:00 2021-05-18 20:05:56 Outpatient Johnson RODRIGUEZ SUZANNE [facility] [id number] [facility] 2021-05-18 19:40:00 2021-05-18 20:05:56 Urgent Care Suzanne Rodriguez James C [facility] 1..840.114 350.1.13.10 4.2.7.2.686 [id number] [facility] 2021-04-23 16:30:00 2021-04-23 17:35:41 Outpatient R [facility]REG[facility]AYLEE [facility] [id number] [facility] 2021-04-23 16:30:00 2021-04-23 16:45:00 Laboratory Only Only, Ang [facility] 1.2.840.114 350.1.13.10 4.2.7.2.686 [id number] [facility] 2021-04-21 09:30:00 2021-04-21 12:01:22 Outpatient R GIN COTTO [facility] [id number] [facility] 2021-04-21 09:30:00 2021-04-21 09:45:00 Laboratory Only Only, Ang Db Test Gin Cotto [facility] 1.2840.114 350.1.13.10 4.2.7.2.686 [id number] [facility] 2021-03-26 00:00:00 2021-03-26 00:00:00 Orders Only Doctor Unassigned, Shelley [facility] 1.2840.114 350.1.13.10 4.2.7.2.686 [id number] [facility] 2021-02-28 00:00:00 2021-02-28 00:00:00 Orders Only Doctor Unassigned, Shelley [facility] 1.20.114 350.1.13.10 4.2.7.2.686 [id number] [facility] 2021-01-22 00:00:00 2021-01-22 00:00:00 Letter (Out) Sil Gracia [facility] 1.20.114 350.1.13.10 4.2.7.2.686 [id number] [facility] 2021-01-21 11:52:47 2021-01-21 12:07:47 Laboratory Only Only, Ang Db Test Michael Suzanne [facility] 1.2840.114 350.1.13.10 4.2.7.2.686 [id number] [facility] 2021-01-21 12:00:00 2021-01-21 12:00:00 Outpatient R MICHAEL SUZANNE [facility] [id number] [facility] 2021-01-19 00:00:00 2021-01-19 00:00:00 Patient Secure Msg Doctor Unassigned, Shelley [facility] 1.2840.114 350.1.13.10 4.2.7.2.686 [id number] [facility] 2021-01-18 00:00:00 2021-01-18 00:00:00 Telephone Provider, Ángel Hurtado Urgent Care [facility] 1.840.114 350.1.13.10 4.2.7.2.686 [id number] [facility] 2021-01-17 20:20:00 2021-01-17 20:20:00 Outpatient R [facility] [id number] [facility] 2021-01-17 17:17:52 2021-01-17 17:37:52 Urgent Care Provider, Ángel [facility] 1.840.114 350.1.13.10 4.2.7.2.686 [id number] [facility] 2021-01-17 17:20:00 2021-01-17 17:20:00 Outpatient R AHSAN, [facility] [id number] [facility] 2021-01-17 10:20:00 2021-01-17 10:20:00 Outpatient R GIN COTTO [facility] [id number] [facility] 2021-01-15 12:45:25 2021-01-15 13:00:25 Laboratory Only Only, Ángel Hurtado Test [facility]ithaylee [facility] 1..840.114 350.1.13.10 4.2.7.2.686 [id number] [facility] 2021-01-15 12:45:00 2021-01-15 12:45:00 Outpatient R [facility]ITA [facility] [id number] [facility] 2021-01-07 00:00:00 2021-01-07 00:00:00 Telephone Maryan Wood [facility] 1.840.114 350.1.13.10 4.2.7.2.686 [id number] [facility] 2021-01-06 09:29:16 2021-01-06 09:44:16 Laboratory Only Only, Ang Db Test Michael [facility]ynthia [facility] 1.2.840.114 350.1.13.10 4.2.7.2.686 [id number] [facility] 2021-01-06 09:30:00 2021-01-06 09:30:00 Outpatient R [facility] [id number] [facility] 2021-01-06 00:00:00 2021-01-06 00:00:00 Orders Only Doctor Unassigned, Shelley [facility] 1.2.840.114 350.1.13.10 4.2.7.2.686 [id number] [facility] 2020-12-25 00:00:00 2020-12-25 00:00:00 Telephone Maryan Wood [facility] 1.2.840.114 350.1.13.10 4.2.7.2.686 [id number] [facility] 2020-12-24 11:43:26 2020-12-24 12:03:26 Urgent Care Michael [facility] 1.2.840.114 350.1.13.10 4.2.7.2.686 [id number] [facility] 2020-12-24 11:40:00 2020-12-24 11:40:00 Outpatient R NEHEMIAH RODRIGUEZY [facility] [id number] [facility] 2020-12-18 16:15:00 2020-12-18 16:15:00 Outpatient R UNKNOWN, ATTENDING [facility] [id number] [facility] 2020-12-17 17:10:37 2020-12-17 17:20:37 Laboratory Only Only, Ang Db Test Kely Foreman [facility] 1.2.840.114 350.1.13.10 4.2.7.2.686 [id number] [facility] 2020-12-17 17:05:00 2020-12-17 17:05:00 Outpatient R DOROTA FOREMANTANY [facility] [id number] [facility] 2019-11-04 00:00:00 2019-11-04 00:00:00 Telephone [facility] 1.2.840.114 350.1.13.10 4.2.7.2.686 [id number] [facility] 2019-10-31 13:29:41 2019-10-31 15:05:00 Emergency Tierra Valentine [facility] 1.2.840.114 350.1.13.10 4.2.7.2.686 [id number] [facility] 2019-10-31 13:29:41 2019-10-31 13:29:41 Emergency X [facility]ERRA [facility] ERT [id number] [facility] Results Test Description Test Time Test Comments Results Result Co mments Source [facility] MOLECULAR [id number] 19:37:08* Test Item Value Reference Range Interpretation Comme nts POCT Molecular Strep (test c ode = 39604-4) Positive Negative A Lab Interpretation (test cod e = 21574-9) Abnormal [facility] MOLECULAR [id number] 19:37:08* Test Item Value Reference Range Interpretation Comme nts POCT Molecular Strep (test c ode = 58205-4) Positive Negative A Lab Interpretation (test cod e = 33426-8) Abnormal [facility] MOLECULAR [id number] 23:52:53* Test Item Value Reference Range Interpretation Comme nts POCT Molecular Strep (test c ode = 09116-0) Negative Negative Lab Interpretation (test cod e = 50847-2) Normal [facility] MOLECULAR [id number] 23:52:53* Test Item Value Reference Range Interpretation Comme nts POCT Molecular Strep (test c ode = 04680-7) Negative Negative Lab Interpretation (test cod e = 77560-9) Normal [facility] SARS-COV-2 ANTIGEN (BINAX NOW)2021-12-18 00:50:00* Test Item Value Reference Range Interpretation Comme nts POCT SARS-COV-2 ANTIGEN (mikie t code = 5076) Not Detected Not Detected On board controls acceptable with C Line (test code = 3574) Yes Lab Interpretation (test cod e = 39336-0) Normal [facility] MOLECULAR [id number] 00:48:55* Test Item Value Reference Range Interpretation Comme nts POCT Molecular Strep (test c ode = 00661-0) Negative Negative Lab Interpretation (test cod e = 32060-5) Normal [facility] MOLECULAR [id number] 17:22:34* Test Item Value Reference Range Interpretation Comme nts POCT Molecular FluA (test co de = 47476-7) Negative Negative POCT Molecular FluB (test co de = 83823-5) Negative Negative Lab Interpretation (test cod e = 76129-5) Normal [facility] MOLECULAR [id number] 02:03:18* Test Item Value Reference Range Interpretation Comme nts POCT Molecular FluA (test co de = 94213-5) Negative Negative POCT Molecular FluB (test co de = 90257-3) Negative Negative Lab Interpretation (test cod e = 68095-8) Normal [facility] MOLECULAR [id number] 01:54:18* Test Item Value Reference Range Interpretation Comme nts POCT Molecular Strep (test c ode = 98031-7) Positive Negative A Lab Interpretation (test cod e = 13018-4) Abnormal [facility] Notes Date/Time Note Provider Source 2023-11-06 01:10:50 Pt discharged with diagnosis of vertigo, hypomagnesemia, encouraged hydration. Printed and verbal instructions reviewed with and given to pt. Pt. verbalized understanding of teaching and recommended follow-up. Denies questions or concerns at this time. Pt ambulatory at discharge. Appears in no apparent distress. No ataxia noted. Advised to seek medical attention for new/prolonged/worsening of symptoms, Symptoms improved. No adverse reaction to meds given in ER noted upon discharge PIV d'cd, dressing to site, catheter in tact. Antonina Jesus RN [facility] 2023-11-05 21:25:21 CC: nausea, vomiting, dizziness, headache x symptoms began today at 9AM Pharmacy - [facility] in [place] Awake, alert, oriented, resp reg unlabored, skin intact, color appropriate for race, moves all ext without difficulty, amb into triage ERP present in triage Lali De León RN [facility] 2023-11-05 21:19:00 [facility] Emergency Department Note Patient Name: Fransisco Juarez Date of : 1985 38 year old male Treatment Room: Room/bed info not found Primary Care Physician: [facility] Patient Escorted by: Family [5] Mode of Arrival: Personal means [1] EMS Treatment Prior to ED Arrival: AUDIO VISUAL DIRECTOR treatment: Medication (comment) AUDIO VISUAL DIRECTOR treatment comments: pepto Travel and Exposure Screening: Symptoms Does patient have any of these symptoms?: (not recorded) Exposure Screening Has patient had contact with someone with a communicable disease in the last month?: (not recorded) Diseases exposed to:: (not recorded) Is Patient ?: (not recorded) Exposure Date: (not recorded) Chief Complaint: Chief Complaint Patient presents with Dizziness History of Present Illness: The patient presents from home with his for evaluation for episodes of dizziness where he feels like things are spinning and that he might fall down. He reports he is now having to hold onto the wall and objects in order to ambulate. He has intermittently had nausea and vomiting but has none currently. No sick contacts. No chest pain or pressure. No fevers or chills. He denies symptoms at this in the past. He does have a history of high blood pressure, high cholesterol as well as diabetes. Here for evaluation. Past Medical History/Immunizations: Past Medical History: Diagnosis Date Diabetes mellitus Esophageal reflux Hyperlipidemia Hypertension Tetanus received in last 5 years: Unknown Allergies: Allergies Allergen Reactions Metformin Diarrhea Past Social History: Tobacco Use Never smoked or used smokeless tobacco. Alcohol Use Yes. Comments: social Drug Use Not Currently. Past Surgical History: No past surgical history on file. Review of Systems: Review of Systems Constitutional: Negative for chills and fever. Respiratory: Negative for cough and shortness of breath. Cardiovascular: Negative for chest pain. Gastrointestinal: Positive for nausea and vomiting. Negative for abdominal pain. Genitourinary: Negative for dysuria. Musculoskeletal: Negative for arthralgias, neck pain and neck stiffness. Skin: Negative for wound. Neurological: Positive for dizziness. Psychiatric/Behavioral: Negative for agitation. Endocrine: Negative for goiter. Physical Exam: ED Triage Vitals Weight 11/05/232125 108.9 kg (240 lb) Actual or estimated 11/05/232125 Actual Height 11/05/232125 1.753 m (5' 9") BP 11/05/232125 (!) 144/107 Pulse 11/05/232125 77 Resp 11/05/232125 18 Temp 11/05/232125 36.6 ?C (97.9 ?F) Temp source 11/05/232125 Oral SpO2 11/05/239 97 % Measured on 11/05/232125 Room air Physical Exam Vitals and nursing note reviewed. Constitutional: Appearance: Normal appearance. He is obese. HENT: Head: Normocephalic and atraumatic. Cardiovascular: Rate and Rhythm: Normal rate and regular rhythm. Pulses: Normal pulses. Pulmonary: Effort: Pulmonary effort is normal. No respiratory distress. Breath sounds: No stridor. No wheezing or rhonchi. Abdominal: General: Abdomen is flat. There is no distension. Palpations: There is no mass. Tenderness: There is no abdominal tenderness. There is no guarding. Hernia: No hernia is present. Musculoskeletal: General: Normal range of motion. Cervical back: Normal range of motion and neck supple. Skin: General: Skin is warm. Neurological: General: No focal deficit present. Mental Status: He is alert and oriented to person, place, and time. Comments: Speech is clear. No facial symmetry. Handgrip right close left. Negative pronator drift bilaterally. Muscle strength is 5/5 to upper extremities and lower extremities bilaterally. Unsteady gait. Radiology: CT ANGIOGRAM HEAD Preliminary Result CT ANGIOGRAM HEAD, CT ANGIOGRAM NECK HISTORY: 38 years-old; Male; Transient ischemic attack (TIA) TECHNIQUE: CTA of the head and neck with coronal, sagittal reformats, and MIPS reconstruction was performed. COMPARISON: None available FINDINGS: CTA NECK: Aortic arch and arch vessel origins: Standard three- vessel aortic arch. The ostia of the great neck vessels are free of significant stenosis. Innominate and subclavian arteries: Innominate and subclavian arteries are patent with normal course. Common and internal cervical carotids: The common carotid arteries, carotid bulbs and cervical internal carotid arteries are patent. Vertebral arteries: Vertebral arteries originate normally from the subclavian arteries and are patent along their course. Cervical soft tissues: Unremarkable. Lung apices: Unremarkable. Cervical spine: No acute bony abnormality.. CTA HEAD: Left PICA origin is visualized. Right AICA-PICA variant is suspected. The basilar artery is normal in caliber. The superior cerebellar arteries are unremarkable. The posterior cerebral arteries are unremarkable. Bilateral P comms are not definitively visualized. The distal cervical, petrous, cavernous and supraclinoid internal carotid arteries are unremarkable. Hypoplastic right A1. The anterior and middle cerebral arteries are otherwise unremarkable. An anterior communicating artery is visualized. The dural venous sinuses are grossly patent. IMPRESSION No aneurysm or high-grade, flow-limiting stenosis of the intracranial or extracranial vessels. Preliminary Report Dictated by Resident: Wilfredo Alicea CT ANGIOGRAM NECK Preliminary Result CT ANGIOGRAM HEAD, CT ANGIOGRAM NECK HISTORY: 38 years-old; Male; Transient ischemic attack (TIA) TECHNIQUE: CTA of the head and neck with coronal, sagittal reformats, and MIPS reconstruction was performed. COMPARISON: None available FINDINGS: CTA NECK: Aortic arch and arch vessel origins: Standard three- vessel aortic arch. The ostia of the great neck vessels are free of significant stenosis. Innominate and subclavian arteries: Innominate and subclavian arteries are patent with normal course. Common and internal cervical carotids: The common carotid arteries, carotid bulbs and cervical internal carotid arteries are patent. Vertebral arteries: Vertebral arteries originate normally from the subclavian arteries and are patent along their course. Cervical soft tissues: Unremarkable. Lung apices: Unremarkable. Cervical spine: No acute bony abnormality.. CTA HEAD: Left PICA origin is visualized. Right AICA-PICA variant is suspected. The basilar artery is normal in caliber. The superior cerebellar arteries are unremarkable. The posterior cerebral arteries are unremarkable. Bilateral P comms are not definitively visualized. The distal cervical, petrous, cavernous and supraclinoid internal carotid arteries are unremarkable. Hypoplastic right A1. The anterior and middle cerebral arteries are otherwise unremarkable. An anterior communicating artery is visualized. The dural venous sinuses are grossly patent. IMPRESSION No aneurysm or high-grade, flow-limiting stenosis of the intracranial or extracranial vessels. Preliminary Report Dictated by Resident: Wilfredo Alicea CT HEAD WO CONTRAST Preliminary Result EXAM: CT HEAD WO CONTRAST HISTORY: 38 years-old Male; Provided indication: Transient ischemic attack (TIA). TECHNIQUE: Axial CT of the head was performed and reconstructed at 2.5 mm intervals. Coronal and sagittal reformatted images were generated. COMPARISON: None FINDINGS: The ventricles and cerebral sulci are normal in caliber and configuration. No midline shift or pathological extra-axial fluid collection is present. The basal cisterns are unremarkable. No acute intracranial hemorrhage or significant mass effect is visualized. No parenchymal attenuation abnormality is seen. The carrington-white matter differentiation is preserved. The mastoid air cells and visualized paranasal air sinuses are clear. The calvarium and central skull base are unremarkable. IMPRESSION No acute intracranial abnormality. Preliminary Report Dictated by Resident: Wilfredo Alicea Lab Results: Lab Results CBC WITH DIFF - Abnormal Result Value Ref Range WBC 11.52 (*) 4.20 - 10.70 10*3/?L RBC 4.89 4.26 - 5.52 10*6/?L HGB 14.2 12.2 - 16.4 g/dL HCT 42.7 38.4 - 49.3 % MCV 87.3 81.7 - 95.6 fL MCH 29.0 26.1 - 32.7 pg MCHC 33.3 31.2 - 35.0 g/dL RDW-SD 42.6 38.5 - 51.6 fL RDW-CV 13.5 12.1 - 15.4 % PLT 251 150 - 328 10*3/?L MPV 9.9 9.8 - 13.0 fL NRBC/100 WBC 0.0 0.0 - 10.0 /100 WBCs NRBC x10 3 <0.01 10*3/?L GRAN MAT (NEUT) % 62.8 % IMM GRAN % 0.30 % LYMPH % 23.7 % MONO % 8.6 % EOS % 3.8 % BASO % 0.8 % GRAN MAT x10 3 (ANC) 7.23 (*) 1.99 - 6.95 10*3/uL IMM GRAN x10 3 0.04 0.00 - 0.06 10*3/uL LYMPH x10 3 2.73 1.09 - 3.23 10*3/uL MONO x10 3 0.99 0.36 - 1.02 10*3/uL EOS x10 3 0.44 0.06 - 0.53 10*3/uL BASO x10 3 0.09 0.01 - 0.09 10*3/uL COMP. METABOLIC PANEL (56630) - Abnormal NA 137 135 - 145 mmol/L K 3.7 3.5 - 5.0 mmol/L CL 103 98 - 108 mmol/L CO2 TOTAL 24 23 - 31 mmol/L AGAP 10 2 - 16 BUN 11 7 - 23 mg/dL GLUCOSE 186 (*) 70 - 110 mg/dL CREATININE 0.75 0.60 - 1.25 mg/dL TOTAL BILI 1.5 (*) 0.1 - 1.1 mg/dL CALCIUM 9.3 8.6 - 10.6 mg/dL T PROTEIN 7.3 6.3 - 8.2 g/dL ALBUMIN 4.1 3.5 - 5.0 g/dL ALK PHOS 229 (*) 34 - 122 U/L ALTv 35 5 - 50 U/L AST(SGOT) 29 13 - 40 U/L eGFR 117.7 mL/min/1.73m2 URINALYSIS - Abnormal APPEARANCE Clear Clear COLOR Yellow Yellow PH 5.0 4.8 - 8.0 SP GRAVITY 1.024 1.003 - 1.030 GLU U QUAL Normal Normal BLOOD Negative Negative KETONES Negative Negative PROTEIN Negative Negative UROBILIN Normal Normal BILIRUBIN Negative Negative NITRITE Negative Negative LEUK PASTOR Negative Negative RBC/HPF 1 0 - 3 HPF WBC/HPF 1 0 - 5 HPF BACTERIA Negative Negative MUCOUS Slight (*) Negative LPF SQ EPITH <1 HPF MAGNESIUM - Abnormal MAGNESIUM 1.5 (*) 1.7 - 2.4 mg/dL EKG: If EKG completed, see Procedure Note. Orders and Treatments: Orders Placed This Encounter Procedures CT HEAD WO CONTRAST CT ANGIOGRAM HEAD CT ANGIOGRAM NECK CBC WITH DIFF COMP. METABOLIC PANEL (46094) URINALYSIS Magnesium Orders Placed This Encounter Medications NaCl 0.9% (NS) bolus infusion 1,000 mL diazePAM (VALIUM) injection 5 mg iopamidol (ISOVUE 370-500 mL) injection 80 mL magnesium sulfate in water 2 gram/50 mL (4 %) infusion 2 g diazePAM (VALIUM) 5 mg tablet First Provider Eval: ED Events Date/Time Event User Comments 11/05/232120 Medical Screening Begins ERICA VELASCO DO -- 11/05/232120 First Provider Evaluation ERICA VELASCO DO -- ED COURSE Diagnosis/Impression as of 11/06/23100 Vertigo Hypomagnesemia Procedures: Procedures MDM: Medical Decision Making The patient presents from home with his for evaluation for episodes of dizziness where he feels like things are spinning and that he might fall down. He reports he is now having to hold onto the wall and objects in order to ambulate. He has intermittently had nausea and vomiting but has none currently. No sick contacts. No chest pain or pressure. No fevers or chills. He denies symptoms at this in the past. He does have a history of high blood pressure, high cholesterol as well as diabetes. Vital signs are stable in the ER. He has an unsteady gait with attempting to ambulate. His speech is clear. No facial symmetry. Handgrip right close left. Muscle strength is 5/5 to upper extremities and lower extremities bilaterally. Differential diagnosis includes vertigo, TIA and less likely a stroke. Will give the patient IV fluids as well as IV Valium for SPECT vertigo. Will also obtain CT imaging of his head and neck. Final disposition pending. 0100 -the patient is doing well here in the ER. The CT of his head as well as CT angio of his head and neck showed no acute intracranial abnormalities. His laboratory studies show a low magnesium level which was replaced here in the ER. His urinalysis shows no infection. He reports his dizziness has resolved after the medications given here in the ER. The patient was able to get up and ambulate around the department without difficulty. He remained stable here in the ER and is okay for discharge home with PCP follow-up. Problems Addressed: Hypomagnesemia: acute illness or injury Vertigo: acute illness or injury Amount and/or Complexity of Data Reviewed Labs: ordered. Decision-making details documented in ED Course. Radiology: ordered. Decision-making details documented in ED Course. Risk Prescription drug management. Parenteral controlled substances. Flowsheet Documentation: Scoring Tools: No data recorded Disposition/Condition: ED Disposition ED Disposition Disch - Home Condition Stable Comment -- Discharge Medications: Patient's Medications START taking these medications DIAZEPAM (VALIUM) 5 MG TABLET Take 1 tablet by mouth 3 (three) times daily as needed for Muscle Spasms (vertigo). CONTINUE taking these medications which have NOT CHANGED ALBUTEROL 90 MCG/ACTUATION INHALER Inhale 2 Puffs every 6 (six) hours as needed for Wheezing or Bronchospasm. ASPIRIN 81 MG CHEWABLE TABLET ATORVASTATIN 80 MG TABLET FENOFIBRATE 145 MG TABLET TAKE ONE TABLET BY MOUTH DAILY FOR CHOLESTEROL GUAIFENESIN 400 MG TABLET Take 1 tablet by mouth every 4 (four) hours as needed for Cough. LOVAZA, [id number] ETHYL ESTERS, 1 GRAM CAPSULE TAKE TWO CAPSULES BY MOUTH TWICE A DAY METOPROLOL (LOPRESSOR) 10 MG/ML ORAL SUSPENSION METOPROLOL SUCCINATE XL 25 MG 24 HR TABLET OMEPRAZOLE 20 MG CAPSULE ONDANSETRON 4 MG DISINTEGRATING TABLET Take 1 tablet by mouth every 8 (eight) hours as needed for Nausea and Vomiting (N/V). PREDNISONE 5 MG TABLET SEMAGLUTIDE 0.25 MG OR 0.5 MG(2 MG/1.5 ML) PNIJ INJECT 0.25MG UNDER THE SKIN EVERY WEEK FOR 4 WEEKS, THEN INJECT 0.5MG EVERY WEEK SULFASALAZINE 500 MG EC TABLET START taking Modified Medications as Prescribed No medications on file STOP taking these medications No medications on file Follow-up: Electronically signed by: Erica Velasco DO 11/06/23100 T [facility]
--- NOTE | 2025-01-04 00:36 | EDPHYS ---
Physician Documentation [facility] Name: Fransisco Juarez Age: 39 yrs Sex: Male : 1985 Arrival Date: 01/03/2025 Time: 23:11 Bed DX3 Private MD: ED Physician Anthony Ferrer Historical: - Allergies: 01/04 00:06 cats; al5 00:06 metformin; al5 - PMHx: 00:06 Diabetes - NIDDM; Hypertension; Kidney stones; Migraines; Pneumonia; Rheumatoid al5 Arthritis; - PSHx: 00:06 Abd Abscess Removed; Knee Sugery; Stent Kidney (Stones); al5 - Immunization history:: Adult Immunizations up to date. - Infectious Disease History:: Denies. - Social history:: Smoking status: Patient denies any tobacco usage or history of. Vital Signs: 00:06 BP 120 / 73; Pulse 65; Resp 16; Temp 97.4(TE); Pulse Ox 98% on R/A; Weight 106.59 kg; al5 Height 5 ft. 9 in. ; 00:06 Body Mass Index 34.70 (106.59 kg, 175.26 cm) al5 MDM: 01/03 23:34 Medical Screening Exam initiated tt7 01/04 00:06 Order name: Glucose, Ancillary Testing; Complete Time: 07:17 EDMS 01/04 00:09 Order name: Glucose, Ancillary Testing EDMS 01/03 23:43 Order name: Glucose Level; Complete Time: 00:11 tt7 Administered Medications: No medications were administered Point of Care Testing: Blood Glucose: 01/04 00:06 Blood Glucose: 166 mg/dL; al5 Ranges: Critical Glucose Levels:Adult <50 mg/dl or >400 mg/dl <40 mg/dl or >180 mg/dl Disposition Summary: 01/04/25 00:36 Discharge Ordered Notes: Location: Home tt7 Problem: an acute exacerbation tt7 Symptoms: are resolved tt7 Condition: Stable tt7 Diagnosis - Drug-induced hypoglycemia without coma tt7 Followup: tt7 - With: Emergency Department - When: As needed - Reason: Followup: tt7 - With: Private Physician - When: 1 - 2 days - Reason: Recheck today's complaints, Re-evaluation by your physician Discharge Instructions: - Discharge Summary Sheet tt7 - Preventing Hypoglycemia tt7 Forms: - Work release form rv1 - Medication Reconciliation Form tt7 - Antibiotic Education tt7 - Prescription Opioid Use tt7 - Patient Portal Instructions tt7 - Leadership Thank You Letter tt7 Signatures: Dispatcher MedHoKari Gallego, RN RN al5 Anthony Ferrer DO DO tt7
--- NOTE | 2025-01-04 00:36 | ER ---
Nurse's Notes [facility] Name: Fransisco Juarez Age: 39 yrs Sex: Male : 1985 Arrival Date: 01/03/2025 Time: 23:11 Bed DX3 Private MD: Diagnosis: Drug-induced hypoglycemia without coma Presentation: 01/04 00:06 Chief complaint: Patient states: patient was experiencing shakiness, checked his dexcom al5 and it read 67. Coronavirus screen: At this time, the client does not indicate any symptoms associated with coronavirus-19. Ebola Screen: No symptoms or risks identified at this time. Initial Sepsis Screen: Does the patient meet any 2 criteria? No. Patient's initial sepsis screen is negative. Does the patient have a suspected source of infection? No. Patient's initial sepsis screen is negative. Risk Assessment: Do you want to hurt yourself or someone else? Patient reports no desire to harm self or others. Onset of symptoms was January 04, 2025. 00:06 Method Of Arrival: EMS: [facility] al5 00:06 Acuity: AMILCAR 5 al5 Triage Assessment: 00:06 General: Appears in no apparent distress. comfortable, Behavior is calm, cooperative. al5 Pain: Denies pain. EENT: No signs and/or symptoms were reported regarding the EENT system. Neuro: Level of Consciousness is awake, alert, obeys commands, Oriented to person, place, time, situation. Cardiovascular: Capillary refill < 3 seconds Patient's skin is warm and dry. Respiratory: Airway is patent Respiratory effort is even, unlabored, Respiratory pattern is regular, symmetrical. GI: No signs and/or symptoms were reported involving the gastrointestinal system. : No signs and/or symptoms were reported regarding the genitourinary system. Derm: Skin is intact, is healthy with good turgor, Skin is pink, warm \T\ dry. normal. Musculoskeletal: Circulation, motion, and sensation intact. Range of motion: intact in all extremities. Historical: - Allergies: 00:06 cats; al5 00:06 metformin; al5 - PMHx: 00:06 Diabetes - NIDDM; Hypertension; Kidney stones; Migraines; Pneumonia; Rheumatoid al5 Arthritis; - PSHx: 00:06 Abd Abscess Removed; Knee Sugery; Stent Kidney (Stones); al5 - Immunization history:: Adult Immunizations up to date. - Infectious Disease History:: Denies. - Social history:: Smoking status: Patient denies any tobacco usage or history of. Screenin:06 [facility] ED Fall Risk Assessment (Adult) History of falling in the last 3 months, al5 including since admission No falls in past 3 months (0 pts) Confusion or Disorientation No (0 pts) Intoxicated or Sedated No (0 pts) Impaired Gait No (0 pts) Mobility Assist Device Used No (0 pt) Altered Elimination No (0 pt) Score/Fall Risk Level 0 - 2 = Low Risk Oriented to surroundings, Maintained a safe environment, Hourly rounding (assess needs \T\ fall precautionary measures) done. Abuse screen: Denies threats or abuse. Denies injuries from another. Nutritional screening: No deficits noted. Tuberculosis screening: No symptoms or risk factors identified. Assessment: 00:06 Reassessment: see triage assessment. al5 Vital Signs: 00:06 BP 120 / 73; Pulse 65; Resp 16; Temp 97.4(TE); Pulse Ox 98% on R/A; Weight 106.59 kg; al5 Height 5 ft. 9 in. ; 00:06 Body Mass Index 34.70 (106.59 kg, 175.26 cm) al5 ED Course: 01/03 23:27 Patient arrived in ED. gm2 23:34 Anthony Ferrer DO is Attending Physician. tt7 01/04 00:06 Arm band placed on right wrist. Patient placed in waiting room, in view of staff al5 members. 00:06 Patient has correct armband on for positive identification. al5 00:06 No provider procedures requiring assistance completed. Patient did not have IV access al5 during this emergency room visit. 00:10 Kari Dejesus, RAGHAVENDRA is Primary Nurse. al5 00:13 Triage completed. al5 00:43 Provided Education on: discharge follow up. vc1 Administered Medications: No medications were administered Medication: 00:06 VIS not applicable for this client. al5 Point of Care Testing: Blood Glucose: 00:06 Blood Glucose: 166 mg/dL; al5 Ranges: Outcome: 00:36 Discharge ordered by MD. tt7 00:43 Discharged to home ambulatory, with significant other, vc1 00:43 Condition: good 00:43 Discharge instructions given to patient, Instructed on discharge instructions, follow up and referral plans. Demonstrated understanding of instructions, follow-up care, 00:54 Patient left the ED. vc1 Signatures: Jenny Moser RN RN vc1 Rajani Powers gm2 Kari Dejesus RN RN al5 Anthony Ferrer DO DO tt7
[2025-01-04 01:17] VITALS: BP 120/73; TEMP 97.4; O2SAT 98
== END 2025-01-04 00:54 | disposition home or self-care (01) ==
LOC: ER 23:11
DX: E11.649 Type 2 diabetes mellitus with hypoglycemia without coma (principal)
CPT/HCPCS: 82947; 99283